=== PATIENT | female | born 1965 | race Caucasian/White ===

== ENCOUNTER → 2016-05-21 | Outpatient (CLI) | payer OTHER ==
[~2016-05-21] MED LIST: ALBUAER19 INH; AMOX500C3 PO; CHOL2000 PO; CLC/300 PO; CYCL5TAB PO; EPP3 IM; FENT25DI2 TD; FURO40TA3 PO; INSDGIPEN SC; INSUINJ34 SQ; LIRA18IN SUBCON; LPT/40 PO; MCRK20 PO; METO-551 PO; OMEP20TA PO; OXYC-106 PO; OXYC-59 PO; POLY335040 PO; QUET1TAB37 PO; ROPI1TAB PO; RQP2 PO
[2016-05-21 18:54] LABS: PREALBUMIN 14.8 mg/dl (20-40)
[2016-05-22 06:23] LABS: ESTIMATED AVERAGE GLUCOSE 243 mg/dl; HA1C FLAG Normal (Normal)
--- NOTE | 2016-05-24 06:57 | CODING QUERY NO DIAGNOSIS ---
Valid Physician Order Needed A valid physician order must be submitted in order to properly bill for the service(s) provided, including date of service(s), valid diagnosis, and physician signature. If these tests are done on a recurring basis the original physican order must be submitted in order to code and bill for the service(s) provided. Please fax us the original, signed physician order so that we may expedite billing to [phone] DOS 05/21/16 * ALBUMIN, PREALBUMIN, HEMOGLOBIN A1C ORDERED BY DR. SARMIENTO Thank you Rocio [facility]
--- NOTE | 2016-06-22 08:45 | CODING QUERY NO DIAGNOSIS ---
TREATMENT RENDERED WITHOUT A DIAGNOSIS To promote full compliance with coding requirements relating to patient care, physician participation is requested in all cases of auditing coder uncertainty. Please assist us with providing a diagnosis/symptom for the test(s) below: A diagnosis/symptom was not documented on your Order. A valid diagnosis/symptom is required to bill all insurances. Please remember that we are unable to code a diagnosis of rule out, probable, possible, questionable, or suspected. Tests that require a diagnosis: DOS: 05/21/16 * ALBUMIN DIAGNOSIS: * PREALBUMIN DIAGNOSIS: * HEMOGLOBIN A1C DIAGNOSIS: Provider Signature: Date: Thank you Rocio Andres [facility] Information Management Once completed, please kindly fax back to [phone] For questions please call [phone]
== END | disposition home or self-care (01) ==
LOC: C.LABSPEC 12:47
PROVIDERS: ATTEND Emergency Medicine
DX: E11.622 Type 2 diabetes mellitus with other skin ulcer (principal)

== ENCOUNTER → 2016-06-29 | Outpatient (CLI) | payer OTHER ==
[~2016-06-29] MED LIST changes: -CLC/300 PO
[2016-06-29 17:55] LABS: ALT/SGPT 25 U/L (12-78); BLOOD UREA NITROGEN 9 mg/dl (7-18); BUN/CREATININE RATIO 9.2 (10-20); CALCIUM 8.9 mg/dl (8.5-10.1); CARBON DIOXIDE 34 mmol/L (21-32); CHLORIDE 98 mmol/L (98-107); CREATININE 0.98 mg/dl (0.60-1.20); GLUCOSE 207 mg/dl (70-99); POTASSIUM 3.9 mmol/L (3.5-5.1); SODIUM 138 mmol/L (136-145)
[2016-06-29 17:58] LABS: ALB/GLOB RATIO 0.7 (0.9-2); ALKALINE PHOSPHATASE 61 U/L (45-117); AST/SGOT 18 U/L (15-37); CHOLESTEROL 140 mg/dl (0-200); CHOLESTEROL/HDL RATIO 5.2; HDL CHOLESTEROL 27 mg/dl; LDL CHOLESTEROL CALCULATED 79 mg/dl; TRIGLYCERIDES 169 mg/dl (0-150); VERY LOW DENSITY LIPOPROT CALC 34 mg/dl
[2016-06-30 06:11] LABS: ESTIMATED AVERAGE GLUCOSE 223 mg/dl; HA1C FLAG Normal (Normal)
== END | disposition home or self-care (01) ==
LOC: C.LABPVFM 16:00
PROVIDERS: ATTEND Nurse Practitioner
DX: I10 Essential (primary) hypertension (principal); E78.5 Hyperlipidemia, unspecified; E11.9 Type 2 diabetes mellitus without complications; E55.9 Vitamin D deficiency, unspecified

== ENCOUNTER → 2017-04-12 | Outpatient (CLI) | payer OTHER ==
[2017-04-12 18:12] LABS: ALT/SGPT 12 U/L (12-78); AST/SGOT 8 U/L (15-37); BLOOD UREA NITROGEN 10 mg/dl (7-18); BUN/CREATININE RATIO 8.6 (10-20); CALCIUM 8.5 mg/dl (8.5-10.1); CARBON DIOXIDE 32 mmol/L (21-32); CHLORIDE 97 mmol/L (98-107); CREATININE 1.15 mg/dl (0.60-1.20); GLUCOSE 163 mg/dl (70-99); POTASSIUM 3.8 mmol/L (3.5-5.1); SODIUM 135 mmol/L (136-145)
[2017-04-12 18:13] LABS: ALB/GLOB RATIO 0.7 (0.9-2); ALKALINE PHOSPHATASE 64 U/L (45-117); CHOLESTEROL 98 mg/dl (0-200); CHOLESTEROL/HDL RATIO 4.9; HDL CHOLESTEROL 20 mg/dl; LDL CHOLESTEROL CALCULATED 55 mg/dl; TRIGLYCERIDES 116 mg/dl (0-150); VERY LOW DENSITY LIPOPROT CALC 23 mg/dl
[2017-04-13 06:34] LABS: ESTIMATED AVERAGE GLUCOSE 169 mg/dl; HA1C FLAG Normal (Normal)
== END | disposition home or self-care (01) ==
LOC: C.LABPVFM 11:56
PROVIDERS: ATTEND Nurse Practitioner
DX: E78.5 Hyperlipidemia, unspecified (principal); I10 Essential (primary) hypertension; E11.9 Type 2 diabetes mellitus without complications; E55.9 Vitamin D deficiency, unspecified

== ENCOUNTER 2017-08-26 13:44 | Emergency (ER) | payer OTHER ==
[~2017-08-26] VITALS: Ht 180.3 cm; Wt 181.3 kg
[~2017-08-26 13:44] MED LIST changes: -OXYC-106 PO; +OXYC10TA80 PO
[2017-08-26 14:01] VITALS: TEMP 37.3; Ht 180.3 cm; Wt 181.3 kg
[2017-08-26] MEDS ORDERED: ALBUT/IPRATROP 3MG/0.5MG NEB 3 ML VIAL INH STA (14:03)
[2017-08-26 14:23] VITALS: O2SAT 96
--- NOTE | 2017-08-26 14:28 | DIAGNOSTIC IMAGING REPORT ---
CHEST ONE VIEW PORTABLE CLINICAL HISTORY: 51 years-old Female presenting with sob. TECHNIQUE: Portable upright AP view of the chest was obtained. COMPARISON: 05/03/2014. FINDINGS: Atherosclerosis of aortic arch. Cardiac silhouette enlarged. Pulmonary vascular prominence. No focal opacity. No large effusion or pneumothorax. Osseous structures normal. IMPRESSION: 1. Cardiomegaly with pulmonary vascular prominence/congestive change. No fernie pulmonary edema. Electronically signed by: David Hsu M.D. 08/26/2017 2:27 PM Dictated Date/Time: 08/26/2017 2:26 PM
[2017-08-26 15:07] LABS: INR 1.1 (0.9-1.1); PTT PATIENT 27.2 SECONDS (21.0-31.0)
[2017-08-26 15:17] LABS: ALBUMIN 3.5 gm/dl (3.4-5.0); ALT/SGPT 14 U/L (12-78); AST/SGOT 11 U/L (15-37); BLOOD UREA NITROGEN 11 mg/dl (7-18); CALCIUM 8.9 mg/dl (8.5-10.1); CARBON DIOXIDE 36 mmol/L (21-32); CREATININE 0.92 mg/dl (0.60-1.20); GLUCOSE 196 mg/dl (70-99); POTASSIUM 3.8 mmol/L (3.5-5.1); SODIUM 134 mmol/L (136-145)
[2017-08-26 15:21] LABS: ALKALINE PHOSPHATASE 63 U/L (45-117); CKMB 0.7 ng/ml (0.5-3.6); TOTAL PROTEIN 8.6 gm/dl (6.4-8.2)
[2017-08-26] MEDS ORDERED: OXYCODONE/ACETAMINOPHEN 5-325 TAB PO STA (16:08)
[2017-08-26] MEDS ORDERED: OPTIRAY 320 IV PRN (16:15)
[2017-08-26 16:39] LABS: BASO % 0.5 %; BASO ABS # 0.03 K/uL (0-0.2); EOS % 1.4 %; EOS ABS # 0.08 K/uL (0-0.5); HEMATOCRIT 39.5 % (37-47); HEMOGLOBIN 11.5 g/dL (12.0-16.0); IG# 0.01 K/uL (0.00-0.02); LYMPH % 28.2 %; LYMPH ABS # 1.59 K/uL (1.2-3.4); MEAN CELL VOLUME 79.2 fL (80-100); MEAN CORPUSCULAR HGB CONC 29.1 g/dl (32-36); MEAN PLATELET VOLUME 8.8 fL (7.4-10.4); MONO ABS # 0.62 K/uL (0.11-0.59); NEUT % 58.7 %; PLATELET COUNT 203 K/uL (130-400); RED CELL DISTRIBUTION WIDTH CV 19.7 % (11.5-14.5); WHITE BLOOD COUNT 5.63 K/uL (4.8-10.8)
[2017-08-26] MEDS ORDERED: FRS/40 PO (17:43)
[2017-08-26] MEDS ORDERED: NRN400 PO (17:43)
[2017-08-26] MEDS ORDERED: INSU100I23 SQ (17:43)
[2017-08-26] MEDS ORDERED: DRGTP12 TD (17:43)
[2017-08-26] MEDS ORDERED: APDI SC (17:43)
[2017-08-26] MEDS ORDERED: QUET1TAB37 PO (17:43)
[2017-08-26] MEDS ORDERED: VNTHFA/IN INH (17:43)
[2017-08-26] MEDS ORDERED: GABA-1220 PO (17:43)
[2017-08-26] MEDS ORDERED: LIRA18IN SQ (17:43)
[2017-08-26] MEDS ORDERED: CYCL5TAB PO (17:43)
[2017-08-26] MEDS ORDERED: OXYC10TA80 PO (17:43)
[2017-08-26] MEDS ORDERED: OMEP-331 PO (17:43)
[2017-08-26] MEDS ORDERED: METO50TA16 PO (17:43)
[2017-08-26] MEDS ORDERED: CHOLCAP2 PO (17:43)
[2017-08-26] MEDS ORDERED: ROPI1TAB PO ×2 (17:43)
[2017-08-26] MEDS ORDERED: POTA-639 PO (17:43)
--- NOTE | 2017-08-26 20:14 | DIAGNOSTIC IMAGING REPORT ---
(CHEST FOR PE) ANGIO WITH CT DOSE: 823.24 mGy.cm HISTORY: Chest pain. Dyspnea. TECHNIQUE: Multiaxial CT images of the chest were performed following the intravenous administration of contrast to evaluate the pulmonary arteries. Maximal intensity projection images were also obtained. A dose lowering technique was utilized adhering to the principles of ALARA. COMPARISON STUDY: None. FINDINGS: Limited study technically due to patient body habitus as well as respiratory and somatic motion. Bulk of the arterial vasculature enhances appropriately. There are no major filling defect. There are several reactive mediastinal and/or hilar nodes measuring up to 1 cm. Lungs are considered clear. There are no focal infiltrative changes. Limited evaluation of the upper abdomen shows presence of moderate hepatomegaly as well as mild splenomegaly. IMPRESSION: 1. No evidence for pulmonary embolus. 2. Lungs are clear. 3. Mild hepatosplenomegaly. The above report was generated using voice recognition software. It may contain grammatical, syntax or spelling errors. Electronically signed by: Walker Magaña M.D. 08/26/2017 5:59 PM Dictated Date/Time: 08/26/2017 5:56 PM
--- NOTE | 2017-08-26 20:18 | EMERGENCY ROOM VISIT NOTE ---
History Report prepared by Bebeto: Kyler jose Under the Supervision of: Dr. Lincoln Emerson D.O. First contact with patient: 13:47 Stated Complaint: RESPIRATORY History of Present Illness The patient is a 51 year old female who presents to the Emergency Room via ALS with complaints of worsening shortness of breath that was first noticed this morning. The patient states that she has been experiencing a cough for the past couple of days. The cough is producing a "greyish" mucous. Her daughter at bedside notes that her O2 levels dropped down to 79% while the patient was at rest, and then to 65% while the patient was walking to the restroom. She does have O2 at home, but only uses it as needed. The patient has had the home O2 since being evaluated for sleep apnea. Source of History: patient Onset: This morning Position: chest Symptom Intensity: 69% O2 sat Quality: other (SOB) Timing: worsening Associated Symptoms: + cough Review of Systems See HPI for pertinent positives & negatives. A total of 10 systems reviewed and were otherwise negative. Past Medical & Surgical Medical Problems: (1) ANXIETY STATE NOS (2) BODY MASS INDEX 40 AND OVER, ADULT (3) CHRONIC KIDNEY DISEASE, UNSPECIFIED (4) DIAB GIOVANNI WO COMPL, TYPE II OR UNSPEC TYPE, UNCONTROLLED (5) ESOPHAGEAL REFLUX (6) FAM HX-DIABETES MELLITUS (7) FAMILY HX-MALIGNANCY NOS (8) HYPERLIPIDEMIA NEC/NOS (9) HYPERTENSION NOS (10) LUMBAGO (11) MORBID OBESITY (12) OPIOID DEPENDENCE-UNSPEC (13) OSTEOARTHROS NOS-L/LEG (14) TOBACCO USE DISORDER Social History Smoking Status: Current Every Day Smoker Alcohol Use: none Drug Use: none Marital Status: Housing Status: lives with family Occupation Status: disabled Current/Historical Medications Scheduled Cholecalciferol (D3-50), 50,000 CAP PO WK Cyclobenzaprine Hcl (Flexeril), 5 MG PO TID Fentanyl (Fentanyl), 12 MCG TD [id number] Furosemide (Lasix), 60 MG PO DAILY Gabapentin (Gabapentin), 400 MG PO BID Gabapentin (Neurontin), 800 MG PO HS Insulin Glargine (Basaglar Kwikpen), 50 UNITS SQ BID Insulin Glulisine (Apidra Solostar), 50 UNITS SC BID Liraglutide (Victoza), 1-2 UNITS SQ DAILY Metoprolol Tartrate (Lopressor) (Lopressor), 50 MG PO DAILY Omeprazole (Omeprazole Dr), 20 MG PO BID Potassium Ext Rel (Klor-Con), 20 MEQ PO DAILY Quetiapine Fumarate (Seroquel), 300 MG PO BID Ropinirole (Requip), 1 MG PO BID Ropinirole (Requip), 2 MG PO HS Scheduled PRN Albuterol Hfa (Ventolin Hfa), 2-4 PUFFS INH Q6H PRN for Shortness of Breath Oxycodone/Acetaminophen 10MG/325MG (Percocet 10MG/325MG), 1 TAB PO QID PRN for Pain Allergies Coded Allergies: BEE STING (Verified Allergy, Mild, 08/26/17) Hydrocodone (Verified Adverse Reaction, Intermediate, itching, 08/26/17) itching Physical Exam Vital Signs Date Time Temp Pulse Resp B/P (MAP) Pulse Ox O2 Delivery O2 Flow Rate FiO2 08/26/17 17:51 73 155/72 93 Nasal Cannula 2.0 Manual 08/26/17 15:52 70 22 137/65 92 Nasal Cannula 4.0 08/26/17 14:23 96 Nasal Cannula 5.0 08/26/17 14:23 93 Nasal Cannula 5.0 08/26/17 14:02 93 Nasal Cannula 5.0 08/26/17 14:01 37.3 74 24 149/64 82 Room Air 08/26/17 14:01 82 Room Air Physical Exam CONSTITUTIONAL/VITAL SIGNS: Reviewed / noted above. GENERAL: Non-toxic in appearance. INTEGUMENTARY: Warm, dry, and [place]. HEAD: Normocephalic. EYES: without scleral icterus or trauma. ENT/OROPHARYNX: clear and moist. LYMPHADENOPATHY/NECK: Is supple without lymphadenopathy or meningismus. RESPIRATORY: Diminished breath sounds bilaterally. CARDIOVASCULAR: Regular rate and rhythm. GI/ABDOMEN: Soft and nontender. No organomegaly or pulsatile mass. No rebound or guarding. Normal bowel sounds. EXTREMITIES: Warm and well perfused. Chronic bilateral lower extremity edema. BACK: No CVA tenderness. NEUROLOGICAL: Intact without focal deficits. PSYCHIATRIC: normal affect. MUSCULOSKELETAL: Normally developed with good muscle tone. Medical Decision & Procedures ER Provider Diagnostic Interpretation: Radiology results as stated below per my review and radiologist interpretation: CHEST ONE VIEW PORTABLE CLINICAL HISTORY: 51 years-old Female presenting with sob. TECHNIQUE: Portable upright AP view of the chest was obtained. COMPARISON: 05/03/2014. FINDINGS: Atherosclerosis of aortic arch. Cardiac silhouette enlarged. Pulmonary vascular prominence. No focal opacity. No large effusion or pneumothorax. Osseous structures normal. IMPRESSION: 1. Cardiomegaly with pulmonary vascular prominence/congestive change. No fernie pulmonary edema. Electronically signed by: David Hsu M.D. 08/26/2017 2:27 PM Dictated Date/Time: 08/26/2017 2:[address] scan of the chest for PE: Impression by radiologist: No evidence for pulmonary emboli. Lungs are clear. Mild hepatosplenomegaly. Laboratory Results 08/26/17 14:30 Red Blood Count 4.99, Mean Corpuscular Volume 79.2, Mean Corpuscular Hemoglobin 23.0, Mean Corpuscular Hemoglobin Concent 29.1, Mean Platelet Volume 8.8, Neutrophils (%) (Auto) 58.7, Lymphocytes (%) (Auto) 28.2, Monocytes (%) (Auto) 11.0, Eosinophils (%) (Auto) 1.4, Basophils (%) (Auto) 0.5, Neutrophils # (Auto ) 3.30, Lymphocytes # (Auto) 1.59, Monocytes # (Auto) 0.62, Eosinophils # (Auto ) 0.08, Basophils # (Auto) 0.03 08/26/17 14:30 Test 08/26/17 14:30 08/26/17 17:44 White Blood Count 5.63 K/uL (4.8-10.8) Red Blood Count 4.99 M/uL (4.2-5.4) Hemoglobin 11.5 g/dL (12.0-16.0) Hematocrit 39.5 % (37-47) Mean Corpuscular Volume 79.2 fL (80-100) Mean Corpuscular Hemoglobin 23.0 pg (25-34) Mean Corpuscular Hemoglobin Concent 29.1 g/dl (32-36) Platelet Count 203 K/uL (130-400) Mean Platelet Volume 8.8 fL (7.4-10.4) Neutrophils (%) (Auto) 58.7 % Lymphocytes (%) (Auto) 28.2 % Monocytes (%) (Auto) 11.0 % Eosinophils (%) (Auto) 1.4 % Basophils (%) (Auto) 0.5 % Neutrophils # (Auto) 3.30 K/uL (1.4-6.5) Lymphocytes # (Auto) 1.59 K/uL (1.2-3.4) Monocytes # (Auto) 0.62 K/uL (0.11-0.59) Eosinophils # (Auto) 0.08 K/uL (0-0.5) Basophils # (Auto) 0.03 K/uL (0-0.2) RDW Standard Deviation 57.0 fL (36.4-46.3) RDW Coefficient of Variation 19.7 % (11.5-14.5) Immature Granulocyte % (Auto) 0.2 % Immature Granulocyte # (Auto) 0.01 K/uL (0.00-0.02) Microcytosis PRESENT Prothrombin Time 11.4 SECONDS (9.0-12.0) Prothromb Time International Ratio 1.1 (0.9-1.1) Activated Partial Thromboplast Time 27.2 SECONDS (21.0-31.0) Partial Thromboplastin Ratio 1.0 Anion Gap 4.0 mmol/L (3-11) Est Creatinine Clear Calc Drug Dose 134.3 ml/min Estimated GFR () 84.7 Estimated GFR (Non- 73.1 BUN/Creatinine Ratio 12.3 (10-20) Calcium Level 8.9 mg/dl (8.5-10.1) Total Bilirubin 0.6 mg/dl (0.2-1) Aspartate Amino Transf (AST/SGOT) 11 U/L (15-37) Alanine Aminotransferase (ALT/SGPT) 14 U/L (12-78) Alkaline Phosphatase 63 U/L (45-117) Total Creatine Kinase 74 U/L (26-192) Creatine Kinase MB 0.7 ng/ml (0.5-3.6) Creatine Kinase MB Ratio 0.9 (0-3.0) Troponin I < 0.015 ng/ml (0-0.045) Total Protein 8.6 gm/dl (6.4-8.2) Albumin 3.5 gm/dl (3.4-5.0) Globulin 5.1 gm/dl (2.5-4.0) Albumin/Globulin Ratio 0.7 (0.9-2) Bedside Glucose 247 mg/dl (70-90) Laboratory results as stated above per my review. Medications Administered Medications (Trade) Dose Ordered Sig/Pierce Route Start Time Stop Time Status Last Admin Dose Admin Albuterol/ Ipratropium (Duoneb) 3 ml NOW STAT INH 08/26/17 14:03 08/26/17 14:05 DC 08/26/17 14:24 3 ML Oxycodone/ Acetaminophen (Percocet 5-325mg Tab) 1 tab NOW STAT PO 08/26/17 16:08 08/26/17 16:09 DC 08/26/17 16:25 1 TAB ECG Per My Interpretation Indication: weakness Rate (beats per minute): 70 Rhythm: normal sinus Findings: RBBB, other (No BENNETT, no PVCs) ED Course 1359: Previous medical records were reviewed. The patient was evaluated in room C2B. A complete history and physical examination was performed. 1403: Ordered DuoNeb 3 mL INH. 1608: Ordered Oxycodone 1 tablet PO. Medical Decision Differentials considered include acute myocardial infarction, acute coronary syndrome, myocarditis, pericarditis, pericardial effusions /tamponade, esophageal perforation, pulmonary embolism, pneumonia, pneumothorax, cardiomyopathy, congestive heart, anemia, and COPD/asthma exacerbation. This is a 51-year-old female who presents to the ED with a chief complaint of shortness of breath, cough and low pulse ox. The patient does not use home oxygen regularly. She does have it at home for use at night for sleep apnea. The patient reports that she has had increasing shortness of breath and cough over the past couple of days. The patient states that she had 79% saturations at home and 65% after exerting herself going to the bathroom and walking back to her room. She otherwise does not report any fevers, chest pains or other symptoms. The patient on exam is obese. She is noted to have oxygen saturation of 82% on room air here. She has chronic lower extremity edema. Diminished breath sounds bilaterally. Chest x-ray reveals some findings suggesting vascular prominence but otherwise no acute disease. Troponin was negative, complete metabolic panel is unremarkable, glucose was slightly elevated at 196 and an EKG shows a normal sinus rhythm with a right bundle branch block. A CT scan of the chest did not show any acute abnormality. After talking to the patient about her symptoms, she seems to be fine when using some supplemental oxygen of 2-3 L. Her oxygen saturations in the mid 90s on 2 L. The patient would like to go home. She was advised to use the oxygen as needed to maintain her oxygen saturations above 90%. She does have a pulse ox at home. She was also advised to use oxygen while exerting herself and to follow-up with her PCP for further evaluation. She does have inhalers at home. On her current exam, her lungs are clear. She is in no distress. I suspect that her symptoms are likely multifactorial including a large factor being her size and restrictive lung disease. Impression Primary Impression: Shortness of breath Additional Impression: Restrictive airway disease Scribe Attestation The scribe's documentation has been prepared under my direction and personally reviewed by me in its entirety. I confirm that the note above accurately reflects all work, treatment, procedures, and medical decision making performed by me. Departure Information Referrals Nuha Welch C.R.N.P (PCP) Additional Instructions Follow-up with your doctor for further care and evaluation in 1-4 days. Return to the emergency department for worsening or new symptoms or any concerns. You have been examined and treated today on an emergency basis only. This is not a substitute for, or an effort to provide, complete comprehensive medical care. It is impossible to recognize and treat all injuries or illnesses in a single emergency department visit. It is therefore important that you follow up closely with your doctor. Call as soon as possible for an appointment. Use oxygen as needed at home to maintain oxygen saturations above 90%. Problem Qualifiers
[2017-08-26 20:51] VITALS: BP 138/70; PULSE 70; O2SAT 93
== END 2017-08-26 20:52 | disposition home or self-care (01) ==
LOC: EDBD 13:44 → C.EDC 13:46
DX: J45.909 Unspecified asthma, uncomplicated (principal); F41.9 Anxiety disorder, unspecified; N18.9 Chronic kidney disease, unspecified; I12.9 Hypertensive chronic kidney disease with stage 1 through stage 4 chronic kidney disease, or unspecified chronic kidney disease; K21.9 Gastro-esophageal reflux disease without esophagitis; G47.30 Sleep apnea, unspecified; E78.5 Hyperlipidemia, unspecified; I45.10 Unspecified right bundle-branch block; E66.01 Morbid (severe) obesity due to excess calories; Z68.41 Body mass index [BMI] 40.0-44.9, adult; F17.210 Nicotine dependence, cigarettes, uncomplicated; Z83.3 Family history of diabetes mellitus; Z80.9 Family history of malignant neoplasm, unspecified; Z79.899 Other long term (current) drug therapy; Z79.84 Long term (current) use of oral hypoglycemic drugs; Z88.5 Allergy status to narcotic agent; Z91.030 Bee allergy status

== ENCOUNTER → 2017-11-22 | Outpatient (CLI) | payer OTHER ==
[~2017-11-22] MED LIST changes: -ALBUAER19 INH; -AMOX500C3 PO; +APDI SC; -CHOL2000 PO; +CHOLCAP2 PO; +DRGTP12 TD; -EPP3 IM; -FENT25DI2 TD; +FRS/40 PO; -FURO40TA3 PO; +GABA-1220 PO; -INSDGIPEN SC; +INSU100I23 SQ; -INSUINJ34 SQ; +LIRA18IN SQ; -LIRA18IN SUBCON; -LPT/40 PO; -MCRK20 PO; -METO-551 PO; +METO50TA16 PO; +NRN400 PO; +OMEP-331 PO; -OMEP20TA PO; -OXYC-59 PO; +OXYC-594 PO; -OXYC10TA80 PO; -POLY335040 PO; +POTA-639 PO; -RQP2 PO; +VNTHFA/IN INH
--- NOTE | 2017-11-26 15:06 | ECHOCARDIOGRAM REPORT ---
*NOTICE TO RECEIVING DEMOCRAT AGENCY This information is strictly Confidential and protected under [place] law. [place] law prohibits you from making any further disclosure of this information unless further disclosure is expressly permitted by the written consent of the person to whom it pertains or is authorized by law. A general authorization for the release of medical or other information is not sufficient for this purpose. Hospital accepts no responsibility if the information is made available to any other person, INCLUDING THE PATIENT. Interpretation Summary * Name: ZHAO GREGORY Study Date: 11/22/2017 12:47 PM * Patient Location: [facility], [place] HR: 77 * : 1965 (M/d/yyyy) Gender: Female Height: 71 in * Age: 51 yrs Ethnicity: [place] Weight: 350 lb * Ordering Physician: Serene Felipe * Referring Physician: Serene Felipe PA-C * Performed By: Zahra Mosher RDCS * * Reason For Study: DYSPNEA * BSA: 2.7 m2 * -- Conclusions -- * Technically limited study. * Left ventricular systolic function is normal. * No regional wall motion abnormalities noted. * Ejection Fraction = 55-60%. Procedure Details * The study was technically limited. * The study was technically difficult. * Limited views were obtained. * There were technical limitations due to patient'sbody habitus * A contrast injection of Definity was performed to improve assessment of LV function. * Contrast was injected into an intravenous site in the left arm. * One vial of Definity ultrasound contrast was diluted in normal saline to a total volume of 10 ml. A total of '3' ml of solution was administered during imaging. * Lot # [id number] of Definity utilized for procedure. * Expiration date 11/14. * The attending nurse who injected the contrast agent was TORIN CLARKE RN. Left Ventricle * The left ventricle is grossly normal size. * There is normal left ventricular wall thickness. * Ejection Fraction = 55-60%. * Left ventricular systolic function is normal. * No regional wall motion abnormalities noted. Right Ventricle * The right ventricle is not well visualized. Atria * The left atrium is mildly dilated. * Right atrium not well visualized. * The atrial septum is not well visualized. Mitral Valve * The mitral valve is grossly normal. * There is no mitral valve stenosis. * Significant mitral regurgitation is absent. Tricuspid Valve * The tricuspid valve is not well visualized. * Significant tricuspid regurgitation is absent. Aortic Valve * The aortic valve is not well visualized. * The aortic valve opens well. * No hemodynamically significant valvular aortic stenosis. * There is no significant aortic regurgitation. Pulmonic Valve * The pulmonary valve is not well seen, but the Doppler examination is normal without significant regurgitation or stenosis. Great Vessels * The aortic root is normal size. * The pulmonary is not well visualized. Pericardium/Pleural * There is no pericardial effusion. Great Vessels * The inferior vena cava is not well visualized. MMode 2D Measurements and Calculations IVSd 1.2 cm IVSs 1.4 cm LVIDd 4.2 cm LVIDs 3.0 cm LVPWd 1.6 cm LVPWs 2.8 cm IVS/LVPW 0.77 FS 30.0 % EDV(Teich) 79.4 ml ESV(Teich) 33.7 ml EF(Teich) 57.6 % EDV(cubed) 75.0 ml ESV(cubed) 25.8 ml EF(cubed) 65.7 % % IVS thick 18.2 % % LVPW thick 81.6 % LV mass(C)d 220.1 grams LV mass(C)dI 82.3 grams/m\S\2 LV mass(C)s 289.1 grams LV mass(C)sI 108.1 grams/m\S\2 SV(Teich) 45.7 ml SI(Teich) 17.1 ml/m\S\2 SV(cubed) 49.3 ml SI(cubed) 18.4 ml/m\S\2 asc Aorta Diam 2.5 cm LVAd ap4 28.6 cm\S\2 LVLd ap4 8.2 cm EDV(MOD-sp4) 83.2 ml EDV(sp4-el) 85.1 ml LVAs ap4 16.5 cm\S\2 LVLs ap4 6.2 cm ESV(MOD-sp4) 35.5 ml ESV(sp4-el) 36.9 ml EF(MOD-sp4) 57.3 % EF(sp4-el) 56.7 % LVAd ap2 28.8 cm\S\2 LVLd ap2 8.2 cm EDV(MOD-sp2) 81.6 ml EDV(sp2-el) 85.6 ml LVAs ap2 17.5 cm\S\2 LVLs ap2 7.2 cm ESV(MOD-sp2) 35.0 ml ESV(sp2-el) 36.0 ml EF(MOD-sp2) 57.1 % EF(sp2-el) 57.9 % LVLd %diff 0.35 % EDV(MOD-bp) 83.7 ml LVLs %diff 13.0 % ESV(MOD-bp) 36.6 ml EF(MOD-bp) 56.3 % SV(MOD-sp4) 47.7 ml SI(MOD-sp4) 17.8 ml/m\S\2 SV(MOD-sp2) 46.6 ml SI(MOD-sp2) 17.4 ml/m\S\2 SV(MOD-bp) 47.1 ml SI(MOD-bp) 17.6 ml/m\S\2 SV(sp4-el) 48.2 ml SI(sp4-el) 18.0 ml/m\S\2 SV(sp2-el) 49.6 ml SI(sp2-el) 18.5 ml/m\S\2 Doppler Measurements and Calculations MV E max allyssa 91.1 cm/sec MV A max allyssa 80.7 cm/sec MV E/A 1.1 MV dec time 0.29 sec Ao V2 max 136.3 cm/sec Ao max PG 7.4 mmHg Ao max PG (full) 2.8 mmHg LV V1 max PG 4.6 mmHg LV V1 max 107.4 cm/sec PA V2 max 70.9 cm/sec PA max PG 2.0 mmHg
== END | disposition home or self-care (01) ==
LOC: C.CPL 12:26
PROVIDERS: ATTEND Physician Assistant
DX: R06.00 Dyspnea, unspecified (principal)

== ENCOUNTER 2021-04-02 11:27 | Inpatient (IN) ==
[2021-04-02] MEDS ORDERED: ALBUT/IPRATROP 3MG/0.5MG NEB 3 ML VIAL NEB ONE (12:08)
[2021-04-02] MEDS ORDERED: SODIUM CHLORIDE 0.9% 1000ML 500 ML IV ONE (12:10)
[2021-04-02] MEDS ORDERED: dexAMETHasone**PF** 10 MG/ML VIAL IV ONE (12:10)
[2021-04-02] MEDS ORDERED: cefTRIAXone SODIUM 2,000 MG/70 ML BAG IV STA (12:10)
--- NOTE | 2021-04-02 12:16 | Emergency Department Note ---
Impression & Plan Respiratory distress, Anemia, SOB (shortness of breath), Pneumonia, COVID-19 ED Provider Note NAME: ZHAO GREGORY AGE: 55 SEX: F : 1965 ARRIVES VIA: Ambulance INFORMANT: [Patient] ED PROVIDER(S): [Silviano Dominguez MD] CHIEF COMPLAINT: Illness HISTORY OF PRESENT ILLNESS: The patient is a 55-year-old female who presents to the ER with about a week of symptoms. She has had increasing shortness of breath and a slight cough. She has had no issues with her taste or smell, no vomiting or diarrhea, no fever, no body aches, no chest pain. She does feel quite thirsty. The patient is chronically on oxygen at 5 to 6 L. She has COPD. She is quite overweight. The patient was exposed to a family member who tested positive for Covid. The patient is not vaccinated for COVID-19 or influenza. REVIEW OF SYSTEMS: See HPI for pertinent positives and negatives. A total of ten systems were reviewed and were otherwise negative. PMHx/PSHx: See Below SOCIAL HISTORY: See Below. PHYSICAL EXAM: GENERAL: Patient is in mild respiratory distress. HEENT: No acute trauma, normocephalic atraumatic, mucous membranes dry, no nasal congestion, no scleral icterus. NECK: No stridor, no adenopathy, no meningismus, trachea is midline. LUNGS: There are wheezes heard bilaterally when listening anteriorly. Breath sounds are somewhat diminished. There is increased respiratory rate. Mild respiratory distress noted. HEART: Without murmurs gallops or rubs, regular rate and rhythm. ABDOMEN: Soft, nontender, bowel sounds positive, no hernias, no peritonitis. EXTREMITIES: No cyanosis, significant bilateral pedal edema, full range of motion of all the joints without pain or difficulty, no signs for acute trauma. NEUROLOGIC: Oriented x 3, no acute motor or sensory deficits, no focal weakness. SKIN: No rash, no jaundice, no diaphoresis. DIFFERENTIAL DIAGNOSIS: Reactive airway disease, pneumonia, pneumothorax, COPD, COVID-19, influenza, CO2 retention, CHF, infection, cardiac ischemia, pulmonary embolism, bronchitis, musculoskeletal, gastrointestinal, as well as other pathologies. EMERGENCY DEPARTMENT COURSE/PROCEDURES: ECG: Indication was shortness of breath. The ECG shows a normal sinus rhythm with a rate of 80. There is a right bundle branch block. There is no ST elevation, no PVCs. QTC is 465. Compared to an ECG of 26 August 2017, there is no significant change. Continuous Cardiac Monitoring: An order was placed for continuous cardiac monitoring. The monitor shows a rate of 79 with normal sinus rhythm. Critical Care Note: I have personally spent 43 minutes of critical care time in the direct management of this patient. This includes bedside care, interpretation of diagnostic studies, and testing, discussion with consultants, patient, and family members, and other required patient management activities. This 43 minutes is in excess of all separately billable procedures. MEDICAL DECISION MAKING: There is no leukocytosis. The patient is anemic. She has a history of anemia but her value today is lower than her typical values. There is a normal platelet count. No worrisome coagulopathy. ABG shows a compensated respiratory acidosis. No significant electrolyte abnormality or kidney failure. Lactic acid level is not elevated making sepsis less likely. No worrisome liver enzyme elevation. ECG shows a sinus rhythm, no acute ischemia. Cardiac enzyme testing x1 is not not consistent with acute cardiac injury. BNP is not elevated making CHF less likely. Bio fire testing was positive for COVID-19. Chest film shows some congestion of the lower lungs thought possibly consistent with fluid overload versus infiltrate. No pneumothorax. On exam, the patient appeared to be short of breath. She was quite overweight. There was some mild respiratory distress. I heard some wheezing on her lung exam. She appeared dehydrated clinically. The patient was given IV Decadron, IV ceftriaxone, IV saline. 500 cc of saline was ordered. She was given a 1 hour DuoNeb and placed on BiPAP. I instructed the respiratory staff to keep her O2 saturation around 90%. The patient presents with shortness of breath. She was in some mild respiratory distress. She is overweight and has severe COPD. She is on chronic O2 therapy. She now has Covid pneumonia with a flare of her COPD and is in need of a hospital stay. I spoke with the patient, I talked to case management. The on-call hospitalist was consulted. The patient is aware of her findings. Past Med/Surg History Medical History Asthma-COPD overlap syndrome GERD (gastroesophageal reflux disease) Kidney calculi Morbid obesity Surgical History History of left knee surgery History of tubal ligation Family History Other Diabetes Dyslipidemia Denies family history of Coronary heart disease Cancer Stroke Social History Smoking Status: Current every day smoker Tobacco Type: Cigarettes Second Hand Exposure: Yes; Hx Alcohol Use: No Hx Substance Use: No Communication Ability: Effective Visual Impairment: Limited Beliefs That Will Affect Care: None marital status: Current Living Situation: Family current occupational status: disabled Feels Safe at Home: Yes caffeine: Yes Dental Care, Regularly: No Physical Activity Frequency: Daily Physical Activity Frequency Comment: streches Seatbelt Use: never Sunscreen Use: No Allergies Allergies Allergy/AdvReac Type Severity Reaction Status Date / Time bee venom protein (honey bee) Allergy Mild Verified 04/02/21 13:22 rosiglitazone [From Avandia] Allergy Verified 04/02/21 13:22 hydrocodone AdvReac Intermediate itching Verified 04/02/21 13:22 Home Meds Home Medications Medication Instructions Recorded Confirmed baclofen 20 mg tablet 20 mg PO TID 04/02/21 04/02/21 docusate sodium 100 mg capsule 100 mg PO TID PRN 04/02/21 04/02/21 insulin glargine 100 unit/mL (3 60 unit SQ DAILY 04/02/21 04/02/21 mL) subcutaneous pen (Lantus Solostar U-100 Insulin) liraglutide 0.6 mg/0.1 mL (18 mg/3 18 mg SUBCUT DAILY 04/02/21 04/02/21 mL) subcutaneous pen injector (Victoza 2-Venkatesh) metoprolol tartrate 50 mg tablet 50 mg PO BID 04/02/21 04/02/21 mometasone 0.1 % topical cream 1 applic TOPICAL UD 04/02/21 04/02/21 naloxone 4 mg/actuation nasal 1 spray INTRANASAL UD 04/02/21 04/02/21 spray (Narcan) oxycodone-acetaminophen 10 mg-325 1 tab PO QID PRN 04/02/21 04/02/21 mg tablet (Percocet) polyethylene glycol 3350 17 17 g PO DAILY PRN 04/02/21 04/02/21 gram/dose oral powder potassium chloride 20 mEq 20 meq PO DAILY 04/02/21 04/02/21 tablet,extended release(part/cryst) tiotropium bromide 2.5 2 puff INHALATION BID 04/02/21 04/02/21 mcg/actuation mist for inhalation (Spiriva Respimat) Previous Rx's Medication Instructions Recorded Oxygen Home #1 ea 09/07/19 albuterol sulfate 2.5 mg INH Q4H PRN #180 ml 09/08/19 Oxygen Home #1 ea 11/25/19 sit to stand lift #1 ea 11/25/19 blood-glucose meter (OneTouch #1 ea 11/26/19 Ultra2 Meter) lancets 30 gauge (OneTouch Delica #100 ea 12/01/19 Plus Lancet) omeprazole 20 mg capsule,delayed 20 mg PO BID #60 cap 03/11/20 release furosemide 40 mg tablet (Lasix) 60 mg PO DAILY #135 tab 04/14/20 ropinirole 1 mg tablet See Rx Instructions .ROUTE 04/14/20 .COMPLEX #120 tab sennosides 8.6 mg-docusate sodium 1 tab-cap PO TID #90 tab 05/24/20 50 mg tablet (Senna Plus) atorvastatin 10 mg tablet 10 mg PO DAILY #30 tab 07/26/20 quetiapine 300 mg tablet 300 mg PO BID #60 tab 08/08/20 amitriptyline 25 mg tablet 25 mg PO DAILY #30 tab 08/29/20 epinephrine 0.3 mg/0.3 mL See Rx Instructions .ROUTE 09/13/20 injection, auto-injector .COMPLEX #2 unspecified oxygen #1 ea 12/27/20 tolterodine 2 mg capsule,extended 2 mg PO DAILY #30 cap 12/27/20 release 24 hr (Detrol LA) blood sugar diagnostic #100 ea 01/06/21 gabapentin 400 mg capsule See Rx Instructions .ROUTE 01/06/21 .COMPLEX #120 capsule cholecalciferol (vitamin D3) 125 125 mcg PO DAILY #30 cap 01/23/21 mcg (5,000 unit) capsule insulin glulisine U-100 100 See Rx Instructions .ROUTE 02/17/21 unit/mL subcutaneous pen (Apidra .COMPLEX #15 milliliter SoloStar U-100 Insulin) CPAP Supplies #1 ea 11/04/21 pen needle, diabetic 31 gauge x #100 ea 03/10/2109/11" (BD Ultra-Fine Short Pen Needle) Results & Data (ED) Vital Signs Vital Signs - 24 hr 04/02/21 11:38 04/02/21 11:40 04/02/21 11:45 Temperature 37.2 C Temperature Source Oral Pulse Rate 79 79 81 Pulse Rate [Right Finger] Pulse Rate from SpO2 Sensor 79 79 Pulse Rhythm Regular Pulse Strength Normal Respiratory Rate 19 15 24 Respiratory Effort / Characteristics Labored Respiratory Depth Shallow Respiratory Pattern Blood Pressure 137/57 L Blood Pressure Mean 83 Pulse Oximetry 98 92 88 L Oxygen Delivery Method Nasal Cannula Oxygen Flow Rate 6 Fraction of Inspired Oxygen Sepsis Recent Fever Within 48 Hours Yes Sepsis New/Unexplained Change in Mental Status N/A Sepsis Action Taken by Nursing No Action Required End-Tidal CO2 70 04/02/21 11:50 04/02/21 12:00 04/02/21 12:10 Temperature Temperature Source Pulse Rate 80 80 108 H Pulse Rate [Right Finger] Pulse Rate from SpO2 Sensor 80 79 82 Pulse Rhythm Regular Pulse Strength Respiratory Rate 19 23 24 Respiratory Effort / Characteristics Respiratory Depth Respiratory Pattern Blood Pressure Blood Pressure Mean Pulse Oximetry 91 87 L 86 L Oxygen Delivery Method Nasal Cannula Oxygen Flow Rate 6 Fraction of Inspired Oxygen Sepsis Recent Fever Within 48 Hours Sepsis New/Unexplained Change in Mental Status Sepsis Action Taken by Nursing End-Tidal CO2 04/02/21 12:20 04/02/21 12:23 04/02/21 12:25 Temperature Temperature Source Pulse Rate 78 Pulse Rate [Right Finger] 79 Pulse Rate from SpO2 Sensor 79 Pulse Rhythm Pulse Strength Respiratory Rate 29 H 29 H Respiratory Effort / Characteristics Spontaneous Short of Breath SOB on Exertion Spontaneous Short of Breath SOB on Exertion Respiratory Depth Deep Respiratory Pattern Tachypnea Blood Pressure Blood Pressure Mean Pulse Oximetry 90 92 91 Oxygen Delivery Method BiPAP Oxygen Flow Rate Fraction of Inspired Oxygen 35 35 Sepsis Recent Fever Within 48 Hours Sepsis New/Unexplained Change in Mental Status Sepsis Action Taken by Nursing End-Tidal CO2 04/02/21 12:30 04/02/21 12:40 04/02/21 12:50 Temperature Temperature Source Pulse Rate 78 81 79 Pulse Rate [Right Finger] Pulse Rate from SpO2 Sensor 82 78 Pulse Rhythm Pulse Strength Respiratory Rate 25 H 21 23 Respiratory Effort / Characteristics Respiratory Depth Respiratory Pattern Blood Pressure Blood Pressure Mean Pulse Oximetry 92 92 Oxygen Delivery Method Oxygen Flow Rate Fraction of Inspired Oxygen Sepsis Recent Fever Within 48 Hours Sepsis New/Unexplained Change in Mental Status Sepsis Action Taken by Nursing End-Tidal CO2 04/02/21 13:00 04/02/21 13:10 04/02/21 13:20 Temperature Temperature Source Pulse Rate 80 80 83 Pulse Rate [Right Finger] Pulse Rate from SpO2 Sensor 80 80 83 Pulse Rhythm Pulse Strength Respiratory Rate 21 23 20 Respiratory Effort / Characteristics Respiratory Depth Respiratory Pattern Blood Pressure Blood Pressure Mean Pulse Oximetry 92 93 96 Oxygen Delivery Method Oxygen Flow Rate Fraction of Inspired Oxygen Sepsis Recent Fever Within 48 Hours Sepsis New/Unexplained Change in Mental Status Sepsis Action Taken by Nursing End-Tidal CO2 04/02/21 13:30 04/02/21 13:40 Temperature Temperature Source Pulse Rate 81 79 Pulse Rate [Right Finger] Pulse Rate from SpO2 Sensor 81 79 Pulse Rhythm Pulse Strength Respiratory Rate 22 21 Respiratory Effort / Characteristics Respiratory Depth Respiratory Pattern Blood Pressure Blood Pressure Mean Pulse Oximetry 95 91 Oxygen Delivery Method Oxygen Flow Rate Fraction of Inspired Oxygen Sepsis Recent Fever Within 48 Hours Sepsis New/Unexplained Change in Mental Status Sepsis Action Taken by Nursing End-Tidal CO2 Home Medications Current Medication List: was personally reviewed by me Laboratory Data Attestation: I reviewed the patient's lab results. Result diagrams: 04/02/21 11:40 04/02/21 11:40 Lab Results 04/02/21 04/02/21 04/02/21 Range/Units 11:40 11:40 11:40 WBC 5.08 (4.8-10.8) K/uL RBC 4.07 L (4.2-5.4) M/uL Hgb 9.1 L (12.0-16.0) g/dL Hct 32.7 L (37-47) % MCV 80.3 (80-100) fL MCH 22.4 L (25-34) pg MCHC 27.8 L (32-36) g/dL RDW Std Deviation 53.2 H (36.4-46.3) fL RDW Coeff of Curt 18.1 H (11.5-14.5) % Plt Count 176 (130-400) K/uL MPV 9.3 (7.4-10.4) fL Immature Gran % (Auto) 0.6 % Neut % (Auto) 72.8 % Lymph % (Auto) 15.4 % [place] % (Auto) 10.0 % Eos % (Auto) 1.0 % Baso % (Auto) 0.2 % Neut # (Auto) 3.70 (1.4-6.5) K/uL Lymph # (Auto) 0.78 L (1.2-3.4) K/uL [place] # (Auto) 0.51 (0.11-0.59) K/uL Eos # (Auto) 0.05 (0-0.5) K/uL Baso # (Auto) 0.01 (0-0.2) K/uL Immature Gran # (Auto) 0.03 H (0.00-0.02) K/uL PT 11.7 (9.0-12.0) Seconds INR 1.2 H (0.9-1.1) APTT 29.1 (21.0-31.0) Seconds PTT Ratio 1.1 ABG pH (7.35-7.45) ABG pCO2 (35-46) mmHg ABG pO2 (80-95) mmHg ABG HCO3 (19-24) mmol/L ABG O2 Saturation (90-95) % ABG Base Excess (-9-1.8) mEq/L Shon Test (Pos) Barometric Pressure mm/Hg Oxygen Given Sodium 135 L (136-145) mmol/L Potassium 4.2 (3.5-5.1) mmol/L Chloride 94 L (98-107) mmol/L Carbon Dioxide 36 H (21-32) mmol/L Anion Gap 5.0 (3-11) BUN 18 (7-18) mg/dl Creatinine 0.94 (0.6-1.2) mg/dl Est Cr Clr Drug Dosing Not Reportable Est GFR ( Amer) 80.3 ml/min Est GFR (Non-Af Amer) 69.3 ml/min BUN/Creatinine Ratio 19.0 (10-20) Glucose 127 H (70-99) mg/dl Lactate (0.4-2.0) mmol/L Calcium 8.2 L (8.5-10.1) mg/dl Magnesium 2.0 (1.8-2.4) mg/dl Total Bilirubin 0.6 (0.2-1) mg/dl AST 14 L (15-37) U/L ALT 15 (12-78) Alkaline Phosphatase 64 (45-117) U/L Troponin I < 0.015 (0-0.045) ng/ml NT-Pro-B Natriuret Pep 770 (0-900) pg/ml Total Protein 7.5 (6.4-8.2) gm/dl Albumin 2.7 L (3.4-5.0) gm/dl Globulin 4.8 H (2.5-4.0) gm/dl Albumin/Globulin Ratio 0.6 L (0.9-2) Adenovirus (PCR) (NotDetected) B. pertussis DNA (PCR) (NotDetected) B.parapertussis DNA PCR (NotDetected) C. pneumoniae DNA (PCR) (NotDetected) Coronavirus OC43 (PCR) (NotDetected) Coronavirus HKU1 (PCR) (NotDetected) Coronavirus 229E (PCR) (NotDetected) SARS-CoV-2 (PCR) (NotDetected) Coronavirus NL63 (PCR) (NotDetected) Human Metapneumovir PCR (NotDetected) Influenza Type A (PCR) (NotDetected) Influenza Type B (PCR) (NotDetected) M. pneumoniae (PCR) (NotDetected) Parainfluenza 1 (PCR) (NotDetected) Parainfluenza 2 (PCR) (NotDetected) Parainfluenza 3 (PCR) (NotDetected) Parainfluenza 4 (PCR) (NotDetected) RSV (PCR) (NotDetected) Entero/Rhino (PCR) (NotDetected) 04/02/21 04/02/21 04/02/21 Range/Units 11:40 12:09 12:40 WBC (4.8-10.8) K/uL RBC (4.2-5.4) M/uL Hgb (12.0-16.0) g/dL Hct (37-47) % MCV (80-100) fL MCH (25-34) pg MCHC (32-36) g/dL RDW Std Deviation (36.4-46.3) fL RDW Coeff of Curt (11.5-14.5) % Plt Count (130-400) K/uL MPV (7.4-10.4) fL Immature Gran % (Auto) % Neut % (Auto) % Lymph % (Auto) % [place] % (Auto) % Eos % (Auto) % Baso % (Auto) % Neut # (Auto) (1.4-6.5) K/uL Lymph # (Auto) (1.2-3.4) K/uL [place] # (Auto) (0.11-0.59) K/uL Eos # (Auto) (0-0.5) K/uL Baso # (Auto) (0-0.2) K/uL Immature Gran # (Auto) (0.00-0.02) K/uL PT (9.0-12.0) Seconds INR (0.9-1.1) APTT (21.0-31.0) Seconds PTT Ratio ABG pH 7.38 (7.35-7.45) ABG pCO2 65 H (35-46) mmHg ABG pO2 61 L (80-95) mmHg ABG HCO3 38 H (19-24) mmol/L ABG O2 Saturation 89.0 L (90-95) % ABG Base Excess 10.8 H (-9-1.8) mEq/L Shon Test Pos (Pos) Barometric Pressure 735.5 mm/Hg Oxygen Given 6 Sodium (136-145) mmol/L Potassium (3.5-5.1) mmol/L Chloride (98-107) mmol/L Carbon Dioxide (21-32) mmol/L Anion Gap (3-11) BUN (7-18) mg/dl Creatinine (0.6-1.2) mg/dl Est Cr Clr Drug Dosing Est GFR ( Amer) ml/min Est GFR (Non-Af Amer) ml/min BUN/Creatinine Ratio (10-20) Glucose (70-99) mg/dl Lactate 1.1 (0.4-2.0) mmol/L Calcium (8.5-10.1) mg/dl Magnesium (1.8-2.4) mg/dl Total Bilirubin (0.2-1) mg/dl AST (15-37) U/L ALT (12-78) Alkaline Phosphatase (45-117) U/L Troponin I (0-0.045) ng/ml NT-Pro-B Natriuret Pep (0-900) pg/ml Total Protein (6.4-8.2) gm/dl Albumin (3.4-5.0) gm/dl Globulin (2.5-4.0) gm/dl Albumin/Globulin Ratio (0.9-2) Adenovirus (PCR) Not Detected (NotDetected) B. pertussis DNA (PCR) Not Detected (NotDetected) B.parapertussis DNA PCR Not Detected (NotDetected) C. pneumoniae DNA (PCR) Not Detected (NotDetected) Coronavirus OC43 (PCR) Not Detected (NotDetected) Coronavirus HKU1 (PCR) Not Detected (NotDetected) Coronavirus 229E (PCR) Not Detected (NotDetected) SARS-CoV-2 (PCR) DETECTED A* (NotDetected) Coronavirus NL63 (PCR) Not Detected (NotDetected) Human Metapneumovir PCR Not Detected (NotDetected) Influenza Type A (PCR) Not Detected (NotDetected) Influenza Type B (PCR) Not Detected (NotDetected) M. pneumoniae (PCR) Not Detected (NotDetected) Parainfluenza 1 (PCR) Not Detected (NotDetected) Parainfluenza 2 (PCR) Not Detected (NotDetected) Parainfluenza 3 (PCR) Not Detected (NotDetected) Parainfluenza 4 (PCR) Not Detected (NotDetected) RSV (PCR) Not Detected (NotDetected) Entero/Rhino (PCR) Not Detected (NotDetected) Administered Medications Discontinued Medications Albuterol (Albut/Ipratrop 3mg/0.5mg Neb 3 Ml Vial) 12 ml NEB ONE ONE Stop: 04/02/21 12:09 Last Admin: 04/02/21 12:27 Dose: 12 ml Documented by: [id number] Dexamethasone Sodium Phosphate (DexamethasonePf 10 Mg/Ml Vial) 10 mg IV NOW ONE Stop: 04/02/21 12:11 Last Admin: 04/02/21 12:37 Dose: 10 mg Documented by: [id number] Ceftriaxone Sodium (Rocephin) 2,000 mg in 70 mls @ 140 mls/hr IV NOW STA Stop: 04/02/21 12:39 Last Infusion: 04/02/21 13:59 Dose: 0 mls/hr Documented by: [id number] Admin: 04/02/21 12:37 Dose: 140 mls/hr Documented by: [id number] Sodium Chloride (Nss 1000ml) 500 mls @ 999 mls/hr IV .Q31M ONE Stop: 04/02/21 12:40 Last Infusion: 04/02/21 13:59 Dose: 0 mls/hr Documented by: [id number] Admin: 04/02/21 12:37 Dose: 999 mls/hr Documented by: [id number] Imaging Data Radiologist's Impression: Chest X-Ray 04/02/21 12:10 XR chest 1V portable HISTORY: Shortness of breath. COMPARISON: Chest 08/26/2017. FINDINGS: No pneumothorax. Trace bilateral pleural effusions. The heart is mildly enlarged. There is mild interstitial/vascular thickening which has slightly progressed. This consistent with mild pulmonary edema. Left basilar hazy airspace opacity likely represents layering pleural fluid. A developing pneumonia could also have a similar appearance. IMPRESSION: 1. Cardiomegaly with trace bilateral pleural effusions and mild interstitial pul monary edema. This has progressed in the interval. 2. Hazy appearance to the left lung base favors layering pleural fluid. A developing pneumonia could also have a similar appearance. ACT 112: Negative or not required by law. Electronically signed by: Toño Antoine M.D. 04/02/2021 12:45 PM Discharge Plan Visit Data Chief Complaint: Illness ED Provider: Silviano Dominguez Discharge Problem: Respiratory distress, Anemia, SOB (shortness of breath), Pneumonia, COVID-19 Patient Disposition: Admitted As Inpatient Condition: Serious Forms Stand Alone Forms: My [facility] Droplet Prescriptions Prescriptions: No Action (DME) Oxygen Home Liters Per Minute See Dose Instructions .ROUTE .MEDSUPPLY Qty: 1 RF: 0 albuterol sulfate 2.5 mg /3 mL (0.083 %) solution for nebulization 2.5 mg INH Q4H PRN (Reason: shortness of breath or wheezing) Qty: 180 RF: 5 (DME) blood-glucose meter [imagineTouch Ultra2 Meter] Kit See Rx Instructions .ROUTE .MEDSUPPLY Qty: 1 RF: 0 (DME) lancets [OneTouch Delica Plus Lancet] 30 gauge misc See Rx Instructions .ROUTE .MEDSUPPLY Qty: 100 RF: 5 omeprazole 20 mg capsule,delayed release(DR/EC) 20 mg PO BID Qty: 60 RF: 11 furosemide [Lasix] 40 mg tablet 60 mg PO DAILY Qty: 135 RF: 3 ropinirole 1 mg tablet See Rx Instructions .ROUTE .COMPLEX Qty: 120 RF: 11 sennosides-docusate sodium [Senna Plus] 8.6-50 mg tablet 1 tab-cap PO TID Qty: 90 RF: 5 atorvastatin 10 mg tablet 10 mg PO DAILY Qty: 30 RF: 11 quetiapine 300 mg tablet 300 mg PO BID Qty: 60 RF: 11 amitriptyline 25 mg tablet 25 mg PO DAILY Qty: 30 RF: 11 epinephrine 0.3 mg/0.3 mL auto-injector See Rx Instructions .ROUTE .COMPLEX Qty: 2 RF: 1 (DME) OneTouch Ultra Blue Test Strip Strip See Rx Instructions .ROUTE .MEDSUPPLY Qty: 100 RF: 5 gabapentin 400 mg capsule See Rx Instructions .ROUTE .COMPLEX Qty: 120 RF: 5 cholecalciferol (vitamin D3) 125 mcg (5,000 unit) capsule 125 mcg PO DAILY Qty: 30 RF: 11 Apidra SoloStar U-100 Insulin 100 unit/mL insulin pen See Rx Instructions .ROUTE .COMPLEX Qty: 15 RF: 11 (DME) CPAP Supplies [facility] See Rx Instructions .Route Qty: 1 RF: 0 (DME) pen needle, diabetic [BD Ultra-Fine Short Pen Needle] 31 gauge x 5/16" needle See Rx Instructions .Route Qty: 100 RF: 11 (DME) sit to stand lift Qty: 1 RF: 0 (DME) Oxygen Home Liters Per Minute See Rx Instructions .ROUTE .MEDSUPPLY Qty: 1 RF: 0 tolterodine [Detrol LA] 2 mg capsule,extended release 24hr 2 mg PO DAILY Qty: 30 RF: 6 (DME) oxygen See Rx Instructions .Route .MEDSUPPLY Qty: 1 RF: 0 docusate sodium 100 mg Capsule 100 mg PO TID PRN (Reason: Constipation) RF: 0 Narcan 4 mg/actuation spray,non-aerosol 1 spray INTRANASAL UD RF: 0 baclofen 20 mg tablet 20 mg PO TID RF: 0 potassium chloride 20 mEq tablet,ER particles/crystals 20 meq PO DAILY RF: 0 oxycodone-acetaminophen [Percocet] 10-325 mg tablet 1 tab PO QID PRN (Reason: pain) RF: 0 metoprolol tartrate 50 mg tablet 50 mg PO BID RF: 0 polyethylene glycol 3350 17 gram/dose powder 17 g PO DAILY PRN (Reason: Constipation) RF: 0 mometasone 0.1 % cream 1 applic topical UD RF: 0 Lantus Solostar U-100 Insulin 100 unit/mL (3 mL) insulin pen 60 unit SQ DAILY RF: 0 Victoza 2-Venkatesh 0.6 mg/0.1 mL (18 mg/3 mL) pen injector 18 mg subcut DAILY RF: 0 Spiriva Respimat 2.5 mcg/actuation mist 2 puff inhalation BID RF: 0 Referrals Referrals: Nuha Welch CRNP [Primary Care Provider] -
[2021-04-02 12:30] LABS: Basophils # (auto) 0.01 K/uL (0-0.2); Basophils % (auto) 0.2 %; Eosinophils # (auto) 0.05 K/uL (0-0.5); Hematocrit (blood only) 32.7 % (37-47); Hemoglobin 9.1 g/dL (12.0-16.0); Immature Granulocytes # (auto) 0.03 K/uL (0.00-0.02); Immature Granulocytes % (auto) 0.6 %; Lymphocytes # (auto) 0.78 K/uL (1.2-3.4); Lymphocytes % (auto) 15.4 %; Mean Corpuscular Hemoglobin 22.4 pg (25-34); Mean Corpuscular Hgb Conc 27.8 g/dL (32-36); Mean Corpuscular Volume 80.3 fL (80-100); Mean Platelet Volume 9.3 fL (7.4-10.4); Monocytes # (auto) 0.51 K/uL (0.11-0.59); Neutrophils % (auto) 72.8 %; Platelet Count 176 K/uL (130-400); RDW Coefficient of Variation 18.1 % (11.5-14.5); RDW Standard Deviation 53.2 fL (36.4-46.3); Red Blood Count 4.07 M/uL (4.2-5.4); White Blood Count 5.08 K/uL (4.8-10.8)
[2021-04-02 12:39] LABS: INR 1.2 (0.9-1.1); Partial Thromboplastin Ratio 1.1; Partial Thromboplastin Time 29.1 Seconds (21.0-31.0); Prothrombin Time 11.7 Seconds (9.0-12.0)
[2021-04-02 12:46] LABS: Alanine Aminotransferase 15 (12-78); Albumin Level 2.7 gm/dl (3.4-5.0); Aspartate Aminotransferase 14 U/L (15-37); Blood Urea Nitrogen 18 mg/dl (7-18); Calcium 8.2 mg/dl (8.5-10.1); Carbon Dioxide 36 mmol/L (21-32); Chloride 94 mmol/L (98-107); Est GFR (African American) 80.3 ml/min; Est GFR (Non-African American) 69.3 ml/min; Glucose 127 mg/dl (70-99); Potassium 4.2 mmol/L (3.5-5.1); Sodium 135 mmol/L (136-145)
--- NOTE | 2021-04-02 12:46 | XRay Report ---
XR chest 1V portable HISTORY: Shortness of breath. COMPARISON: Chest 08/26/2017. FINDINGS: No pneumothorax. Trace bilateral pleural effusions. The heart is mildly enlarged. There is mild interstitial/vascular thickening which has slightly progressed. This consistent with mild pulmon laura edema. Left basilar hazy airspace opacity likely represents layering pleural fluid. A developing pneumonia could also have a similar appearance. IMPRESSION: 1. Cardiomegaly with trace bilateral pleural effusions and mild interstitial pulmonary edema. This rucker s progressed in the interval. 2. Hazy appearance to the left lung base favors layering pleural fluid. A developing pneumonia could also have a similar appearance. ACT 112: Negative or not required by law. Electronically signed by: Toño Antoine M.D. 04/02/2021 12:45 PM
[2021-04-02 12:51] LABS: Albumin Globulin Ratio 0.6 (0.9-2); Alkaline Phosphatase 64 U/L (45-117); Bilirubin,Total 0.6 mg/dl (0.2-1); Globulin 4.8 gm/dl (2.5-4.0); NT Pro B Type Natriuretic Pept 770 pg/ml (0-900); Total Protein 7.5 gm/dl (6.4-8.2); Troponin I < 0.015 ng/ml (0-0.045)
[2021-04-02 13:00] LABS: Base Excess ABG 10.8 mEq/L (-9-1.8); HCO3 ABG 38 mmol/L (19-24); PCO2 ABG 65 mmHg (35-46); PO2 ABG 61 mmHg (80-95); pH ABG 7.38 (7.35-7.45)
[2021-04-02 13:01] LABS: Allen Test Pos (Pos)
--- NOTE | 2021-04-02 13:12 | Electrocardiogram Report ---
Test Reason : Blood Pressure : / mmHG Vent. Rate : 080 BPM Atrial Rate : 080 BPM P-R Int : 138 ms QRS Dur : 146 ms QT Int : 404 ms P-R-T Axes : 032 119 023 degrees QTc Int : 465 ms Poor data quality, interpretation may be adversely affected Normal sinus rhythm Right bundle branch block Lateral infarct (cited on or before 03-MAY-2014) Abnormal ECG When compared with ECG of 26-AUG-2017 14:20, No significant change was found Confirmed by Samuel Mosher ([id number]) on 04/02/2021 1:12:08 PM Referred By: REFERRED SELF Confirmed By:Samuel Mosher
[2021-04-02 13:16] LABS: Adenovirus PCR Not Detected (NotDetected); Bordetella parapertussis PCR Not Detected (NotDetected); Bordetella pertussis PCR Not Detected (NotDetected); Chlamydia pneumoniae PCR Not Detected (NotDetected); Coronavirus 229E PCR Not Detected (NotDetected); Coronavirus HKU1 PCR Not Detected (NotDetected); Coronavirus NL63 PCR Not Detected (NotDetected); Coronavirus OC43PCR Not Detected (NotDetected); Human Metapneumovirus PCR Not Detected (NotDetected); Influenza A PCR Not Detected (NotDetected); Influenza B PCR Not Detected (NotDetected); Mycoplasma pneumoniae PCR Not Detected (NotDetected); Parainfluenza Virus 1 PCR Not Detected (NotDetected); Parainfluenza Virus 2 PCR Not Detected (NotDetected); Parainfluenza Virus 3 PCR Not Detected (NotDetected); Parainfluenza Virus 4 PCR Not Detected (NotDetected); Respiratory Syncytial VirusPCR Not Detected (NotDetected); Rhinovirus/Enterovirus PCR Not Detected (NotDetected)
[2021-04-02 13:17] LABS: Coronavirus CoV-2 (COVID19)PCR DETECTED (NotDetected)
--- NOTE | 2021-04-02 13:36 | History & Physical Report ---
Date of Service April 02, 2021 Assessment & Plan (1) COVID-19: Plan: Unvaccinated Dexamethasone 6mg IV daily Start Remdesivir On BiPAP due to CO2 retention rather than hypoxia therefore does not qualify for baricitinib on admission. She is actually reasonably close to her home O2 requirement. Peacock catheter placed in ER to monitor UO and given patient poor mobility and shortness of breath Continue furosemide to maintain negative balance (2) Acute on chronic respiratory failure with hypoxia and hypercapnia: Plan: Chronic 5-6 LPM O2 use due to COPD. Currently on BiPAP 16/8 FiO2 40% 6LPM O2, can have breaks off this. CO2 retention appears to be chronic from ABG and well compensated. Aim O2 sats 88-92% BiPAP as needed for napping and sleeping. (3) Anemia: Plan: Low normal MCV. No melena or bright red blood in stool. Suspect anemia of chronic disease pending workup below. Transferrin sats, ferritin (although likely to be high due to COVID), B12, folate, retic count. Repeat CBC in AM. (4) Asthma-COPD overlap syndrome: Plan: No acute exacerbation suspected given lack of wheezing on exam and lack of improvement with nebiluzer in the ER Continue her routine maintenance inhalers Chronically on 5LPM O2 (5) Tinea cruris: Plan: Nystatin to left groin BID (6) Hyperlipidemia: Plan: Continue atorvastatin 10mg PO daily (7) Hypertension: Plan: Continue metoprolol tartrate 50mg PO BID, furosemide 60mg PO daily. (8) Lymphedema: Plan: At baseline. Very dry on admission. Routine emollient skin care. No SCDs to avoid skin breakdown. (9) Restless legs syndrome with familial myoclonus: Plan: Continue ropinirole home dosing. (10) Peripheral neuropathy: Plan: Continue gabapentin and amitriptyline home meds (11) Opioid dependence with unspecified opioid-induced disorder: Plan: Continue her usual Percocet QID PRN (although per PDMP she picks this up regularly therefore suspect she uses it regularly at home) (12) Type 2 diabetes mellitus: Plan: HbA1C 9.6 in December. Repeat with AM labs. T2DM diet Hold Victoza and usual insulin requirement. Consult pharmacy for glycemic control in setting of dexamethasone use. (13) GERD (gastroesophageal reflux disease): Plan: Switch omeprazole to pantoprazole per hospital formulary (14) Wheelchair dependent: Plan: Noted baseline mobility (15) Morbid obesity: Plan: Bariatric bed requested (16) Major depression, recurrent: Plan: Continue quetiapine 300mg PO BID Plan: VTE Prophylaxis - Lovenox 40mg SQ BID Diet - T2DM, Low Na, heart healthy Disposition - admit to PCU, COVID isolation precautions Admission and Anticipated Discharge Date Admission Date: April 02, 2021 History of Present Illness Chief Complaint: Shortness of breath Primary Care Provider: DANIELLE Hauser Natalie Hong is a 55 year old female with morbid obesity, asthma,/COPD overlap, current smoker who presents to the ER with lethargy, cough and fever. She is unvaccinated for COVID-19. She reports symptoms for the last 7 days. Main symptoms of fatigue and weakness. Associated non-productive cough, shortness of breath, no appetite. She denies any loss of taste or smell. She reports sores on her back for the last 4 days. She is chronically short of breath due to COPD on 5LPM O2 at baseline. In the ER; SARS-COV-2 PCR positive. CRP 10.6. ABG was concerning for chronic CO2 retention with metabolic compensation. CXR concerning for COVID-19 pneumonia vs. pulmonary edema. She was started on BiPAP due to her CO2 retention. She was referred to medicine for admission and ongoing management of COVID-19 pneumonia. Allergies Allergy/AdvReac Type Severity Reaction Status Date / Time bee venom protein (honey bee) Allergy Mild Verified 04/02/21 13:22 rosiglitazone [From Avandia] Allergy Verified 04/02/21 13:22 hydrocodone AdvReac Intermediate itching Verified 04/02/21 13:22 Home Medications Medication Instructions Recorded Confirmed Type Oxygen Home #1 ea 09/07/19 03/27/21 Rx albuterol sulfate 2.5 mg INH Q4H PRN #180 ml 09/08/19 04/02/21 Rx Oxygen Home #1 ea 11/25/19 03/27/21 Rx sit to stand lift #1 ea 11/25/19 03/27/21 Rx blood-glucose meter (Artilleryuch #1 ea 11/26/19 03/27/21 Rx Ultra2 Meter) lancets 30 gauge (OneTouch Delica #100 ea 12/01/19 03/27/21 Rx Plus Lancet) omeprazole 20 mg capsule,delayed 20 mg PO BID #60 cap 03/11/20 04/02/21 Rx release furosemide 40 mg tablet (Lasix) 60 mg PO DAILY #135 tab 04/14/20 04/02/21 Rx ropinirole 1 mg tablet See Rx Instructions .ROUTE 04/14/20 04/02/21 Rx .COMPLEX #120 tab sennosides 8.6 mg-docusate sodium 1 tab-cap PO TID #90 tab 05/24/20 04/02/21 Rx 50 mg tablet (Senna Plus) atorvastatin 10 mg tablet 10 mg PO DAILY #30 tab 07/26/20 04/02/21 Rx quetiapine 300 mg tablet 300 mg PO BID #60 tab 08/08/20 04/02/21 Rx amitriptyline 25 mg tablet 25 mg PO DAILY #30 tab 08/29/20 04/02/21 Rx epinephrine 0.3 mg/0.3 mL See Rx Instructions .ROUTE 09/13/20 04/02/21 Rx injection, auto-injector .COMPLEX #2 unspecified oxygen #1 ea 12/27/20 03/27/21 Rx tolterodine 2 mg capsule,extended 2 mg PO DAILY #30 cap 12/27/20 04/02/21 Rx release 24 hr (Detrol LA) blood sugar diagnostic #100 ea 01/06/21 03/27/21 Rx gabapentin 400 mg capsule See Rx Instructions .ROUTE 01/06/21 04/02/21 Rx .COMPLEX #120 capsule cholecalciferol (vitamin D3) 125 125 mcg PO DAILY #30 cap 01/23/21 04/02/21 Rx mcg (5,000 unit) capsule insulin glulisine U-100 100 See Rx Instructions .ROUTE 02/17/21 04/02/21 Rx unit/mL subcutaneous pen (Apidra .COMPLEX #15 milliliter SoloStar U-100 Insulin) CPAP Supplies #1 ea 03/02/21 03/27/21 Rx pen needle, diabetic 31 gauge x #100 ea 03/10/21 03/27/21 Rx 5/16" (BD Ultra-Fine Short Pen Needle) baclofen 20 mg tablet 20 mg PO TID 04/02/21 04/02/21 History docusate sodium 100 mg capsule 100 mg PO TID PRN 04/02/21 04/02/21 History insulin glargine 100 unit/mL (3 60 unit SQ DAILY 04/02/21 04/02/21 History mL) subcutaneous pen (Lantus Solostar U-100 Insulin) liraglutide 0.6 mg/0.1 mL (18 mg/3 18 mg SUBCUT DAILY 04/02/21 04/02/21 History mL) subcutaneous pen injector (Victoza 2-Venkatesh) metoprolol tartrate 50 mg tablet 50 mg PO BID 04/02/21 04/02/21 History mometasone 0.1 % topical cream 1 applic TOPICAL UD 04/02/21 04/02/21 History naloxone 4 mg/actuation nasal 1 spray INTRANASAL UD 04/02/21 04/02/21 History spray (Narcan) oxycodone-acetaminophen 10 mg-325 1 tab PO QID PRN 04/02/21 04/02/21 History mg tablet (Percocet) polyethylene glycol 3350 17 17 g PO DAILY PRN 04/02/21 04/02/21 History gram/dose oral powder potassium chloride 20 mEq 20 meq PO DAILY 04/02/21 04/02/21 History tablet,extended release(part/cryst) tiotropium bromide 2.5 2 puff INHALATION BID 04/02/21 04/02/21 History mcg/actuation mist for inhalation (Spiriva Respimat) Past Med/Surg History Medical History Asthma-COPD overlap syndrome GERD (gastroesophageal reflux disease) Kidney calculi Morbid obesity Surgical History History of left knee surgery History of tubal ligation Family History Other Diabetes Dyslipidemia Denies family history of Coronary heart disease Cancer Stroke Social History Smoking Status: Current every day smoker Tobacco Type: Cigarettes Second Hand Exposure: Yes; Hx Alcohol Use: No Hx Substance Use: No Preferred Language: Guyanese Communication Ability: Effective Visual Impairment: Limited Field Aide Required: No Beliefs That Will Affect Care: None marital status: Current Living Situation: Family current occupational status: disabled Feels Safe at Home: Yes Safety Concerns: Feels Safe At This Time caffeine: Yes Dental Care, Regularly: No Physical Activity Frequency: Daily Physical Activity Frequency Comment: streches Seatbelt Use: never Sunscreen Use: No Assistive Devices: Denture - Upper, Denture - Lower and Glasses Physical Exam Constitutional: well developed, + acute distress (respiratory) and + morbidly obese Eyes: + anicteric sclerae; normal pupil size ENMT: Mouth: + dry oral mucous membranes Neck: + short neck, + thick neck and + facial hair Respiratory: + respiratory distress, + labored breathing, + retractions and + uses accessory muscles; + not able to speak in complete sentence, expiratory phase not prolonged and no audible wheezes Auscultation: + diminished lung sounds (bibasal); no crackles, no rales, no rhonchi and no wheezes Cardiovascular: Rate/Rhythm: regular rate and regular rhythm Heart Sounds: no murmur Extremities: normal capillary refill and + pedal edema (pitting 1+ to knees equal b/l); no calf tenderness Gastrointestinal (Abdomen): normal bowel sounds, soft, nontender, no hepatosplenomegaly Musculoskeletal: no cyanosis or clubbing, extremities motor strength 5/5 Skin: + erythema (left groin wet and erythematous) Unable to turn patient to inspect back Neurologic: moves all extremities and awake; no focal motor deficits (no lateralizing deficit) and not confused Psychiatric: A+Ox3, euthymic affect Genitourinary: no CVA tenderness Results & Data Results & Data ([facility]) Vital Signs (Past 12 Hours) Vital Signs Temp Pulse Pulse Resp BP Pulse Ox 04/02/21 12:25 79 29 H 91 04/02/21 12:23 78 29 H 92 04/02/21 12:10 108 H 24 88 L 04/02/21 11:45 37.2 C 81 24 137/57 L 88 L Laboratory Results Abnormal lab results 04/02/21 04/02/21 04/02/21 Range/Units 11:40 11:40 11:40 RBC 4.07 L (4.2-5.4) M/uL Hgb 9.1 L (12.0-16.0) g/dL Hct 32.7 L (37-47) % MCH 22.4 L (25-34) pg MCHC 27.8 L (32-36) g/dL RDW Std Deviation 53.2 H (36.4-46.3) fL RDW Coeff of Curt 18.1 H (11.5-14.5) % Lymph # (Auto) 0.78 L (1.2-3.4) K/uL Immature Gran # (Auto) 0.03 H (0.00-0.02) K/uL INR 1.2 H (0.9-1.1) ABG pCO2 (35-46) mmHg ABG pO2 (80-95) mmHg ABG HCO3 (19-24) mmol/L ABG O2 Saturation (90-95) % ABG Base Excess (-9-1.8) mEq/L Sodium 135 L (136-145) mmol/L Chloride 94 L (98-107) mmol/L Carbon Dioxide 36 H (21-32) mmol/L Glucose 127 H (70-99) mg/dl Calcium 8.2 L (8.5-10.1) mg/dl AST 14 L (15-37) U/L Albumin 2.7 L (3.4-5.0) gm/dl Globulin 4.8 H (2.5-4.0) gm/dl Albumin/Globulin Ratio 0.6 L (0.9-2) SARS-CoV-2 (PCR) (NotDetected) 04/02/21 04/02/21 Range/Units 12:09 12:40 RBC (4.2-5.4) M/uL Hgb (12.0-16.0) g/dL Hct (37-47) % MCH (25-34) pg MCHC (32-36) g/dL RDW Std Deviation (36.4-46.3) fL RDW Coeff of Curt (11.5-14.5) % Lymph # (Auto) (1.2-3.4) K/uL Immature Gran # (Auto) (0.00-0.02) K/uL INR (0.9-1.1) ABG pCO2 65 H (35-46) mmHg ABG pO2 61 L (80-95) mmHg ABG HCO3 38 H (19-24) mmol/L ABG O2 Saturation 89.0 L (90-95) % ABG Base Excess 10.8 H (-9-1.8) mEq/L Sodium (136-145) mmol/L Chloride (98-107) mmol/L Carbon Dioxide (21-32) mmol/L Glucose (70-99) mg/dl Calcium (8.5-10.1) mg/dl AST (15-37) U/L Albumin (3.4-5.0) gm/dl Globulin (2.5-4.0) gm/dl Albumin/Globulin Ratio (0.9-2) SARS-CoV-2 (PCR) DETECTED A* (NotDetected) Diagnostic Findings XR chest 1V portable HISTORY: Shortness of breath. COMPARISON: Chest 08/26/2017. FINDINGS: No pneumothorax. Trace bilateral pleural effusions. The heart is mildly enlarged. There is mild interstitial/vascular thickening which has slightly progressed. This consistent with mild pulmonary edema. Left basilar hazy airspace opacity likely represents layering pleural fluid. A developing pneumonia could also have a similar appearance. IMPRESSION: 1. Cardiomegaly with trace bilateral pleural effusions and mild interstitial pulmonary edema. This has progressed in the interval. 2. Hazy appearance to the left lung base favors layering pleural fluid. A developing pneumonia could also have a similar appearance. Medications Administered ER medications Given: Duoneb 12ml NEB Ceftriaxone 2000mg IV Dexamethasone 10mg IV NSS 500ml bolus ECG Indication: SOB/dyspnea Rate (beats per minute): 80 Rhythm: normal sinus Findings: + RBBB Comparison ECG Date: from (August 26, 2017) Change: no significant change Code Status & VTE Plan Code Status Full VTE Prophylaxis Plan VTE Prophylaxis will be ordered: Yes PG Care Time/CCT Total # of Minutes Spent Total Time Spent with Patient: Total time spent is greater than 50% in coordination of care (as documented) at patient's floor/unit and/or counseling patient: Coding Level of Care Code 58151 Initial Inpt Care Lvl 3 Diagnoses Acute on chronic respiratory failure with hypoxia and hypercapnia J96.21; J96.22 Anemia D64.9 Anemia type: unspecified type COVID-19 U07.1 Asthma-COPD overlap syndrome J44.9 Tinea cruris B35.6 Hyperlipidemia E78.5 Hypertension I10 Lymphedema I89.0 Restless legs syndrome with familial myoclonus G25.81; G25.3 Peripheral neuropathy G62.9 Opioid dependence with unspecified opioid-induced disorder F11.29 Type 2 diabetes mellitus E11.9 GERD (gastroesophageal reflux disease) K21.9 Wheelchair dependent Z99.3 Morbid obesity E66.01 Major depression, recurrent F33.9 (1) Anemia Anemia type: unspecified type Qualified Code(s): D64.9 - Anemia, unspecified
[2021-04-02] MEDS ORDERED: REMDESIVIR 200 MG in SODIUM CHLORIDE 0.9% 210 ML IV STA (14:24)
[2021-04-02 14:27] LABS: C Reactive Protein 10.6 mg/dl (0-0.29); Ferritin 42.6 ng/ml (8-388)
[2021-04-02] MEDS ORDERED: SODIUM CHLORIDE 0.9% 10ML FLUSH IV SCH ×2 (14:30→18:03)
[2021-04-02 14:32] LABS: Reticulocyte % 0.8 % (0.5-2.0); Reticulocytes # 0.03 10^6/uL (0.02-0.10)
[2021-04-02 15:44] LABS: Folate (Folic Acid) 12.3 ng/ml (>5.38)
[2021-04-02] MEDS ORDERED: PHARMACY GLYCEMIC MGMT CONSULT PRN (18:03)
[2021-04-02] MEDS ORDERED: ONDANSETRON INJ 2 MG/ML 2 ML VIAL IV PRN (18:03)
[2021-04-02] MEDS ORDERED: ALBUT/IPRATROP 3MG/0.5MG NEB 3 ML VIAL NEB PRN (18:03)
[2021-04-02] MEDS ORDERED: ACETAMINOPHEN 325 MG TAB PO PRN (18:03)
[2021-04-02] MEDS ORDERED: POLYETHYLENE (MIRALAX) 17 GM PACK PO PRN (18:03)
[2021-04-02] MEDS ORDERED: GLUCAGON FOR INJ 1 MG VIAL IM PRN (19:15)
[2021-04-02] MEDS ORDERED: CARBOHYDRATES FOR HYPOGLYCEMIA PO PRN (19:15)
[2021-04-02] MEDS ORDERED: GLUCOSE 40% GEL 15 GM TUBE PO PRN (19:15)
[2021-04-02] MEDS ORDERED: GLUCOSE 10 TABS/TUBE PO PRN (19:15)
[2021-04-02] MEDS ORDERED: DEXTROSE 50% 50 ML SYRINGE IV PRN (19:15)
[2021-04-02] MEDS ORDERED: INSULIN GLARGINE SOLOSTAR 100 UNITS/ML 3 ML PEN SC ONE (19:15)
--- NOTE | 2021-04-02 19:29 | Pharmacy Report ---
Pharmacy Glycemic Short Note 2 - Date of Service April 02, 2021 - Glycemic Short BSG Results (Last 24 hours): 04/02/21 11:40 Glucose 127 H OUTPATIENT ANTIDIABETIC REGIMEN: * Lantus 60 units SQ daily * Apidra 50 units SQ ACHS * Victoza 1.8mg SQ daily * A1c = 9.6% 12/2020 ASSESSMENT: * 55yo T2DM female with poor outpatient control per recent A1c. Pt is maintained on high dose SQ basal bolus insulin plus GLP1 * Pt admitted with COVID-19; received IV dexamethasone in ED and will be continued on 6mg IV daily x 10 days * Stress, illness, steroids, and baseline poor control will all compound hyperglycemia. * Confirmed with patient - she did NOT take any of her insulin today. * Will start with Lantus 60 units SQ NOW- add more at bedtime if needed. Start NPH tomorrow with dexamethasone as it is best to time these medications together. Will use NPH 0.4 units/kg (adjusted body weight d/t BMI >35) to cover for steroid induced hyperglycemia. Novolog per scale as CHO intake inhouse will likely be drastically different than outpatient. PLAN FOR INPATIENT GLYCEMIC CONTROL: * Hold outpatient GLP1 * Basal insulin * Lantus 60 units SQ x 1 dose now * NPH 0.4 units/kg adjusted body weight starting tomorrow with dexamethasone. * Bolus insulin * NovoLog per scale ACHS or Q6hrs while NPO * Goal Range: Low 110 mg/dL - High 140 mg/dL * Correction Factor: 10 mg/dL/unit * Nutritional / Prandial insulin per carb ratio of 1 unit per 3 grams CHO consumed PLAN FOR DISCHARGE: * TBD
[2021-04-02] MEDS: ENOXAPARIN INJ 40 MG/0.4 ML SYR SQ SCH (21:16)
[2021-04-02] MEDS: INSULIN ASPART 100 UNITS/ML VIAL SC SCH (21:17)
[2021-04-02] MEDS: AMITRIPTYLINE HCL 25 MG TAB PO SCH (21:22)
[2021-04-02] MEDS: BACLOFEN 20 MG TAB PO SCH (21:23)
[2021-04-02] MEDS: rOPINIRole HCL 1 MG TABLET PO SCH (21:24)
[2021-04-02] MEDS: DOCUSATE SODIUM/SENNA 50/8.6MG TAB PO SCH (21:24)
[2021-04-02] MEDS: GABAPENTIN 400 MG CAP PO SCH (21:24)
[2021-04-02] MEDS: QUEtiapine FUMARATE 300 MG TABLET PO SCH (21:24)
[2021-04-02] MEDS: PANTOprazole 40 MG TAB PO SCH (21:24)
[2021-04-02] MEDS: METOPROLOL TARTRATE 50 MG TAB PO SCH (21:24)
[2021-04-02] MEDS: NYSTATIN POWDER 15GM BTL EXT SCH (21:26)
[2021-04-03] MEDS: INSULIN ASPART 100 UNITS/ML VIAL SC SCH ×6 (00:28→21:45)
[2021-04-03 06:25] LABS: Basophils # (auto) 0.01 K/uL (0-0.2); Basophils % (auto) 0.3 %; Hematocrit (blood only) 31.9 % (37-47); Immature Granulocytes # (auto) 0.02 K/uL (0.00-0.02); Immature Granulocytes % (auto) 0.6 %; Lymphocytes # (auto) 0.67 K/uL (1.2-3.4); Lymphocytes % (auto) 21.1 %; Mean Corpuscular Hemoglobin 22.6 pg (25-34); Mean Corpuscular Hgb Conc 28.2 g/dL (32-36); Mean Corpuscular Volume 79.9 fL (80-100); Mean Platelet Volume 9.4 fL (7.4-10.4); Monocytes # (auto) 0.26 K/uL (0.11-0.59); Monocytes % (auto) 8.2 %; Neutrophils # (auto) 2.21 K/uL (1.4-6.5); Neutrophils % (auto) 69.8 %; Platelet Count 148 K/uL (130-400); RDW Coefficient of Variation 18.1 % (11.5-14.5); RDW Standard Deviation 52.5 fL (36.4-46.3); Red Blood Count 3.99 M/uL (4.2-5.4); White Blood Count 3.17 K/uL (4.8-10.8)
[2021-04-03 06:51] LABS: Albumin Level 2.6 gm/dl (3.4-5.0); BUN Creatinine Ratio 21.8 (10-20); Calcium 8.7 mg/dl (8.5-10.1); Creatinine Clr Calc Pharmacy 144.9 ml/min; Est GFR (Non-African American) 79.3 ml/min; Potassium 4.1 mmol/L (3.5-5.1)
[2021-04-03 06:54] LABS: Albumin Globulin Ratio 0.6 (0.9-2); Bilirubin,Total 0.5 mg/dl (0.2-1); Globulin 4.5 gm/dl (2.5-4.0); Total Protein 7.1 gm/dl (6.4-8.2)
[2021-04-03] MEDS ORDERED: INSULIN GLARGINE SOLOSTAR 100 UNITS/ML 3 ML PEN SC ONE (08:00)
[2021-04-03] MEDS: METOPROLOL TARTRATE 50 MG TAB PO SCH ×2 (08:56→21:56)
[2021-04-03] MEDS: rOPINIRole HCL 1 MG TABLET PO SCH ×3 (08:56→21:56)
[2021-04-03] MEDS: DOCUSATE SODIUM/SENNA 50/8.6MG TAB PO SCH ×3 (08:56→21:57)
[2021-04-03] MEDS: PANTOprazole 40 MG TAB PO SCH ×2 (08:58→21:56)
[2021-04-03] MEDS: GABAPENTIN 400 MG CAP PO SCH ×3 (08:58→21:56)
[2021-04-03] MEDS: CHOLECALCIFEROL 1,000 UNITS 25 MCG TAB PO SCH (08:58)
[2021-04-03] MEDS: TOLTERODINE TARTRATE LA 2 MG CAPCR PO SCH (09:00)
[2021-04-03] MEDS: BACLOFEN 20 MG TAB PO SCH ×3 (09:00→21:56)
[2021-04-03] MEDS: QUEtiapine FUMARATE 300 MG TABLET PO SCH ×2 (09:00→21:56)
[2021-04-03] MEDS: INSULIN HUMAN NPH SC SCH (09:00)
[2021-04-03] MEDS: NYSTATIN POWDER 15GM BTL EXT SCH ×2 (09:00→23:42)
[2021-04-03] MEDS: ATORVASTATIN 10 MG TAB PO SCH (09:00)
[2021-04-03] MEDS: dexAMETHasone 6 MG in SYRINGE 0 ML IV SCH (09:00)
[2021-04-03] MEDS: FUROSEMIDE 20 MG TAB PO SCH (09:00)
[2021-04-03] MEDS: POTASSIUM CHLORIDE CRTAB 20 MEQ TABCR PO SCH (09:01)
[2021-04-03] MEDS: UMECLIDINIUM BROMIDE 62.5MCG/BLISTER 7 PUFFS/INHALER INH SCH (09:01)
[2021-04-03] MEDS: ENOXAPARIN INJ 40 MG/0.4 ML SYR SQ SCH ×2 (09:02→21:56)
--- NOTE | 2021-04-03 12:17 | Pharmacy Report ---
Pharmacy Glycemic Short Note 2 - Date of Service April 03, 2021 - Glycemic Short BSG Results (Last 24 hours): 04/02/21 04/02/21 04/03/21 11:40 21:01 00:15 Glucose 127 H POC Glucose 235 H 240 H 04/03/21 04/03/21 04/03/21 03:39 05:56 07:46 Glucose 162 H POC Glucose 192 H 141 H 04/03/21 11:25 Glucose POC Glucose 181 H OUTPATIENT ANTIDIABETIC REGIMEN: * Lantus 60 units SQ daily * Apidra 50 units SQ ACHS * Victoza 1.8mg SQ daily * A1c = 9.6% 12/2020 ASSESSMENT: 04/03/21 * Patient's BSGs last night were 235 mg/dL and overnight 240 mg/dL and 192 mg/dL. Fasting today is 141 mg/dL. * Patient received 80 units of insulin yesterday (60 units of basal and 20 units of bolus). * Okay with plan for NPH plus Novolog. * Give Lantus 40 units (66% of home dose) as clearly some basal was covering steroid hyperglycemia. Background * 55yo T2DM female with poor outpatient control per recent A1c. Pt is maintained on high dose SQ basal bolus insulin plus GLP1 * Pt admitted with COVID-19; received IV dexamethasone in ED and will be continued on 6mg IV daily x 10 days * Stress, illness, steroids, and baseline poor control will all compound hyperglycemia. * Confirmed with patient - she did NOT take any of her insulin today. * Will start with Lantus 60 units SQ NOW- add more at bedtime if needed. Start NPH tomorrow with dexamethasone as it is best to time these medications together. Will use NPH 0.4 units/kg (adjusted body weight d/t BMI >35) to cover for steroid induced hyperglycemia. Novolog per scale as CHO intake inhouse will likely be drastically different than outpatient. PLAN FOR INPATIENT GLYCEMIC CONTROL: * Hold outpatient GLP1 * Basal insulin * Lantus 10 units SQ x 1 dose now * NPH 45 units SQ with dexamethasone. * Bolus insulin * NovoLog per scale ACHS or Q6hrs while NPO * Goal Range: Low 110 mg/dL - High 140 mg/dL * Correction Factor: 10 mg/dL/unit * Nutritional / Prandial insulin per carb ratio of 1 unit per 3 grams CHO consumed PLAN FOR DISCHARGE: * TBD
[2021-04-03] MEDS: REMDESIVIR 100 MG in SODIUM CHLORIDE 0.9% 230 ML IV SCH (12:20)
[2021-04-03] MEDS: SODIUM CHLORIDE 0.9% 10ML FLUSH IV SCH (14:18)
--- NOTE | 2021-04-03 18:41 | Hospitalist Progress Note ---
Date of Service April 03, 2021 Assessment & Plan (1) Acute on chronic respiratory failure with hypoxia and hypercapnia: Plan: Natalie is a 55-year-old female with past medical history of obesity, hypertension with CKD, hyperlipidemia, sleep apnea, tobacco use, diabetes, and GERD who presents with acute on chronic respiratory failure and Covid pneumonia. Acute on chronic hypoxic respiratory failure with hypoxia and hypercapnia Chronic respiratory failure with COPD on 5-6 L of baseline oxygen at admission on BiPAP 16/8, FiO2 40%, 6 L O2 with some CO2 retention but chronic and well compensated on ABG 12/6 on visit good O2 sat on 6 L nasal cannula, appears a near baseline requirement - BiPAP as needed for napping and sleeping. (2) COVID-19: Plan: -Unvaccinated -Dexamethasone 6mg IV daily -Continue remdesivir, LFT checks daily -CRP 10 -On BiPAP due to CO2 retention rather than hypoxia therefore does not qualify for baricitinib on admission. Continues to be near home O2 requirement -Peacock catheter placed in ER to monitor UO and given patient poor mobility and shortness of breath -Continue furosemide (3) Anemia: Plan: Low normal MCV. No melena or bright red blood in stool. Suspect anemia of chronic disease Vitamin B12 normal, folate normal CBC daily (4) Asthma-COPD overlap syndrome: Plan: Do not suspect exacerbation, no wheezing on exam Umeclidinium daily Albuterol every 4 hours respiratory as needed Oxygen as above (5) Tinea cruris: Plan: Nystatin to left groin BID (6) Hyperlipidemia: Plan: Continue atorvastatin 10mg PO daily (7) Hypertension: Plan: Continue metoprolol tartrate 50mg PO BID, furosemide 60mg PO daily. (8) Lymphedema: Plan: At baseline Emollient skin care Defer SCDs (9) Restless legs syndrome with familial myoclonus: Plan: Continue ropinirole home dosing. (10) Peripheral neuropathy: Plan: Continue home gabapentin Continue home amitriptyline (11) Opioid dependence with unspecified opioid-induced disorder: Plan: Continue Percocet 4 times daily home dosing Home dosing listed as as needed, although as regular fills and usage reflects consistent rather than as needed use. Checked in PDMP on admission (12) Type 2 diabetes mellitus: Plan: HbA1C 9.6 in December. A1c pending T2DM diet Hold Victoza and usual insulin requirement. Pharmacy consulted for glycemic control in the setting of steroid use (13) GERD (gastroesophageal reflux disease): Plan: Pantoprazole (14) Wheelchair dependent: Plan: Noted baseline mobility (15) Morbid obesity: Plan: Bariatric bed requested (16) Major depression, recurrent: Plan: Continue quetiapine 300mg PO BID Plan: VTE Prophylaxis - Lovenox 40mg SQ BID Diet - T2DM, Low Na, heart healthy Disposition - admit to PCU, COVID isolation precautions Admission and Anticipated Discharge Date Admission Date: April 02, 2021 Lakisha Loco is seen at the bedside. She reports that she has a little bit of shortness of breath, but no wheezing. She is breathing comfortably on nasal cannula. She is frustrated that she has not been able to get up to a chair, discussed that she is currently an inpatient bed hold but should be able to get up to a recliner as soon as a bed is available. She denies fever, chills, sweats, abdominal pain, nausea, vomiting, diarrhea at time of visit. Review of Systems Review of Systems: All systems reviewed & are unremarkable except as noted in Subjective Physical Exam Physical Exam: General: A&Ox3. NAD. Cooperative. Breathing comfortably on nasal cannula. Obese. HEENT: Atraumatic, normocephalic. Visual acuity grossly intact. Hearing grossly intact. Pulm: Diminished, difficult to appreciate due to body habitus. Moderate air movement, breathing unlabored and without use of accessory muscles improved from prior. No crackles/rales Cardiac: RRR, -mrg. Radial pulses intact and symmetrical. Abdominal: Nontender, nondistended, soft. BS present. Results & Data Results & Data ([facility]) Vital Signs (Past 12 Hours) Vital Signs Pulse Pulse Resp BP Pulse Ox 04/03/21 12:00 65 21 125/43 L 93 04/03/21 08:00 65 19 138/75 93 04/03/21 07:33 61 20 93 PG Care Time/CCT Total # of Minutes Spent Total Time Spent with Patient: Total time spent is greater than 50% in coordination of care (as documented) at patient's floor/unit and/or counseling patient: Coding Level of Care Code 42021 Subseq Hosp Care Lvl 3 Diagnoses COVID-19 U07.1 Acute on chronic respiratory failure with hypoxia and hypercapnia J96.21; J96.22 Anemia D64.9 Anemia type: unspecified type Asthma-COPD overlap syndrome J44.9 Tinea cruris B35.6 Hyperlipidemia E78.5 Hypertension I10 Lymphedema I89.0 Restless legs syndrome with familial myoclonus G25.81; G25.3 Peripheral neuropathy G62.9 Opioid dependence with unspecified opioid-induced disorder F11.29 Type 2 diabetes mellitus E11.9 GERD (gastroesophageal reflux disease) K21.9 Wheelchair dependent Z99.3 Morbid obesity E66.01 Major depression, recurrent F33.9 (1) Anemia Anemia type: unspecified type Qualified Code(s): D64.9 - Anemia, unspecified
[2021-04-03] MEDS: AMITRIPTYLINE HCL 25 MG TAB PO SCH (21:57)
[2021-04-03] MEDS: oxyCODONE/ACETAMINOPHEN 10-325 TAB PO PRN (22:56)
[2021-04-04] MEDS: DOCUSATE SODIUM/SENNA 50/8.6MG TAB PO SCH ×3 (08:48→21:57)
[2021-04-04] MEDS: NYSTATIN POWDER 15GM BTL EXT SCH ×2 (08:49→20:07)
[2021-04-04] MEDS: dexAMETHasone 6 MG in SYRINGE 0 ML IV SCH (08:49)
[2021-04-04] MEDS: UMECLIDINIUM BROMIDE 62.5MCG/BLISTER 7 PUFFS/INHALER INH SCH (08:49)
[2021-04-04] MEDS: METOPROLOL TARTRATE 50 MG TAB PO SCH ×2 (08:50→20:04)
[2021-04-04] MEDS: ENOXAPARIN INJ 40 MG/0.4 ML SYR SQ SCH ×2 (08:50→20:06)
[2021-04-04] MEDS: ATORVASTATIN 10 MG TAB PO SCH (08:51)
[2021-04-04] MEDS: INSULIN HUMAN NPH SC SCH (08:51)
[2021-04-04] MEDS: CHOLECALCIFEROL 1,000 UNITS 25 MCG TAB PO SCH (08:51)
[2021-04-04] MEDS: INSULIN ASPART 100 UNITS/ML VIAL SC SCH ×4 (08:51→21:57)
[2021-04-04] MEDS: BACLOFEN 20 MG TAB PO SCH ×3 (08:51→20:05)
[2021-04-04] MEDS: QUEtiapine FUMARATE 300 MG TABLET PO SCH ×2 (08:52→20:06)
[2021-04-04] MEDS: rOPINIRole HCL 1 MG TABLET PO SCH ×3 (08:52→20:05)
[2021-04-04] MEDS: FUROSEMIDE 20 MG TAB PO SCH (08:52)
[2021-04-04] MEDS: POTASSIUM CHLORIDE CRTAB 20 MEQ TABCR PO SCH (08:52)
[2021-04-04] MEDS: TOLTERODINE TARTRATE LA 2 MG CAPCR PO SCH (08:52)
[2021-04-04] MEDS: PANTOprazole 40 MG TAB PO SCH ×2 (08:53→20:05)
[2021-04-04] MEDS: GABAPENTIN 400 MG CAP PO SCH ×3 (08:53→20:06)
[2021-04-04 09:21] LABS: Albumin Level 2.7 gm/dl (3.4-5.0); BUN Creatinine Ratio 17.1 (10-20); Calcium 8.3 mg/dl (8.5-10.1); Creatinine Clr Calc Pharmacy 128.1 ml/min; Est GFR (African American) 79.3 ml/min; Est GFR (Non-African American) 68.4 ml/min; Potassium 3.9 mmol/L (3.5-5.1)
[2021-04-04 09:24] LABS: Albumin Globulin Ratio 0.6 (0.9-2); Bilirubin,Total 0.5 mg/dl (0.2-1); Globulin 4.8 gm/dl (2.5-4.0); Total Protein 7.5 gm/dl (6.4-8.2)
[2021-04-04] MEDS ORDERED: INSULIN GLARGINE SOLOSTAR 100 UNITS/ML 3 ML PEN SC STA (10:19)
[2021-04-04] MEDS: oxyCODONE/ACETAMINOPHEN 10-325 TAB PO PRN (10:29)
[2021-04-04] MEDS: SODIUM CHLORIDE 0.9% 10ML FLUSH IV SCH (12:53)
[2021-04-04] MEDS: REMDESIVIR 100 MG in SODIUM CHLORIDE 0.9% 230 ML IV SCH (12:53)
--- NOTE | 2021-04-04 19:29 | Hospitalist Progress Note ---
Date of Service April 04, 2021 Assessment & Plan (1) Acute on chronic respiratory failure with hypoxia and hypercapnia: Plan: Natalie is a 55-year-old female with past medical history of obesity, hypertension with CKD, hyperlipidemia, sleep apnea, tobacco use, diabetes, and GERD who presents with acute on chronic respiratory failure and Covid pneumonia. Acute on chronic hypoxic respiratory failure with hypoxia and hypercapnia Chronic respiratory failure with COPD on 5-6 L of baseline oxygen at admission on BiPAP 16/8, FiO2 40%, 6 L O2 with some CO2 retention but chronic and well compensated on ABG - BiPAP as needed for napping and sleeping. 2/2 Covid pneumonia as below (2) COVID-19: Plan: -Unvaccinated -Dexamethasone 6mg IV daily -Continue remdesivir, LFT checks daily -CRP 10, trended -On BiPAP due to CO2 retention rather than hypoxia therefore does not qualify for baricitinib on admission. Continues to be near home O2 requirement -Peacock catheter placed in ER to monitor UO and given patient poor mobility and shortness of breath -Continue furosemide Given high CRP, comorbidity, and underlying respiratory disease with home oxygen requirement/BiPAP will trend CRP and treat conservatively (3) Anemia: Plan: Low normal MCV. No melena or bright red blood in stool. Suspect anemia of chronic disease Vitamin B12 normal, folate normal CBC daily (4) Asthma-COPD overlap syndrome: Plan: Do not suspect exacerbation, no wheezing on exam Umeclidinium daily Albuterol every 4 hours respiratory as needed Oxygen as above (5) Tinea cruris: Plan: Nystatin to left groin BID (6) Hyperlipidemia: Plan: Continue atorvastatin 10mg PO daily (7) Hypertension: Plan: Continue metoprolol tartrate 50mg PO BID, furosemide 60mg PO daily. (8) Lymphedema: Plan: At baseline Emollient skin care Defer SCDs (9) Restless legs syndrome with familial myoclonus: Plan: Continue ropinirole home dosing. (10) Peripheral neuropathy: Plan: Continue home gabapentin Continue home amitriptyline (11) Opioid dependence with unspecified opioid-induced disorder: Plan: Continue Percocet 4 times daily home dosing Home dosing listed as as needed, although as regular fills and usage reflects consistent rather than as needed use. Checked in PDMP on admission (12) Type 2 diabetes mellitus: Plan: HbA1C 9.6 in December. A1c pending T2DM diet Hold Victoza and usual insulin requirement. Pharmacy consulted for glycemic control in the setting of steroid use (13) GERD (gastroesophageal reflux disease): Plan: Pantoprazole (14) Wheelchair dependent: Plan: Noted baseline mobility (15) Morbid obesity: Plan: Bariatric bed requested (16) Major depression, recurrent: Plan: Continue quetiapine 300mg PO BID Plan: VTE Prophylaxis - Lovenox 40mg SQ BID Diet - T2DM, Low Na, heart healthy Disposition - admit to PCU, COVID isolation precautions Admission and Anticipated Discharge Date Admission Date: April 02, 2021 Subjective Seen at bedside. Patient sleeping comfortably. Awakens briefly for exam, reports tired, goes back to sleep. Denies worsening shortness of breath, fever, chills. Endorses fatigue. Review of Systems Review of Systems: Review of systems negative except as otherwise noted in subjective Physical Exam Physical Exam: General: Somnolent, awakens easily and oriented to name and place. On nasal cannula, O2 sat 93%. Obese. HEENT: Atraumatic, normocephalic. Vision/hearing grossly intact Pulm: Diminished, grossly without wheezes/crackles/rales. Symmetrical chest rise. No increase work of breathing. No respiratory distress. Cardiac: RRR, -mrg. Radial pulses intact and symmetrical. Abdominal: Nontender, nondistended, soft. BS present. Results & Data Results & Data ([facility]) Vital Signs (Past 12 Hours) Vital Signs Temp Pulse Pulse Resp BP Pulse Ox Pulse Ox 04/04/21 19:00 36.9 C 59 L 16 114/66 93 04/04/21 14:32 36.7 C 56 L 20 94/53 L 92 04/04/21 11:04 37.6 C H 67 20 111/61 92 04/04/21 09:57 59 L 04/04/21 09:00 94 PG Care Time/CCT Total # of Minutes Spent Total Time Spent with Patient: Total time spent is greater than 50% in coordination of care (as documented) at patient's floor/unit and/or counseling patient: Coding Level of Care Code 57772 Subseq Hosp Care Lvl 2 Diagnoses Acute on chronic respiratory failure with hypoxia and hypercapnia J96.21; J96.22 COVID-19 U07.1 Anemia D64.9 Anemia type: unspecified type Asthma-COPD overlap syndrome J44.9 Tinea cruris B35.6 Hyperlipidemia E78.5 Hypertension I10 Lymphedema I89.0 Restless legs syndrome with familial myoclonus G25.81; G25.3 Peripheral neuropathy G62.9 Opioid dependence with unspecified opioid-induced disorder F11.29 Type 2 diabetes mellitus E11.9 GERD (gastroesophageal reflux disease) K21.9 Wheelchair dependent Z99.3 Morbid obesity E66.01 Major depression, recurrent F33.9 (1) Anemia Anemia type: unspecified type Qualified Code(s): D64.9 - Anemia, unspecified
[2021-04-04] MEDS: AMITRIPTYLINE HCL 25 MG TAB PO SCH (20:07)
[2021-04-05] MEDS ORDERED: INSULIN ASPART 100 UNITS/ML VIAL SC ONE (02:30)
[2021-04-05 07:25] LABS: Eosinophils # (auto) 0.01 K/uL (0-0.5); Eosinophils % (auto) 0.2 %; Hematocrit (blood only) 31.3 % (37-47); Hemoglobin 8.6 g/dL (12.0-16.0); Immature Granulocytes # (auto) 0.01 K/uL (0.00-0.02); Immature Granulocytes % (auto) 0.2 %; Lymphocytes # (auto) 1.11 K/uL (1.2-3.4); Lymphocytes % (auto) 26.2 %; Mean Corpuscular Hemoglobin 22.3 pg (25-34); Mean Corpuscular Hgb Conc 27.5 g/dL (32-36); Mean Corpuscular Volume 81.3 fL (80-100); Mean Platelet Volume 9.6 fL (7.4-10.4); Monocytes # (auto) 0.22 K/uL (0.11-0.59); Monocytes % (auto) 5.2 %; Neutrophils # (auto) 2.89 K/uL (1.4-6.5); Neutrophils % (auto) 68.2 %; Platelet Count 143 K/uL (130-400); RDW Coefficient of Variation 18.6 % (11.5-14.5); RDW Standard Deviation 55.9 fL (36.4-46.3); Red Blood Count 3.85 M/uL (4.2-5.4); White Blood Count 4.24 K/uL (4.8-10.8)
[2021-04-05 07:59] LABS: Albumin Level 2.4 gm/dl (3.4-5.0); BUN Creatinine Ratio 19.9 (10-20); C Reactive Protein 5.82 mg/dl (0-0.29); Creatinine Clr Calc Pharmacy 134.1 ml/min; Est GFR (African American) 85.8 ml/min
[2021-04-05 08:01] LABS: Albumin Globulin Ratio 0.5 (0.9-2); Bilirubin,Total 0.4 mg/dl (0.2-1); Globulin 4.6 gm/dl (2.5-4.0)
[2021-04-05] MEDS ORDERED: INSULIN HUMAN NPH SC SCH (09:00)
[2021-04-05] MEDS ORDERED: INSULIN GLARGINE SOLOSTAR 100 UNITS/ML 3 ML PEN SC SCH (09:00)
[2021-04-05] MEDS: ATORVASTATIN 10 MG TAB PO SCH (09:15)
[2021-04-05] MEDS: TOLTERODINE TARTRATE LA 2 MG CAPCR PO SCH (09:15)
[2021-04-05] MEDS: CHOLECALCIFEROL 1,000 UNITS 25 MCG TAB PO SCH (09:16)
[2021-04-05] MEDS: GABAPENTIN 400 MG CAP PO SCH ×2 (09:16→13:45)
[2021-04-05] MEDS: QUEtiapine FUMARATE 300 MG TABLET PO SCH (09:17)
[2021-04-05] MEDS: PANTOprazole 40 MG TAB PO SCH (09:17)
[2021-04-05] MEDS: rOPINIRole HCL 1 MG TABLET PO SCH ×2 (09:17→13:46)
[2021-04-05] MEDS: FUROSEMIDE 20 MG TAB PO SCH (09:18)
[2021-04-05] MEDS: BACLOFEN 20 MG TAB PO SCH ×2 (09:18→13:46)
[2021-04-05] MEDS: METOPROLOL TARTRATE 50 MG TAB PO SCH (09:18)
[2021-04-05] MEDS: ENOXAPARIN INJ 40 MG/0.4 ML SYR SQ SCH (09:19)
[2021-04-05] MEDS: DOCUSATE SODIUM/SENNA 50/8.6MG TAB PO SCH ×2 (09:19→13:45)
[2021-04-05] MEDS: dexAMETHasone 6 MG in SYRINGE 0 ML IV SCH (09:21)
[2021-04-05] MEDS: UMECLIDINIUM BROMIDE 62.5MCG/BLISTER 7 PUFFS/INHALER INH SCH (09:28)
[2021-04-05] MEDS: INSULIN ASPART 100 UNITS/ML VIAL SC SCH ×4 (09:32→20:46)
[2021-04-05] MEDS: NYSTATIN POWDER 15GM BTL EXT SCH (09:35)
[2021-04-05] MEDS: POTASSIUM CHLORIDE CRTAB 20 MEQ TABCR PO SCH (09:48)
--- NOTE | 2021-04-05 10:02 | Pharmacy Report ---
Pharmacy Glycemic Short Note 2 - Date of Service April 05, 2021 - Glycemic Short BSG Results (Last 24 hours): 04/04/21 04/04/21 04/04/21 11:35 16:33 20:08 Glucose POC Glucose 153 H 161 H 156 H 04/05/21 04/05/21 04/05/21 02:09 07:01 07:56 Glucose 117 H POC Glucose 125 H 116 H OUTPATIENT ANTIDIABETIC REGIMEN: * Lantus 35 units SC BID * Apidra 50 units SC ACHS * Victoza 1.8mg SC daily * HbA1c = 9.6% (12/2020) ASSESSMENT: 04/05: * Natalie received a total of 107 units of insulin yesterday (35 units Lantus + 45 units NPH + 27 units Novolog) * BSGs were acceptable: [id number] mg/dL * Fasting BSG was 116 mg/dL this AM - at goal * Patient continues on 6 mg IV dexamethasone and Remdesivir for COVID-19 * Will slightly reduce Lantus this AM given fasting at lower end of goal range * Will slightly increase NPH this AM given postprandial hyperglycemia throughout the day likely due to steroids 12: * Patient's BSGs last night were 235 mg/dL and overnight 240 mg/dL and 192 mg/dL. Fasting today is 141 mg/dL. * Patient received 80 units of insulin yesterday (60 units of basal and 20 units of bolus). * Okay with plan for NPH plus Novolog. * Give Lantus 40 units (66% of home dose) as clearly some basal was covering steroid hyperglycemia. PLAN FOR INPATIENT GLYCEMIC CONTROL: * Hold outpatient GLP1 * Basal insulin - increased NPH, decreased Lantus * Lantus 30 unit SC AM * NPH 50 units (0.3 units/kg) SC AM w/ dexamethasone * Bolus insulin * NovoLog per scale ACHS or Q6hrs while NPO * Goal Range: Low 110 mg/dL - High 140 mg/dL * Correction Factor: 10 mg/dL/unit * Nutritional / Prandial insulin per carb ratio of 1 unit per 3 grams CHO consumed PLAN FOR DISCHARGE: * HbA1c from December 2020 was 9.6% which is above the goal of less than 7% for this patient. Previous HbA1c was 8.7% in 2019. PCP changed patient from Lantus 60 units SC daily to 35 units SC BID in December. Plan to order another HbA1c with AM labs tomorrow to see if HbA1c has improved since change in Lantus dosing.
[2021-04-05] MEDS: REMDESIVIR 100 MG in SODIUM CHLORIDE 0.9% 230 ML IV SCH (11:58)
--- NOTE | 2021-04-05 12:53 | Discharge Summary ---
Date of Service April 05, 2021 Admission HPI Per Admitting Provider Natalie Hong is a 55 year old female with morbid obesity, asthma,/COPD overlap, current smoker who presents to the ER with lethargy, cough and fever. She is unvaccinated for COVID-19. She reports symptoms for the last 7 days. Main symptoms of fatigue and weakness. Associated non-productive cough, shortness of breath, no appetite. She denies any loss of taste or smell. She reports sores on her back for the last 4 days. She is chronically short of breath due to COPD on 5LPM O2 at baseline. In the ER; SARS-COV-2 PCR positive. CRP 10.6. ABG was concerning for chronic CO2 retention with metabolic compensation. CXR concerning for COVID-19 pneumonia vs. pulmonary edema. She was started on BiPAP due to her CO2 retention. She was referred to medicine for admission and ongoing management of COVID-19 pneumonia. Admission Exam Per Admitting Provider Constitutional: well developed, + acute distress (respiratory) and + morbidly obese Eyes: + anicteric sclerae; normal pupil size ENMT: Mouth: + dry oral mucous membranes Neck: + short neck, + thick neck and + facial hair Respiratory: + respiratory distress, + labored breath ing, + retractions and + uses accessory muscles; + not able to speak in complete sentence, expiratory phase not prolonged and no audible wheezes Auscultation: + diminished lung sounds (bibasal); no crackles, no rales, no rhonchi and no wheezes Cardiovascular: Rate/Rhythm: regular rate and regular rhythm Heart Sounds: no murmur Extremities: normal capillary refill and + pedal edema (pitting 1+ to knees equal b/l); no calf tenderness Gastrointestinal (Abdomen): normal bowel sounds, soft, nontender, no hepatosplenomegaly Musculoskeletal: no cyanosis or clubbing, extremities motor strength 5/5 Skin: + erythema (left groin wet and erythemat ous) Unable to turn patient to inspect back Neurologic: moves all extremities and awake; no focal motor deficits (no lateralizing deficit) and not confused Psychiatric: A+Ox3, euthymic affect Genitourinary: no CVA tenderness Principal Diagnosis COVID-19 pneumonia Discharge Exam General: A&Ox3. NAD. Cooperative. HEENT: Atraumatic, normocephalic. Visual acuity and hearing grossly intact. Pulm: Slightly difficult to appreciate due to body habitus, but with moderate air movement and without overt wheezes/crackles/rales. Symmetrical chest rise. No increase work of breathing. No respiratory distress. On nasal cannula. Cardiac: RRR, -mrg. Radial pulses intact and symmetrical. Abdominal: Nontender, nondistended, soft. BS present. Discharge Data Allergies Allergy/AdvReac Type Severity Reaction Status Date / Time bee venom protein (honey bee) Allergy Mild Verified 04/02/21 13:22 rosiglitazone [From Avandia] Allergy Verified 04/02/21 13:22 hydrocodone AdvReac Intermediate itching Verified 04/02/21 13:22 Consultations 04/02/21 13:24 ED Decision to Admit Stat Hospital Course (1) Acute on chronic respiratory failure with hypoxia and hypercapnia: Natalie is a 55-year-old female with past medical history of obesity, hypertension with CKD, hyperlipidemia, sleep apnea, tobacco use, diabetes, and GERD who presented with acute on chronic respiratory failure and Covid pneumonia. She remained near her home oxygen requirements, and tolerated BiPAP in the hospital well. She felt greatly clinically improved after 2 days of treatment, and the risks and benefits of continued observation versus discharge home were discussed. Patient felt she was at her normal baseline, and greatly prefer discharge home to where she has a 24-hour paid caregiver. She was discharged on dexamethasone with strict return precautions for any worsening sy mptoms. To do as outpatient: 1. Complete 10-day course of dexamethasone 2. Routine follow-up with PCP 3. Setting adjustment by [facility] to BiPAP, arranged for day of discharge Acute on chronic hypoxic respiratory failure with hypoxia and hypercapnia Chronic respiratory failure with COPD on 5-6 L of baseline oxygen at admission on BiPAP 16/8, FiO2 40%, 6 L O2 with some CO2 retention but chr onic and well compensated on ABG - BiPAP as needed for napping and sleeping. Patient tolerated hospital BiPAP well, reportedly does not tolerate her home BiPAP because the settings are too strong. Updated prescription sent to adjust settings/mask fit to match which she received here. 2/2 Covid pneumonia as below (2) COVID-19: -Unvaccinated -Clinically improved discussed risk/benefits of observation versus return home given that she had returned to her home oxygen requirements, was also high risk and Covid can progress around 8-12. Patient reports she felt well, and was breathing at her normal baseline and reported that she had 24-hour care with her daughter at home as a paid caregiver. She is discharged home to complete a 10- day course of dexamethasone with return precautions Patient received remdesivir during admission, LFT stable -CRP 10, down trended during admission -On BiPAP due to CO2 retention rather than hypoxia therefore did not qualify for baricitinib on admission. Patient felt greatly improved after 2 days of treatment -Peacock catheter placed in ER to monitor UO and given patient poor mobility and shortness of breath, discontinued prior to discharge -Continue furosemide (3) Anemia: Low normal MCV. No melena or bright red blood in stool. Suspect anemia of chronic disease Vitamin B12 normal, folate normal CBC daily (4) Asthma-COPD overlap syndrome: Do not suspect exacerbation, no wheezing on exam Umeclidinium daily Albuterol every 4 hours respiratory as needed Oxygen as above (5) Tinea cruris: Nystatin to left groin BID (6) Hyperlipidemia: Continue atorvastatin 10mg PO daily (7) Hypertension: Continue metoprolol tartrate 50mg PO BID, furosemide 60mg PO daily. (8) Lymphedema: At baseline Emollient skin care Defer SCDs (9) Restless legs syndrome with familial myoclonus: Continue ropinirole home dosing. (10) Peripheral neuropathy: Continue home gabapentin Continue home amitriptyline (11) Opioid dependence with unspecified opioid-induced disorder: Continue Percocet 4 times daily home dosing Home dosing listed as as needed, although as regular fills and usage reflects consistent rather than as needed use. Checked in PDMP on admission (12) Type 2 diabetes mellitus: HbA1C 9.6 in December. A1c pending T2DM diet Held Victoza and usual insulin requirement. Pharmacy consulted for glycemic control in the setting of steroid use (13) GERD (gastroesophageal reflux disease): Pantoprazole (14) Wheelchair dependent: Noted baseline mobility (15) Morbid obesity: Bariatric bed requested (16) Major depression, recurrent: Continue quetiapine 300mg PO BID VTE Prophylaxis - Lovenox 40mg SQ BID. No signs of DVT during admission Diet - T2DM, Low Na, heart healthy Total Time Total Time Spent Total Time Spent (In Minutes): 35 minutes including direct patient care, documentation, and review of labs and images. Discharge Plan Discharge Items Patient Disposition: Home - Self-Care Reason For Visit: COVID-19 PNEUMONIA, AUTE ON CHRONIC RESP FAILURE Discharge Diagnosis: COVID-19 pneumonia Activity: Per Instructions section Non-emergency contact: Primary Care Provider Call non-emergency contact if: you have any medication questions, your symptoms worsen, your pain is not controlled, your pain is worsening and you have a fever Follow-up/Referrals: Nuha Welch CRNP [Primary Care Provider] - Diet: Carb Consistent or DM2 Addtl Attending Provider Instructions: You were seen in the hospital for Covid pneumonia. You clinically improved, and felt well on day of discharge. You had returned to your baseline oxygen requirements a 5 to 6 L of nasal cannula oxygen at discharge. Your markers of inflammation were elevated on admission, these down trended during admission. Your home BiPAP had been tolerable to you, but you were able to tolerate the hospital CPAP/BiPAP well. Your medical equipment company was contacted and a prescription was provided to adjust the settings on your home BiPAP and ensure they corrected with the mask. Please continue to use your BiPAP at night and when napping. Please take dexamethasone 6 mg by mouth daily for 7 more days to complete a total 10-day course of treatment. A followup appointment is being scheduled for you with Nuha Welch. You should be seen seen within 1 week. You should receive a call to confirm this appointment. If you do not receive a call within 48 hours to confirm this appointment, or need to change this appointment, please call the provider's office. If you develop any new or worsening symptoms including fever, chills, sweats, chest pain, chest pressure, difficulty breathing, uncontrolled nausea/vomiting, rash, wheezing, passing out or nearly passing out, bleeding, black/bloody bowel movements, or other new or concerning symptoms please call your primary care physician, or call 911 for re-evaluation in the emergency department if you are very concerned. Pending Studies at Discharge: No Stand-Alone Forms: [employer] [place], Smoking Cessation Medications and DC Order Prescriptions: New dexamethasone 6 mg tablet 6 mg PO DAILY Qty: 7 RF: 0 Continued (DME) Oxygen Home Liters Per Minute See Dose Instructions .ROUTE .MEDSUPPLY Qty: 1 RF: 0 albuterol sulfate 2.5 mg /3 mL (0.083 %) solution for nebulization 2.5 mg INH Q4H PRN (Reason: shortness of breath or wheezing) Qty: 180 RF: 5 (DME) blood-glucose meter [[employer] MedicineTouch Ultra2 Meter] Kit See Rx Instructions .ROUTE .MEDSUPPLY Qty: 1 RF: 0 (DME) lancets [OneTouch Delica Plus Lancet] 30 gauge misc See Rx Instructions .ROUTE .MEDSUPPLY Qty: 100 RF: 5 omeprazole 20 mg capsule,delayed release(DR/EC) 20 mg PO BID Qty: 60 RF: 11 furosemide [Lasix] 40 mg tablet 60 mg PO DAILY Qty: 135 RF: 3 ropinirole 1 mg tablet See Rx Instructions .ROUTE .COMPLEX Qty: 120 RF: 11 sennosides-docusate sodium [Senna Plus] 8.6-50 mg tablet 1 tab-cap PO TID Qty: 90 RF: 5 atorvastatin 10 mg tablet 10 mg PO DAILY Qty: 30 RF: 11 quetiapine 300 mg tablet 300 mg PO BID Qty: 60 RF: 11 amitriptyline 25 mg tablet 25 mg PO DAILY Qty: 30 RF: 11 epinephrine 0.3 mg/0.3 mL auto-injector See Rx Instructions .ROUTE .COMPLEX Qty: 2 RF: 1 (DME) OneTouch Ultra Blue Test Strip Strip See Rx Instructions .ROUTE .MEDSUPPLY Qty: 100 RF: 5 gabapentin 400 mg capsule See Rx Instructions .ROUTE .COMPLEX Qty: 120 RF: 5 cholecalciferol (vitamin D3) 125 mcg (5,000 unit) capsule 125 mcg PO DAILY Qty: 30 RF: 11 Apidra SoloStar U-100 Insulin 100 unit/mL insulin pen See Rx Instructions .ROUTE .COMPLEX Qty: 15 RF: 11 (DME) CPAP Supplies Misc See Rx Instructions .Route Qty: 1 RF: 0 (DME) pen needle, diabetic [BD Ultra-Fine Short Pen Needle] 31 gauge x 5/16" needle See Rx Instructions .Route Qty: 100 RF: 11 (DME) sit to stand lift Qty: 1 RF: 0 (DME) Oxygen Home Liters Per Minute See Rx Instructions .ROUTE .MEDSUPPLY Qty: 1 RF: 0 tolterodine [Detrol LA] 2 mg capsule,extended release 24hr 2 mg PO DAILY Qty: 30 RF: 6 (DME) oxygen See Rx Instructions .Route .MEDSUPPLY Qty: 1 RF: 0 docusate sodium 100 mg Capsule 100 mg PO TID PRN (Reason: Constipation) RF: 0 Narcan 4 mg/actuation spray,non-aerosol 1 spray INTRANASAL UD RF: 0 baclofen 20 mg tablet 20 mg PO TID RF: 0 potassium chloride 20 mEq tablet,ER particles/crystals 20 meq PO DAILY RF: 0 oxycodone-acetaminophen [Percocet] 10-325 mg tablet 1 tab PO QID PRN (Reason: pain) RF: 0 metoprolol tartrate 50 mg tablet 50 mg PO BID RF: 0 polyethylene glycol 3350 17 gram/dose powder 17 g PO DAILY PRN (Reason: Constipation) RF: 0 mometasone 0.1 % cream 1 applic topical UD RF: 0 Lantus Solostar U-100 Insulin 100 unit/mL (3 mL) insulin pen 60 unit SQ DAILY RF: 0 Victoza 2-Venkatesh 0.6 mg/0.1 mL (18 mg/3 mL) pen injector 18 mg subcut DAILY RF: 0 Spiriva Respimat 2.5 mcg/actuation mist 2 puff inhalation BID RF: 0 Discharge Orders: Discharge Order (Routine); Ordered 04/05/21 Ordered By: David Soto Admission Data Admit Date/Time: 04/02/21 14:25 Attending Provider: David Soto Admit Provider: William Padron Primary Care Provider: Nuha Welch Other Providers: William Padron Coding Level of Care Code D/C DAY MANAGEMENT >30 MINS Diagnoses Acute on chronic respiratory failure with hypoxia and hypercapnia J96.21; J96.22 COVID-19 U07.1 Anemia D64.9 Anemia type: unspecified type Asthma-COPD overlap syndrome J44.9 Tinea cruris B35.6 Hyperlipidemia E78.5 Hypertension I10 Lymphedema I89.0 Restless legs syndrome with familial myoclonus G25.81; G25.3 Peripheral neuropathy G62.9 Opioid dependence with unspecified opioid-induced disorder F11.29 Type 2 diabetes mellitus E11.9 GERD (gastroesophageal reflux disease) K21.9 Wheelchair dependent Z99.3 Morbid obesity E66.01 Major depression, recurrent F33.9
[2021-04-05] MEDS: SODIUM CHLORIDE 0.9% 10ML FLUSH IV SCH (13:00)
== END 2021-04-05 22:20 | disposition home or self-care (01) | DRG 177 ==
LOC: ED 11:27 → SUATTDRO 14:25 → EDINP 14:25 → 2S 04-03 21:51

== ENCOUNTER 2021-05-03 22:19 | Inpatient (IN) ==
--- NOTE | 2021-05-03 22:59 | Emergency Department Note ---
Impression & Plan Dyspnea, Morbidly obese, Anemia, Ambulatory dysfunction ADMIT ED Provider Note HPI: The patient is a 55-year-old female with history of morbid obesity, history of respiratory failure with hypoxia and hypercarbia, COPD, on 6 L nasal cannula oxygen at baseline, presents the emergency department with shortness of breath over the past 2 days since she was discharged from [facility] after stay for shortness of breath and empyema, also noted to be COVID-19 positive. Patient states that she had this drained while she was at [facility], patient states she was just discharged on 05/02 from [facility] after a stay for about 2 weeks, she tells me that she has not been doing well since she got home, states she cannot ambulate throughout her home, states she does not have services at home that make her comfortable being at home by herself. She states that she was offered placement at [facility] prior to discharge from [facility] and she declined, states that she was surprised at how much difficulty she was having at home and does not feel comfortable being discharged back home at this time. States that she believes she needs placed, also states that her BiPAP is not working at home and she has been unable to use it the past 2 nights. She normally wears this at night when she sleeps. Arrival here to the ED the patient is hemodynamically stable, she is afebrile, she is otherwise in no acute distress. ROS: -Pulmonary: Shortness of breath -General: Generalized weakness, difficulty with ADLs, morbid obesity *10 point review systems was conducted and is otherwise negative unless stated above *Outpatient medications and allergy history reviewed PE: General: Alert, NAD, morbidly obese HEENT: Normocephalic, atraumatic, trachea midline Eyes: Extraocular eye movement is intact, no scleral erythema Pulmonary: Diminished bilaterally without wheezing or notable crackles Cardio: Regular rate and rhythm GI: Abdomen is soft, nontender : No suprapubic tenderness MSK: No evidence of trauma or malformation of the extremities, no edema Skin: No evidence of rash, site of previous pulmonary drain without surrounding erythema or drainage to the left lateral chest wall Neuro: Alert, no focal deficits Psychiatric: Cooperative classroom monitor: - An order was placed for continuous cardiac monitoring - Patient was noted to be in sinus rhythm with rate of 85 EKG: Rate: 82 Rhythm: Normal sinus rhythm Intervals: Within normal limits ST changes: No ST elevation Time: 2233 CTA CHEST: Comparison 04/21/2021 No pulmonary embolism. Consolidation in the left lower lobe. Dependent pleural-based opacities bi laterally. Findings may represent atelectasis or infection. Decreased size of the cavitating focus in the left upper lobe now measuring 1 cm. Trace left empyema. Mediastinal adenopathy. Multinodular thyroid gland. Radiologist: Shakir Garcia MD Medical Decision Making: Patient presented with generalized weakness from home, also states that she has been very short of breath over the past 2 days since she was discharged from [facility]. She states she cannot walk in her house, states she no longer feels comfortable being at home and attempting to take care of herself. Patient does express some regret that she did not go to a inpatient rehabilitation facility upon her discharge from [facility]. Interventions included IV was established, nasal cannula oxygen continued per baseline. Labwork shows no leukocytosis, no left shift, there is anemia to 7.6, this is slightly reduced from the patient's baseline, although upon review of the patient's discharge summary from [facility], hemoglobin was also 7.6 two days ago when she was discharged, patient denies any recent blood per rectum or hematemesis. Imaging was obtained including CT angiography of the chest that does not show any evidence of pulmonary embolism, does show consolidation in the left lower lobe possibly infectious versus atelectasis. Decreased size of the cavitating focus in the left upper lobe which was drained during her stay at [facility] a ccording to the patient. Venous blood gas shows a normal pH, PCO2 is 74, serum bicarbonate level is 44, patient appears compensated at this time and I suspect this is near baseline. Given that the patient does not have a leukocytosis or left shift, favoring atelectasis versus potential pneumonia in regards to the CT scan finding in the left lower lobe. On re-evaluation patient is stable on her 6 L nasal cannula oxygen. She is requesting admission for placement, states that she does not feel comfortable going home in addition her BiPAP machine is not working at home. Hospitalist service will be consulted for admission. Diagnosis: 1. Morbid obesity 2. Shortness of breath 3. History of hypercarbic respiratory failure, on 6 L nasal cannula oxygen at baseline 4. Ambulatory dysfunction, difficulty with ADLs, encounter for placement at rehabilitation facility 5. Anemia Disposition: Admission Walker Lovell DO Emergency Medicine Past Med/Surg History Medical History Asthma-COPD overlap syndrome GERD (gastroesophageal reflux disease) Kidney calculi Morbid obesity Surgical History History of left knee surgery History of tubal ligation Family History Other Diabetes Dyslipidemia Denies family history of Coronary heart disease Cancer Stroke Social History Smoking Status: Current every day smoker Tobacco Type: Cigarettes Second Hand Exposure: Yes; Hx Alcohol Use: No Hx Substance Use: No Preferred Language: Greenlandic Communication Ability: Effective Visual Impairment: Limited Mailing Machine Assistant Required: No Beliefs That Will Affect Care: None marital status: Current Living Situation: Family current occupational status: disabled Feels Safe at Home: Yes caffeine: Yes Dental Care, Regularly: No Physical Activity Frequency: Daily Physical Activity Frequency Comment: streches Seatbelt Use: never Sunscreen Use: No Assistive Devices: Denture - Upper, Denture - Lower and Oxygen - Continuous Allergies Allergies Allergy/AdvReac Type Severity Reaction Status Date / Time bee venom protein (honey bee) Allergy Mild Unknown Verified 05/03/21 22:58 rosiglitazone [From [facility]andia] Allergy Unknown Unknown Verified 05/03/21 22:58 hydrocodone AdvReac Intermediate itching Verified 05/03/21 22:58 Home Meds Home Medications Medication Instructions Recorded Confirmed baclofen 20 mg tablet 20 mg PO TID 04/02/21 05/03/21 docusate sodium 100 mg capsule 100 mg PO TID PRN 04/02/21 05/03/21 insulin glargine 100 unit/mL (3 60 unit SQ DAILY 04/02/21 05/03/21 mL) subcutaneous pen (Lantus Solostar U-100 Insulin) liraglutide 0.6 mg/0.1 mL (18 mg/3 18 mg SUBCUT DAILY 04/02/21 05/03/21 mL) subcutaneous pen injector ([employer] 2-Venkatesh) mometasone 0.1 % topical cream 1 applic TOPICAL UD 04/02/21 05/03/21 naloxone 4 mg/actuation nasal 1 spray INTRANASAL UD 04/02/21 05/03/21 spray (Narcan) polyethylene glycol 3350 17 17 g PO DAILY PRN 04/02/21 05/03/21 gram/dose oral powder potassium chloride 20 mEq 20 meq PO DAILY 04/02/21 05/03/21 tablet,extended release(part/cryst) tiotropium bromide 2.5 2 puff INHALATION BID 04/02/21 05/03/21 mcg/actuation mist for inhalation (Spiriva Respimat) Previous Rx's Medication Instructions Recorded Oxygen Home #1 ea 09/07/19 albuterol sulfate 2.5 mg INH Q4H PRN #180 ml 09/08/19 Oxygen Home #1 ea 11/25/19 sit to stand lift #1 ea 11/25/19 blood-glucose meter (OneTouch #1 ea 11/26/19 Ultra2 Meter) lancets 30 gauge (OneTouch Delica #100 ea 12/01/19 Plus Lancet) ropinirole 1 mg tablet See Rx Instructions .ROUTE 04/14/20 .COMPLEX #120 tab sennosides 8.6 mg-docusate sodium 1 tab-cap PO TID #90 tab 05/24/20 50 mg tablet (Senna Plus) atorvastatin 10 mg tablet 10 mg PO DAILY #30 tab 07/26/20 quetiapine 300 mg tablet 300 mg PO BID #60 tab 08/08/20 amitriptyline 25 mg tablet 25 mg PO DAILY #30 tab 08/29/20 epinephrine 0.3 mg/0.3 mL See Rx Instructions .ROUTE 09/13/20 injection, auto-injector .COMPLEX #2 unspecified oxygen #1 ea 12/27/20 tolterodine 2 mg capsule,extended 2 mg PO DAILY #30 cap 12/27/20 release 24 hr (Detrol LA) blood sugar diagnostic #100 ea 01/06/21 gabapentin 400 mg capsule See Rx Instructions .ROUTE 01/06/21 .COMPLEX #120 capsule cholecalciferol (vitamin D3) 125 125 mcg PO DAILY #30 cap 01/23/21 mcg (5,000 unit) capsule insulin glulisine U-100 100 See Rx Instructions .ROUTE 02/17/21 unit/mL subcutaneous pen (Apidra .COMPLEX #15 milliliter SoloStar U-100 Insulin) CPAP Supplies #1 ea 03/02/21 pen needle, diabetic 31 gauge x #100 ea 03/10/2109/11" (BD Ultra-Fine Short Pen Needle) omeprazole 20 mg capsule,delayed 20 mg PO BID #60 cap 04/11/21 release oxycodone-acetaminophen 10 mg-325 1 tab PO QID PRN 30 Days #120 tab 04/11/21 mg tablet (Percocet) furosemide 40 mg tablet (Lasix) 60 mg PO DAILY #135 tab 04/13/21 metoprolol tartrate 50 mg tablet 50 mg PO BID #180 tab 04/13/21 nystatin 100,000 unit/gram topical 1 applic TOPICAL BID PRN #30 g 04/13/21 cream Results & Data (ED) Vital Signs Vital Signs - 24 hr 05/03/21 22:41 05/03/21 22:55 05/03/21 23:00 Temperature 36.5 C Temperature Source Oral Pulse Rate 79 85 76 Pulse Rate [Apical] Pulse Rate from SpO2 Sensor 79 76 Respiratory Rate 15 15 Respiratory Effort / Characteristics Respiratory Depth Respiratory Pattern Blood Pressure 129/63 Blood Pressure [Left Arm] Blood Pressure Mean 85 Blood Pressure Mean [Left Arm] Pulse Oximetry 92 92 91 Oxygen Delivery Method Nasal Cannula Oxygen Flow Rate 6 6 6 Sepsis Recent Fever Within 48 Hours No Sepsis New/Unexplained Change in Mental Status No Sepsis Action Taken by Nursing No Action Required 05/03/21 23:30 05/03/21 23:49 05/04/21 00:17 Temperature Temperature Source Pulse Rate 79 80 Pulse Rate [Apical] Pulse Rate from SpO2 Sensor 79 Respiratory Rate 14 21 Respiratory Effort / Characteristics Non-Labored Respiratory Depth Normal Respiratory Pattern Regular Blood Pressure Blood Pressure [Left Arm] Blood Pressure Mean Blood Pressure Mean [Left Arm] Pulse Oximetry 92 Oxygen Delivery Method Nasal Cannula Oxygen Flow Rate 6 Sepsis Recent Fever Within 48 Hours Sepsis New/Unexplained Change in Mental Status Sepsis Action Taken by Nursing 05/04/21 00:19 05/04/21 01:18 Temperature Temperature Source Pulse Rate 77 79 Pulse Rate [Apical] 79 Pulse Rate from SpO2 Sensor 77 Respiratory Rate 24 13 Respiratory Effort / Characteristics Respiratory Depth Respiratory Pattern Blood Pressure 137/53 L Blood Pressure [Left Arm] 101/40 L Blood Pressure Mean 81 Blood Pressure Mean [Left Arm] 60 Pulse Oximetry 98 93 Oxygen Delivery Method Nasal Cannula Oxygen Flow Rate 6 5 Sepsis Recent Fever Within 48 Hours Sepsis New/Unexplained Change in Mental Status Sepsis Action Taken by Nursing Laboratory Data Result diagrams: 05/03/21 23:05 05/03/21 22:36 Lab Results 05/03/21 05/03/21 05/03/21 Range/Units 22:36 23:05 23:05 WBC 5.48 (4.8-10.8) K/uL RBC 3.36 L (4.2-5.4) M/uL Hgb 7.6 L (12.0-16.0) g/dL Hct 28.1 L (37-47) % MCV 83.6 (80-100) fL MCH 22.6 L (25-34) pg MCHC 27.0 L (32-36) g/dL RDW Std Deviation 69.0 H (36.4-46.3) fL RDW Coeff of Curt 23.6 H (11.5-14.5) % Plt Count 272 (130-400) K/uL MPV 8.6 (7.4-10.4) fL Immature Gran % (Auto) 0.4 % Neut % (Auto) 62.9 % Lymph % (Auto) 29.4 % [place] % (Auto) 5.1 % Eos % (Auto) 2.0 % Baso % (Auto) 0.2 % Neut # (Auto) 3.45 (1.4-6.5) K/uL Lymph # (Auto) 1.61 (1.2-3.4) K/uL [place] # (Auto) 0.28 (0.11-0.59) K/uL Eos # (Auto) 0.11 (0-0.5) K/uL Baso # (Auto) 0.01 (0-0.2) K/uL Immature Gran # (Auto) 0.02 (0.00-0.02) K/uL Polychromasia 1+ Hypochromasia Present Anisocytosis Present PT 11.4 (9.0-12.0) Seconds INR 1.1 (0.9-1.1) APTT 29.0 (21.0-31.0) Seconds PTT Ratio 1.1 VBG pH (7.36-7.41) VBG pCO2 (38-50) mmHg VBG pO2 mmHg VBG HCO3 mmol/L VBG O2 Saturation % VBG Base Excess mEq/L Sodium 138 (136-145) mmol/L Potassium 3.3 L (3.5-5.1) mmol/L Chloride 90 L (98-107) mmol/L Carbon Dioxide 44 H* (21-32) mmol/L Anion Gap 4.0 (3-11) BUN 10 (7-18) mg/dl Creatinine 0.65 (0.6-1.2) mg/dl Est Cr Clr Drug Dosing 178.2 ml/min Est GFR ( Amer) 117.5 ml/min Est GFR (Non-Af Amer) 101.4 ml/min BUN/Creatinine Ratio 15.2 (10-20) Glucose 100 H (70-99) mg/dl Calcium 9.3 (8.5-10.1) mg/dl Total Bilirubin 0.3 (0.2-1) mg/dl AST 15 (15-37) U/L ALT 16 (12-78) Alkaline Phosphatase 73 (45-117) U/L Troponin I < 0.015 (0-0.045) ng/ml NT-Pro-B Natriuret Pep 616 (0-900) pg/ml Total Protein 7.2 (6.4-8.2) gm/dl Albumin 1.8 L (3.4-5.0) gm/dl Globulin 5.4 H (2.5-4.0) gm/dl Albumin/Globulin Ratio 0.3 L (0.9-2) Lipase 155 (73-393) U/L SARS-CoV-2 (PCR) (Negative) Influenza Type A (PCR) (Neg) Influenza Type B (PCR) (Neg) RSV (RT-PCR) (Neg) 05/03/21 05/04/21 Range/Units 23:05 Unknown WBC (4.8-10.8) K/uL RBC (4.2-5.4) M/uL Hgb (12.0-16.0) g/dL Hct (37-47) % MCV (80-100) fL MCH (25-34) pg MCHC (32-36) g/dL RDW Std Deviation (36.4-46.3) fL RDW Coeff of Curt (11.5-14.5) % Plt Count (130-400) K/uL MPV (7.4-10.4) fL Immature Gran % (Auto) % Neut % (Auto) % Lymph % (Auto) % [place] % (Auto) % Eos % (Auto) % Baso % (Auto) % Neut # (Auto) (1.4-6.5) K/uL Lymph # (Auto) (1.2-3.4) K/uL [place] # (Auto) (0.11-0.59) K/uL Eos # (Auto) (0-0.5) K/uL Baso # (Auto) (0-0.2) K/uL Immature Gran # (Auto) (0.00-0.02) K/uL Polychromasia Hypochromasia Anisocytosis PT (9.0-12.0) Seconds INR (0.9-1.1) APTT (21.0-31.0) Seconds PTT Ratio VBG pH 7.40 (7.36-7.41) VBG pCO2 74 H (38-50) mmHg VBG pO2 36 mmHg VBG HCO3 45 mmol/L VBG O2 Saturation 65.6 % VBG Base Excess 17.7 mEq/L Sodium (136-145) mmol/L Potassium (3.5-5.1) mmol/L Chloride (98-107) mmol/L Carbon Dioxide (21-32) mmol/L Anion Gap (3-11) BUN (7-18) mg/dl Creatinine (0.6-1.2) mg/dl Est Cr Clr Drug Dosing ml/min Est GFR ( Amer) ml/min Est GFR (Non-Af Amer) ml/min BUN/Creatinine Ratio (10-20) Glucose (70-99) mg/dl Calcium (8.5-10.1) mg/dl Total Bilirubin (0.2-1) mg/dl AST (15-37) U/L ALT (12-78) Alkaline Phosphatase (45-117) U/L Troponin I (0-0.045) ng/ml NT-Pro-B Natriuret Pep (0-900) pg/ml Total Protein (6.4-8.2) gm/dl Albumin (3.4-5.0) gm/dl Globulin (2.5-4.0) gm/dl Albumin/Globulin Ratio (0.9-2) Lipase (73-393) U/L SARS-CoV-2 (PCR) NEGATIVE (Negative) Influenza Type A (PCR) Negative (Neg) Influenza Type B (PCR) Negative (Neg) RSV (RT-PCR) Negative (Neg) Administered Medications Discontinued Medications Ioversol (Optiray 320 125ml) 120 ml IV ONCE ONE Stop: 05/04/21 00:21 Last Admin: 05/04/21 00:20 Dose: 120 ml Documented by: [id number] Discharge Plan Visit Data Chief Complaint: Shortness of Breath/Dyspnea Stated Complaint: SOB COVID + ED Provider: Walker Lovell Discharge Problem: Dyspnea, Morbidly obese, Anemia, Ambulatory dysfunction Forms Stand Alone Forms: [employer] [facility] Prescriptions Prescriptions: No Action (DME) Oxygen Home Liters Per Minute See Dose Instructions .ROUTE .MEDSUPPLY Qty: 1 RF: 0 albuterol sulfate 2.5 mg /3 mL (0.083 %) solution for nebulization 2.5 mg INH Q4H PRN (Reason: shortness of breath or wheezing) Qty: 180 RF: 5 (DME) blood-glucose meter [[employer] Ultra2 Meter] Kit See Rx Instructions .ROUTE .MEDSUPPLY Qty: 1 RF: 0 (DME) lancets [OneTouch Delica Plus Lancet] 30 gauge misc See Rx Instructions .ROUTE .MEDSUPPLY Qty: 100 RF: 5 ropinirole 1 mg tablet See Rx Instructions .ROUTE .COMPLEX Qty: 120 RF: 11 sennosides-docusate sodium [Senna Plus] 8.6-50 mg tablet 1 tab-cap PO TID Qty: 90 RF: 5 atorvastatin 10 mg tablet 10 mg PO DAILY Qty: 30 RF: 11 quetiapine 300 mg tablet 300 mg PO BID Qty: 60 RF: 11 amitriptyline 25 mg tablet 25 mg PO DAILY Qty: 30 RF: 11 epinephrine 0.3 mg/0.3 mL auto-injector See Rx Instructions .ROUTE .COMPLEX Qty: 2 RF: 1 (DME) blood sugar diagnostic Strip See Rx Instructions .ROUTE .MEDSUPPLY Qty: 100 RF: 5 gabapentin 400 mg capsule See Rx Instructions .ROUTE .COMPLEX Qty: 120 RF: 5 cholecalciferol (vitamin D3) 125 mcg (5,000 unit) capsule 125 mcg PO DAILY Qty: 30 RF: 11 Apidra SoloStar U-100 Insulin 100 unit/mL insulin pen See Rx Instructions .ROUTE .COMPLEX Qty: 15 RF: 11 (DME) CPAP Supplies Misc See Rx Instructions .Route Qty: 1 RF: 0 (DME) pen needle, diabetic [BD Ultra-Fine Short Pen Needle] 31 gauge x 5/16" needle See Rx Instructions .Route Qty: 100 RF: 11 furosemide [Lasix] 40 mg tablet 60 mg PO DAILY Qty: 135 RF: 3 metoprolol tartrate 50 mg tablet 50 mg PO BID Qty: 180 RF: 3 nystatin 100,000 unit/gram cream 1 applic topical BID PRN (Reason: rash) Qty: 30 RF: 2 (DME) sit to stand lift Qty: 1 RF: 0 (DME) Oxygen Home Liters Per Minute See Rx Instructions .ROUTE .MEDSUPPLY Qty: 1 RF: 0 tolterodine [Detrol LA] 2 mg capsule,extended release 24hr 2 mg PO DAILY Qty: 30 RF: 6 (DME) oxygen See Rx Instructions .Route .MEDSUPPLY Qty: 1 RF: 0 oxycodone-acetaminophen [Percocet] 10-325 mg tablet 1 tab PO QID PRN (Reason: pain) 30 Days Qty: 120 RF: 0 omeprazole 20 mg capsule,delayed release(DR/EC) 20 mg PO BID Qty: 60 RF: 11 docusate sodium 100 mg Capsule 100 mg PO TID PRN (Reason: Constipation) RF: 0 Narcan 4 mg/actuation spray,non-aerosol 1 spray INTRANASAL UD RF: 0 baclofen 20 mg tablet 20 mg PO TID RF: 0 potassium chloride 20 mEq tablet,ER particles/crystals 20 meq PO DAILY RF: 0 polyethylene glycol 3350 17 gram/dose powder 17 g PO DAILY PRN (Reason: Constipation) RF: 0 mometasone 0.1 % cream 1 applic topical UD RF: 0 Lantus Solostar U-100 Insulin 100 unit/mL (3 mL) insulin pen 60 unit SQ DAILY RF: 0 [employer] 2-Venkatesh 0.6 mg/0.1 mL (18 mg/3 mL) pen injector 18 mg subcut DAILY RF: 0 Spiriva Respimat 2.5 mcg/actuation mist 2 puff inhalation BID RF: 0 Referrals Referrals: Nuha Welch CRNP [Primary Care Provider] - Discharge Problem: Dyspnea Qualifiers: Dyspnea type: unspecified Qualified Code(s): R06.00 - Dyspnea, unspecified Anemia Qualifiers: Anemia type: unspecified type Qualified Code(s): D64.9 - Anemia, unspecified
[2021-05-03 23:21] LABS: Base Excess VBG 17.7 mEq/L; HCO3 VBG 45 mmol/L; Oxygen Saturation VBG 65.6 %; PCO2 VBG 74 mmHg (38-50); PO2 VBG 36 mmHg
[2021-05-03 23:28] LABS: Hematocrit (blood only) 28.1 % (37-47); Hemoglobin 7.6 g/dL (12.0-16.0); Mean Corpuscular Hemoglobin 22.6 pg (25-34); Mean Corpuscular Volume 83.6 fL (80-100); Mean Platelet Volume 8.6 fL (7.4-10.4); Platelet Count 272 K/uL (130-400); RDW Coefficient of Variation 23.6 % (11.5-14.5); Red Blood Count 3.36 M/uL (4.2-5.4); White Blood Count 5.48 K/uL (4.8-10.8)
[2021-05-03 23:31] LABS: INR 1.1 (0.9-1.1); Partial Thromboplastin Ratio 1.1; Prothrombin Time 11.4 Seconds (9.0-12.0)
[2021-05-03 23:34] LABS: Alanine Aminotransferase 16 (12-78); Albumin Globulin Ratio 0.3 (0.9-2); Albumin Level 1.8 gm/dl (3.4-5.0); Alkaline Phosphatase 73 U/L (45-117); Aspartate Aminotransferase 15 U/L (15-37); BUN Creatinine Ratio 15.2 (10-20); Bilirubin,Total 0.3 mg/dl (0.2-1); Blood Urea Nitrogen 10 mg/dl (7-18); Calcium 9.3 mg/dl (8.5-10.1); Carbon Dioxide 44 mmol/L (21-32); Chloride 90 mmol/L (98-107); Creatinine Clr Calc Pharmacy 178.2 ml/min; Est GFR (African American) 117.5 ml/min; Est GFR (Non-African American) 101.4 ml/min; Globulin 5.4 gm/dl (2.5-4.0); Glucose 100 mg/dl (70-99); Lipase 155 U/L (73-393); NT Pro B Type Natriuretic Pept 616 pg/ml (0-900); Potassium 3.3 mmol/L (3.5-5.1); Sodium 138 mmol/L (136-145); Total Protein 7.2 gm/dl (6.4-8.2); Troponin I < 0.015 ng/ml (0-0.045)
[2021-05-03 23:56] LABS: Anisocytosis Present; Basophils # (auto) 0.01 K/uL (0-0.2); Basophils % (auto) 0.2 %; Eosinophils # (auto) 0.11 K/uL (0-0.5); Hypochromasia Present; Immature Granulocytes # (auto) 0.02 K/uL (0.00-0.02); Immature Granulocytes % (auto) 0.4 %; Lymphocytes # (auto) 1.61 K/uL (1.2-3.4); Lymphocytes % (auto) 29.4 %; Monocytes # (auto) 0.28 K/uL (0.11-0.59); Monocytes % (auto) 5.1 %; Neutrophils # (auto) 3.45 K/uL (1.4-6.5); Neutrophils % (auto) 62.9 %; Polychromasia 1+
[2021-05-04] MEDS ORDERED: OPTIRAY 320 125ml IV ONE (00:20)
[2021-05-04 01:13] LABS: Influenza A virus by PCR Negative (Neg); Influenza B virus by PCR Negative (Neg); RSV by PCR Negative (Neg); SARS CoV2 RNA(COVID-19) InHosp NEGATIVE (Negative)
--- NOTE | 2021-05-04 02:01 | History & Physical Report ---
Date of Service May 04, 2021 Assessment & Plan (1) Respiratory failure with hypoxia: Plan: Chronically ill 55 yo F with HTN, HLD, DM2, Afib, AMANDA, chronic back pain and tobaco use, who was recently discharged home after management of LLL empyema overlying COVID19 infection. LLL Empyema with Acute on Chronic Hypoxia with hypercarbia - CTA Chest today showing bibasilar opacities atelectasis vs. infection. Decrease in KEVIN cavitation. - no mention of Tb testing in [facility] [place] - quantiferon gold ordered. - CXR significantly worse than 04/21 comparison, now showing seemingly worse LLL opacity and pulmonary edema throughout - VBG 7.4/74/36/45 - discharged from [facility] on unasyn after IR drainage of empyema - concern for parapneumonic effusion vs. recollection of fluid in interim vs. worsening infection - broadened unasyn to zosyn given length of healthcare exposure, symptoms not improving. MRSA nares negative. - CRP 4.15, procal negative - blood cultures pending - titrate O2 to sat >90. bipap QHS - pulm consult - prn duonebs for SOB Anemia - hg 7.6, previously 8-9. reportedly 7-8 at [facility] - given worsening SOB sx, type and screen, 1u pRBC ordered for transfusion - blood consent signed & in paper chart - no signs of acute blood loss - will maintain eliqius for now, Fluid Overload + Pulm HTN - concern for pulmonary edema on CXR, profound peripheral edema on exam - pulm htn likely 2/2 obesity - TTE for evaluation of EF & valvular function given murmur on exam - lasix 40 mg iv x1 in ER. discharged from [facility] with 40 mg PO daily - weight on 04/21 was 179.3 kg,175.7 kg today. weight from [facility] summary: 182kg on 04/25 COVID19 Infection - unvaccinated - s/p treatment with 10 days of dexamethasone and remdesivir - last positive test on 04/21/21, negative on 05/04/21 - still having respiratory symptoms, defer to infection control on placement of isolation precautions Hypokalemia - 3.3 on admission, repleted with 40 mg K PO in ER - on 20 mg PO K daily - may need to uptitrate K dosing with lasix DM2 - home regimen: 60u lantus daily + insulin glulisine w/ meals, + 1.8 mg Victoza daily - SSI to replace glulisine, else continued Chronic pain - - holding percocet, cont gabapentin, baclofen - previously seen by pain management, last note scanned from 02/21/21, seen by Shari Ramirez LONGWALL 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 - PDMP reviewed, monthly scripts for percocet , mostly 120 tabs for 30 days at a time, filled on time by multiple providers. - consider pain management consult if having significant pain Morbid Obesity - wound care, pressure ulcer and heel precautions given increased risk for ulcer formation - bariatric bed Chronic Conditions Restless legs - cont ropinirole Constipation - cont docusate prn, senna TID, prn miralax Urinary retention - continue tolterodine, june management Fungal Skin infections - continue topical nystatin powder, mometasone cream PRN Anxiety - cont amitriptyline, quetiapine COPD - cont spiriva BID HLD - cont atorvastatin DVT ppx: on eliquis FEN/GI: heart healthy, DM2 diet Bowel regimen: as above for constipation Code Status: DNR/DNI. Reviewed and confirmed with patient at bedside. Dispo: PCU (2) Morbid obesity with BMI of 50.0-59.9, adult: (3) Abscess of lower lobe of left lung with pneumonia: (4) Anemia: (5) Hyperlipidemia: (6) Hypertension: (7) Restless legs syndrome with familial myoclonus: (8) Tobacco use disorder: (9) Type 2 diabetes mellitus: (10) Venous stasis: (11) Afib: (12) Sleep apnea: History of Present Illness Primary Care Provider: DANIELLE Hauser Patient is a 55-year-old female with past medical history of type 2 diabetes, hypertension, dyslipidemia, tobacco use disorder, morbid obesity who has had numerous recent hospital visits. Initially evaluated and admitted to [facility] on April 02, 2021 for management of COVID-19 with acute on chronic respiratory failure with hypoxia and hypercapnia. Patient is not vaccinated for COVID-19. Was started on remdesivir and dexamethasone and discharged home 3 days later with outpatient continuation of medications. She was seen by her outpatient PCP on April 10 and then represented to the emergency department on April 21 for significant respiratory distress. CT angiogram of the chest at that time found a pulmonary abscess. Case was discussed with on-call farm loan representative who recommended patient be transferred for evaluation by cardiothoracic surgery and patient was transferred to [facility]. Discharge summary from [facility] shows hospitalization significant for placement of left-sided chest tube via IR on 04/24/2021 with follow-up from thoracic surgery team. Body fluid cultures resulted as polymicrobial including Bacteroides and actinomyces. Chest tube removed on April 28. Patient was switched from vancomycin and Zosyn to Unasyn and recommended to complete 4 weeks of IV Unasyn 3 g every 6 hours per their ID team. Patient was found to have new A. fib with RVR during his hospitalization was started on Eliquis for anticoagulation. Recommendation at the end of hosp italization was for patient to go to a intermediate facility and rehab however she refused requested to go home instead so home health care was arranged for the IV antibiotics and wound care. She was discharged from [facility] on May 02, 2021. Discharge summary notes that she was sent home on 5 L nasal cannula as well as with a urinary catheter and PICC line. She presents to [facility] ER on 05/04/2021 for complaints of worsening shortness of breath. She states that she tried to use her CPAP at home and was not having any improvement in breathing. She states that she is continuing to have shortness of breath at rest that is worse with movement and ambulation. She denies any chest pain or chest tightness associated with this. She denies any bodily pain, nausea, vomiting, diarrhea. She does states that she has some irritation on her leg near where her urinary catheter exits. She denies any fevers or chills at home. She continues to have a nonproductive cough. Allergies Allergy/AdvReac Type Severity Reaction Status Date / Time bee venom protein (honey bee) Allergy Mild Unknown Verified 05/03/21 22:58 rosiglitazone [From Avandia] Allergy Unknown Unknown Verified 05/03/21 22:58 hydrocodone AdvReac Intermediate itching Verified 05/03/21 22:58 Home Medications Medication Instructions Recorded Confirmed Type Oxygen Home #1 ea 09/07/19 03/27/21 Rx albuterol sulfate 2.5 mg INH Q4H PRN #180 ml 09/08/19 05/03/21 Rx Oxygen Home #1 ea 11/25/19 03/27/21 Rx sit to stand lift #1 ea 11/25/19 03/27/21 Rx blood-glucose meter (OneTouch #1 ea 11/26/19 03/27/21 Rx Ultra2 Meter) lancets 30 gauge (OneTouch Delica #100 ea 12/01/19 03/27/21 Rx Plus Lancet) ropinirole 1 mg tablet See Rx Instructions .ROUTE 04/14/20 05/03/21 Rx .COMPLEX #120 tab sennosides 8.6 mg-docusate sodium 1 tab-cap PO TID #90 tab 05/24/20 05/03/21 Rx 50 mg tablet (Senna Plus) atorvastatin 10 mg tablet 10 mg PO DAILY #30 tab 07/26/20 05/03/21 Rx quetiapine 300 mg tablet 300 mg PO BID #60 tab 08/08/20 05/03/21 Rx amitriptyline 25 mg tablet 25 mg PO DAILY #30 tab 08/29/20 05/03/21 Rx epinephrine 0.3 mg/0.3 mL See Rx Instructions .ROUTE 09/13/20 05/03/21 Rx injection, auto-injector .COMPLEX #2 unspecified oxygen #1 ea 12/27/20 03/27/21 Rx tolterodine 2 mg capsule,extended 2 mg PO DAILY #30 cap 12/27/20 05/03/21 Rx release 24 hr (Detrol LA) blood sugar diagnostic #100 ea 01/06/21 03/27/21 Rx gabapentin 400 mg capsule See Rx Instructions .ROUTE 01/06/21 05/03/21 Rx .COMPLEX #120 capsule cholecalciferol (vitamin D3) 125 125 mcg PO DAILY #30 cap 01/23/21 05/03/21 Rx mcg (5,000 unit) capsule insulin glulisine U-100 100 See Rx Instructions .ROUTE 02/17/21 05/03/21 Rx unit/mL subcutaneous pen (Apidra .COMPLEX #15 milliliter SoloStar U-100 Insulin) CPAP Supplies #1 ea 03/02/21 03/27/21 Rx pen needle, diabetic 31 gauge x #100 ea 03/10/21 03/27/21 Rx 5/16" (BD Ultra-Fine Short Pen Needle) baclofen 20 mg tablet 20 mg PO TID 04/02/21 05/03/21 History docusate sodium 100 mg capsule 100 mg PO TID PRN 04/02/21 05/03/21 History insulin glargine 100 unit/mL (3 60 unit SQ DAILY 04/02/21 05/03/21 History mL) subcutaneous pen (Lantus Solostar U-100 Insulin) liraglutide 0.6 mg/0.1 mL (18 mg/3 18 mg SUBCUT DAILY 04/02/21 05/03/21 History mL) subcutaneous pen injector (Meebler 2-Venkatesh) mometasone 0.1 % topical cream 1 applic TOPICAL UD 04/02/21 05/03/21 History naloxone 4 mg/actuation nasal 1 spray INTRANASAL UD 04/02/21 05/03/21 History spray (Narcan) polyethylene glycol 3350 17 17 g PO DAILY PRN 04/02/21 05/03/21 History gram/dose oral powder potassium chloride 20 mEq 20 meq PO DAILY 04/02/21 05/03/21 History tablet,extended release(part/cryst) tiotropium bromide 2.5 2 puff INHALATION BID 04/02/21 05/03/21 History mcg/actuation mist for inhalation (Spiriva Respimat) omeprazole 20 mg capsule,delayed 20 mg PO BID #60 cap 04/11/21 05/03/21 Rx release oxycodone-acetaminophen 10 mg-325 1 tab PO QID PRN 30 Days #120 tab 04/11/21 05/03/21 Rx mg tablet (Percocet) furosemide 40 mg tablet (Lasix) 60 mg PO DAILY #135 tab 04/13/21 05/03/21 Rx metoprolol tartrate 50 mg tablet 50 mg PO BID #180 tab 04/13/21 05/03/21 Rx nystatin 100,000 unit/gram topical 1 applic TOPICAL BID PRN #30 g 04/13/21 05/03/21 Rx cream Past Med/Surg History Medical History (Updated 05/04/21 @ 16:44 by Sissy Lockhart PA-C) Afib Anemia Asthma-COPD overlap syndrome GERD (gastroesophageal reflux disease) Kidney calculi Respiratory distress Sleep apnea SOB (shortness of breath) Type 2 diabetes mellitus Venous stasis Surgical History History of left knee surgery History of tubal ligation Family History Other Diabetes Dyslipidemia Denies family history of Coronary heart disease Cancer Stroke Social History Smoking Status: Current every day smoker Tobacco Type: Cigarettes Cigarettes Per Day: 1 pack daily; Second Hand Exposure: No; Do You Dip or Chew Tobacco: No; Tobacco Cessation Education Requested by Patient: No Hx Alcohol Use: No Hx Substance Use: No Preferred Language: Nepalese Communication Ability: Effective Visual Impairment: Limited Biomedical Analytical Scientist Required: No Beliefs That Will Affect Care: None marital status: Current Living Situation: Family current occupational status: disabled Other Information That Helps Us Care for You: No Feels Safe at Home: Yes Safety Concerns: Feels Safe At This Time caffeine: Yes Dental Care, Regularly: No Physical Activity Frequency: Daily Physical Activity Frequency Comment: streches Seatbelt Use: never Sunscreen Use: No Assistive Devices: CPAP, Denture - Upper, Denture - Lower, Glasses and Oxygen - Continuous Review of Systems Constitutional: no fever, no chills, no body aches and no fatigue Respiratory: + cough, + dyspnea, + pain on inspiration and + wheezing; no change in sputum Cardiovascular: + dyspnea at rest and + calf pain; no chest pain, no dyspnea a nd no edema Gastrointestinal: no abdominal pain, no nausea, no vomiting, no constipation and no diarrhea/loose stools Genitourinary: no dysuria Integumentary: + new lesions (irritation on thighs near june) Neurologic: no tingling, no numbness, no dizziness and no confusion Physical Exam Physical Exam: Constitutional: morbidly obese, chronically ill appearing, uncomfortable appearing Eyes: EOMI, pupils equal and reactive bilaterally, no scleral icterus Cardiac: RRR, systolic murmur at LLSB, no gallops or rubs. Normal S1, S2 Pulm: difficult exam due to body habitus. Expiratory wheezes present throughout anterior chest exam. Increased work of breathing laying supine on 5L NC. Abd: soft, nontender, distended, normal bowel sounds, no rebound or guarding Extremities: unable to palpate pedal pulses due to peripheral edema. venous stasis changes, 4+ nonpitting edema Neuro: no focal deficits, moving all 4 limbs, A&Ox3 Results & Data Results & Data ([facility]) Vital Signs (Past 12 Hours) Vital Signs Temp Pulse Pulse Resp BP BP Pulse Ox 05/04/21 01:18 79 79 13 101/40 L 93 05/04/21 00:19 77 24 137/53 L 98 05/04/21 00:17 80 21 05/03/21 23:30 79 14 92 05/03/21 23:00 76 15 91 05/03/21 22:55 36.5 C 85 129/63 92 05/03/21 22:41 79 15 92 Laboratory Results Laboratory Results WBC 5.48 K/uL (4.8-10.8) 05/03/21 23:05 RBC 3.36 M/uL (4.2-5.4) L 05/03/21 23:05 Hgb 7.6 g/dL (12.0-16.0) L 05/03/21 23:05 Hct 28.1 % (37-47) L 05/03/21 23:05 MCV 83.6 fL (80-100) 05/03/21 23:05 MCH 22.6 pg (25-34) L 05/03/21 23:05 MCHC 27.0 g/dL (32-36) L 05/03/21 23:05 RDW Std Deviation 69.0 fL (36.4-46.3) H 05/03/21 23:05 RDW Coeff of Curt 23.6 % (11.5-14.5) H 05/03/21 23:05 Plt Count 272 K/uL (130-400) 05/03/21 23:05 MPV 8.6 fL (7.4-10.4) 05/03/21 23:05 Immature Gran % (Auto) 0.4 % 05/03/21 23:05 Neut % (Auto) 62.9 % 05/03/21 23:05 Lymph % (Auto) 29.4 % 05/03/21 23:05 [place] % (Auto) 5.1 % 05/03/21 23:05 Eos % (Auto) 2.0 % 05/03/21 23:05 Baso % (Auto) 0.2 % 05/03/21 23:05 Neut # (Auto) 3.45 K/uL (1.4-6.5) 05/03/21 23:05 Lymph # (Auto) 1.61 K/uL (1.2-3.4) 05/03/21 23:05 [place] # (Auto) 0.28 K/uL (0.11-0.59) 05/03/21 23:05 Eos # (Auto) 0.11 K/uL (0-0.5) 05/03/21 23:05 Baso # (Auto) 0.01 K/uL (0-0.2) 05/03/21 23:05 Immature Gran # (Auto) 0.02 K/uL (0.00-0.02) 05/03/21 23:05 Polychromasia 1+ 05/03/21 23:05 Hypochromasia Present 05/03/21 23:05 Anisocytosis Present 05/03/21 23:05 PT 11.4 Seconds (9.0-12.0) 05/03/21 23:05 INR 1.1 (0.9-1.1) 05/03/21 23:05 APTT 29.0 Seconds (21.0-31.0) 05/03/21 23:05 PTT Ratio 1.1 05/03/21 23:05 VBG pH 7.40 (7.36-7.41) 05/03/21 23:05 VBG pCO2 74 mmHg (38-50) H 05/03/21 23:05 VBG pO2 36 mmHg 05/03/21 23:05 VBG HCO3 45 mmol/L 05/03/21 23:05 VBG O2 Saturation 65.6 % 05/03/21 23:05 VBG Base Excess 17.7 mEq/L 05/03/21 23:05 Sodium 138 mmol/L (136-145) 05/03/21 22:36 Potassium 3.3 mmol/L (3.5-5.1) L 05/03/21 22:36 Chloride 90 mmol/L (98-107) L 05/03/21 22:36 Carbon Dioxide 44 mmol/L (21-32) H* 05/03/21 22:36 Anion Gap 4.0 (3-11) 05/03/21 22:36 BUN 10 mg/dl (7-18) 05/03/21 22:36 Creatinine 0.65 mg/dl (0.6-1.2) 05/03/21 22:36 Est Cr Clr Drug Dosing 178.2 ml/min 05/03/21 22:36 Est GFR ( Amer) 117.5 ml/min 05/03/21 22:36 Est GFR (Non-Af Amer) 101.4 ml/min 05/03/21 22:36 BUN/Creatinine Ratio 15.2 (10-20) 05/03/21 22:36 Glucose 100 mg/dl (70-99) H 05/03/21 22:36 Calcium 9.3 mg/dl (8.5-10.1) 05/03/21 22:36 Total Bilirubin 0.3 mg/dl (0.2-1) 05/03/21 22:36 AST 15 U/L (15-37) 05/03/21 22:36 ALT 16 (12-78) 05/03/21 22:36 Alkaline Phosphatase 73 U/L (45-117) 05/03/21 22:36 Troponin I < 0.015 ng/ml (0-0.045) 05/03/21 22:36 C-Reactive Protein 4.15 mg/dl (0-0.29) H 05/03/21 22:36 NT-Pro-B Natriuret Pep 616 pg/ml (0-900) 05/03/21 22:36 Total Protein 7.2 gm/dl (6.4-8.2) 05/03/21 22:36 Albumin 1.8 gm/dl (3.4-5.0) L 05/03/21 22:36 Globulin 5.4 gm/dl (2.5-4.0) H 05/03/21 22:36 Albumin/Globulin Ratio 0.3 (0.9-2) L 05/03/21 22:36 Lipase 155 U/L (73-393) 05/03/21 22:36 Procalcitonin < 0.05 ng/ml (0-0.5) 05/03/21 22:36 SARS-CoV-2 (PCR) NEGATIVE (Negative) 05/04/21 Unknown Influenza Type A (PCR) Negative (Neg) 05/04/21 Unknown Influenza Type B (PCR) Negative (Neg) 05/04/21 Unknown RSV (RT-PCR) Negative (Neg) 05/04/21 Unknown CTA chest: (Stat rad read) comparison 04/21/2021. No pulmonary embolism. Consolidation left lower lobe. Dependent pleural-based opacities bilaterally. Findings may represent atelectasis or infection. Decreased size of the cavitating focus in the left upper lobe now measuring 1 cm. Trace left empyema. Mediastinal adenopathy. Multinodular thyroid gland. Supervising Physician Co-Signing Physician Notes Attending addendum: I have physically seen this patient, have supervised the medical residents activities, and agree with the H&P unless as otherwise noted. Assessment and Plan: Acute on chronic respiratory failure with hypoxia/left lower lobe empyema with recent drainage- Decreasing size left upper lobe cavitary lesion Bilateral basal infiltrates Left lower lobe infiltrate and effusion Recently discharged from [facility] [place] IV Unasyn after IR drainage of empyema Vancomycin IV per pharmacokinetic monitoring Zosyn 4.5 g IV every 8 hours Duonebs every 4 hours while awake and every 2 hours when necessary. Consult pulmonology Anemia- 7.6 upon admission, with most recent at [facility] 9.4 Likely contributing to decreased ability to recover from previous infection Transfusing 1 unit PRBCs this evening H&H to be followed serially For now continue Eliquis CHF/fluid overload- May be element of high-output failure Given Lasix 40 mg IV in ED Determine if additional Lasix needs to be given after transfusion Remaining orders and notations as noted Resident Activity Tracking Resident Involvement: Resident Care Provided Care Provided: Adult Hospital Medicine (1) Respiratory failure with hypoxia Chronicity: acute Qualified Code(s): J96.01 - Acute respiratory failure with hypoxia (2) Type 2 diabetes mellitus Diabetes mellitus complication detail: with other circulatory complications Diabetes mellitus complication status: with circulatory complication 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
[2021-05-04] MEDS ORDERED: FUROSEMIDE 40 MG/4 ML VIAL IV ONE (02:14)
[2021-05-04] MEDS ORDERED: AMPICILLIN/SULBACTAM SOD 3,000 MG in 0.9 % SODIUM CHLORIDE 100 ML IV SCH (02:15)
[2021-05-04] MEDS ORDERED: POTASSIUM CHLORIDE CRTAB 20 MEQ TABCR PO STA ×2 (02:15→13:26)
[2021-05-04] MEDS ORDERED: PIPERACILL/TAZOBAC CONSULT ACTIVE PRN (02:25)
[2021-05-04 02:32] LABS: C Reactive Protein 4.15 mg/dl (0-0.29)
[2021-05-04] MEDS ORDERED: PIPERACILLIN/TAZOBACTAM 4.5 GM/120 ML BAG IV ONE (02:45)
[2021-05-04] MEDS ORDERED: GLUCOSE 40% GEL 15 GM TUBE PO PRN (03:43)
[2021-05-04] MEDS ORDERED: DEXTROSE 50% 50 ML SYRINGE IV PRN (03:43)
[2021-05-04] MEDS ORDERED: ALBUT/IPRATROP 3MG/0.5MG NEB 3 ML VIAL NEB PRN (03:43)
[2021-05-04] MEDS ORDERED: NYSTATIN CR 15 GM TUBE EXT PRN (03:43)
[2021-05-04] MEDS ORDERED: SODIUM CHLORIDE 0.9% 250 ML IV PRN (03:43)
[2021-05-04] MEDS ORDERED: GLUCOSE 10 TABS/TUBE PO PRN (03:43)
[2021-05-04] MEDS ORDERED: GLUCAGON FOR INJ 1 MG VIAL SQ PRN (03:43)
[2021-05-04] MEDS ORDERED: CARBOHYDRATES FOR HYPOGLYCEMIA PO PRN (03:43)
--- NOTE | 2021-05-04 06:44 | CT Scan Report ---
CT angio chest PE protocol CT DOSE: 1271.70 mGy.cm HISTORY: 55 years-old Female with PE, recent pulm abscess s/p surgical drainage. Acute chest pain w ith shortness of breath. COVID Positive. TECHNIQUE: Multiple CTA images of the chest were obtained after the intravenous administration of 120 ml Optiray. Coronal and sagittal MIPS were obtained from the axial data set and were submitted for review. All measurements were obtained according to NASCET criteria. A dose lowering technique was u tilized adhering to the principles of ALARA. COMPARISON: CTA chest 04/21/2021 FINDINGS: CTA: The heart is mildly enlarged. There is no pericardial effusion. No thoracic aortic aneurysm or dissec tion. Unremarkable pulmonary artery without pulmonary embolus. The segmental and subsegmental pulmona ry arterial branches are suboptimally visualized secondary to contrast bolus timing and respiratory m otion. CT CHEST: Multinodular thyroid goiter. Mediastinal and hilar adenopathy is redemonstrated which has mildly prog ressed. Trace right pleural effusion. Small left pleural effusion with left-sided pleural thickening has improved from prior. Small residual focus of air within the left pleural space on image 83 series 4 has also improved from prior. Reticular interstitial opacities with left lung base predominant con solidation. Bronchial wall thickening with tracheobronchial secretions and bibasilar mucous plugging. No acute process of the imaged upper abdomen. Hepatosplenomegaly. Unremarkable soft tissues. No acute fracture. Degenerative changes of the shoulders and spine. IMPRESSION: 1. Cardiomegaly without pulmonary emboli. 2. Small left-sided empyema demonstrates moderate improvement compared to the 04/21/2021 study. 3. Left basilar predominant consolidation is redemonstrated suspicious for pneumonia. 4. Mediastinal and hilar adenopathy is likely reactive. 5. Tracheobronchial secretions with bibasilar mucous plugging. ACT 112: Negative or not required by law. The above report was generated using voice recognition software. It may contain grammatical, syntax o r spelling errors. Electronically signed by: Donato Almonte M.D. 05/04/2021 6:42 AM
[2021-05-04 07:16] LABS: Estimated Average Glucose 177 mg/dl; Hemoglobin A1C 7.8 % (4.5-5.6)
--- NOTE | 2021-05-04 07:29 | XRay Report ---
XR chest 1V portable HISTORY: 55 years-old Female Chest Pain . Acute atypical chest pain COMPARISON: CTA chest 05/04/2021, chest radiograph 04/21/2021 TECHNIQUE: Portable AP view of the chest FINDINGS: Cardiac silhouette is enlarged. Trace right and small left pleural effusions. No pneumothorax. Inters titial coarsening with left basilar predominant airspace opacities. Bilateral hilar prominence. Bones appear grossly intact. IMPRESSION: 1. Small left pleural effusion with left basilar consolidation has improved from the 04/21/2021 studi es. 2. Cardiomegaly with pulmonary vascular congestion. ACT 112: Negative or not required by law. The above report was generated using voice recognition software. It may contain grammatical, syntax o r spelling errors. Electronically signed by: Donato Almonte M.D. 05/04/2021 7:27 AM
[2021-05-04] MEDS: GABAPENTIN 400 MG CAP PO SCH ×2 (09:00→14:27)
[2021-05-04] MEDS: APIXABAN 5 MG TABLET PO SCH ×2 (09:00→19:48)
[2021-05-04] MEDS ORDERED: POTASSIUM CHLORIDE CRTAB 20 MEQ TABCR PO SCH (09:00)
[2021-05-04] MEDS ORDERED: INSULIN GLARGINE SOLOSTAR 100 UNITS/ML 3 ML PEN SQ SCH (09:00)
[2021-05-04] MEDS: AMITRIPTYLINE HCL 25 MG TAB PO SCH (09:00)
[2021-05-04] MEDS: DOCUSATE SODIUM/SENNA 50/8.6MG TAB PO SCH ×3 (09:00→19:48)
[2021-05-04] MEDS: PANTOprazole 40 MG TAB PO SCH ×2 (09:01→19:51)
[2021-05-04] MEDS: BACLOFEN 20 MG TAB PO SCH ×3 (09:01→19:48)
[2021-05-04] MEDS: TOLTERODINE TARTRATE LA 2 MG CAPCR PO SCH (09:01)
[2021-05-04] MEDS: rOPINIRole HCL 1 MG TABLET PO SCH ×3 (09:01→19:52)
[2021-05-04] MEDS: CHOLECALCIFEROL 5,000 UNITS 125 MCG TAB PO SCH (09:01)
[2021-05-04] MEDS: METOPROLOL TARTRATE 50 MG TAB PO SCH ×2 (09:01→19:50)
[2021-05-04] MEDS: ATORVASTATIN 10 MG TAB PO SCH (09:01)
[2021-05-04] MEDS: UMECLIDINIUM BROMIDE 62.5MCG/BLISTER 7 PUFFS/INHALER INH SCH (09:02)
[2021-05-04] MEDS: INSULIN ASPART PER UNIT SC SCH ×4 (09:05→19:50)
[2021-05-04] MEDS: PIPERACILLIN/TAZOBACTAM 4.5 GM in DEXTROSE 5% 100 ML IV SCH ×2 (09:07→16:18)
[2021-05-04 09:34] LABS: Hemoglobin 7.4 g/dL (12.0-16.0); Mean Corpuscular Hemoglobin 22.9 pg (25-34); Mean Corpuscular Hgb Conc 27.4 g/dL (32-36); Mean Corpuscular Volume 83.6 fL (80-100); Mean Platelet Volume 8.7 fL (7.4-10.4); Platelet Count 277 K/uL (130-400); RDW Coefficient of Variation 23.7 % (11.5-14.5); RDW Standard Deviation 70.6 fL (36.4-46.3); Red Blood Count 3.23 M/uL (4.2-5.4)
[2021-05-04 09:38] LABS: Albumin Globulin Ratio 0.3 (0.9-2); Albumin Level 1.7 gm/dl (3.4-5.0); BUN Creatinine Ratio 16.5 (10-20); Bilirubin,Total 0.4 mg/dl (0.2-1); Calcium 8.7 mg/dl (8.5-10.1); Creatinine Clr Calc Pharmacy 203.4 ml/min; Est GFR (Non-African American) 105.2 ml/min; Potassium 3.4 mmol/L (3.5-5.1); Total Protein 6.7 gm/dl (6.4-8.2)
[2021-05-04 09:39] LABS: Anisocytosis Present; Basophils # (auto) 0.01 K/uL (0-0.2); Basophils % (auto) 0.2 %; Hypochromasia Present; Immature Granulocytes # (auto) 0.02 K/uL (0.00-0.02); Immature Granulocytes % (auto) 0.4 %; Lymphocytes # (auto) 1.53 K/uL (1.2-3.4); Lymphocytes % (auto) 30.6 %; Monocytes # (auto) 0.32 K/uL (0.11-0.59); Monocytes % (auto) 6.4 %; Neutrophils # (auto) 3.02 K/uL (1.4-6.5); Neutrophils % (auto) 60.4 %; Polychromasia 1+
--- NOTE | 2021-05-04 09:48 | XCELERA ---
[id number]
[2021-05-04] MEDS: QUEtiapine FUMARATE 300 MG TABLET PO SCH ×2 (09:57→19:51)
[2021-05-04 11:26] LABS: Base Excess VBG 18.4 mEq/L; pH VBG 7.41 (7.36-7.41)
[2021-05-04] MEDS: IRON SUCROSE 300 MG in SODIUM CHLORIDE 0.9% 250 ML IV SCH (14:07)
[2021-05-04] MEDS: FUROSEMIDE 40 MG/4 ML VIAL IV SCH (14:27)
[2021-05-04] MEDS ORDERED: ACETYLCYSTEINE 10% INHAL SOLN 4 ML **DISPENSED BY RESP. INH SCH (15:00)
[2021-05-04 16:11] LABS: Hematocrit (blood only) 29.3 % (37-47); Hemoglobin 8.2 g/dL (12.0-16.0)
--- NOTE | 2021-05-04 16:32 | Hospitalist Progress Note ---
Date of Service May 04, 2021 Assessment & Plan (1) Debility: Plan: Mrs. Hong is a 55-year-old white female who is morbidly obese. Has chronic respiratory failure with likely obesity hypoventilation syndrome, COPDon chronic 6 L of oxygen, and sleep apnea requiring CPAP. She was hospitalized here 04/02 through 04/05 with Covid. Received doses of remdesivir and IV Decadron. Was not requiring any additional oxygen and subsequently sent home with continued p.o. Decadron. Presented back to the ED on 04/21 with increasing shortness of breath and hypoxemia of 83%. Chest x-ray showed concern for pulmonary abscess. CT showed no evidence of abscess but septic emboli in the left upper lobe, pneumonia and associated empyema. Was transferred to [place] where she had IR drainage on 04/24. Chest tube removed 04/28. Empirically placed on Vanco/Zosyn but converted to Unasyn as recommended by ID. Plan was for IV antibiotics X 4 weeks. During that hospital stay, also developed new onset A. fib RVR. Started on anticoagulation therapy and subsequently disc harged on Eliquis. It was recommended that she go to skilled facility for rehab but she refused. Discharged home on 04/30. A hospital bed was arranged but has not yet been delivered (until today while she has been in the hospital) and she reports not having any of her CPAP supplies. Case management has investigated this further patient has not been using her CPAP since 2014 so does not have any supplies to be used at home. Before she developed increasing shortness of breath which prompted her return to the ED. * Overall debility is likely from above as outlined * Consult PT/OT * Lengthy discussion with patient regarding possible need for placement. Still adamant that she is going home but will consider recommendations per therapy * Lives with her daughter (2) Anemia: Plan: * This could have been contributing to some shortness of breath although patient reports was not significantly short of breath. Primarily came to the ED due to weakness and inability to get around at home. * At any rate, presenting hemoglobin was 7.6 * During her most recent hospital stay, hemoglobin was between 8-9 * Denies melena/hematochezia * Denies ever having an upper or lower endoscopy * Patient has already received 1 unit packed RBCs thus unable to accurately obtain iron studies/anemia work-up * In review of her labs during her most recent hospitalization, her iron level was low at 19 and her ferritin was low level normal 42.6 * Patient no longer gets her menstrual cycle * Will provide IV Venofer with plan to convert to oral supplementation * Obtain fecal occult blood X3. (Unable to get hemoccult at this time given habitus/patient's inability to get to side and limited staff at this time) * Continue Eliquis for now in addition to patient's PPI (which has been converted to Protonix) * Empirically add Pepcid/Carafate as patient not ideal candidate for conscious sedation for EGD/colonoscopy at this time. If H/H drops or patient becomes hemodynamically unstable will consult GI for more emergent endoscopy (3) Hypokalemia: Plan: * 3.3 upon arrival * replaced/resolved (4) Volume overload: Plan: * Patient clinically appears to be slightly volume overloaded which could also be contributing to her presenting shortness of breath * Did receive 1 unit packed cells. Will provide 1 dose of IV Lasix and follow clinically * Echo showing preserved EF of 60-65% with mild pulmonary hypertension (which is likely related to her obesity hypoventilation syndrome) (5) Empyema: Plan: * Empyema related to recent pneumonia noted on imaging 04/21 when presented to our emergency room * Transferred to [facility] * Status post IR drainage on 04/24. Chest tube removed 04/28 * Seen by infectious disease and Tatum/Trevor converted to Unasyn with recommendations for 4 weeks and follow-up imaging at that time * Overall, patient seems to be doing well * She is at her baseline in regards to oxygen requirements * Afebrile and hemodynamically stable * Denies shortness of breath * CTA done with this hospitalist stay shows moderate improvement in the left- sided empyema with consistent left basilar consolidation (which ultimately will take weeks to resolve) * Work-up for TB was completed by admitting provider * Pulmonology consulted but do not feel it is necessary at this time. I have reached out to Dr. Riggins to discuss this case and likely cancel consult * Admitted with Zosyn for broaden coverage but transition back to Unasyn as recommended by infectious disease given clinical improvement noted (6) Pneumonia: Plan: * See above (7) COVID-19: Plan: * Diagnosed 04/02 * Unvaccinated * Received 3 doses of remdesivir * Received 10 doses Decadron (8) Chronic respiratory failure: Plan: * Patient on 6 L supplemental oxygen at baseline along with CPAP * Case management has called patient's medical supplier and she has not had appropriate supplies or her CPAP since 2014. Case management working on this. Ultimately, this was likely contributing to her shortness of breath while at home (9) Afib: Plan: * Diagnosed while at [facility]. Likely related to catecholamine release from recent Covid and infectious pneumonia with empyema * At any rate, she is in a normal sinus rhythm with controlled rate on metoprolol * [id number] 2 score = 2 * On Eliquis. Inclined to continue this for now despite mildly low hemoglobin (which for the most part has been stable). * Patient now on GI protection including PPI/H2 kori/Carafate * If H&H drops, will stop anticoagulation therapy as outlined above Plan: At this time, no significant acute problems at hand other than debility and lack of supplies at home. Patient now has her hospital bed. Case management working on CPAP. Patient likely will need rehab but refusing. Will consult PT/OT to get the recommendations. Plan of care will be discussed with Dr. Koroma. Further orders as warranted Admission and Anticipated Discharge Date Admission Date: May 04, 2021 Supervising Physician Co-Signing Physician Notes LAURE Supervision Note: I did not personally see or examine the patient today, but I verified all genao points of LAURE Lockhart's assessment and plan with the following exceptions/additions: None Subjective Patient seen on daily rounds today. Vocalizes no significant complaints or concerns. Initially presented to the ED because her "CPAP was not working" and she was having difficulty getting in and out of her bed. She was recently discharged from [place]. snf facility/rehab was recommended but patient refused. She reports that she would like to go home and a hospital bed was just delivered there today. Her hemoglobin was noted to be 7.6 upon presentation. It is reported that it was between 8 and 9 with her recent hospitalization in [place]. Was 8.6 - 9.0 the beginning of March when admitted. Denies Melena or hematochezia. No dyspepsia or epigastric discomfort. Again, denies SOB in addition to dizziness/lightheadedness, CP, palpitations, syncope/near syncope, excessive fatigue. Denies every having a colo/endoscopy. Recently started on ACT for new onset A.Fib. Now on Eliquis. Is taking omeprazole BID. Review of Systems Review of Systems: All systems reviewed and are unremarkable except as noted in HPI and below Denies fevers, chills, headache, nasal congestion, sore throat, cough, chest pain, shortness of breath, palpitations, orthopnea, PND, abdominal pain, nausea, vomiting, diarrhea, constipation, dysuria, hematuria, frequency, back pain, joint pain or swelling, easy bruising or bleeding, skin lesions or rashes. Physical Exam Physical Exam: General: Morbidly obese white female resting comfortably in her hospital bed. Does not appear to be in any acute distress HEENT: Atraumatic, normocephalic. Neck: Difficult to assess due to habitus Cardiac: Very distant heart sounds- appears regular. Tele monitor showing sinus Lungs: Diminished breath sounds throughout. Rhonchi noted at the left base that mobilizes with coughing. Faint bibasilar crackles Abdomen: Difficult to examine due to habitus but normal active explore Extremities: Significant adiposity with trace pitting edema Neuro: A&O X4 cranial nerves II through XII are grossly intact no focal neuro deficits Skin: No obvious skin lesions or rashes Psych: Appropriate affect pleasant and cooperative Results & Data Results & Data ([facility]) Vital Signs (Past 12 Hours) Vital Signs Temp Pulse Pulse Resp BP BP Pulse Ox 05/04/21 16:10 68 05/04/21 14:50 36.4 C L 66 18 124/73 95 05/04/21 11:37 36.4 C L 66 19 100/66 97 05/04/21 10:56 83 05/04/21 07:57 78 16 119/70 05/04/21 07:53 79 14 114/75 05/04/21 06:59 36.8 C 72 18 122/72 95 05/04/21 06:57 36.7 C 79 18 121/71 95 05/04/21 06:27 36.7 C 82 18 128/62 92 05/04/21 06:17 83 05/04/21 06:12 36.5 C 84 18 126/63 91 05/04/21 05:55 36.6 C 82 18 130/62 92 05/04/21 04:37 36.6 C 81 22 112/62 88 L PG Care Time/CCT Total # of Minutes Spent Total Time Spent with Patient: Total time spent is greater than 50% in coordination of care (as documented) at patient's floor/unit and/or counseling patient: Coding Level of Care Code None Diagnoses Debility R53.81 Anemia D64.9 Anemia type: unspecified type Hypokalemia E87.6 Volume overload E87.70 Empyema J86.9 Pneumonia J18.9 Laterality: bilateral Lung location: unspecified part of lung Pneumonia type: due to unspecified organism COVID-19 U07.1 Chronic respiratory failure J96.10 Afib I48.91 (1) Anemia Anemia type: unspecified type Qualified Code(s): D64.9 - Anemia, unspecified (2) Pneumonia Laterality: bilateral Lung location: unspecified part of lung Pneumonia type: due to unspecified organism Qualified Code(s): J18.9 - Pneumonia, unspecified organism
[2021-05-04] MEDS: SUCRALFATE 1 GM/10 ML UDC PO SCH ×2 (17:16→19:52)
--- NOTE | 2021-05-04 19:16 | Pulmonary Consultation ---
Date of Consultation May 04, 2021 Assessment & Plan (1) Chronic respiratory failure: (2) Respiratory failure with hypoxia: Chronicity: acute Qualified Code(s): J96.01 - Acute respiratory failure with hypoxia (3) Morbid obesity with BMI of 50.0-59.9, adult: (4) Empyema: (5) AMANDA (obstructive sleep apnea): --Chronic hypercapnic hypoxic respiratory failure This is likely from patient's underlying AMANDA/OHS Continue with BiPAP nightly and as needed shortness of breath Would only give oxygen to keep O2 saturation between 88-92% Over oxygenating the patient will make her apneic. --Recent history of left-sided empyema S/p chest tube placement at [place] On antibiotics --COPD Active smoker Advised the patient to quit smoking Would recommend Anoro Plan: Patient has remnant changes from the chest tube and empyema drain which was done not too long ago I would recommend to continue with antibiotics which the patient was prescribed for at least 6 weeks. Patient does not need any intervention right now. For AMANDA/OHS would recommend BiPAP 12/6 40% nightly and as needed shortness of breath No further recommendation from pulmonary perspective. Case was discussed with Sissy Lockhart We will sign off. Please call directly with any questions Please note the above document was generated using voice recognition software. It may contain grammatical, syntax or spelling errors.Any formal questions or concerns about the content, text or information contained within the body of this dictation should be directly addressed to the provider for clarification. History of Present Illness Attending Physician: Kena Koroma MD History of Present Illness 55-year-old female present to the hospital for shortness of breath Past medical history: Diabetes type 2, AMANDA/OHS, morbid obesity, dyslipidemia, active smoker Patient was recently in the hospital at [place] for left-sided empyema which grew Bacteroides as well as actinomyces. Patient had chest tube placement she was discharged on antibiotics to be taken for 4 weeks At the time of examination patient was drowsy. On waking up she denied any chest pain, no shortness of breath. Patient stated that at home she does have a machine but the pressure is not optimal and she is not able to breathe when she puts it on which made her more short of breath and leading her to come to the hospital She denied any cough. Denies any hemoptysis No headache, no dysuria, no diarrhea. No fever or chills at home. Social history: Greater than 40-tiro-ktpv smoking history, active smoker Allergies Allergy/AdvReac Type Severity Reaction Status Date / Time bee venom protein (honey bee) Allergy Mild Unknown Verified 05/03/21 22:58 rosiglitazone [From Avandia] Allergy Unknown Unknown Verified 05/03/21 22:58 hydrocodone AdvReac Intermediate itching Verified 05/03/21 22:58 Home Medications Medication Instructions Recorded Confirmed Type Oxygen Home #1 ea 09/07/19 03/27/21 Rx albuterol sulfate 2.5 mg INH Q4H PRN #180 ml 09/08/19 05/03/21 Rx Oxygen Home #1 ea 11/25/19 03/27/21 Rx sit to stand lift #1 ea 11/25/19 03/27/21 Rx blood-glucose meter (OneTouch #1 ea 11/26/19 03/27/21 Rx Ultra2 Meter) lancets 30 gauge (OneTouch Delica #100 ea 12/01/19 03/27/21 Rx Plus Lancet) ropinirole 1 mg tablet See Rx Instructions .ROUTE 04/14/20 05/03/21 Rx .COMPLEX #120 tab sennosides 8.6 mg-docusate sodium 1 tab-cap PO TID #90 tab 05/24/20 05/03/21 Rx 50 mg tablet (Senna Plus) atorvastatin 10 mg tablet 10 mg PO DAILY #30 tab 07/26/20 05/03/21 Rx quetiapine 300 mg tablet 300 mg PO BID #60 tab 08/08/20 05/03/21 Rx amitriptyline 25 mg tablet 25 mg PO DAILY #30 tab 08/29/20 05/03/21 Rx epinephrine 0.3 mg/0.3 mL See Rx Instructions .ROUTE 09/13/20 05/03/21 Rx injection, auto-injector .COMPLEX #2 unspecified oxygen #1 ea 12/27/20 03/27/21 Rx tolterodine 2 mg capsule,extended 2 mg PO DAILY #30 cap 12/27/20 05/03/21 Rx release 24 hr (Detrol LA) blood sugar diagnostic #100 ea 01/06/21 03/27/21 Rx gabapentin 400 mg capsule See Rx Instructions .ROUTE 01/06/21 05/03/21 Rx .COMPLEX #120 capsule cholecalciferol (vitamin D3) 125 125 mcg PO DAILY #30 cap 01/23/21 05/03/21 Rx mcg (5,000 unit) capsule insulin glulisine U-100 100 See Rx Instructions .ROUTE 02/17/21 05/03/21 Rx unit/mL subcutaneous pen (Apidra .COMPLEX #15 milliliter SoloStar U-100 Insulin) CPAP Supplies #1 ea 03/02/21 03/27/21 Rx pen needle, diabetic 31 gauge x #100 ea 03/10/21 03/27/21 Rx 5/16" (BD Ultra-Fine Short Pen Needle) baclofen 20 mg tablet 20 mg PO TID 04/02/21 05/03/21 History docusate sodium 100 mg capsule 100 mg PO TID PRN 04/02/21 05/03/21 History insulin glargine 100 unit/mL (3 60 unit SQ DAILY 04/02/21 05/03/21 History mL) subcutaneous pen (Lantus Solostar U-100 Insulin) liraglutide 0.6 mg/0.1 mL (18 mg/3 18 mg SUBCUT DAILY 04/02/21 05/03/21 History mL) subcutaneous pen injector (Harir 2-Venkatesh) mometasone 0.1 % topical cream 1 applic TOPICAL UD 04/02/21 05/03/21 History naloxone 4 mg/actuation nasal 1 spray INTRANASAL UD 04/02/21 05/03/21 History spray (Narcan) polyethylene glycol 3350 17 17 g PO DAILY PRN 04/02/21 05/03/21 History gram/dose oral powder potassium chloride 20 mEq 20 meq PO DAILY 04/02/21 05/03/21 History tablet,extended release(part/cryst) tiotropium bromide 2.5 2 puff INHALATION BID 04/02/21 05/03/21 History mcg/actuation mist for inhalation (Spiriva Respimat) omeprazole 20 mg capsule,delayed 20 mg PO BID #60 cap 04/11/21 05/03/21 Rx release oxycodone-acetaminophen 10 mg-325 1 tab PO QID PRN 30 Days #120 tab 04/11/21 05/03/21 Rx mg tablet (Percocet) furosemide 40 mg tablet (Lasix) 60 mg PO DAILY #135 tab 04/13/21 05/03/21 Rx metoprolol tartrate 50 mg tablet 50 mg PO BID #180 tab 04/13/21 05/03/21 Rx nystatin 100,000 unit/gram topical 1 applic TOPICAL BID PRN #30 g 04/13/21 05/03/21 Rx cream Patient History Medical History (Updated 05/05/21 @ 16:35 by Brittney Tavarez MD) Afib Anemia Asthma-COPD overlap syndrome GERD (gastroesophageal reflux disease) Kidney calculi Respiratory distress Sleep apnea SOB (shortness of breath) Type 2 diabetes mellitus Venous stasis Surgical History History of left knee surgery History of tubal ligation Family History Other Diabetes Dyslipidemia Denies family history of Coronary heart disease Cancer Stroke Social History Smoking Status: Current every day smoker Tobacco Type: Cigarettes Cigarettes Per Day: 1 pack daily; Second Hand Exposure: No; Do You Dip or Chew Tobacco: No; Tobacco Cessation Education Requested by Patient: No Hx Alcohol Use: No Hx Substance Use: No Preferred Language: Tongan Communication Ability: Effective Visual Impairment: Limited Orchid Transplanter Required: No Beliefs That Will Affect Care: None marital status: Single Current Living Situation: Family current occupational status: disabled Other Information That Helps Us Care for You: No Feels Safe at Home: Yes Safety Concerns: Feels Safe At This Time caffeine: Yes Dental Care, Regularly: No Physical Activity Frequency: Daily Physical Activity Frequency Comment: streches Seatbelt Use: never Sunscreen Use: No Assistive Devices: Wheelchair Review of Systems Review of Systems: All systems reviewed & are unremarkable except as noted in HPI & below Physical Exam Physical Exam: Constitutional: No acute distress HEENT: EOMI, PERRLA, hirsutism Respiratory system: Decreased air entry bilaterally, no wheeze, no rhonchi, mild crackles bilateral lower lobes CVS: S1-S2 positive, no murmurs or gallops Abdomen: Soft, nontender, nondistended, positive bowel sounds x4, obese Extremities: +2 pulses bilaterally radialis/ dorsalis pedis, no cyanosis, +2 pitting edema bilateral lower extremity Neuro: Awake alert oriented x3 Psych: Normal mood and affect G/U: Positive Peacock Skin: no rashes, warm and dry Lymphatic: no cervical or axillary lymphadenopathy Results & Data Results & Data ([facility]) Vital Signs (Past 12 Hours) Vital Signs Temp Pulse Pulse Resp BP BP Pulse Ox 05/04/21 18:59 36.9 C 67 19 124/66 97 05/04/21 16:10 68 05/04/21 14:50 36.4 C L 66 18 124/73 95 05/04/21 11:37 36.4 C L 66 19 100/66 97 05/04/21 10:56 83 05/04/21 07:57 78 16 119/70 05/04/21 07:53 79 14 114/75 Laboratory Results 05/04/21 15:38 05/04/21 07:13 PG Care Time/CCT Total # of Minutes Spent Total Time Spent with Patient: Total time spent is greater than 50% in coordination of care (as documented) at patient's floor/unit and/or counseling patient: Coding Level of Care Code 57520 Office/OBS Consult Lvl 5 Diagnoses Chronic respiratory failure J96.10 Respiratory failure with hypoxia J96.01 Chronicity: acute Morbid obesity with BMI of 50.0-59.9, adult E66.01; Z68.43 Empyema J86.9 AMANDA (obstructive sleep apnea) G47.33
[2021-05-04] MEDS: ALBUTEROL 0.083% NEBU SOLN 3 ML VIAL NEB SCH (19:38)
[2021-05-04] MEDS: ACETYLCYSTEINE 10% INHAL SOLN 4 ML **DISPENSED BY RESP. INH SCH (19:39)
[2021-05-04] MEDS: FAMOTIDINE 20 MG TAB PO SCH (19:49)
[2021-05-04] MEDS: GABAPENTIN 800 MG TAB PO SCH (19:49)
[2021-05-04] MEDS: AMPICILLIN/SULBACTAM SOD 3,000 MG in 0.9 % SODIUM CHLORIDE 100 ML IV SCH (21:54)
--- NOTE | 2021-05-04 22:04 | Electrocardiogram Report ---
Test Reason : Blood Pressure : / mmHG Vent. Rate : 081 BPM Atrial Rate : 081 BPM P-R Int : 178 ms QRS Dur : 148 ms QT Int : 412 ms P-R-T Axes : 055 078 003 degrees QTc Int : 478 ms Poor data quality, interpretation may be adversely affected Normal sinus rhythm Right bundle branch block Lateral infarct (cited on or before 03-MAY-2014) Abnormal ECG When compared with ECG of 21-APR-2021 15:35, Sinus rhythm has replaced Atrial fibrillation Vent. rate has decreased BY 82 BPM Questionable change in QRS axis T wave inversion now evident in Anterior leads Confirmed by Mason Martin ([id number]) on 05/04/2021 10:04:34 PM Referred By: REFERRED SELF Confirmed By:Mason Martin
--- NOTE | 2021-05-04 22:22 | Billing Data ---
Date of Service May 04, 2021 Coding Level of Care Code 94941 Initial Inpt Care Lvl 3
[2021-05-05] MEDS: ALBUTEROL 0.083% NEBU SOLN 3 ML VIAL NEB SCH ×4 (00:24→20:13)
[2021-05-05] MEDS: AMPICILLIN/SULBACTAM SOD 3,000 MG in 0.9 % SODIUM CHLORIDE 100 ML IV SCH ×4 (02:58→21:25)
[2021-05-05] MEDS: FUROSEMIDE 40 MG/4 ML VIAL IV SCH (02:59)
[2021-05-05 06:03] LABS: Hemoglobin 8.2 g/dL (12.0-16.0); Mean Corpuscular Hemoglobin 23.2 pg (25-34); Mean Corpuscular Hgb Conc 27.3 g/dL (32-36); Mean Corpuscular Volume 84.7 fL (80-100); Mean Platelet Volume 8.6 fL (7.4-10.4); Platelet Count 277 K/uL (130-400); RDW Coefficient of Variation 23.9 % (11.5-14.5); RDW Standard Deviation 71.6 fL (36.4-46.3); Red Blood Count 3.54 M/uL (4.2-5.4); White Blood Count 5.15 K/uL (4.8-10.8)
[2021-05-05 06:25] LABS: Anisocytosis Present; Basophils # (auto) 0.01 K/uL (0-0.2); Basophils % (auto) 0.2 %; Eosinophils # (auto) 0.14 K/uL (0-0.5); Eosinophils % (auto) 2.7 %; Immature Granulocytes # (auto) 0.02 K/uL (0.00-0.02); Immature Granulocytes % (auto) 0.4 %; Lymphocytes # (auto) 1.88 K/uL (1.2-3.4); Lymphocytes % (auto) 36.5 %; Monocytes # (auto) 0.36 K/uL (0.11-0.59); Neutrophils # (auto) 2.74 K/uL (1.4-6.5); Neutrophils % (auto) 53.2 %; Polychromasia 1+
[2021-05-05 06:54] LABS: BUN Creatinine Ratio 12.1 (10-20); Calcium 9.3 mg/dl (8.5-10.1); Creatinine Clr Calc Pharmacy 142.1 ml/min; Est GFR (African American) 93.3 ml/min; Est GFR (Non-African American) 80.5 ml/min; Potassium 3.8 mmol/L (3.5-5.1)
[2021-05-05] MEDS: ACETYLCYSTEINE 10% INHAL SOLN 4 ML **DISPENSED BY RESP. INH SCH ×3 (06:59→20:13)
[2021-05-05] MEDS: QUEtiapine FUMARATE 300 MG TABLET PO SCH (08:42)
[2021-05-05] MEDS: BACLOFEN 20 MG TAB PO SCH (08:42)
[2021-05-05] MEDS: rOPINIRole HCL 1 MG TABLET PO SCH ×3 (08:42→21:26)
[2021-05-05] MEDS: PANTOprazole 40 MG TAB PO SCH (08:42)
[2021-05-05] MEDS: DOCUSATE SODIUM/SENNA 50/8.6MG TAB PO SCH ×3 (08:42→21:26)
[2021-05-05] MEDS: METOPROLOL TARTRATE 50 MG TAB PO SCH ×2 (08:42→21:26)
[2021-05-05] MEDS: FAMOTIDINE 20 MG TAB PO SCH ×2 (08:42→21:28)
[2021-05-05] MEDS: GABAPENTIN 400 MG CAP PO SCH (08:43)
[2021-05-05] MEDS: APIXABAN 5 MG TABLET PO SCH (08:43)
[2021-05-05] MEDS: UMECLIDINIUM BROMIDE 62.5MCG/BLISTER 7 PUFFS/INHALER INH SCH (08:44)
[2021-05-05] MEDS: AMITRIPTYLINE HCL 25 MG TAB PO SCH (08:44)
[2021-05-05] MEDS: TOLTERODINE TARTRATE LA 2 MG CAPCR PO SCH (08:44)
[2021-05-05] MEDS: ATORVASTATIN 10 MG TAB PO SCH (08:44)
[2021-05-05] MEDS: SUCRALFATE 1 GM/10 ML UDC PO SCH ×4 (08:44→21:26)
[2021-05-05] MEDS: CHOLECALCIFEROL 5,000 UNITS 125 MCG TAB PO SCH (08:44)
[2021-05-05] MEDS: POTASSIUM CHLORIDE CRTAB 20 MEQ TABCR PO SCH (08:44)
[2021-05-05] MEDS: INSULIN GLARGINE SOLOSTAR 100 UNITS/ML 3 ML PEN SQ SCH (08:45)
[2021-05-05] MEDS: INSULIN ASPART PER UNIT SC SCH ×4 (08:49→21:27)
[2021-05-05] MEDS: IRON SUCROSE 300 MG in SODIUM CHLORIDE 0.9% 250 ML IV SCH (08:50)
[2021-05-05 12:01] LABS: Quantiferon Mitogen-NIL 1.64 IU/mL; Quantiferon NIL 0.05 IU/mL; Quantiferon TB Gold Plus NEGATIVE (NEGATIVE); Quantiferon TB2-NIL <0.00 IU/mL
[2021-05-05 12:43] LABS: Base Excess ABG 14.8 mEq/L (-9-1.8); HCO3 ABG 42 mmol/L (19-24); Oxygen Saturation ABG 90.7 % (90-95); PCO2 ABG 66 mmHg (35-46); PO2 ABG 69 mmHg (80-95); pH ABG 7.42 (7.35-7.45)
[2021-05-05 12:50] LABS: Allen Test Pos (Pos)
--- NOTE | 2021-05-05 13:03 | Hospitalist Progress Note ---
Date of Service May 05, 2021 Assessment & Plan (1) Hypersomnolence: Plan: * When seen on daily rounds 05/05, patient was awake and alert. Nurse noticed before lunch, she seemed hypersomnolent and was unable to be awakened for lunch * Blood gas drawn showing no evidence of hypercapnia * With reassessment, she does arouse to her name and when touching her arm but quickly falls back to sleep * Continue BiPAP while sleeping (as she typically uses when sleeping anyway) * Will obtain an ammonia level, urine drug screen, repeat CBC (to trend hgb) and a TSH along with CT of the head and repeat blood culture and procal (to r/o infectious cause) * I asked the nurse if she perhaps could have taken anything not prescribed. Nurse does not believe that she did. I do believe a big issue is polypharmacy as she is on multiple psych altering medications (baclofen, Seroquel, gabapentin, Requip, and amitriptyline). We will hold these medications for now and reassess patient (2) Debility: Plan: Mrs. Hong is a 55-year-old white female who is morbidly obese. Has chronic respiratory failure with likely obesity hypoventilation syndrome, COPDon chronic 6 L of oxygen, and sleep apnea requiring CPAP. She was hospitalized here 04/02 through 04/05 with Covid. Received doses of remdesivir and IV Decadron. Was not requiring any additional oxygen and subsequently sent home with continued p.o. Decadron. Presented back to the ED on 04/21 with increasing shortness of breath and hypoxemia of 83%. Chest x-ray showed concern for pulmonary abscess. CT showed no evidence of abscess but septic emboli in the left upper lobe, pneumonia and associated empyema. Was transferred to [place] where she had IR drainage on 04/24. Chest tube removed 04/28. Empirically placed on Vanco/Zosyn but converted to Unasyn as recommended by ID. Plan was for IV antibiotics X 4 weeks. During that hospital stay, also developed new onset A. fib RVR. Started on anticoagulation therapy and subsequently discharged on Eliquis. It was recommended that she go to skilled facility for rehab but she refused. Discharged home on 04/30. A hospital bed was arranged but has not yet been delivered (until today while she has been in the hospital) and she reports not having any of her CPAP supplies. Case management has investigated this further patient has not been using her CPAP since 2015 so does not have any supplies to be used at home. Before she developed increasing shortness of breath which prompted her return to the ED. * Overall debility is likely from above as outlined * awaiting PT/OT assesment * Lengthy discussion with patient regarding possible need for placement. Would prefer going home but is agreeable to placement * Lives with her daughter (3) Anemia: Plan: * presenting hemoglobin: 7.6 * During her most recent hospital stay (beginning of March), hemoglobin was between 8-9 * Denies melena/hematochezia, ever having an upper or lower endoscopy, DUB or menstrual bleeding * received 1 unit packed RBCs on admission--unable to accurately obtain iron studies/anemia work-up since already had blood * In review of her labs during her most recent hospitalization, her iron level was low at 19 and her ferritin was low level normal 42.6 * IV Venofer given 05/05- convert to oral supplementation * fecal occult blood X3 ordered- not yet obtained. (Unable to get Hemoccult at this time given habitus/patient's inability to get to side and limited staff at this time) * Continue Eliquis for now in addition to patient's PPI (which has been converted to Protonix) * Empirically added Pepcid/Carafate as patient not ideal candidate for conscious sedation for EGD/colonoscopy at this time. If H/H drops or patient becomes hemodynamically unstable will consult GI for more emergent endoscopy and stop Eliquis (4) Hypokalemia: Plan: * 3.3 upon arrival * replaced/resolved (5) Volume overload: Plan: * appears slightly vomune overloaded after receiving blood transfusion * IV lasix given * Echo showing preserved EF of 60-65% with mild pulmonary hypertension (which is likely related to her obesity hypoventilation syndrome) * appears euvolemic today * continue routine PO lasix as PHYSICIAN NON INVASIVE CARDIOLOGIST (6) Empyema: Plan: * Empyema related to recent pneumonia noted on imaging 04/21 when presented to our emergency room * Transferred to [facility] * Status post IR drainage on 04/24. Chest tube removed 04/28 * Seen by infectious disease and Tatum/Trevor converted to Unasyn with recommendations for 4 weeks and follow-up imaging at that time * Overall, patient seems to be doing well * She is at her baseline in regards to oxygen requirements * Afebrile and hemodynamically stable * Denies shortness of breath * CTA done with this hospitalist stay shows moderate improvement in the left- sided empyema with consistent left basilar consolidation (which ultimately will take weeks to resolve) * Work-up for TB was completed by admitting provider * Pulmonology consulted who agreed with continuing abx (Unasyn) x 6 weeks and FU imaging at that time--> appreciate recommendations (7) Pneumonia: Plan: * See above (8) COVID-19: Plan: * Diagnosed 04/02 * Unvaccinated * Received 3 doses of remdesivir * Received 10 doses Decadron (9) Chronic respiratory failure: Plan: * Patient on 6 L supplemental oxygen at baseline along with CPAP * Case management has called patient's medical supplier and she has not had appropriate supplies or her CPAP since 2014. Case management working on this. Ultimately, this was likely contributing to issues with her being at home (10) Afib: Plan: * Diagnosed while at [facility]. Likely related to catecholamine release from recent Covid and infectious pneumonia with empyema * At any rate, she is in a normal sinus rhythm with controlled rate on metoprolol * [id number] 2 score = 2 * On Eliquis. Inclined to continue this for now despite mildly low hemoglobin (which for the most part has been stable). * Patient now on GI protection including PPI/H2 kori/Carafate * If H&H drops, will stop anticoagulation therapy as outlined above Plan: Awaiting PT/OT assesment. Pt agreeable to placement Plan of care will be discussed with Dr. Jacobson. Further orders as warranted Admission and Anticipated Discharge Date Admission Date: May 04, 2021 Supervising Physician Co-Signing Physician Notes chart reviewed, case d/w Surekha Lockhart PAC. agree w above Subjective Patient seen on daily rounds today. When seen by myself, patient was awake and alert and vocalized no complaints or concerns. When nursing staff went in to bring her lunch, patient was excessively somnolent and unable to be aroused. A stat blood gas was drawn showing no evidence of acute hypercapnia. Patient was transitioned back to her BiPAP while awaiting results. I did reassess the patient and she is excessively somnolent. She arouses (opens her eyes) when yelling her name or touching her arm but quickly falls back to sleep. She is otherwise hemodynamically stable. She is on significant psych altering medications including gabapentin, amitriptyline, Requip, Seroquel, and baclofen. I questioned these yesterday in fear that she would become hypersomnolent but she reports that she takes these every day without any issues. Physical Exam Physical Exam: General: Morbidly obese white female resting comfortably in her hospital bed. Does not appear to be in any acute distress HEENT: Atraumatic, normocephalic. Neck: Difficult to assess due to habitus Cardiac: Very distant heart sounds- appears regular. Tele monitor showing sinus Lungs: Diminished breath sounds throughout. Rhonchi noted at the left base that mobilizes with coughing. Faint bibasilar crackles Abdomen: Difficult to examine due to habitus but normal active explore Extremities: Significant adiposity with trace pitting edema Neuro: A&O X4 cranial nerves II through XII are grossly intact no focal neuro deficits Skin: No obvious skin lesions or rashes Psych: Appropriate affect pleasant and cooperative Results & Data Results & Data ([facility]) Vital Signs (Past 12 Hours) Vital Signs Temp Pulse Pulse Resp BP Pulse Ox 05/05/21 11:51 36.5 C 69 18 115/62 96 05/05/21 07:45 67 05/05/21 07:30 36.6 C 97 H 18 114/57 L 95 05/05/21 06:59 68 18 95 05/05/21 03:05 36.7 C 77 18 142/62 H 93 Laboratory Results 05/05/21 05:27 05/05/21 05:27 05/03/21 05/04/21 05/05/21 23:05 11:10 12:23 ABG pH 7.42 ABG pCO2 66 H ABG pO2 69 L ABG HCO3 42 H ABG O2 Saturation 90.7 ABG Base Excess 14.8 H VBG pH 7.40 7.41 VBG pCO2 74 H 74 H VBG pO2 36 35 VBG HCO3 45 46 VBG O2 Saturation 65.6 62.0 VBG Base Excess 17.7 18.4 PG Care Time/CCT Total # of Minutes Spent Total Time Spent with Patient: Total time spent is greater than 50% in coordination of care (as documented) at patient's floor/unit and/or counseling patient: Coding Level of Care Code 78934 Subseq Hosp Care Lvl 3 Diagnoses Debility R53.81 Anemia D64.9 Anemia type: unspecified type Hypokalemia E87.6 Volume overload E87.70 Empyema J86.9 Pneumonia J18.9 Laterality: bilateral Lung location: unspecified part of lung Pneumonia type: due to unspecified organism COVID-19 U07.1 Chronic respiratory failure J96.10 Afib I48.91 Hypersomnolence G47.10 (1) Anemia Anemia type: unspecified type Qualified Code(s): D64.9 - Anemia, unspecified (2) Pneumonia Laterality: bilateral Lung location: unspecified part of lung Pneumonia type: due to unspecified organism Qualified Code(s): J18.9 - Pneumonia, unspecified organism
[2021-05-05 13:38] LABS: Hematocrit (blood only) 28.1 % (37-47); Hemoglobin 7.7 g/dL (12.0-16.0); Mean Corpuscular Hemoglobin 23.3 pg (25-34); Mean Corpuscular Hgb Conc 27.4 g/dL (32-36); Mean Corpuscular Volume 84.9 fL (80-100); Mean Platelet Volume 8.8 fL (7.4-10.4); Platelet Count 283 K/uL (130-400); RDW Coefficient of Variation 24.3 % (11.5-14.5); RDW Standard Deviation 72.8 fL (36.4-46.3); Red Blood Count 3.31 M/uL (4.2-5.4); White Blood Count 5.03 K/uL (4.8-10.8)
[2021-05-05 13:55] LABS: Anisocytosis Present; Basophils # (auto) 0.01 K/uL (0-0.2); Basophils % (auto) 0.2 %; Eosinophils # (auto) 0.12 K/uL (0-0.5); Eosinophils % (auto) 2.4 %; Immature Granulocytes # (auto) 0.01 K/uL (0.00-0.02); Immature Granulocytes % (auto) 0.2 %; Lymphocytes % (auto) 39.8 %; Monocytes # (auto) 0.36 K/uL (0.11-0.59); Monocytes % (auto) 7.2 %; Neutrophils # (auto) 2.53 K/uL (1.4-6.5); Neutrophils % (auto) 50.2 %; Polychromasia 1+
[2021-05-05 14:43] LABS: Appearance Urine Clear (Clear); Bacteria Urine Automated Negative (Negative); Blood Urine Negative (Negative); Color Urine Dark Yellow; Epithelial Cell Urine Auto >30 /lpf (0-5); Glucose Urine UA Negative (Negative); Ketones Urine Trace (Negative); Leukocyte Esterase Urine Trace (Negative); Nitrite Urine Negative (Negative); Protein Urine Trace (Negative); Urobilinogen Urine Negative (Negative); pH Urine 5.5 (4.5-7.5)
[2021-05-05 14:44] LABS: Bilirubin Urine 1+ (Negative)
[2021-05-05 15:07] LABS: Amphetamines+Metham, Urine Neg (Neg); Barbiturates, Urine Neg (Neg); Benzodiazepine, Urine Neg (Neg); Cocaine, Urine Neg (Neg); MDMA (Ecstacy), Urine Neg (Neg); Methadone, Urine Neg (Neg); Opiate, Urine Neg (Neg); Phencyclidine, Urine Neg (Neg)
[2021-05-05 15:12] LABS: RBC Urine Automated 0-4 /hpf (0-4)
--- NOTE | 2021-05-05 16:33 | CT Scan Report ---
HEAD CT NONCONTRAST CT DOSE: 1035.81 mGycm HISTORY: Altered mental status. TECHNIQUE: Multiaxial CT images of the head were performed without the use of intravenous contrast. A utomated exposure control was utilized for this study. A dose lowering technique was utilized adheri ng to the principles of ALARA. Comparison: Head CT 01/28/2013. Findings: There is a small retention cyst within the right maxillary sinus. The remaining paranasal s inuses and mastoid air cells are clear. The calvarium and skull base are intact. The ventricles and s ulci are within normal limits. There is no mass, hematoma, midline shift, or acute infarct. Impression: No acute intracranial abnormality. ACT 112: Negative or not required by law. Electronically signed by: Toño Antoine M.D. 05/05/2021 4:32 PM
[2021-05-05] MEDS: FERROUS SULFATE 325 MG TAB PO SCH (17:00)
[2021-05-05] MEDS ORDERED: SODIUM CHLORIDE 0.9% 250 ML IV PRN (18:09)
[2021-05-05] MEDS ORDERED: FUROSEMIDE 40 MG/4 ML VIAL IV ONE (18:09)
[2021-05-05] MEDS ORDERED: ACETAMINOPHEN 325 MG TAB PO ONE (18:09)
[2021-05-05] MEDS ORDERED: PANTOprazole 80 MG in DEXTROSE 5% 100 ML IV ONE (18:30)
[2021-05-05] MEDS: PANTOprazole 40 MG in DEXTROSE 5% 100 ML IV SCH (19:09)
[2021-05-05] MEDS ORDERED: PANTOprazole 80 MG in SYRINGE 0 ML IV SCH (21:00)
[2021-05-06] MEDS: PANTOprazole 40 MG in DEXTROSE 5% 100 ML IV SCH ×4 (00:20→16:13)
[2021-05-06] MEDS: ALBUTEROL 0.083% NEBU SOLN 3 ML VIAL NEB SCH ×4 (00:28→19:45)
[2021-05-06] MEDS: UNIT DOSE COMPOUND PR SCH ×4 (01:03→22:07)
[2021-05-06] MEDS: AMPICILLIN/SULBACTAM SOD 3,000 MG in 0.9 % SODIUM CHLORIDE 100 ML IV SCH ×4 (04:12→22:42)
[2021-05-06] MEDS: LACTULOSE 200 GM, WATER, STERILE IRRIG 700 ML, BARCODE IDENTIFIER 1 EA PR SCH ×3 (04:23→12:21)
[2021-05-06] MEDS ORDERED: ACETAMINOPHEN 1000 MG/100 ML IV IV ONE (06:00)
[2021-05-06] MEDS: ACETYLCYSTEINE 10% INHAL SOLN 4 ML **DISPENSED BY RESP. INH SCH ×3 (08:05→19:45)
[2021-05-06] MEDS: INSULIN ASPART PER UNIT SC SCH ×4 (08:25→21:20)
[2021-05-06] MEDS: FAMOTIDINE 20 MG TAB PO SCH ×2 (08:26→21:22)
[2021-05-06] MEDS: rOPINIRole HCL 1 MG TABLET PO SCH ×3 (08:26→21:21)
[2021-05-06] MEDS: METOPROLOL TARTRATE 50 MG TAB PO SCH ×2 (08:26→21:24)
[2021-05-06] MEDS: DOCUSATE SODIUM/SENNA 50/8.6MG TAB PO SCH ×3 (08:26→21:21)
[2021-05-06] MEDS: AMITRIPTYLINE HCL 25 MG TAB PO SCH (08:27)
[2021-05-06] MEDS: FUROSEMIDE 20 MG TAB PO SCH (08:27)
[2021-05-06] MEDS: SUCRALFATE 1 GM/10 ML UDC PO SCH ×4 (08:27→21:22)
[2021-05-06] MEDS: FERROUS SULFATE 325 MG TAB PO SCH ×2 (08:27→17:38)
[2021-05-06] MEDS: TOLTERODINE TARTRATE LA 2 MG CAPCR PO SCH (08:27)
[2021-05-06] MEDS: POTASSIUM CHLORIDE CRTAB 20 MEQ TABCR PO SCH (08:27)
[2021-05-06] MEDS: ATORVASTATIN 10 MG TAB PO SCH (08:27)
[2021-05-06] MEDS: CHOLECALCIFEROL 5,000 UNITS 125 MCG TAB PO SCH (08:27)
[2021-05-06] MEDS: INSULIN GLARGINE SOLOSTAR 100 UNITS/ML 3 ML PEN SQ SCH (08:28)
[2021-05-06] MEDS: UMECLIDINIUM BROMIDE 62.5MCG/BLISTER 7 PUFFS/INHALER INH SCH (08:28)
[2021-05-06] MEDS: IRON SUCROSE 300 MG in SODIUM CHLORIDE 0.9% 250 ML IV SCH (08:30)
[2021-05-06 08:47] LABS: Hematocrit (blood only) 35.2 % (37-47); Hemoglobin 9.9 g/dL (12.0-16.0); Mean Corpuscular Hemoglobin 24.1 pg (25-34); Mean Corpuscular Hgb Conc 28.1 g/dL (32-36); Mean Corpuscular Volume 85.6 fL (80-100); Mean Platelet Volume 8.7 fL (7.4-10.4); Platelet Count 283 K/uL (130-400); RDW Coefficient of Variation 23.7 % (11.5-14.5); Red Blood Count 4.11 M/uL (4.2-5.4); White Blood Count 5.18 K/uL (4.8-10.8)
--- NOTE | 2021-05-06 11:54 | XRay Report ---
XR chest 1V portable CLINICAL HISTORY: confirmation of PICC line placement - right arm TECHNIQUE: Single frontal radiograph of the chest was obtained. Comparison: Comparison is made to chest one view 05/03/2021 FINDINGS: No lines and tubes are seen. Cardiomegaly is noted. There is prominence and cephalization of the vasc ulature with Deandre B lines seen. Multifocal airspace opacities are seen. Stable left pleural effusio n. IMPRESSION: 1. Moderate pulmonary edema. This is similar in appearance to prior exam. 2. Small left pleural effusion, unchanged. 3. Multifocal airspace opacities, worsened from prior exam, may reflect aspiration, pneumonia, and/o r alveolar edema. ACT 112: Negative or not required by law. Electronically signed by: Christiano Wright M.D. 05/06/2021 11:53 AM
[2021-05-06 14:22] LABS: Hematocrit (blood only) 34.7 % (37-47); Hemoglobin 9.8 g/dL (12.0-16.0)
--- NOTE | 2021-05-06 15:44 | Consultation Report ---
GASTROENTEROLOGY CONSULTATION DATE OF CONSULTATION: 05/06/2021. AGE: 55. SEX: Female. RACE: . ATTENDING PHYSICIAN: El Jacobson DO. CONSULTING PHYSICIAN: Denys Interiano DO. REASON FOR CONSULTATION: Anemia. HISTORY OF PRESENT ILLNESS: The patient is a 55-year-old female with an extensive past medical history and a prolonged hospital course secondary to pneumonia with pulmonary abscess and septic emboli for which she was initially treated at [facility] on 04/21/2021, subsequently transferred for IR drainage on 04/24/2021 at [facility]. She did have a chest tube placed at that time and it was removed on 04/28/2021. Since that time, she has been on antibiotic coverage including vancomycin and Zosyn, but was seen by Infectious Disease and subsequently started on Unasyn therapy. She also developed atrial fibrillation with RVR and was placed on Eliquis therapy. She subsequently was discharged to home; however, returned to the hospital with acute shortness of breath. Upon arrival to the ER on 05/03/2021, she was noted to have a hemoglobin of 7.6 and a hematocrit of 28.1 with no overt GI bleeding. Her liver panel was normal throughout her hospitalization. We were asked to see the patient in consultation for her anemia. The patient did require 2 units of packed red blood cell transfusion and did have an appropriate response with a rise in her H and H to today's levels of 9.9 and 35.2. At the time, that I saw the patient, she was resting comfortably in bed. She denied any abdominal pain, fevers, chills, nausea, vomiting, hematemesis, melena or hematochezia. In fact, she states that she has not had a bowel movement in the past 2 days and the last bowel movement she had was documented as brown and formed on 05/06/2021 at 5:15 in the morning per nursing staff. The patient states that she has never undergone an upper endoscopy or colonoscopy in the past. Denies any heartburn or reflux symptoms. She denies any abdominal pain. She further states that she would like to leave the hospital and I discussed outpatient followup with her regarding her anemia, though I do not believe she is an appropriate candidate for an endoscopic workup at this time. The patient was in agreement. PAST MEDICAL HISTORY: Includes obstructive sleep apnea, chronic respiratory failure, COVID pneumonia with empyema and abscess formation, volume overload, hypokalemia, type 2 diabetes, chronic venous stasis, chronic anemia, atrial fibrillation, ambulatory dysfunction, tinea cruris, asthma, COPD overlap syndrome, cellulitis, vaginal yeast infection, urinary incontinence, generalized weakness, anxiety, hyperlipidemia, chronic kidney disease, chronic low back pain, lumbar radiculopathy, lumbar spondylosis, lymphedema, major depression, opioid dependence, peripheral neuropathy, restless leg syndrome, tobacco abuse, vitamin D deficiency, nephrolithiasis, GERD. PAST SURGICAL HISTORY: Includes a history of left knee surgery, tubal ligation. ALLERGIES: BEE VENOM, AVANDIA, HYDROCODONE. MEDICATIONS: At the present time include albuterol via nebulizer every 6 hours, amitriptyline 25 mg daily, Unasyn 3 grams IV q. 6 hours, Lipitor 10 mg daily, Senokot S one tablet p.o. t.i.d., Colace 100 mg p.o. t.i.d. p.r.n., Pepcid 20 mg p.o. b.i.d., ferrous sulfate 325 mg p.o. b.i.d., Lasix 60 mg p.o. q.a.m., glargine insulin 40 units subcutaneously daily, lactulose enema, metoprolol 50 mg p.o. b.i.d., nystatin 1 application externally twice daily as needed, MiraLax 17 g p.o. daily p.r.n., Protonix drip at 8 mg per hour, Requip 1 mg p.o. t.i.d., Carafate 1 gram p.o. q.i.d. a.c. and at bedtime. SOCIAL HISTORY: She lives with her daughter. Current every day smoker, 1 pack per day. She has a 79-ybdd-tsyo history of smoking. No history of alcohol or illicit drug use. She is currently on disability. FAMILY HISTORY: Negative for GI malignancy or inflammatory bowel disease. REVIEW OF SYSTEMS: As per the HPI. PHYSICAL EXAMINATION: VITAL SIGNS: Temperature 36.6, pulse 64, respirations 20, blood pressure 154/68, pulse ox 92% on 4 liters via nasal cannula. GENERAL: Morbidly obese, chronically ill-appearing, no acute distress. HEAD: Normocephalic, atraumatic. EYES: Pupils equally round. Extraocular muscles are intact. ENT: External evaluation of ears and nose are normal. NECK: Soft, supple. No JVD or lymphadenopathy. CHEST: Decreased breath sounds bilateral bases. CARDIOVASCULAR: Irregularly irregular rate. ABDOMEN: Soft, nontender, nondistended, positive bowel sounds. There is no appreciable hepatosplenomegaly. EXTREMITIES: Chronic venous stasis changes. No edema. PSYCHIATRIC: Pleasant, cooperative, oriented x3. IMPRESSION: A 55-year-old female with an extensive past medical history including a recent COVID pneumonia with empyema, chronic respiratory failure, atrial fibrillation with rapid ventricular response and anemia. PLAN: I would recommend that the patient complete therapy for her current acute medical conditions. Her H and H is stable and she is not having any overt signs of GI blood loss as she has never undergone an upper endoscopy or a colonoscopy in the past. I would recommend that she undergo this as an outpatient when her acute issues have resolved. I would also recommend that she be placed on Protonix IV 40 mg b.i.d., rather than a Protonix drip as she is not having any overt GI bleeding at present and therefore does not qualify for this level of therapy with PPI. I will follow her clinical course and make further recommendations. Once again, thank you for allowing me to participate in the care of this patient. If you have any further questions, please do not hesitate in contacting me. Job ID: [id number] [facility] HOSPITALMaykel
--- NOTE | 2021-05-06 17:41 | Hospitalist Progress Note ---
Date of Service May 06, 2021 Assessment & Plan (1) Hepatic encephalopathy: Plan: * Presented awake and alert. * Around lunch on 05/05, patient became hypersomnolent and difficult to arouse. Work-up consistent with acute hepatic encephalopathy (which is a new diagnosis for patient)--> ammonia 48.5 * Treated with lactulose enemas given obtunded state * Patient responded favorably. Follow-up ammonia this morning is 28.5 * No underlying liver disease per her knowledge. Will obtain an ultrasound to assess. Likely SCHULZ/fatty liver * Patient with chronic constipation. Would benefit from routine lactulose to not only help with her constipation but prevent further hyperammonemia (2) Hypersomnolence: Plan: * Developed hypersomnolence on 05/05 * Blood gas normal without evidence of acute hypercapnia * Initially thought to be polypharmacy (Seroquel, Neurontin, baclofen and Elavil on board) * W/U yielded elevated ammonia-- see above (3) Debility: Plan: Mrs. Hong is a 55-year-old white female who is morbidly obese. Has chronic respiratory failure with likely obesity hypoventilation syndrome, COPDon chronic 6 L of oxygen, and sleep apnea requiring CPAP. She was hospitalized here 04/02 through 04/05 with Covid. Received doses of remdesivir and IV Decadron. Was not requiring any additional oxygen and subsequently sent home with continued p.o. Decadron. Presented back to the ED on 04/21 with increasing shortness of breath and hypoxemia of 83%. Chest x-ray showed concern for pulmonary abscess. CT showed no evidence of abscess but septic emboli in the left upper lobe, pneumonia and associated empyema. Was transferred to [place] where she had IR drainage on 04/24. Chest tube removed 04/28. Empirically placed on Vanco/Zosyn but converted to Unasyn as recommended by ID. Plan was for IV antibiotics X 4 weeks. During that hospital stay, also developed new onset A. fib RVR. Started on anticoagulation therapy and subsequently discharged on Eliquis. It was recommended that she go to skilled facility for rehab but she refused. Discharged home on 04/30. A hospital bed was arranged but has not yet been delivered (until today while she has been in the hospital) and she reports not having any of her CPAP supplies. Case management has investigated this further patient has not been using her CPAP since 2014 so does not have any supplies to be used at home. Before she developed increasing shortness of breath which prompted her return to the ED. * Overall debility is likely from above as outlined * Has been seen by PT/OT who recommending rehab versus home with 24-hour care. We will reach out to daughter to help determine if added care can be provided at home * At any rate, patient will need to remain in house until Saturday as she requires CPAP chronically and there is an issues with supplies (CM working on this) (4) Anemia: Plan: * presenting hemoglobin: 7.6 * During her most recent hospital stay (beginning of March), hemoglobin was b etween 8-9 * Denies melena/hematochezia, ever having an upper or lower endoscopy, DUB or menstrual bleeding * Required a total of 3 units packed cells. Initially given 1 unit with improvement of hemoglobin but due to subsequent drop, 2 additional units provided * In review of her labs during her most recent hospitalization, her iron level was low at 19 and her ferritin was low level normal 42.6 * IV Venofer given 05/05- convert to oral supplementation * fecal occult blood X3 ordered- negative x1 * With subsequent drop in hemoglobin, Eliquis subsequently on hold. * Empirically added Pepcid/Carafate as patient not ideal candidate for conscious sedation for EGD/colonoscopy at this time. Consulted GI who agrees that can proceed with further work-up as an outpatient. Greatly appreciate recommendations (5) Hypokalemia: Plan: * 3.3 upon arrival * replaced/resolved (6) Volume overload: Plan: * Clinically appeared slightly volume overloaded after receiving blood guerra sfusion * IV lasix given * Echo showing preserved EF of 60-65% with mild pulmonary hypertension (which is likely related to her obesity hypoventilation syndrome) * appears euvolemic today * continue routine PO lasix as LOBSTERMAN (7) Empyema: Plan: * Empyema related to recent pneumonia noted on imaging 04/21 when presented to our emergency room * Transferred to [facility] * Status post IR drainage on 04/24. Chest tube removed 04/28 * Seen by infectious disease and Tatum/Trevor converted to Unasyn with recommendations for 4 weeks and follow-up imaging at that time * Overall, patient seems to be doing well * She is at her baseline in regards to oxygen requirements * Afebrile and hemodynamically stable * Denies shortness of breath * CTA done with this hospitalist stay shows moderate improvement in the left- sided empyema with consistent left basilar consolidation (which ultimately will take weeks to resolve) * Work-up for TB was completed by admitting provider * Pulmonology consulted who agreed with continuing abx (Unasyn) x 6 weeks and FU imaging at that time--> appreciate recommendations (8) Pneumonia: Plan: * See above (9) COVID-19: Plan: * Diagnosed 04/02 * Unvaccinated * Received 3 doses of remdesivir * Received 10 doses Decadron (10) Chronic respiratory failure: Plan: * Patient on 6 L supplemental oxygen at baseline along with CPAP * Patient admits that she has not been compliant with her CPAP at home. Has not utilized CPAP since 2014 thus does not have appropriate supplies at home * Case management working on this. Ultimately, this was likely contributing to issues with her being at home--> with review of records from [place], patient is to be on 12/12 (11) Afib: Plan: * Diagnosed while at [facility]. Likely related to catecholamine release from recent Covid and infectious pneumonia with empyema * At any rate, she is in a normal sinus rhythm with controlled rate on metoprolol * [id number] 2 score = 2 * Eliquis now on hold given subsequent drop in hemoglobin. * Patient now on GI protection including PPI/H2 kori/Carafate * May consider readdition of Eliquis but should have endoscopy which can be facilitated as an outpatient as not a great candidate for conscious sedation at this time Plan: ? Discharged home with additional support versus placement Need appropriate CPAP suppliesT&B not open over the weekend. Patient will need to remain in house to facilitate safe discharge to home with appropriate CPAP supplies Plan of care will be discussed with Dr. Jacobson. Further orders as warranted Admission and Anticipated Discharge Date Admission Date: May 04, 2021 Supervising Physician Co-Signing Physician Notes chart reviewed, case d/w Surekha Lockhart PAC. agree w above Subjective Patient seen on daily rounds today. Received lactulose enemas overnight and this morning she is awake and alert. Her ammonia level has normalized. In lengthy discussion with her, she has never had an elevated ammonia level in the past. No underlying liver disease. Does report chronic constipation (about 1 BM a day). Patient is s/p total of 3 units packed cells. Follow-up H&H stable. Betsey remains on hold. Seen by GI who agrees not ideal candidate for conscious sedation at this time. Pending H&H remained stable, can be worked up further as an outpatient. Otherwise, patient denies fevers, chills, chest pain, shortness of breath, abdom inal pain, nausea or vomiting. Nursing voices no complaints or concerns. Review of Systems Review of Systems: All systems reviewed and are unremarkable except as noted in HPI and below Denies fevers, chills, headache, nasal congestion, sore throat, cough, chest pain, shortness of breath, palpitations, orthopnea, PND, abdominal pain, nausea, vomiting, diarrhea, constipation, dysuria, hematuria, frequency, back pain, joint pain or swelling, easy bruising or bleeding, skin lesions or rashes. Physical Exam Physical Exam: General: Resting comfortably in her hospital bed. Does not appear ill or toxic. NAD. HEENT: Head is AT/NC buccal mucosa is moist and pink Neck: No JVD. Negative hepatojugular reflex Cardiac: Very distant heart sounds- Likely due to habitus. 1/6 ZAFAR noted Lungs: Normal respiratory effort. Distant breath sounds due to habitus. No wheezes, rales or rhonchi Abdomen: Normoactive X4. But difficult to examine given habitus Extremities: + Adiposity without true pitting edema Neuro: A&O X4. cranial nerves II through XII are grossly intact no focal neuro deficits Skin: No obvious skin lesions or rashes Psych: Appropriate affect pleasant and cooperative Results & Data Results & Data ([facility]) Vital Signs (Past 12 Hours) Vital Signs Temp Pulse Pulse Resp BP Pulse Ox 05/06/21 13:52 64 20 92 05/06/21 11:30 36.6 C 89 22 154/68 H 97 05/06/21 08:07 65 20 91 05/06/21 08:00 36.5 C 79 22 142/70 H 94 05/06/21 07:18 56 L Laboratory Results 05/06/21 14:00 05/05/21 05:27 Follow-up ammonia level: 28.5 PG Care Time/CCT Total # of Minutes Spent Total Time Spent with Patient: Total time spent is greater than 50% in coordination of care (as documented) at patient's floor/unit and/or counseling patient: Coding Level of Care Code 85545 Subseq Hosp Care Lvl 3 Diagnoses Hypersomnolence G47.10 Debility R53.81 Anemia D64.9 Anemia type: unspecified type Hypokalemia E87.6 Volume overload E87.70 Empyema J86.9 Pneumonia J18.9 Laterality: bilateral Lung location: unspecified part of lung Pneumonia type: due to unspecified organism COVID-19 U07.1 Chronic respiratory failure J96.10 Afib I48.91 Hepatic encephalopathy K72.90 (1) Anemia Anemia type: unspecified type Qualified Code(s): D64.9 - Anemia, unspecified (2) Pneumonia Laterality: bilateral Lung location: unspecified part of lung Pneumonia type: due to unspecified organism Qualified Code(s): J18.9 - Pneumonia, unspecified organism
[2021-05-06] MEDS ORDERED: ALBUT/IPRATROP 3MG/0.5MG NEB 3 ML VIAL NEB PRN (19:16)
[2021-05-06] MEDS: LACTULOSE SYRUP 20 GM/30 ML UDC PO SCH (21:23)
[2021-05-06] MEDS: PANTOprazole 40 MG TAB PO SCH (21:24)
[2021-05-06] MEDS: GABAPENTIN 800 MG TAB PO SCH (22:07)
[2021-05-06] MEDS: QUEtiapine FUMARATE 300 MG TABLET PO SCH (22:07)
--- NOTE | 2021-05-06 22:41 | Ultrasound Report ---
US liver LIMITED ABDOMEN CLINICAL HISTORY: elevated ammonia. COMPARISON: None. TECHNIQUE: Multiple grayscale and color images of the right upper quadrant of the abdomen. FINDINGS: The study is limited by overlying bowel gas and body habitus. Pancreas: The head and body of the pancreas is within normal limits with no focal mass or peripancrea tic fluid collection identified. The tail is obscured by overlying bowel gas. Liver: The liver is homogeneous in echogenicity There is no evidence for a focal mass. There is no in trahepatic biliary duct dilatation. There is hepatomegaly with the liver measuring 26 cm in the axill laura margin. Gallbladder: The gallbladder is well distended with no evidence of cholelithiasis, wall thickening o r pericholecystic edema. There was reportedly a negative sonographic Campo sign. Common Bile Duct: (CBD): It is normal in size measuring 6 mm. Inferior Vena Cava (IVC): The imaged IVC is patent. Right kidney: There is no evidence for hydronephrosis, calculus or gross renal mass. The kidney is n ormal in size. IMPRESSION: Limited examination with nonvisualization of the tail of the pancreas. Hepatomegaly. ACT 112: Negative or not required by law. Electronically signed by: Rasta Person M.D. 05/06/2021 10:40 PM
[2021-05-07] MEDS: AMPICILLIN/SULBACTAM SOD 3,000 MG in 0.9 % SODIUM CHLORIDE 100 ML IV SCH ×4 (04:40→21:47)
[2021-05-07] MEDS: UNIT DOSE COMPOUND PR SCH ×3 (04:57→18:36)
[2021-05-07 06:37] LABS: Hematocrit (blood only) 32.8 % (37-47); Hemoglobin 9.3 g/dL (12.0-16.0); Mean Corpuscular Hemoglobin 24.3 pg (25-34); Mean Corpuscular Hgb Conc 28.4 g/dL (32-36); Mean Corpuscular Volume 85.6 fL (80-100); Mean Platelet Volume 8.6 fL (7.4-10.4); Platelet Count 263 K/uL (130-400); RDW Coefficient of Variation 24.1 % (11.5-14.5); RDW Standard Deviation 73.8 fL (36.4-46.3); Red Blood Count 3.83 M/uL (4.2-5.4); White Blood Count 4.78 K/uL (4.8-10.8)
[2021-05-07 06:53] LABS: BUN Creatinine Ratio 13.6 (10-20); Calcium 8.8 mg/dl (8.5-10.1); Creatinine Clr Calc Pharmacy 141.7 ml/min; Est GFR (African American) 93.3 ml/min; Est GFR (Non-African American) 80.5 ml/min; Magnesium 2.1 mg/dl (1.8-2.4); Potassium 3.9 mmol/L (3.5-5.1)
[2021-05-07 06:55] LABS: Albumin Globulin Ratio 0.4 (0.9-2)
[2021-05-07 07:01] LABS: Bilirubin,Total 0.5 mg/dl (0.2-1)
[2021-05-07] MEDS: FAMOTIDINE 20 MG TAB PO SCH ×2 (09:19→21:50)
[2021-05-07] MEDS: FERROUS SULFATE 325 MG TAB PO SCH ×2 (09:20→16:10)
[2021-05-07] MEDS: FUROSEMIDE 20 MG TAB PO SCH (09:20)
[2021-05-07] MEDS: CHOLECALCIFEROL 5,000 UNITS 125 MCG TAB PO SCH (09:20)
[2021-05-07] MEDS: rOPINIRole HCL 1 MG TABLET PO SCH ×3 (09:20→21:52)
[2021-05-07] MEDS: DOCUSATE SODIUM/SENNA 50/8.6MG TAB PO SCH ×3 (09:20→21:59)
[2021-05-07] MEDS: ATORVASTATIN 10 MG TAB PO SCH (09:20)
[2021-05-07] MEDS: PANTOprazole 40 MG TAB PO SCH ×2 (09:21→21:52)
[2021-05-07] MEDS: SUCRALFATE 1 GM/10 ML UDC PO SCH ×4 (09:21→21:49)
[2021-05-07] MEDS: AMITRIPTYLINE HCL 25 MG TAB PO SCH (09:21)
[2021-05-07] MEDS: LACTULOSE SYRUP 20 GM/30 ML UDC PO SCH ×2 (09:21→21:49)
[2021-05-07] MEDS: POTASSIUM CHLORIDE CRTAB 20 MEQ TABCR PO SCH (09:21)
[2021-05-07] MEDS: TOLTERODINE TARTRATE LA 2 MG CAPCR PO SCH (09:21)
[2021-05-07] MEDS: METOPROLOL TARTRATE 50 MG TAB PO SCH ×2 (09:21→21:51)
[2021-05-07] MEDS: UMECLIDINIUM BROMIDE 62.5MCG/BLISTER 7 PUFFS/INHALER INH SCH (09:25)
[2021-05-07] MEDS: INSULIN GLARGINE SOLOSTAR 100 UNITS/ML 3 ML PEN SQ SCH (09:25)
[2021-05-07] MEDS: INSULIN ASPART PER UNIT SC SCH ×4 (09:26→21:48)
[2021-05-07] MEDS: QUEtiapine FUMARATE 300 MG TABLET PO SCH ×2 (09:44→21:53)
[2021-05-07] MEDS: GABAPENTIN 400 MG CAP PO SCH ×2 (09:44→13:01)
[2021-05-07] MEDS ORDERED: BACLOFEN 20 MG TAB PO PRN (10:44)
--- NOTE | 2021-05-07 11:52 | Hospitalist Progress Note ---
Date of Service May 07, 2021 Assessment & Plan (1) Debility: Plan: Mrs. Hong is a 55-year-old white female who is morbidly obese. Has chronic respiratory failure with likely obesity hypoventilation syndrome, COPDon chronic 6 L of oxygen, and sleep apnea requiring CPAP. She was hospitalized here 04/02 through 04/05 with Covid. Received doses of remdesivir and IV Decadron. Was not requiring any additional oxygen and subsequently sent home with continued p.o. Decadron. Presented back to the ED on 04/21 with increasing shortness of breath and hypoxemia of 83%. Chest x-ray showed concern for pulmonary abscess. CT showed no evidence of abscess but septic emboli in the left upper lobe, pneumonia and associated empyema. Was transferred to [place] where she had IR drainage on 04/24. Chest tube removed 04/28. Empirically placed on Vanco/Zosyn but converted to Unasyn as recommended by ID. Plan was for IV antibiotics X 4 weeks. During that hospital stay, also developed new onset A. fib RVR. Started on anticoagulation therapy and subsequently disc harged on Eliquis. It was recommended that she go to skilled facility for rehab but she refused. Discharged home on 04/30. A hospital bed was arranged but has not yet been delivered (until today while she has been in the hospital) and she reports not having any of her CPAP supplies. Case management has investigated this further patient has not been using her CPAP since 2014 so does not have any supplies to be used at home. Before she developed increasing shortness of breath which prompted her return to the ED. * Overall debility is likely from above as outlined * Has been seen by PT/OT who recommending rehab versus home with 24-hour care. lives with daughter who between her and patient's sister are able to provide the 24hr care. Would also like home services (CM to set up home PT/OT, vi siting nurses and HH aid) * At any rate, patient will need to remain in house until Saturday as she requires CPAP chronically and there is an issues with supplies (CM working on this). (2) Hepatic encephalopathy: Plan: * Presented awake and alert. * Around lunch on 05/05, patient became hypersomnolent and difficult to arouse. Work-up consistent with acute hepatic encephalopathy (which is a new diagnosis for patient)--> ammonia 48.5 * Treated with lactulose enemas given obtunded state * Patient responded favorably. Follow-up ammonia this morning is 28.5 * No underlying liver disease per her knowledge. * RUQ US done showing no signficant pathology but limited exam given habitus * Patient with chronic constipation anyway--. Would benefit from routine lactulose to not only help with her constipation but prevent further hyperamm onemia * needs to FU with GI as an OP anyway (3) Hypersomnolence: Plan: * Developed hypersomnolence on 05/05 * Blood gas normal without evidence of acute hypercapnia * Initially thought to be polypharmacy (Seroquel, Neurontin, baclofen and Elavil on board) * W/U yielded elevated ammonia-- see above (4) Anemia: Plan: * presenting hemoglobin: 7.6 * During her most recent hospital stay (beginning of March), hemoglobin was between 8-9 * Denies melena/hematochezia, ever having an upper or lower endoscopy, DUB or menstrual bleeding * Required a total of 3 units packed cells. Initially given 1 unit with improvement of hemoglobin but due to subsequent drop, 2 additional units provided * was unable to obtain iron studies as already had received blood transfusion * In review of her labs during her most recent hospitalization, her iron level was low at 19 and her ferritin was low level normal 42.6 * IV Venofer given 05/05 and 05/06- converted to oral supplementation * fecal occult blood X3 ordered- negative x1 * With subsequent drop in hemoglobin, Eliquis subsequently on hold-- would consider holding this for 2 weeks and if FU H/H remains stable, resume * Empirically added Pepcid/Carafate as patient not ideal candidate for conscious sedation for EGD/colonoscopy at this time. Consulted GI who agrees that can proceed with further work-up as an outpatient. 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 Chest tube removed 04/28 * Seen by infectious disease and Tatum/Trevor converted to Unasyn with recommendations for 4 weeks and follow-up imaging at that time * Overall, patient seems to be doing well * She is at her baseline in regards to oxygen requirements * Afebrile and hemodynamically stable * Denies shortness of breath * CTA done with this hospitalist stay shows moderate improvement in the left- sided empyema with consistent left basilar consolidation (which ultimately will take weeks to resolve) * Work-up for TB was completed by admitting provider * Pulmonology consulted who agreed with continuing abx (Unasyn) x 6 weeks and FU imaging at that time--> appreciate recommendations. Patient d/c'ed from [place] with home IV abx supplies and PICC (8) Pneumonia: Plan: * See above (9) COVID-19: Plan: * Diagnosed 04/02 * Unvaccinated * Received 3 doses of remdesivir * Received 10 doses Decadron (10) Chronic respiratory failure: Plan: * Patient on 6 L supplemental oxygen at baseline along with CPAP--> currently 90% on 4L (avoid pulse ox >92% given risk of hypercapnia) * Patient admits that she has not been compliant with her CPAP at home. Has not utilized CPAP since 2014 thus does not have appropriate supplies at home * Case management working on this. Ultimately, this was likely contributing to issues with her being at home--> with review of records from [place], patient is to be on 12/12 (11) Afib: Plan: * Diagnosed while at [facility]. Likely related to catecholamine release from recent Covid and infectious pneumonia with empyema * At any rate, she is in a normal sinus rhythm with controlled rate on m etoprolol * [id number] 2 score = 2 * Eliquis now on hold given subsequent drop in hemoglobin. * Patient now on GI protection including PPI/H2 kori/Carafate * May consider readdition of Eliquis but should have endoscopy which can be facilitated as an outpatient as not a great candidate for conscious sedation at this time * consider holding eliquis upon D/C with FU H/H and resumption pending stability and endoscopy Plan: D/C to home with 24 hr care (daughter and sister) in addition to home PT/OT/ VN and RETORT SETTER (CM consulted to help with this) Need appropriate CPAP suppliesT&B not open over the weekend. Patient will need to remain in house to facilitate safe discharge to home with appropriate CPAP supplies-- CM also working on this Plan of care will be discussed with Dr. Jacobson. Further orders as warranted Admission and Anticipated Discharge Date Admission Date: May 04, 2021 Supervising Physician Co-Signing Physician Notes chart reviewed, case d/w J Chantelle PAC. agree w above Subjective Patient seen on daily rounds today. Vocalizes no c/c. Nursing reports she is getting demanding-- demanding percocet and that her baclofen be resumed (was held along with her other centraling acting meds when she was obtunded several days ago). Her labs are stable. She feels at her baseline. Review of Systems Review of Systems: All systems reviewed and are unremarkable except as noted in HPI and below Denies fevers, chills, headache, nasal congestion, sore throat, cough, chest pain, shortness of breath, palpitations, orthopnea, PND, abdominal pain, nausea, vomiting, diarrhea, constipation, dysuria, hematuria, frequency, back pain, joint pain or swelling, easy bruising or bleeding, skin lesions or rashes. Physical Exam Physical Exam: General: Resting comfortably in her hospital bed. Does not appear ill or toxic. NAD. HEENT: Head is AT/NC buccal mucosa is moist and pink Neck: No JVD. Negative hepatojugular reflex Cardiac: Very distant heart sounds- Likely due to habitus. 1/6 ZAFAR noted Lungs: Normal respiratory effort. Distant breath sounds due to habitus. No wheezes, rales or rhonchi Abdomen: Normoactive X4. But difficult to examine given habitus Extremities: + Adiposity without true pitting edema Neuro: A&O X4. cranial nerves II through XII are grossly intact no focal neuro deficits Skin: No obvious skin lesions or rashes Psych: Appropriate affect pleasant and cooperative Results & Data Results & Data ([facility]) Vital Signs (Past 12 Hours) Vital Signs Temp Pulse Pulse Resp BP Pulse Ox 05/07/21 11:14 36.9 C 73 18 119/66 90 05/07/21 07:14 59 L 18 122/60 93 05/07/21 03:00 36.7 C 61 64 24 152/70 H 95 Laboratory Results 05/07/21 05:39 05/07/21 05:39 PG Care Time/CCT Total # of Minutes Spent Total Time Spent with Patient: Total time spent is greater than 50% in coordination of care (as documented) at patient's floor/unit and/or counseling patient: Coding Level of Care Code 83431 Subseq Hosp Care Lvl 1 Diagnoses Hepatic encephalopathy K72.90 Hypersomnolence G47.10 Debility R53.81 Anemia D64.9 Anemia type: unspecified type Hypokalemia E87.6 Volume overload E87.70 Empyema J86.9 Pneumonia J18.9 Laterality: bilateral Lung location: unspecified part of lung Pneumonia type: due to unspecified organism COVID-19 U07.1 Chronic respiratory failure J96.10 Afib I48.91 (1) Anemia Anemia type: unspecified type Qualified Code(s): D64.9 - Anemia, unspecified (2) Pneumonia Laterality: bilateral Lung location: unspecified part of lung Pneumonia type: due to unspecified organism Qualified Code(s): J18.9 - Pneumonia, unspecified organism
[2021-05-07] MEDS: MICONAZOLE NITRATE POWDER 43 GM EXT PRN (16:05)
[2021-05-07] MEDS: GABAPENTIN 800 MG TAB PO SCH (21:51)
[2021-05-08] MEDS: UNIT DOSE COMPOUND PR SCH ×3 (04:36→18:24)
[2021-05-08] MEDS: AMPICILLIN/SULBACTAM SOD 3,000 MG in 0.9 % SODIUM CHLORIDE 100 ML IV SCH ×4 (04:36→22:20)
[2021-05-08 09:04] LABS: Hematocrit (blood only) 36.7 % (37-47); Hemoglobin 10.2 g/dL (12.0-16.0)
[2021-05-08] MEDS: rOPINIRole HCL 1 MG TABLET PO SCH ×3 (09:31→22:04)
[2021-05-08] MEDS: FAMOTIDINE 20 MG TAB PO SCH ×2 (09:31→22:07)
[2021-05-08] MEDS: METOPROLOL TARTRATE 50 MG TAB PO SCH ×2 (09:31→22:05)
[2021-05-08] MEDS: AMITRIPTYLINE HCL 25 MG TAB PO SCH (09:32)
[2021-05-08] MEDS: QUEtiapine FUMARATE 300 MG TABLET PO SCH ×2 (09:32→22:03)
[2021-05-08] MEDS: TOLTERODINE TARTRATE LA 2 MG CAPCR PO SCH (09:32)
[2021-05-08] MEDS: GABAPENTIN 400 MG CAP PO SCH ×3 (09:32→22:05)
[2021-05-08] MEDS: FUROSEMIDE 20 MG TAB PO SCH (09:32)
[2021-05-08] MEDS: SUCRALFATE 1 GM/10 ML UDC PO SCH ×4 (09:33→22:08)
[2021-05-08] MEDS: ATORVASTATIN 10 MG TAB PO SCH (09:33)
[2021-05-08] MEDS: FERROUS SULFATE 325 MG TAB PO SCH ×2 (09:33→16:35)
[2021-05-08] MEDS: LACTULOSE SYRUP 20 GM/30 ML UDC PO SCH ×2 (09:33→22:08)
[2021-05-08] MEDS: CHOLECALCIFEROL 5,000 UNITS 125 MCG TAB PO SCH (09:33)
[2021-05-08] MEDS: PANTOprazole 40 MG TAB PO SCH ×2 (09:34→22:07)
[2021-05-08] MEDS: UMECLIDINIUM BROMIDE 62.5MCG/BLISTER 7 PUFFS/INHALER INH SCH (09:34)
[2021-05-08] MEDS: DOCUSATE SODIUM/SENNA 50/8.6MG TAB PO SCH ×3 (09:40→22:20)
[2021-05-08] MEDS: POTASSIUM CHLORIDE CRTAB 20 MEQ TABCR PO SCH (09:40)
[2021-05-08] MEDS: INSULIN ASPART PER UNIT SC SCH ×4 (09:40→20:11)
[2021-05-08] MEDS: INSULIN GLARGINE SOLOSTAR 100 UNITS/ML 3 ML PEN SQ SCH (09:41)
--- NOTE | 2021-05-08 15:03 | Hospitalist Progress Note ---
Date of Service May 08, 2021 Assessment & Plan (1) Debility: Plan: Mrs. Hong is a 55-year-old white female who is morbidly obese. Has chronic respiratory failure with likely obesity hypoventilation syndrome, COPDon chronic 6 L of oxygen, and sleep apnea requiring CPAP. She was hospitalized here 04/02 through 04/05 with Covid. Received doses of remdesivir and IV Decadron. Was not requiring any additional oxygen and subsequently sent home with continued p.o. Decadron. Presented back to the ED on 04/21 with increasing shortness of breath and hypoxemia of 83%. Chest x-ray showed concern for pulmonary abscess. CT showed no evidence of abscess but septic emboli in the left upper lobe, pneumonia and associated empyema. Was transferred to [place] where she had IR drainage on 04/24. Chest tube removed 04/28. Empirically placed on Vanco/Zosyn but converted to Unasyn as recommended by ID Bacteroides and actinomyces in the cultures. Plan was for IV antibiotics X at least in the setting of morbid obesity 4 weeks. During that hospital stay, also developed new onset A. fib RVR. Started on anticoagulation therapy and subsequently discharged on Eliquis. It was recommended that she go to skilled facility for rehab but she refused. Discharged home on 04/30. A hospital bed was arranged but has not yet been delivered (until today while she has been in the hospital) and she reports not having any of her CPAP supplies. Case management has investi gated this further patient has not been using her CPAP since 2015 so does not have any supplies to be used at home. Before she developed increasing shortness of breath which prompted her return to the ED. * Overall debility is likely from above as outlined, chronic pain, neuropathy, and deconditioning * Has been seen by PT/OT who recommending rehab versus home with 24-hour care. lives with daughter who between her and patient's sister are able to provide the 24hr care. Would also like home services (CM to set up home PT/OT, visiting nurses and HH aid) * Not able to discharge to home until gets BiPAP set up at home especially in the setting of having encephalopathy from obesity hypoventilation syndrome and CO2 retention (2) Hepatic encephalopathy: Plan: Presented awake and alert. Around lunch on 05/05, patient became hypersomnolent and difficult to arouse. Work-up consistent with acute hepatic encephalopathy (which is a new diagnosis for patient)--> ammonia 48.5 Treated with lactulose enemas given obtunded state Patient responded favorably. 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 Would benefit from routine lactulose to not only help with her constipation but prevent further hyperammonemia-continue lactulose 20 g p.o. twice daily needs to FU with GI as an OP anyway (3) Hypersomnolence: Plan: Developed hypersomnolence on 05/05 as above Blood gas normal without evidence of acute hypercapnia Likely secondary to polypharmacy (Seroquel, Neurontin, baclofen and Elavil on board) W/U yielded elevated ammonia-- see above Has now been restarted on all of her home medications-we will move Elavil to at bedtime dosing as she takes it at home Must be on BiPAP at nighttime and with any naps (4) Anemia: Plan: presenting hemoglobin: 7.6 During her most recent hospital stay (beginning of March), hemoglobin was between 8-9 Denies melena/hematochezia, ever having an upper or lower endoscopy, DUB or menstrual bleeding Required a total of 3 units packed cells. Initially given 1 unit with improvement of hemoglobin but due to subsequent drop, 2 additional units provided was unable to obtain iron studies as already had received blood transfusion In review of her labs during her most recent hospitalization, her iron level was low at 19 and her ferritin was low level normal 42.6 IV Venofer given 05/05 and 05/06- converted to oral supplementation fecal occult blood X3 ordered- negative x1 With subsequent drop in hemoglobin, Eliquis subsequently on hold-- would consider holding this for 2 weeks and if FU H/H remains stable, resume Empirically added Pepcid/Carafate as patient not ideal candidate for conscious sedation for EGD/colonoscopy at this time. Consulted GI who agrees that can proceed with further work-up as an outpatient. Greatly appreciate recommendations Hemoglobin stable at 9.3 on 05/07 (5) Hypokalemia: Plan: Replaced and resolved (6) Volume overload: Plan: Clinically appeared slightly volume overloaded after receiving blood transfusion IV lasix given Echo showing preserved EF of 60-65% with mild pulmonary hypertension (which is likely related to her obesity hypoventilation syndrome) appears euvolemic today although has chronic peripheral edema continue routine PO lasix as MUSIC INDU[employer] INTERN (7) Empyema: Plan: Empyema related to recent pneumonia noted on imaging 04/21 when presented to our emergency room Transferred to [facility] Status post IR drainage on 04/24. Chest tube removed 04/28 With Bacteroides and actinomyces growing on cultures, repeat CT chest here shows improvement since previous Seen by infectious disease and Vanco/Zosyn converted to Unasyn with recommendations for at least 4 weeks of IV antibiotics and follow-up imaging at that time Overall, patient seems to be doing well She is at her baseline in regards to oxygen requirements Afebrile and hemodynamically stable Denies shortness of breath CTA done with this hospitalist stay shows moderate improvement in the left-sided empyema with consistent left basilar consolidation (which ultimately will take weeks to resolve) Work-up for TB was completed by admitting provider-negative Pulmonology consulted who agreed with continuing abx (Unasyn) x 6 weeks and FU imaging at that time--> appreciate recommendations. Patient d/c'ed from [place] with home IV abx supplies and PICC (8) Pneumonia: Plan: See above (9) COVID-19: Plan: Diagnosed 04/02 Unvaccinated Received 3 doses of remdesivir Received 10 doses Decadron (10) Chronic respiratory failure: Plan: Patient on 6 L supplemental oxygen at baseline along with CPAP--> currently doing well on 2 L nasal cannula at rest(avoid pulse ox >92% given risk of hypercapnia) Patient admits that she has not been compliant with her CPAP at home. Has not utilized CPAP since 2014 thus does not have appropriate supplies at home Case management working on this. Actually needs BiPAP-with review of records from [place], patient is to be on BiPAP 12/12 Obtaining BiPAP or Trilogy for home use requires more in-depth testing-Case management to get back to me, but will order overnight pulse oximetry for tonight and an ABG in the morning (11) Afib: Plan: Diagnosed while at [facility]. Likely related to catecholamine release from recent Covid and infectious pneumonia with empyema At any rate, she is in a normal sinus rhythm with controlled rate on metoprolol [id number] 2 score = 2 Eliquis now on hold given subsequent drop in hemoglobin. Patient now on GI protection including PPI/H2 kori/Carafate May consider addition of Eliquis again but should have endoscopy which can be facilitated as an outpatient as not a great candidate for conscious sedation at this time consider holding eliquis upon D/C with FU H/H and resumption pending stability and endoscopy (12) Asthma-COPD overlap syndrome: (13) GERD (gastroesophageal reflux disease): Plan: Continue pantoprazole twice daily Continue Pepcid (14) Hypertension: Plan: Continue metoprolol Continue furosemide Blood pressures controlled (15) Major depression, recurrent: Plan: Stable Continue Seroquel (16) AMANDA (obstructive sleep apnea): Plan: getting BiPAP set up as above (17) Peripheral neuropathy: Plan: Continue gabapentin (18) Tobacco use disorder: Plan: Needs smoking cessation counseling (19) Type 2 diabetes mellitus: Plan: Hemoglobin A1c 7.8% here Continue Lantus and NovoLog Holding home Victoza (20) Obesity: Plan: BMI 55.3 Needs weight loss (21) Bacteremia: Plan: Thought to be contaminant Gram-positive cocci in clusters but staff aureus PCR testing is negative No fevers Plan: D/C to home with 24 hr care (daughter and sister) in addition to home PT/OT/ VN and CAKE [employer]KER (CM consulted to help with this) once BiPAP or trilogy is set up hopefully tomorrow Admission and Anticipated Discharge Date Admission Date: May 04, 2021 Subjective Patient has no complaints. She did not wear her BiPAP much last night, however did wear it for 7 hours yesterday in the afternoon into the early evening during a nap. She tells me that she typically takes her Elavil at night and I informed her that she has been getting it during the day here which may be making her more tired than usual during the day. She would like to go home with 24/7 care, but does not have a BiPAP at home. Telemetry with normal sinus rhythm, rates in the 60s. Review of Systems Review of Systems: All systems reviewed & are unremarkable except as noted in HPI & below Physical Exam Constitutional: WD/WN, vitals as above Eyes: + anicteric sclerae Neck: trachea midline, no thyromegaly Respiratory: normal respiratory effort, lungs clear to auscultation Cardiovascular: Rate/Rhythm: regular rate and regular rhythm Extremities: + edema (2+ woody edema bilat LEs with venous stasis erythema) Chest (Breasts): Chest: normal inspection of chest Gastrointestinal (Abdomen): normal bowel sounds, soft, nontender, no hepatosplenomegaly Musculoskeletal: Extremities: no cyanosis and no clubbing Skin: no rashes, warm and dry Neurologic: moves all extremities and awake; no focal motor deficits Psychiatric: A+Ox3, euthymic affect Genitourinary: Peacock catheter in place draining clear yellow urine Results & Data Results & Data ([facility]) Vital Signs (Past 12 Hours) Vital Signs Temp Pulse Resp BP Pulse Ox 05/08/21 14:43 36.6 C 60 20 128/63 96 05/08/21 11:21 36.6 C 64 20 129/70 92 05/08/21 07:09 36.6 C 63 20 149/82 H 92 05/08/21 03:30 36.6 C 63 20 126/75 92 Laboratory Results 05/08/21 05/08/21 05/08/21 Range/Units 16:38 11:51 08:32 Hgb (12.0-16.0) g/dL Hct (37-47) % POC Glucose 144 H 179 H (70-99) mg/dl Ammonia 46.9 H (11-32) umol/L 05/08/21 05/08/21 05/07/21 Range/Units 08:32 07:52 21:25 Hgb 10.2 L (12.0-16.0) g/dL Hct 36.7 L (37-47) % POC Glucose 114 H 125 H (70-99) mg/dl Ammonia (11-32) umol/L PG Care Time/CCT Total # of Minutes Spent Total Time Spent with Patient: Total time spent is greater than 50% in coordination of care (as documented) at patient's floor/unit and/or counseling patient: Coding Level of Care Code 37265 Subseq Hosp Care Lvl 2 Diagnoses Debility R53.81 Hepatic encephalopathy K72.90 Hypersomnolence G47.10 Anemia D64.9 Anemia type: unspecified type Hypokalemia E87.6 Volume overload E87.70 Empyema J86.9 Pneumonia J18.9 Laterality: bilateral Lung location: unspecified part of lung Pneumonia type: due to unspecified organism COVID-19 U07.1 Chronic respiratory failure J96.10 Afib I48.91 Asthma-COPD overlap syndrome J44.9 GERD (gastroesophageal reflux disease) K21.9 Hypertension I10 Major depression, recurrent F33.9 AMANDA (obstructive sleep apnea) G47.33 Peripheral neuropathy G62.9 Tobacco use disorder F17.200 Type 2 diabetes mellitus E11.59; Z79.4 Diabetes mellitus complication detail: with other circulatory complications Diabetes mellitus complication status: with circulatory complication Diabetes mellitus shelter insulin use: with shelter use Obesity E66.9 Bacteremia R78.81 (1) Anemia Anemia type: unspecified type Qualified Code(s): D64.9 - Anemia, unspecified (2) Pneumonia Laterality: bilateral Lung location: unspecified part of lung Pneumonia type: due to unspecified organism Qualified Code(s): J18.9 - Pneumonia, unspecified organism (3) Type 2 diabetes mellitus Diabetes mellitus complication detail: with other circulatory complications Diabetes mellitus complication status: with circulatory complication Diabetes mellitus shelter insulin use: with powder loader use Qualified Code(s): E11.59 - Type 2 diabetes mellitus with other circulatory complications; Z79.4 - 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
[2021-05-08] MEDS: GABAPENTIN 800 MG TAB PO SCH (22:06)
[2021-05-09] MEDS: UNIT DOSE COMPOUND PR SCH ×3 (02:44→18:37)
[2021-05-09] MEDS: AMPICILLIN/SULBACTAM SOD 3,000 MG in 0.9 % SODIUM CHLORIDE 100 ML IV SCH ×4 (04:42→21:02)
[2021-05-09 07:58] LABS: Hematocrit (blood only) 35.5 % (37-47); Hemoglobin 9.9 g/dL (12.0-16.0); Mean Corpuscular Hemoglobin 24.6 pg (25-34); Mean Corpuscular Hgb Conc 27.9 g/dL (32-36); Mean Corpuscular Volume 88.1 fL (80-100); Mean Platelet Volume 8.9 fL (7.4-10.4); Platelet Count 223 K/uL (130-400); RDW Coefficient of Variation 24.6 % (11.5-14.5); RDW Standard Deviation 78.1 fL (36.4-46.3); Red Blood Count 4.03 M/uL (4.2-5.4); White Blood Count 3.67 K/uL (4.8-10.8)
[2021-05-09] MEDS: PANTOprazole 40 MG TAB PO SCH ×2 (08:03→20:34)
[2021-05-09] MEDS: FAMOTIDINE 20 MG TAB PO SCH ×2 (08:03→20:34)
[2021-05-09] MEDS: FERROUS SULFATE 325 MG TAB PO SCH ×2 (08:03→17:18)
[2021-05-09] MEDS: GABAPENTIN 400 MG CAP PO SCH ×2 (08:03→13:55)
[2021-05-09] MEDS: CHOLECALCIFEROL 5,000 UNITS 125 MCG TAB PO SCH (08:04)
[2021-05-09] MEDS: TOLTERODINE TARTRATE LA 2 MG CAPCR PO SCH (08:04)
[2021-05-09] MEDS: rOPINIRole HCL 1 MG TABLET PO SCH ×3 (08:04→20:34)
[2021-05-09] MEDS: FUROSEMIDE 20 MG TAB PO SCH (08:04)
[2021-05-09] MEDS: ATORVASTATIN 10 MG TAB PO SCH (08:04)
[2021-05-09] MEDS: METOPROLOL TARTRATE 50 MG TAB PO SCH ×2 (08:04→20:34)
[2021-05-09] MEDS: QUEtiapine FUMARATE 300 MG TABLET PO SCH ×2 (08:04→20:34)
[2021-05-09] MEDS: UMECLIDINIUM BROMIDE 62.5MCG/BLISTER 7 PUFFS/INHALER INH SCH (08:05)
[2021-05-09] MEDS: LACTULOSE SYRUP 20 GM/30 ML UDC PO SCH ×2 (08:05→20:34)
[2021-05-09] MEDS: SUCRALFATE 1 GM/10 ML UDC PO SCH ×3 (08:05→17:18)
[2021-05-09] MEDS: INSULIN GLARGINE SOLOSTAR 100 UNITS/ML 3 ML PEN SQ SCH (08:06)
[2021-05-09] MEDS: INSULIN ASPART PER UNIT SC SCH ×4 (08:07→20:08)
[2021-05-09] MEDS: DOCUSATE SODIUM 100 MG CAP PO PRN (08:17)
[2021-05-09] MEDS: DOCUSATE SODIUM/SENNA 50/8.6MG TAB PO SCH ×3 (08:17→20:34)
[2021-05-09] MEDS: POTASSIUM CHLORIDE CRTAB 20 MEQ TABCR PO SCH (08:17)
[2021-05-09 08:18] LABS: Anisocytosis Present; Basophils # (auto) 0.02 K/uL (0-0.2); Basophils % (auto) 0.5 %; Eosinophils % (auto) 2.7 %; Lymphocytes # (auto) 1.39 K/uL (1.2-3.4); Lymphocytes % (auto) 37.9 %; Monocytes # (auto) 0.21 K/uL (0.11-0.59); Monocytes % (auto) 5.7 %; Neutrophils # (auto) 1.95 K/uL (1.4-6.5); Neutrophils % (auto) 53.2 %
[2021-05-09 08:33] LABS: BUN Creatinine Ratio 10.9 (10-20); Calcium 8.9 mg/dl (8.5-10.1); Creatinine Clr Calc Pharmacy 124.9 ml/min; Est GFR (African American) 81.3 ml/min; Est GFR (Non-African American) 70.2 ml/min; Potassium 3.9 mmol/L (3.5-5.1)
[2021-05-09 08:57] LABS: Base Excess ABG 10.2 mEq/L (-9-1.8); HCO3 ABG 38 mmol/L (19-24); Oxygen Saturation ABG 91.6 % (90-95); PCO2 ABG 70 mmHg (35-46); PO2 ABG 66 mmHg (80-95); pH ABG 7.36 (7.35-7.45)
[2021-05-09 08:58] LABS: Allen Test Pos (Pos)
--- NOTE | 2021-05-09 17:38 | Hospitalist Progress Note ---
Date of Service May 09, 2021 Assessment & Plan (1) Debility: Plan: Mrs. Hong is a 55-year-old white female who is morbidly obese. Has chronic respiratory failure with likely obesity hypoventilation syndrome, COPDon chronic 6 L of oxygen, and sleep apnea requiring CPAP. She was hospitalized here 04/02 through 04/05 with Covid. Received doses of remdesivir and IV Decadron. Was not requiring any additional oxygen and subsequently sent home with continued p.o. Decadron. Presented back to the ED on 04/21 with increasing shortness of breath and hypoxemia of 83%. Chest x-ray showed concern for pulmonary abscess. CT showed no evidence of abscess but septic emboli in the left upper lobe, pneumonia and associated empyema. Was transferred to [place] where she had IR drainage on 04/24. Chest tube removed 04/28. Empirically placed on Vanco/Zosyn but converted to Unasyn as recommended by ID Bacteroides and actinomyces in the cultures. Plan was for IV antibiotics X at least 6 weeks. During that hospital stay, also developed new onset A. fib RVR. Started on anticoagulation therapy and subsequently discharged on Eliquis. It was recommended that she go to skilled facility for rehab but she refused. Discharged home on 04/30. A hospital bed was arranged but has not yet been delivered (until today while she has been in the hospital) and she reports not having any of her CPAP supplies. Case management has investigated this further patient has not been using her CPAP since 2015 so does not have any supplies to be used at home. Before she developed increasing shortness of breath which prompted her return to the ED. * Overall debility is likely from above as outlined, chronic pain, neuropathy, and deconditioning * Has been seen by PT/OT who recommending rehab versus home with 24-hour care. * Patient's home health reports that the patient was having great difficulty at home and questions the safety of her returning home with home health-patient is now agreeable to rehab placement This patient is quite medically complex and requires long-term IV antibiotics and PICC line care, frequent turning and positioning due to morbid obesity and extreme deconditioning making it difficult for her to even move around in bed on her own. She is at high risk for skin breakdown and pressure sores. She also has obesity hypoventilation syndrome and needs BiPAP, aggressive PT and OT to get her to be able to stand and do transfers to her wheelchair again, monitoring for return of atrial fibrillation, and monitoring of her oxygenation status. (2) Hepatic encephalopathy: Plan: Presented awake and alert. Around lunch on 05/05, patient became hypersomnolent and difficult to arouse. Work-up consistent with acute hepatic encephalopathy (which is a new diagnosis for patient)--> ammonia 48.5 Treated with lactulose enemas given obtunded state Patient responded favorably. Follow-up ammonia the next morning is 28.5, however is back up to 46 the next day despite mentating clearly More than likely, was secondary to numerous [employer] depressing medications which have now since been restarted No underlying liver disease per her knowledge, but liver ultrasound shows fatty liver Patient with chronic constipation anyway--. Would benefit from routine lactulose to not only help with her constipation but prevent further hyperammonemia-continue lactulose 20 g p.o. and increase to 3 times daily needs to FU with GI as an OP anyway (3) Hypersomnolence: Plan: Developed hypersomnolence on 05/05 as above Blood gas without evidence of acute hypercapnia Likely secondary to polypharmacy (Seroquel, Neurontin, baclofen and Elavil on board) W/U yielded elevated ammonia-- see above Has now been restarted on all of her home medications-and transitioned Elavil to at bedtime dosing as she takes it at home (originally was receiving this in the mornings for the first several days of her hospitalization) Must be on BiPAP at nighttime and with any naps (4) Anemia: Plan: presenting hemoglobin: 7.6 During her most recent hospital stay (beginning of March), hemoglobin was between 8-9 Denies melena/hematochezia, ever having an upper or lower endoscopy, DUB or menstrual bleeding Required a total of 3 units packed cells. Initially given 1 unit with im provement of hemoglobin but due to subsequent drop, 2 additional units provided was unable to obtain iron studies as already had received blood transfusion In review of her labs during her most recent hospitalization, her iron level was low at 19 and her ferritin was low level normal 42.6 IV Venofer given 05/05 and 05/06- converted to oral supplementation fecal occult blood X3 ordered- negative x1 With subsequent drop in hemoglobin, Eliquis placed on hold-- would consider holding this for 2 weeks and if FU H/H remains stable, resume Empirically added Pepcid/Carafate as patient not ideal candidate for conscious sedation for EGD/colonoscopy at this time. Consulted GI who agrees that can proceed with further work-up as an outpatient. Greatly appreciate recommendations -Can now discontinue Carafate -Continue Pepcid, continue Protonix Hemoglobin improved to 9.9 -Follow CBC (5) Hypokalemia: Plan: Replaced and resolved Continue daily potassium chloride replacement (6) Volume overload: Plan: Clinically appeared slightly volume overloaded after receiving blood transfusion IV lasix given Echo showing preserved EF of 60-65% with mild pulmonary hypertension (which is likely related to her obesity hypoventilation syndrome) appears euvolemic today although has chronic peripheral edema continue daily PO lasix -We will give an extra dose of IV Lasix on evening of 05/09 to keep even to negative fluid balance (7) Empyema: Plan: Empyema related to recent pneumonia noted on imaging 04/21 when presented to our emergency room Transferred to [facility] Status post IR drainage on 04/24. Chest tube removed 04/28 With Bacteroides and actinomyces growing on cultures, repeat CT chest here shows improvement since previous Seen by infectious disease recommended treatment with Unasyn for at least 4 weeks and follow-up imaging at that time Overall, patient seems to be doing well She is at her baseline in regards to oxygen requirements Afebrile and hemodynamically stable Denies shortness of breath CTA done with this hospitalist stay shows moderate improvement in the left-sided empyema with consistent left basilar consolidation (which ultimately will take weeks to resolve) Work-up for TB was completed by admitting provider-negative Pulmonology consulted who agreed with continuing abx (Unasyn) x 6 weeks and FU imaging at that time--> appreciate recommendations. Patient d/c'ed from [place] with home IV abx supplies and PICC -Blood cultures with alpha Streptococcus as below (8) Pneumonia: Plan: See above (9) COVID-19: Plan: Diagnosed 04/02 Unvaccinated Received 3 doses of remdesivir Received 10 doses Decadron -She is agreeable and would like to get the [employer] COVID vaccination here in the hospital-ordered (10) Chronic respiratory failure: Plan: Patient on 6 L supplemental oxygen at baseline along with CPAP--> currently doing well on 4 L nasal cannula at rest(avoid pulse ox >92% given risk of hypercapnia) Patient admits that she has not been compliant with her CPAP at home. Has not utilized CPAP since 2014 thus does not have appropriate supplies at home Case management working on this. Actually needs BiPAP-with review of records from [place], patient is to be on BiPAP 12/12 Obtaining BiPAP or Trilogy for home use requires more in-depth testing-Case management looking into this ABG with PaCO2 of 70 Overnight pulse oximetry on 4 L is negative (11) Afib: Plan: Diagnosed while at [facility]. Likely related to catecholamine release from recent Covid and infectious pneumonia with empyema At any rate, she is in a normal sinus rhythm with controlled rate on metoprolol [id number] 2 score = 2 Eliquis now on hold given subsequent drop in hemoglobin. -Continue Protonix, Pepcid Can discontinue Carafate as may be contributing to constipation May consider addition of Eliquis again but should have endoscopy which can be facilitated as an outpatient as not a great candidate for conscious sedation at this time Continue holding eliquis upon D/C with FU H/H and resumption pending stability and endoscopy (12) Asthma-COPD overlap syndrome: Plan: No acute issues Continue chronic O2 Continue albuterol nebulizers as needed Continue umeclidinium inhaler daily (13) GERD (gastroesophageal reflux disease): Plan: Continue pantoprazole twice daily Continue Pepcid (14) Hypertension: Plan: Blood pressures are controlled Continue metoprolol Continue furosemide (15) Major depression, recurrent: Plan: Stable Continue Seroquel (16) AMANDA (obstructive sleep apnea): Plan: getting BiPAP set up as above (17) Peripheral neuropathy: Plan: Continue gabapentin (18) Tobacco use disorder: Plan: Needs smoking cessation counseling (19) Type 2 diabetes mellitus: Plan: Hemoglobin A1c 7.8% here Blood glucose well controlled here Continue Lantus and NovoLog Holding home Victoza (20) Obesity: Plan: BMI 55.3 Needs weight loss (21) Bacteremia: Plan: Growing alpha Streptococcus bacteria that is not Streptococcus pneumoniae or Enterococcus in 1/2 sets of blood cultures No fevers or leukocytosis Infectious disease consulted-appreciate recommendations -Continue Unasyn Echocardiogram on 05/04 without vegetation on the valves Repeat blood cultures 05/09 Plan: Disposition-patient is not safe for going home with home health as she is no longer able to do any of her transfers and home health company has concerns about ability to do home infusions with antibiotics Patient is now agreeable to rehab and would like a referral to [facility]- Case management consult placed Medically stable for discharge at this time She is also agreeable to COVID-19 vaccination-ordered and given on 05/09 Admission and Anticipated Discharge Date Admission Date: May 04, 2021 Subjective Patient has no complaints. Denies shortness of breath. She is agreeable to rehab. She is also agreeable to a COVID vaccination while in the hospital. Discussed her care with infectious disease as well as with case management Telemetry with normal sinus rhythm with rates in the 60s Review of Systems Review of Systems: All systems reviewed & are unremarkable except as noted in HPI & below No bowel movement Physical Exam Constitutional: WD/WN, vitals as above Eyes: + anicteric sclerae Neck: trachea midline, no thyromegaly Respiratory: normal respiratory effort, lungs clear to auscultation (Diminished at the bases bilaterally) Cardiovascular: Rate/Rhythm: regular rate and regular rhythm Extremities: + edema (2+ woody edema bilat LEs with venous stasis erythema) Chest (Breasts): Chest: normal inspection of chest Gastrointestinal (Abdomen): normal bowel sounds, soft, nontender, no hepatosplenomegaly Musculoskeletal: Extremities: no cyanosis and no clubbing Skin: + erythema (Chronic venous stasis changes with erythema of the legs bilaterally) Neurologic: moves all extremities and awake; no focal motor deficits Psychiatric: A+Ox3, euthymic affect Genitourinary: Peacock catheter in place draining clear yellow urine Results & Data Results & Data ([facility]) Vital Signs (Past 12 Hours) Vital Signs Temp Pulse Resp BP Pulse Ox 05/09/21 15:07 36.6 C 61 20 126/64 93 05/09/21 11:21 36.6 C 60 20 133/53 L 92 05/09/21 08:15 36.3 C L 59 L 20 133/60 93 Laboratory Results 05/09/21 05/09/21 05/09/21 Range/Units 16:38 11:13 08:31 WBC (4.8-10.8) K/uL RBC (4.2-5.4) M/uL Hgb (12.0-16.0) g/dL Hct (37-47) % MCV (80-100) fL MCH (25-34) pg MCHC (32-36) g/dL RDW Std Deviation (36.4-46.3) fL RDW Coeff of Curt (11.5-14.5) % Plt Count (130-400) K/uL MPV (7.4-10.4) fL Immature Gran % (Auto) % Neut % (Auto) % Lymph % (Auto) % [place] % (Auto) % Eos % (Auto) % Baso % (Auto) % Neut # (Auto) (1.4-6.5) K/uL Lymph # (Auto) (1.2-3.4) K/uL [place] # (Auto) (0.11-0.59) K/uL Eos # (Auto) (0-0.5) K/uL Baso # (Auto) (0-0.2) K/uL Immature Gran # (Auto) (0.00-0.02) K/uL Anisocytosis ABG pH 7.36 ABG pCO2 70 H ABG pO2 66 L ABG HCO3 38 H ABG O2 Saturation 91.6 ABG Base Excess 10.2 H Shon Test Pos Barometric Pressure 743.6 Oxygen Given 4L Sodium (136-145) mmol/L Potassium (3.5-5.1) mmol/L Chloride (98-107) mmol/L Carbon Dioxide (21-32) mmol/L Anion Gap (3-11) BUN (7-18) mg/dl Creatinine (0.6-1.2) mg/dl Est Cr Clr Drug Dosing ml/min Est GFR ( Amer) ml/min Est GFR (Non-Af Amer) ml/min BUN/Creatinine Ratio (10-20) Glucose (70-99) mg/dl POC Glucose 158 H 173 H (70-99) mg/dl Calcium (8.5-10.1) mg/dl 05/09/21 05/09/21 05/09/21 Range/Units 07:41 07:41 07:41 WBC 3.67 L (4.8-10.8) K/uL RBC 4.03 L (4.2-5.4) M/uL Hgb 9.9 L (12.0-16.0) g/dL Hct 35.5 L (37-47) % MCV 88.1 (80-100) fL MCH 24.6 L (25-34) pg MCHC 27.9 L (32-36) g/dL RDW Std Deviation 78.1 H (36.4-46.3) fL RDW Coeff of Curt 24.6 H (11.5-14.5) % Plt Count 223 (130-400) K/uL MPV 8.9 (7.4-10.4) fL Immature Gran % (Auto) 0.0 % Neut % (Auto) 53.2 % Lymph % (Auto) 37.9 % [place] % (Auto) 5.7 % Eos % (Auto) 2.7 % Baso % (Auto) 0.5 % Neut # (Auto) 1.95 (1.4-6.5) K/uL Lymph # (Auto) 1.39 (1.2-3.4) K/uL [place] # (Auto) 0.21 (0.11-0.59) K/uL Eos # (Auto) 0.10 (0-0.5) K/uL Baso # (Auto) 0.02 (0-0.2) K/uL Immature Gran # (Auto) 0.00 (0.00-0.02) K/uL Anisocytosis Present ABG pH Cancelled ABG pCO2 Cancelled ABG pO2 Cancelled ABG HCO3 Cancelled ABG O2 Saturation Cancelled ABG Base Excess Cancelled Shon Test Cancelled Barometric Pressure Cancelled Oxygen Given Cancelled Sodium 137 (136-145) mmol/L Potassium 3.9 (3.5-5.1) mmol/L Chloride 97 L (98-107) mmol/L Carbon Dioxide 38 H (21-32) mmol/L Anion Gap 2.0 L (3-11) BUN 10 (7-18) mg/dl Creatinine 0.93 (0.6-1.2) mg/dl Est Cr Clr Drug Dosing 124.9 ml/min Est GFR ( Amer) 81.3 ml/min Est GFR (Non-Af Amer) 70.2 ml/min BUN/Creatinine Ratio 10.9 (10-20) Glucose 169 H (70-99) mg/dl POC Glucose (70-99) mg/dl Calcium 8.9 (8.5-10.1) mg/dl 05/09/21 05/08/21 Range/Units 07:32 20:05 WBC (4.8-10.8) K/uL RBC (4.2-5.4) M/uL Hgb (12.0-16.0) g/dL Hct (37-47) % MCV (80-100) fL MCH (25-34) pg MCHC (32-36) g/dL RDW Std Deviation (36.4-46.3) fL RDW Coeff of Curt (11.5-14.5) % Plt Count (130-400) K/uL MPV (7.4-10.4) fL Immature Gran % (Auto) % Neut % (Auto) % Lymph % (Auto) % [place] % (Auto) % Eos % (Auto) % Baso % (Auto) % Neut # (Auto) (1.4-6.5) K/uL Lymph # (Auto) (1.2-3.4) K/uL [place] # (Auto) (0.11-0.59) K/uL Eos # (Auto) (0-0.5) K/uL Baso # (Auto) (0-0.2) K/uL Immature Gran # (Auto) (0.00-0.02) K/uL Anisocytosis ABG pH ABG pCO2 ABG pO2 ABG HCO3 ABG O2 Saturation ABG Base Excess Shon Test Barometric Pressure Oxygen Given Sodium (136-145) mmol/L Potassium (3.5-5.1) mmol/L Chloride (98-107) mmol/L Carbon Dioxide (21-32) mmol/L Anion Gap (3-11) BUN (7-18) mg/dl Creatinine (0.6-1.2) mg/dl Est Cr Clr Drug Dosing ml/min Est GFR ( Amer) ml/min Est GFR (Non-Af Amer) ml/min BUN/Creatinine Ratio (10-20) Glucose (70-99) mg/dl POC Glucose 176 H 158 H (70-99) mg/dl Calcium (8.5-10.1) mg/dl PG Care Time/CCT Total # of Minutes Spent Total Time Spent with Patient: Total time spent is greater than 50% in coordination of care (as documented) at patient's floor/unit and/or counseling patient: Coding Level of Care Code 10516 Subseq Hosp Care Lvl 3 Diagnoses Debility R53.81 Hepatic encephalopathy K72.90 Hypersomnolence G47.10 Anemia D64.9 Anemia type: unspecified type Hypokalemia E87.6 Volume overload E87.70 Empyema J86.9 Pneumonia J18.9 Laterality: bilateral Lung location: unspecified part of lung Pneumonia type: due to unspecified organism COVID-19 U07.1 Chronic respiratory failure J96.10 Afib I48.91 Asthma-COPD overlap syndrome J44.9 GERD (gastroesophageal reflux disease) K21.9 Hypertension I10 Major depression, recurrent F33.9 AMANDA (obstructive sleep apnea) G47.33 Peripheral neuropathy G62.9 Tobacco use disorder F17.200 Type 2 diabetes mellitus E11.59; Z79.4 Diabetes mellitus complication detail: with other circulatory complications Diabetes mellitus complication status: with circulatory complication Diabetes mellitus senior living insulin use: with watermaster use Obesity E66.9 Bacteremia R78.81 (1) Type 2 diabetes mellitus Diabetes mellitus complication detail: with other circulatory complications Diabetes mellitus complication status: with circulatory complication Diabetes mellitus senior living insulin use: with watermaster use Qualified Code(s): E11.59 - Type 2 diabetes mellitus with other circulatory complications; Z79.4 - [facility]FP (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 (3) Pneumonia Laterality: bilateral Lung location: unspecified part of lung Pneumonia type: due to unspecified organism Qualified Code(s): J18.9 - Pneumonia, unspecified organism
[2021-05-09] MEDS ORDERED: FUROSEMIDE 40 MG/4 ML VIAL IV ONE (19:48)
[2021-05-09] MEDS: GABAPENTIN 800 MG TAB PO SCH (20:34)
[2021-05-09] MEDS: AMITRIPTYLINE HCL 25 MG TAB PO SCH (20:34)
[2021-05-10] MEDS: UNIT DOSE COMPOUND PR SCH ×3 (00:23→16:27)
[2021-05-10] MEDS: AMPICILLIN/SULBACTAM SOD 3,000 MG in 0.9 % SODIUM CHLORIDE 100 ML IV SCH ×4 (04:53→21:43)
[2021-05-10 06:09] LABS: Hematocrit (blood only) 34.8 % (37-47); Hemoglobin 9.6 g/dL (12.0-16.0); Mean Corpuscular Hemoglobin 24.6 pg (25-34); Mean Corpuscular Hgb Conc 27.6 g/dL (32-36); Mean Corpuscular Volume 89.2 fL (80-100); Mean Platelet Volume 9.1 fL (7.4-10.4); Platelet Count 205 K/uL (130-400); RDW Coefficient of Variation 24.9 % (11.5-14.5); RDW Standard Deviation 80.2 fL (36.4-46.3); White Blood Count 4.14 K/uL (4.8-10.8)
[2021-05-10 06:35] LABS: Anisocytosis Present; Basophilic Stippling Occasional; Basophils # (auto) 0.01 K/uL (0-0.2); Basophils % (auto) 0.2 %; Eosinophils % (auto) 2.4 %; Hypochromasia Present; Immature Granulocytes # (auto) 0.02 K/uL (0.00-0.02); Immature Granulocytes % (auto) 0.5 %; Lymphocytes # (auto) 1.67 K/uL (1.2-3.4); Lymphocytes % (auto) 40.3 %; Monocytes # (auto) 0.27 K/uL (0.11-0.59); Monocytes % (auto) 6.5 %; Neutrophils # (auto) 2.07 K/uL (1.4-6.5); Neutrophils % (auto) 50.1 %; Polychromasia 1+; Stomatocytes 1+
[2021-05-10 06:41] LABS: BUN Creatinine Ratio 10.2 (10-20); Calcium 8.5 mg/dl (8.5-10.1); Creatinine Clr Calc Pharmacy 118.9 ml/min; Est GFR (African American) 76.3 ml/min; Est GFR (Non-African American) 65.9 ml/min; Magnesium 1.9 mg/dl (1.7-2.4); Potassium 3.9 mmol/L (3.5-5.1)
[2021-05-10] MEDS: DOCUSATE SODIUM 100 MG CAP PO PRN (08:19)
[2021-05-10] MEDS: FAMOTIDINE 20 MG TAB PO SCH ×2 (08:19→21:48)
[2021-05-10] MEDS: POTASSIUM CHLORIDE CRTAB 20 MEQ TABCR PO SCH (08:19)
[2021-05-10] MEDS: DOCUSATE SODIUM/SENNA 50/8.6MG TAB PO SCH ×3 (08:19→22:00)
[2021-05-10] MEDS: FUROSEMIDE 20 MG TAB PO SCH (08:20)
[2021-05-10] MEDS: CHOLECALCIFEROL 5,000 UNITS 125 MCG TAB PO SCH (08:20)
[2021-05-10] MEDS: FERROUS SULFATE 325 MG TAB PO SCH ×2 (08:20→16:28)
[2021-05-10] MEDS: ATORVASTATIN 10 MG TAB PO SCH (08:20)
[2021-05-10] MEDS: METOPROLOL TARTRATE 50 MG TAB PO SCH ×2 (08:20→21:48)
[2021-05-10] MEDS: TOLTERODINE TARTRATE LA 2 MG CAPCR PO SCH (08:21)
[2021-05-10] MEDS: GABAPENTIN 400 MG CAP PO SCH ×2 (08:21→14:25)
[2021-05-10] MEDS: PANTOprazole 40 MG TAB PO SCH ×2 (08:21→21:47)
[2021-05-10] MEDS: QUEtiapine FUMARATE 300 MG TABLET PO SCH ×2 (08:21→21:48)
[2021-05-10] MEDS: rOPINIRole HCL 1 MG TABLET PO SCH ×3 (08:21→21:47)
[2021-05-10] MEDS: LACTULOSE SYRUP 20 GM/30 ML UDC PO SCH ×3 (08:22→21:45)
[2021-05-10] MEDS: POLYETHYLENE (MIRALAX) 17 GM PACK PO PRN (08:26)
[2021-05-10] MEDS: INSULIN ASPART PER UNIT SC SCH ×4 (08:28→21:44)
[2021-05-10] MEDS: INSULIN GLARGINE SOLOSTAR 100 UNITS/ML 3 ML PEN SQ SCH (09:29)
[2021-05-10] MEDS: UMECLIDINIUM BROMIDE 62.5MCG/BLISTER 7 PUFFS/INHALER INH SCH (09:29)
[2021-05-10] MEDS ORDERED: COVID-19 VAC,AD26(JANSSEN)/PF 0.5 ML SYR IM ONE (12:00)
[2021-05-10] MEDS: ACETAMINOPHEN 325 MG TAB PO PRN (12:05)
--- NOTE | 2021-05-10 17:15 | Hospitalist Progress Note ---
Date of Service May 10, 2021 Assessment & Plan (1) Debility: Plan: Mrs. Hong is a 55-year-old white female who is morbidly obese. Has chronic respiratory failure with likely obesity hypoventilation syndrome, COPDon chronic 6 L of oxygen, and sleep apnea requiring CPAP. She was hospitalized here 04/02 through 04/05 with Covid. Received doses of remdesivir and IV Decadron. Was not requiring any additional oxygen and subsequently sent home with continued p.o. Decadron. Presented back to the ED on 04/21 with increasing shortness of breath and hypoxemia of 83%. Chest x-ray showed concern for pulmonary abscess. CT showed no evidence of abscess but septic emboli in the left upper lobe, pneumonia and associated empyema. Was transferred to [facility] where she had IR drainage on 04/24. Chest tube removed 04/28. Empirically placed on Vanco/Zosyn but converted to Unasyn as recommended by ID Bacteroides and actinomyces in the cultures. Plan was for IV antibiotics X at least 6 weeks. During that hospital stay, also developed new onset A. fib RVR. Started on anticoagulation therapy and subsequently discharged on Eliquis. It was recommended that she go to skilled facility for rehab but she refused. Discharged home on 04/30. A hospital bed was arranged but has not yet been delivered (until today while she has been in the hospital) and she reports not having any of her CPAP supplies. Case management has investigated this further patient has not been using her CPAP since 2015 so does not have any supplies to be used at home. Before she developed increasing shortness of breath which prompted her return to the ED. * Overall debility is likely from above as outlined, chronic pain, neuropathy, and deconditioning * Has been seen by PT/OT who recommending rehab versus home with 24-hour care. * Patient's home health reports that the patient was having great difficulty at home and questions the safety of her returning home with home health-patient is now agreeable to rehab placement This patient is quite medically complex and requires long-term IV antibiotics and PICC line care, frequent turning and positioning due to morbid obesity and extreme deconditioning making it difficult for her to even move around in bed on her own. She is at high risk for skin breakdown and pressure sores. She also has obesity hypoventilation syndrome and needs BiPAP, aggressive PT and OT to get her to be able to stand and do transfers to her wheelchair again, monitoring for return of atrial fibrillation, and monitoring of her oxygenation status. (2) Hepatic encephalopathy: Plan: Presented awake and alert. Around lunch on 05/05, patient became hypersomnolent and difficult to arouse. Work-up consistent with acute hepatic encephalopathy (which is a new diagnosis for patient)--> ammonia 48.5 Treated with lactulose enemas given obtunded state Patient responded favorably. Follow-up ammonia the next morning is 28.5, however is back up to 46 the next day despite mentating clearly More than likely, was secondary to numerous RN INTERNAL MEDICINE depressing medications which have now since been restarted No underlying liver disease per her knowledge, but liver ultrasound shows fatty liver Patient with chronic constipation anyway--. Would benefit from routine lactulose to not only help with her constipation but prevent further hyperammonemia-continue lactulose 20 g p.o.tid needs to FU with GI as an OP anyway (3) Hypersomnolence: Plan: Developed hypersomnolence on 05/05 as above Blood gas without evidence of acute hypercapnia Likely secondary to polypharmacy (Seroquel, Neurontin, baclofen and Elavil on board) W/U yielded elevated ammonia-- see above Has now been restarted on all of her home medications-and transitioned Elavil to at bedtime dosing as she takes it at home (originally was receiving this in the mornings for the first several days of her hospitalization) Must be on BiPAP at nighttime and with any naps (4) Anemia: Plan: presenting hemoglobin: 7.6 During her most recent hospital stay (beginning of March), hemoglobin was between 8-9 Denies melena/hematochezia, ever having an upper or lower endoscopy, DUB or menstrual bleeding Required a total of 3 units packed cells. Initially given 1 unit with improvement of hemoglobin but due to subsequent drop, 2 additional units provided was unable to obtain iron studies as already had received blood transfusion In review of her labs during her most recent hospitalization, her iron level was low at 19 and her ferritin was low level normal 42.6 IV Venofer given 05/05 and 05/06- converted to oral supplementation fecal occult blood X3 ordered- negative x1 With subsequent drop in hemoglobin, Eliquis placed on hold-- would consider holding this for 2 weeks and if FU H/H remains stable, resume Empirically added Pepcid/Carafate as patient not ideal candidate for conscious sedation for EGD/colonoscopy at this time. Consulted GI who agrees that can proceed with further work-up as an outpatient. Greatly appreciate recommendations -have since discontinued Carafate -Continue Pepcid, continue Protonix Hemoglobin improved to 9.6 -Follow CBC (5) Hypokalemia: Plan: Replaced and resolved, keep K+ > 4.0 Continue daily potassium chloride replacement (6) Volume overload: Plan: Clinically appeared slightly volume overloaded after receiving blood transfusion IV lasix given again on 05/09 Edema mildly improved Echo showing preserved EF of 60-65% with mild pulmonary hypertension (which is likely related to her obesity hypoventilation syndrome) appears euvolemic today although has chronic peripheral edema continue daily PO lasix (7) Empyema: Plan: Empyema related to recent pneumonia noted on imaging 04/21 when presented to our emergency room Transferred to [facility] Status post IR drainage on 04/24. Chest tube removed 04/28 With Bacteroides and actinomyces growing on cultures, repeat CT chest here shows improvement since previous Seen by infectious disease recommended treatment with Unasyn for at least 4 weeks and follow-up imaging at that time Overall, patient seems to be doing well She is at her baseline in regards to oxygen requirements Afebrile and hemodynamically stable Denies shortness of breath CTA done with this hospitalist stay shows moderate improvement in the left-sided empyema with consistent left basilar consolidation (which ultimately will take weeks to resolve) Work-up for TB was completed by admitting provider-negative Pulmonology consulted who agreed with continuing abx (Unasyn) x 6 weeks and FU imaging at that time--> appreciate recommendations. Patient d/c'ed from [facility] with home IV abx supplies and PICC -Blood cultures with alpha Streptococcus as below (8) Pneumonia: Plan: See above (9) COVID-19: Plan: Diagnosed 04/02 Unvaccinated Received 3 doses of remdesivir Received 10 doses Decadron -She is agreeable and would like to get the [employer] COVID vaccination here in the hospital-ordered and to be given 05/10 (10) Chronic respiratory failure: Plan: Patient on 6 L supplemental oxygen at baseline along with CPAP--> currently doing well on 4 L nasal cannula at rest(avoid pulse ox >92% given risk of hypercapnia) Patient admits that she has not been compliant with her CPAP at home. Has not utilized CPAP since 2014 thus does not have appropriate supplies at home Case management working on this. Actually needs BiPAP-with review of records from [facility], patient is to be on BiPAP 12/12 Obtaining BiPAP or Trilogy for home use requires more in-depth testing-Case management looking into this ABG with PaCO2 of 70 Overnight pulse oximetry on 4 L is negative for desat < 88% (11) Afib: Plan: Diagnosed while at [facility]. Likely related to catecholamine release from recent Covid and infectious pneumonia with empyema At any rate, she is in a normal sinus rhythm with controlled rate on metoprolol [id number] 2 score = 2 Eliquis now on hold given subsequent drop in hemoglobin. -Continue Protonix, Pepcid Have since discontinued Carafate as may be contributing to constipation May consider addition of Eliquis again but should have endoscopy which can be facilitated as an outpatient as not a great candidate for conscious sedation at this time Continue holding eliquis upon D/C with FU H/H and resumption pending stability and endoscopy (12) Asthma-COPD overlap syndrome: Plan: No acute issues Continue chronic O2 Continue albuterol nebulizers as needed Continue umeclidinium inhaler daily (13) GERD (gastroesophageal reflux disease): Plan: Continue pantoprazole twice daily Continue Pepcid (14) Hypertension: Plan: Blood pressures are controlled Continue metoprolol Continue furosemide (15) Major depression, recurrent: Plan: Stable Continue Seroquel (16) AMANDA (obstructive sleep apnea): Plan: getting BiPAP set up as above for at home use but will need at rehab (17) Peripheral neuropathy: Plan: Continue gabapentin (18) Tobacco use disorder: Plan: Needs smoking cessation counseling (19) Type 2 diabetes mellitus: Plan: Hemoglobin A1c 7.8% here Blood glucose well controlled here Continue Lantus and NovoLog Holding home Victoza (20) Obesity: Plan: BMI 55.3 Needs weight loss (21) Bacteremia: Plan: Growing alpha Streptococcus bacteria that is not Streptococcus pneumoniae or Enterococcus in 1/2 sets of blood cultures No fevers or leukocytosis Infectious disease consulted-appreciate recommendations to extend Unasyn therapy through 06/05/21 and if repeat BCxs positive, then remove PICC Echocardiogram on 05/04 without vegetation on the valves Repeat blood cultures 05/09-NGTD Plan: Disposition-patient is not safe for going home with home health as she is no longer able to do any of her transfers and home health company has concerns about ability to do home infusions with antibiotics Patient is now agreeable to rehab and would like a referral to [facility]- Case management consult placed Medically stable for discharge at this time, awaiting placement She is also agreeable to COVID-19 vaccination-ordered and given on 05/10 Admission and Anticipated Discharge Date Admission Date: May 04, 2021 Subjective Pt denies SOB, is coughing somewhat. No abd pain, no BM in a few days. Is eating and drinking. Feels achy all over after working with PT a bit Tele with NSR, IVCD, rates 60-70s Review of Systems Review of Systems: All systems reviewed & are unremarkable except as noted in HPI & below Physical Exam Constitutional: WD/WN, vitals as above + morbidly obese Eyes: + anicteric sclerae Neck: trachea midline, no thyromegaly Respiratory: normal respiratory effort, lungs clear to auscultation (Diminished at the bases bilaterally) Cardiovascular: Rate/Rhythm: regular rate and regular rhythm Extremities: + edema (2+ woody edema bilat LEs with venous stasis erythema) Chest (Breasts): Chest: normal inspection of chest Gastrointestinal (Abdomen): normal bowel sounds, soft, nontender, no hepatosplenomegaly Musculoskeletal: Extremities: no cyanosis and no clubbing Skin: + erythema (Chronic venous stasis changes with erythema of the legs bilaterally) Neurologic: moves all extremities and awake; no focal motor deficits Psychiatric: A+Ox3, euthymic affect Genitourinary: Peacock cath in place draining clear yellow urine Results & Data Results & Data ([facility]) Vital Signs (Past 12 Hours) Vital Signs Temp Pulse Pulse Resp BP Pulse Ox 05/10/21 14:47 36.5 C 61 18 128/62 92 05/10/21 11:05 36.5 C 63 15 115/70 96 05/10/21 07:45 36.4 C L 61 17 106/66 96 05/10/21 06:57 36.8 C 70 20 149/61 H 94 Laboratory Results 05/10/21 05/10/21 05/10/21 Range/Units 16:54 11:36 07:44 WBC (4.8-10.8) K/uL RBC (4.2-5.4) M/uL Hgb (12.0-16.0) g/dL Hct (37-47) % MCV (80-100) fL MCH (25-34) pg MCHC (32-36) g/dL RDW Std Deviation (36.4-46.3) fL RDW Coeff of Curt (11.5-14.5) % Plt Count (130-400) K/uL MPV (7.4-10.4) fL Immature Gran % (Auto) % Neut % (Auto) % Lymph % (Auto) % [place] % (Auto) % Eos % (Auto) % Baso % (Auto) % Neut # (Auto) (1.4-6.5) K/uL Lymph # (Auto) (1.2-3.4) K/uL [place] # (Auto) (0.11-0.59) K/uL Eos # (Auto) (0-0.5) K/uL Baso # (Auto) (0-0.2) K/uL Immature Gran # (Auto) (0.00-0.02) K/uL Polychromasia Hypochromasia Basophilic Stippling Anisocytosis Stomatocytes Sodium (136-145) mmol/L Potassium (3.5-5.1) mmol/L Chloride (98-107) mmol/L Carbon Dioxide (21-32) mmol/L Anion Gap (3-11) BUN (6-23) mg/dl Creatinine (0.6-1.2) mg/dl Est Cr Clr Drug Dosing ml/min Est GFR ( Amer) ml/min Est GFR (Non-Af Amer) ml/min BUN/Creatinine Ratio (10-20) Glucose (70-99) mg/dl POC Glucose 147 H 185 H 163 H (70-99) mg/dl Calcium (8.5-10.1) mg/dl Magnesium (1.7-2.4) mg/dl 05/10/21 05/10/21 05/09/21 Range/Units 05:24 05:24 20:01 WBC 4.14 L (4.8-10.8) K/uL RBC 3.90 L (4.2-5.4) M/uL Hgb 9.6 L (12.0-16.0) g/dL Hct 34.8 L (37-47) % MCV 89.2 (80-100) fL MCH 24.6 L (25-34) pg MCHC 27.6 L (32-36) g/dL RDW Std Deviation 80.2 H (36.4-46.3) fL RDW Coeff of Curt 24.9 H (11.5-14.5) % Plt Count 205 (130-400) K/uL MPV 9.1 (7.4-10.4) fL Immature Gran % (Auto) 0.5 % Neut % (Auto) 50.1 % Lymph % (Auto) 40.3 % [place] % (Auto) 6.5 % Eos % (Auto) 2.4 % Baso % (Auto) 0.2 % Neut # (Auto) 2.07 (1.4-6.5) K/uL Lymph # (Auto) 1.67 (1.2-3.4) K/uL [place] # (Auto) 0.27 (0.11-0.59) K/uL Eos # (Auto) 0.10 (0-0.5) K/uL Baso # (Auto) 0.01 (0-0.2) K/uL Immature Gran # (Auto) 0.02 (0.00-0.02) K/uL Polychromasia 1+ Hypochromasia Present Basophilic Stippling Occasional Anisocytosis Present Stomatocytes 1+ Sodium 138 (136-145) mmol/L Potassium 3.9 (3.5-5.1) mmol/L Chloride 95 L (98-107) mmol/L Carbon Dioxide 41 H* (21-32) mmol/L Anion Gap 2 L (3-11) BUN 10 (6-23) mg/dl Creatinine 0.98 (0.6-1.2) mg/dl Est Cr Clr Drug Dosing 118.9 ml/min Est GFR ( Amer) 76.3 ml/min Est GFR (Non-Af Amer) 65.9 ml/min BUN/Creatinine Ratio 10.2 (10-20) Glucose 147 H (70-99) mg/dl POC Glucose 137 H (70-99) mg/dl Calcium 8.5 (8.5-10.1) mg/dl Magnesium 1.9 (1.7-2.4) mg/dl PG Care Time/CCT Total # of Minutes Spent Total Time Spent with Patient: Total time spent is greater than 50% in coordination of care (as documented) at patient's floor/unit and/or counseling patient: Coding Level of Care Code 91076 Subseq Hosp Care Lvl 3 Diagnoses Debility R53.81 Hepatic encephalopathy K72.90 Hypersomnolence G47.10 Anemia D64.9 Anemia type: unspecified type Hypokalemia E87.6 Volume overload E87.70 Empyema J86.9 Pneumonia J18.9 Laterality: bilateral Lung location: unspecified part of lung Pneumonia type: due to unspecified organism COVID-19 U07.1 Chronic respiratory failure J96.10 Afib I48.91 Asthma-COPD overlap syndrome J44.9 GERD (gastroesophageal reflux disease) K21.9 Hypertension I10 Major depression, recurrent F33.9 AMANDA (obstructive sleep apnea) G47.33 Peripheral neuropathy G62.9 Tobacco use disorder F17.200 Type 2 diabetes mellitus E11.59; Z79.4 Diabetes mellitus complication detail: with other circulatory complications Diabetes mellitus complication status: with circulatory complication Diabetes mellitus long term care pharmacist insulin use: with long term care pharmacist use Obesity E66.9 Bacteremia R78.81 (1) Type 2 diabetes mellitus Diabetes mellitus complication detail: with other circulatory complications Diabetes mellitus complication status: with circulatory complication Diabetes mellitus long term care pharmacist insulin use: with penitentiary use Qualified Code(s): E11.59 - Type 2 diabetes mellitus with other circulatory complications; Z79.4 - longterm (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 (3) Pneumonia Laterality: bilateral Lung location: unspecified part of lung Pneumonia type: due to unspecified organism Qualified Code(s): J18.9 - Pneumonia, unspecified organism
[2021-05-10] MEDS: GABAPENTIN 800 MG TAB PO SCH (21:44)
[2021-05-10] MEDS: AMITRIPTYLINE HCL 25 MG TAB PO SCH (21:45)
[2021-05-11] MEDS: AMPICILLIN/SULBACTAM SOD 3,000 MG in 0.9 % SODIUM CHLORIDE 100 ML IV SCH ×4 (03:41→21:11)
[2021-05-11] MEDS: UNIT DOSE COMPOUND PR SCH ×2 (03:42→11:39)
[2021-05-11 06:48] LABS: Anisocytosis Present; Basophils # (auto) 0.02 K/uL (0-0.2); Basophils % (auto) 0.5 %; Eosinophils # (auto) 0.11 K/uL (0-0.5); Eosinophils % (auto) 2.8 %; Hematocrit (blood only) 34.6 % (37-47); Hemoglobin 9.5 g/dL (12.0-16.0); Hypochromasia Present; Immature Granulocytes # (auto) 0.01 K/uL (0.00-0.02); Immature Granulocytes % (auto) 0.3 %; Lymphocytes # (auto) 1.51 K/uL (1.2-3.4); Lymphocytes % (auto) 38.9 %; Mean Corpuscular Hemoglobin 24.7 pg (25-34); Mean Corpuscular Hgb Conc 27.5 g/dL (32-36); Mean Corpuscular Volume 90.1 fL (80-100); Mean Platelet Volume 8.7 fL (7.4-10.4); Monocytes # (auto) 0.29 K/uL (0.11-0.59); Monocytes % (auto) 7.5 %; Neutrophils # (auto) 1.94 K/uL (1.4-6.5); Platelet Count 202 K/uL (130-400); RDW Coefficient of Variation 25.1 % (11.5-14.5); RDW Standard Deviation 84.6 fL (36.4-46.3); Red Blood Count 3.84 M/uL (4.2-5.4); Toxic Granulation 1+; White Blood Count 3.88 K/uL (4.8-10.8)
[2021-05-11 06:59] LABS: Albumin Globulin Ratio 0.7 (0.9-2); Albumin Level 2.9 gm/dl (3.4-5.0); BUN Creatinine Ratio 12.9 (10-20); Bilirubin,Total 0.5 mg/dl (0.2-1.0); Creatinine Clr Calc Pharmacy 134.8 ml/min; Est GFR (African American) 90.7 ml/min; Est GFR (Non-African American) 78.2 ml/min; Globulin 4.1 gm/dl (2.5-4.0); Magnesium 1.9 mg/dl (1.7-2.4); Potassium 4.2 mmol/L (3.5-5.1)
[2021-05-11] MEDS: INSULIN ASPART PER UNIT SC SCH ×4 (08:52→21:12)
[2021-05-11] MEDS: INSULIN GLARGINE SOLOSTAR 100 UNITS/ML 3 ML PEN SQ SCH (09:01)
[2021-05-11] MEDS: QUEtiapine FUMARATE 300 MG TABLET PO SCH ×2 (09:04→21:18)
[2021-05-11] MEDS: FERROUS SULFATE 325 MG TAB PO SCH ×2 (09:04→17:07)
[2021-05-11] MEDS: TOLTERODINE TARTRATE LA 2 MG CAPCR PO SCH (09:04)
[2021-05-11] MEDS: METOPROLOL TARTRATE 50 MG TAB PO SCH ×2 (09:04→21:15)
[2021-05-11] MEDS: LACTULOSE SYRUP 20 GM/30 ML UDC PO SCH ×3 (09:04→21:13)
[2021-05-11] MEDS: FAMOTIDINE 20 MG TAB PO SCH ×2 (09:04→21:16)
[2021-05-11] MEDS: FUROSEMIDE 20 MG TAB PO SCH (09:05)
[2021-05-11] MEDS: CHOLECALCIFEROL 5,000 UNITS 125 MCG TAB PO SCH (09:05)
[2021-05-11] MEDS: rOPINIRole HCL 1 MG TABLET PO SCH ×3 (09:05→21:14)
[2021-05-11] MEDS: ATORVASTATIN 10 MG TAB PO SCH (09:05)
[2021-05-11] MEDS: GABAPENTIN 400 MG CAP PO SCH ×2 (09:05→13:15)
[2021-05-11] MEDS: UMECLIDINIUM BROMIDE 62.5MCG/BLISTER 7 PUFFS/INHALER INH SCH (09:06)
[2021-05-11] MEDS: DOCUSATE SODIUM/SENNA 50/8.6MG TAB PO SCH ×3 (09:08→21:22)
[2021-05-11] MEDS: POTASSIUM CHLORIDE CRTAB 20 MEQ TABCR PO SCH (09:08)
[2021-05-11] MEDS: PANTOprazole 40 MG TAB PO SCH ×2 (12:04→21:14)
[2021-05-11] MEDS: DOCUSATE SODIUM 100 MG CAP PO PRN (13:15)
--- NOTE | 2021-05-11 17:00 | Hospitalist Progress Note ---
Date of Service May 11, 2021 Assessment & Plan (1) Debility: Plan: Mrs. Hong is a 55-year-old white female who is morbidly obese. Has chronic respiratory failure with likely obesity hypoventilation syndrome, COPDon chronic 6 L of oxygen, and sleep apnea requiring CPAP. She was hospitalized here 04/02 through 04/05 with Covid. Received doses of remdesivir and IV Decadron. Was not requiring any additional oxygen and subsequently sent home with continued p.o. Decadron. Presented back to the ED on 04/21 with increasing shortness of breath and hypoxemia of 83%. Chest x-ray showed concern for pulmonary abscess. CT showed no evidence of abscess but septic emboli in the left upper lobe, pneumonia and associated empyema. Was transferred to [facility] where she had IR drainage on 04/24. Chest tube removed 04/28. Empirically placed on Vanco/Zosyn but converted to Unasyn as recommended by ID Bacteroides and actinomyces in the cultures. Plan was for IV antibiotics X at least 6 weeks. During that hospital stay, also developed new onset A. fib RVR. Started on anticoagulation therapy and subsequently discharged on Eliquis. It was recommended that she go to skilled facility for rehab but she refused. Discharged home on 04/30. A hospital bed was arranged but has not yet been delivered (until today while she has been in the hospital) and she reports not having any of her CPAP supplies. Case management has investigated this further patient has not been using her CPAP since 2015 so does not have any supplies to be used at home. Before she developed increasing shortness of breath which prompted her return to the ED. * Overall debility is likely from above as outlined, chronic pain, neuropathy, and deconditioning * Has been seen by PT/OT who recommending rehab versus * Patient's home health reports that the patient was having great difficulty at home and questions the safety of her returning home with home health-patient is now agreeable to rehab placement This patient is quite medically complex and requires long-term IV antibiotics and PICC line care, frequent turning and positioning due to morbid obesity and extreme deconditioning making it difficult for her to even move around in bed on her own. She is at high risk for skin breakdown and pressure sores. She also has obesity hypoventilation syndrome and needs BiPAP, aggressive PT and OT to get her to be able to stand and do transfers to her wheelchair again, monitoring for return of atrial fibrillation, and monitoring of her oxygenation status. (2) Hepatic encephalopathy: Plan: Presented awake and alert. Around lunch on 05/05, patient became hypersomnolent and difficult to arouse. Work-up consistent with acute hepatic encephalopathy (which is a new diagnosis for patient)--> ammonia 48.5 Treated with lactulose enemas given obtunded state Patient responded favorably. 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 Would benefit from routine lactulose to not only help with her constipation but prevent further hyperammonemia-continue lactulose 20 g p.o.tid needs to FU with GI as an OP anyway (3) Hypersomnolence: Plan: Developed hypersomnolence on 05/05 as above Blood gas without evidence of acute hypercapnia Likely secondary to polypharmacy (Seroquel, Neurontin, baclofen and Elavil on board) W/U yielded elevated ammonia-- see above Has now been restarted on all of her home medications-and transitioned Elavil to at bedtime dosing as she takes it at home (originally was receiving this in the mornings for the first several days of her hospitalization) Must be on BiPAP at nighttime and with any naps-she is tolerating this (4) Anemia: Plan: presenting hemoglobin: 7.6 During her most recent hospital stay (beginning of March), hemoglobin was between 8-9 Denies melena/hematochezia, ever having an upper or lower endoscopy, DUB or menstrual bleeding Required a total of 3 units packed cells. Initially given 1 unit with improvement of hemoglobin but due to subsequent drop, 2 additional units provided was unable to obtain iron studies as already had received blood transfusion In review of her labs during her most recent hospitalization, her iron level was low at 19 and her ferritin was low level normal 42.6 IV Venofer given 05/05 and 05/06- converted to oral supplementation fecal occult blood X3 ordered- negative x1 With subsequent drop in hemoglobin, Eliquis placed on hold-- would consider holding this for 2 weeks and if FU H/H remains stable, resume Empirically added Pepcid/Carafate as patient not ideal candidate for conscious sedation for EGD/colonoscopy at this time. Consulted GI who agrees that can proceed with further work-up as an outpatient. Greatly appreciate recommendations -have since discontinued Carafate -Continue Pepcid, continue Protonix Hemoglobin improved to 9.5 and stable for many days -Follow CBC periodically (5) Hypokalemia: Plan: Replaced and resolved, keep K+ > 4.0 Continue daily potassium chloride replacement (6) Volume overload: Plan: Clinically appeared slightly volume overloaded after receiving blood transfusion IV lasix given again on 05/09 Edema mildly improved Echo showing preserved EF of 60-65% with mild pulmonary hypertension (which is likely related to her obesity hypoventilation syndrome) appears euvolemic today although has chronic peripheral edema continue daily PO lasix (7) Empyema: Plan: Empyema related to recent pneumonia noted on imaging 04/21 when presented to our emergency room Transferred to [facility] Status post IR drainage on 04/24. Chest tube removed 04/28 With Bacteroides and actinomyces growing on cultures, repeat CT chest here shows improvement since previous Seen by infectious disease recommended treatment with Unasyn for at least 4 weeks and follow-up imaging at that time Overall, patient seems to be doing well She is at her baseline in regards to oxygen requirements Afebrile and hemodynamically stable Denies shortness of breath CTA done with this hospitalist stay shows moderate improvement in the left-sided empyema with consistent left basilar consolidation (which ultimately will take weeks to resolve) Work-up for TB was completed by admitting provider-negative Pulmonology consulted who agreed with continuing abx (Unasyn) x 6 weeks and FU imaging at that time--> appreciate recommendations. Patient d/c'ed from [facility] with home IV abx supplies and PICC -Blood cultures with alpha Streptococcus as below (8) Pneumonia: Plan: See above (9) COVID-19: Plan: Diagnosed 04/02 Unvaccinated Received 3 doses of remdesivir Received 10 doses Decadron -She is agreeable and would like to get the [employer] COVID vaccination here in the hospital-ordered and to be given 05/10 (10) Chronic respiratory failure: Plan: Patient on 6 L supplemental oxygen at baseline along with CPAP--> currently doing well on 4 L nasal cannula at rest(avoid pulse ox >92% given risk of hypercapnia) Patient admits that she has not been compliant with her CPAP at home. Has not utilized CPAP since 2014 thus does not have appropriate supplies at home Case management working on this. Actually needs BiPAP-with review of records from [place], patient is to be on BiPAP 12/12 Obtaining BiPAP or Trilogy for home use requires more in-depth testing-Case terry goldberg looking into this ABG with PaCO2 of 70 Overnight pulse oximetry on 4 L is negative for desat < 88% (11) Afib: Plan: Diagnosed while at [facility]. Likely related to catecholamine release from recent Covid and infectious pneumonia with empyema At any rate, she is in a normal sinus rhythm with controlled rate on metoprolol [id number] 2 score = 2 Eliquis on hold given subsequent drop in hemoglobin. -Continue Protonix, Pepcid Have since discontinued Carafate as may be contributing to constipation May consider addition of Eliquis again but should have endoscopy which can be facilitated as an outpatient as not a great candidate for conscious sedation at this time Continue holding eliquis upon D/C with FU H/H and resumption pending stability and endoscopy (12) Asthma-COPD overlap syndrome: Plan: No acute issues Continue chronic O2 Continue albuterol nebulizers as needed Continue umeclidinium inhaler daily (13) GERD (gastroesophageal reflux disease): Plan: Continue pantoprazole twice daily Continue Pepcid (14) Hypertension: Plan: Blood pressures are controlled Continue metoprolol Continue furosemide (15) Major depression, recurrent: Plan: Stable Continue Seroquel (16) AMANDA (obstructive sleep apnea): Plan: getting BiPAP set up as above for at home use but will need at rehab (17) Peripheral neuropathy: Plan: Continue gabapentin (18) Tobacco use disorder: Plan: Needs smoking cessation counseling (19) Type 2 diabetes mellitus: Plan: Hemoglobin A1c 7.8% here Blood glucose well controlled here Continue Lantus and NovoLog Holding home Victoza (20) Obesity: Plan: BMI 55.3 Needs weight loss (21) Bacteremia: Plan: Growing alpha Streptococcus bacteria that is not Streptococcus pneumoniae or Enterococcus in 1/2 sets of blood cultures No fevers or leukocytosis Infectious disease consulted-appreciate recommendations to extend Unasyn therapy through 06/05/21 and if repeat BCxs positive, then remove PICC Echocardiogram on 05/04 without vegetation on the valves Repeat blood cultures 05/09-NGTD Plan: Disposition-patient is not safe for going home with home health as she is no longer able to do any of her transfers and [employer] [facility] has concerns about ability to do home infusions with antibiotics Patient is now agreeable to rehab and would like a referral to [facility]- Case management consult placed Medically stable for discharge at this time, awaiting placement She is also agreeable to COVID-19 vaccination-ordered and given on 05/10 Admission and Anticipated Discharge Date Admission Date: May 04, 2021 Subjective Pt has no complaints. No pain, minimal cough. Is trying to have a BM when I saw her on the bed aguilar Tele with NSR, rates 60s Review of Systems Review of Systems: All systems reviewed & are unremarkable except as noted in HPI & below Physical Exam Constitutional: WD/WN, vitals as above + morbidly obese Eyes: + anicteric sclerae Neck: trachea midline, no thyromegaly Respiratory: normal respiratory effort, lungs clear to auscultation (Diminished at the bases bilaterally) Cardiovascular: Rate/Rhythm: regular rate and regular rhythm Extremities: + edema (2+ woody edema bilat LEs with venous stasis erythema) Chest (Breasts): Chest: normal inspection of chest Gastrointestinal (Abdomen): normal bowel sounds, soft, nontender, no hepatosplenomegaly Musculoskeletal: Extremities: no cyanosis and no clubbing Skin: no rashes, warm and dry + erythema (Chronic venous stasis changes with erythema of the legs bilaterally) Neurologic: moves all extremities and awake; no focal motor deficits Psychiatric: A+Ox3, euthymic affect Results & Data Results & Data ([facility]) Vital Signs (Past 12 Hours) Vital Signs Temp Pulse Pulse Resp BP Pulse Ox 05/11/21 15:32 36.7 C 75 16 140/70 93 05/11/21 15:00 64 05/11/21 08:00 61 05/11/21 07:54 36.6 C 63 16 140/65 95 Laboratory Results 05/11/21 05/11/21 05/11/21 Range/Units 16:27 11:38 07:25 WBC (4.8-10.8) K/uL RBC (4.2-5.4) M/uL Hgb (12.0-16.0) g/dL Hct (37-47) % MCV (80-100) fL MCH (25-34) pg MCHC (32-36) g/dL RDW Std Deviation (36.4-46.3) fL RDW Coeff of Curt (11.5-14.5) % Plt Count (130-400) K/uL MPV (7.4-10.4) fL Immature Gran % (Auto) % Neut % (Auto) % Lymph % (Auto) % [place] % (Auto) % Eos % (Auto) % Baso % (Auto) % Neut # (Auto) (1.4-6.5) K/uL Lymph # (Auto) (1.2-3.4) K/uL [place] # (Auto) (0.11-0.59) K/uL Eos # (Auto) (0-0.5) K/uL Baso # (Auto) (0-0.2) K/uL Immature Gran # (Auto) (0.00-0.02) K/uL Toxic Granulation Hypochromasia Anisocytosis Sodium (136-145) mmol/L Potassium (3.5-5.1) mmol/L Chloride (98-107) mmol/L Carbon Dioxide (21-32) mmol/L Anion Gap (3-11) BUN (6-23) mg/dl Creatinine (0.6-1.2) mg/dl Est Cr Clr Drug Dosing ml/min Est GFR ( Amer) ml/min Est GFR (Non-Af Amer) ml/min BUN/Creatinine Ratio (10-20) Glucose (70-99) mg/dl POC Glucose 177 H 190 H 179 H (70-99) mg/dl Calcium (8.5-10.1) mg/dl Magnesium (1.7-2.4) mg/dl Total Bilirubin (0.2-1.0) mg/dl AST (13-39) U/L ALT (7-52) U/L Alkaline Phosphatase (34-104) U/L Total Protein (6.0-8.3) gm/dl Albumin (3.4-5.0) gm/dl Globulin (2.5-4.0) gm/dl Albumin/Globulin Ratio (0.9-2) 05/11/21 05/11/21 05/10/21 Range/Units 05:41 05:41 20:11 WBC 3.88 L (4.8-10.8) K/uL RBC 3.84 L (4.2-5.4) M/uL Hgb 9.5 L (12.0-16.0) g/dL Hct 34.6 L (37-47) % MCV 90.1 (80-100) fL MCH 24.7 L (25-34) pg MCHC 27.5 L (32-36) g/dL RDW Std Deviation 84.6 H (36.4-46.3) fL RDW Coeff of Curt 25.1 H (11.5-14.5) % Plt Count 202 (130-400) K/uL MPV 8.7 (7.4-10.4) fL Immature Gran % (Auto) 0.3 % Neut % (Auto) 50.0 % Lymph % (Auto) 38.9 % [place] % (Auto) 7.5 % Eos % (Auto) 2.8 % Baso % (Auto) 0.5 % Neut # (Auto) 1.94 (1.4-6.5) K/uL Lymph # (Auto) 1.51 (1.2-3.4) K/uL [place] # (Auto) 0.29 (0.11-0.59) K/uL Eos # (Auto) 0.11 (0-0.5) K/uL Baso # (Auto) 0.02 (0-0.2) K/uL Immature Gran # (Auto) 0.01 (0.00-0.02) K/uL Toxic Granulation 1+ Hypochromasia Present Anisocytosis Present Sodium 140 (136-145) mmol/L Potassium 4.2 (3.5-5.1) mmol/L Chloride 95 L (98-107) mmol/L Carbon Dioxide 40 H (21-32) mmol/L Anion Gap 5 (3-11) BUN 11 (6-23) mg/dl Creatinine 0.85 (0.6-1.2) mg/dl Est Cr Clr Drug Dosing 134.8 ml/min Est GFR ( Amer) 90.7 ml/min Est GFR (Non-Af Amer) 78.2 ml/min BUN/Creatinine Ratio 12.9 (10-20) Glucose 155 H (70-99) mg/dl POC Glucose 141 H (70-99) mg/dl Calcium 9.0 (8.5-10.1) mg/dl Magnesium 1.9 (1.7-2.4) mg/dl Total Bilirubin 0.5 (0.2-1.0) mg/dl AST 10 L (13-39) U/L ALT 8 (7-52) U/L Alkaline Phosphatase 69 (34-104) U/L Total Protein 7.0 (6.0-8.3) gm/dl Albumin 2.9 L (3.4-5.0) gm/dl Globulin 4.1 H (2.5-4.0) gm/dl Albumin/Globulin Ratio 0.7 L (0.9-2) PG Care Time/CCT Total # of Minutes Spent Total Time Spent with Patient: Total time spent is greater than 50% in coordination of care (as documented) at patient's floor/unit and/or counseling patient: Coding Level of Care Code 62331 Subseq Hosp Care Lvl 2 Diagnoses Debility R53.81 Hepatic encephalopathy K72.90 Hypersomnolence G47.10 Anemia D64.9 Anemia type: unspecified type Hypokalemia E87.6 Volume overload E87.70 Empyema J86.9 Pneumonia J18.9 Laterality: bilateral Lung location: unspecified part of lung Pneumonia type: due to unspecified organism COVID-19 U07.1 Chronic respiratory failure J96.10 Afib I48.91 Asthma-COPD overlap syndrome J44.9 GERD (gastroesophageal reflux disease) K21.9 Hypertension I10 Major depression, recurrent F33.9 AMANDA (obstructive sleep apnea) G47.33 Peripheral neuropathy G62.9 Tobacco use disorder F17.200 Type 2 diabetes mellitus E11.59; Z79.4 Diabetes mellitus complication detail: with other circulatory complications Diabetes mellitus complication status: with circulatory complication Diabetes mellitus internal audit director insulin use: with internal audit director use Obesity E66.9 Bacteremia R78.81 (1) Anemia Anemia type: unspecified type Qualified Code(s): D64.9 - Anemia, unspecified (2) Pneumonia Laterality: bilateral Lung location: unspecified part of lung Pneumonia type: due to unspecified organism Qualified Code(s): J18.9 - Pneumonia, unspecified organism (3) Type 2 diabetes mellitus Diabetes mellitus complication detail: with other circulatory complications Diabetes mellitus complication status: with circulatory complication Diabetes mellitus internal audit director insulin use: with retirement use Qualified Code(s): E11.59 - Type 2 diabetes mellitus with other circulatory complications; Z79.4 - nursing home (current) use of insulin
[2021-05-11] MEDS: AMITRIPTYLINE HCL 25 MG TAB PO SCH (21:16)
[2021-05-11] MEDS: GABAPENTIN 800 MG TAB PO SCH (21:18)
[2021-05-11] MEDS: POLYETHYLENE (MIRALAX) 17 GM PACK PO PRN (21:22)
[2021-05-12] MEDS: AMPICILLIN/SULBACTAM SOD 3,000 MG in 0.9 % SODIUM CHLORIDE 100 ML IV SCH ×4 (04:20→22:57)
[2021-05-12] MEDS: INSULIN GLARGINE SOLOSTAR 100 UNITS/ML 3 ML PEN SQ SCH (09:26)
[2021-05-12] MEDS: INSULIN ASPART PER UNIT SC SCH ×4 (09:26→20:50)
[2021-05-12] MEDS: FERROUS SULFATE 325 MG TAB PO SCH ×2 (09:32→17:57)
[2021-05-12] MEDS: CHOLECALCIFEROL 5,000 UNITS 125 MCG TAB PO SCH (09:34)
[2021-05-12] MEDS: FUROSEMIDE 20 MG TAB PO SCH (09:35)
[2021-05-12] MEDS: FAMOTIDINE 20 MG TAB PO SCH ×2 (09:35→20:52)
[2021-05-12] MEDS: GABAPENTIN 400 MG CAP PO SCH ×2 (09:35→14:07)
[2021-05-12] MEDS: LACTULOSE SYRUP 20 GM/30 ML UDC PO SCH ×3 (09:36→20:51)
[2021-05-12] MEDS: PANTOprazole 40 MG TAB PO SCH ×2 (09:37→20:53)
[2021-05-12] MEDS: METOPROLOL TARTRATE 50 MG TAB PO SCH ×2 (09:37→20:53)
[2021-05-12] MEDS: TOLTERODINE TARTRATE LA 2 MG CAPCR PO SCH (09:38)
[2021-05-12] MEDS: rOPINIRole HCL 1 MG TABLET PO SCH ×3 (09:38→20:55)
[2021-05-12] MEDS: UMECLIDINIUM BROMIDE 62.5MCG/BLISTER 7 PUFFS/INHALER INH SCH (09:38)
[2021-05-12] MEDS: QUEtiapine FUMARATE 300 MG TABLET PO SCH ×2 (09:38→20:54)
[2021-05-12] MEDS: POTASSIUM CHLORIDE CRTAB 20 MEQ TABCR PO SCH (09:42)
[2021-05-12] MEDS: DOCUSATE SODIUM/SENNA 50/8.6MG TAB PO SCH ×3 (09:42→22:57)
[2021-05-12] MEDS: ATORVASTATIN 10 MG TAB PO SCH (11:31)
[2021-05-12] MEDS: MICONAZOLE NITRATE POWDER 43 GM EXT PRN (11:32)
[2021-05-12] MEDS: ACETAMINOPHEN 325 MG TAB PO PRN (14:06)
[2021-05-12] MEDS ORDERED: bisacodyL 10 MG SUPP PR STA (14:35)
--- NOTE | 2021-05-12 14:47 | Hospitalist Progress Note ---
Date of Service May 12, 2021 Assessment & Plan (1) Debility: Plan: Mrs. Hong is a 55-year-old white female who is morbidly obese. Has chronic respiratory failure with likely obesity hypoventilation syndrome, COPDon chronic 6 L of oxygen, and sleep apnea requiring CPAP. She was hospitalized here 04/02 through 04/05 with Covid. Received doses of remdesivir and IV Decadron. Was not requiring any additional oxygen and subsequently sent home with continued p.o. Decadron. Presented back to the ED on 04/21 with increasing shortness of breath and hypoxemia of 83%. Chest x-ray showed concern for pulmonary abscess. CT showed no evidence of abscess but septic emboli in the left upper lobe, pneumonia and associated empyema. Was transferred to [place] where she had IR drainage on 04/24. Chest tube removed 04/28. Empirically placed on Vanco/Zosyn but converted to Unasyn as recommended by ID Bacteroides and actinomyces in the cultures. Plan was for IV antibiotics X at least 6 weeks. During that hospital stay, also developed new onset A. fib RVR. Started on anticoagulation therapy and subsequently discharged on Eliquis. It was recommended that she go to skilled facility for rehab but she refused. Discharged home on 04/30. A hospital bed was arranged but has not yet been delivered (until today while she has been in the hospital) and she reports not having any of her CPAP supplies. Case management has investigated this further patient has not been using her CPAP since 2015 so does not have any supplies to be used at home. Before she developed increasing shortness of breath which prompted her return to the ED. * Overall debility is likely from above as outlined, chronic pain, neuropathy, and deconditioning * Has been seen by PT/OT who recommending rehab versus * Patient's home health reports that the patient was having great difficulty at home and questions the safety of her returning home with home health-patient is now agreeable to rehab placement This patient is quite medically complex and requires long-term IV antibiotics and PICC line care, frequent turning and positioning due to morbid obesity and extreme deconditioning making it difficult for her to even move around in bed on her own. She is at high risk for skin breakdown and pressure sores. She also has obesity hypoventilation syndrome and needs BiPAP, aggressive PT and OT to get her to be able to stand and do transfers to her wheelchair again, monitoring for return of atrial fibrillation, and monitoring of her oxygenation status. (2) Hepatic encephalopathy: Plan: Presented awake and alert. Around lunch on 05/05, patient became hypersomnolent and difficult to arouse. Work-up consistent with acute hepatic encephalopathy (which is a new diagnosis for patient)--> ammonia 48.5 Treated with lactulose enemas given obtunded state Patient responded favorably. Follow-up ammonia the next morning is 28.5, however is back up to 46 the next day despite mentating clearly More than likely, was secondary to numerous [employer] depressing medications which have now since been restarted No underlying liver disease per her knowledge, but liver ultrasound shows fatty liver Patient with chronic constipation anyway--. Would benefit from routine lactulose to not only help with her constipation but prevent further hyperammonemia-continue lactulose 20 g p.o.tid needs to FU with GI as an OP anyway (3) Hypersomnolence: Plan: Developed hypersomnolence on 05/05 as above Blood gas without evidence of acute hypercapnia Likely secondary to polypharmacy (Seroquel, Neurontin, baclofen and Elavil on board) W/U yielded elevated ammonia-- see above Has now been restarted on all of her home medications-and transitioned Elavil to at bedtime dosing as she takes it at home (originally was receiving this in the mornings for the first several days of her hospitalization) Must be on BiPAP at nighttime and with any naps-she is tolerating this -work on bowel regimen--> still no BM in 6 days--> add on bisacodyl CT now and continue lactulose tid (4) Anemia: Plan: presenting hemoglobin: 7.6 During her most recent hospital stay (beginning of March), hemoglobin was between 8-9 Denies melena/hematochezia, ever having an upper or lower endoscopy, DUB or menstrual bleeding Required a total of 3 units packed cells. Initially given 1 unit with improvement of hemoglobin but due to subsequent drop, 2 additional units provided was unable to obtain iron studies as already had received blood transfusion In review of her labs during her most recent hospitalization, her iron level was low at 19 and her ferritin was low level normal 42.6 IV Venofer given 05/05 and 05/06- converted to oral supplementation fecal occult blood X3 ordered- negative x1 With subsequent drop in hemoglobin, Eliquis placed on hold-- would consider holding this for 2 weeks and if FU H/H remains stable, resume Empirically added Pepcid/Carafate as patient not ideal candidate for conscious sedation for EGD/colonoscopy at this time. Consulted GI who agrees that can proceed with further work-up as an outpatient. Greatly appreciate recommendations -have since discontinued Carafate -Continue Pepcid, continue Protonix Hemoglobin improved to 9.5 and stable for many days -Follow CBC periodically (5) Hypokalemia: Plan: Replaced and resolved, keep K+ > 4.0 Continue daily potassium chloride replacement (6) Volume overload: Plan: Clinically appeared slightly volume overloaded after receiving blood transfusion IV lasix given again on 05/09 Edema mildly improved Echo showing preserved EF of 60-65% with mild pulmonary hypertension (which is likely related to her obesity hypoventilation syndrome) appears euvolemic today although has chronic peripheral edema continue daily PO lasix and give extra lasix if seems overloaded (7) Empyema: Plan: Empyema related to recent pneumonia noted on imaging 04/21 when presented to our emergency room Transferred to [facility] Status post IR drainage on 04/24. Chest tube removed 04/28 With Bacteroides and actinomyces growing on cultures, repeat CT chest here shows improvement since previous Seen by infectious disease recommended treatment with Unasyn for at least 4 weeks and follow-up imaging at that time Overall, patient seems to be doing well She is at her baseline in regards to oxygen requirements Afebrile and hemodynamically stable Denies shortness of breath CTA done with this hospital stay shows moderate improvement in the left-sided empyema with consistent left basilar consolidation (which ultimately will take weeks to resolve) Work-up for TB was completed by admitting provider-negative Pulmonology consulted who agreed with continuing abx (Unasyn) x 6 weeks and FU imaging at that time--> appreciate recommendations. Patient d/c'ed from [place] with home IV abx supplies and PICC However, ID now recommends extending course of abx through 06/05/21 due to positive blood cultures here -Blood cultures with alpha Streptococcus as below (8) Pneumonia: Plan: See above (9) COVID-19: Plan: Diagnosed 04/02 Unvaccinated Received 3 doses of remdesivir Received 10 doses Decadron -She received the [employer] COVID vaccination here in the hospital on 05/10 (10) Chronic respiratory failure: Plan: Patient on 6 L supplemental oxygen at baseline along with CPAP--> currently doing well on 4 L nasal cannula at rest(avoid pulse ox >92% given risk of h ypercapnia) Patient admits that she has not been compliant with her CPAP at home. Has not utilized CPAP since 2014 thus does not have appropriate supplies at home Case management working on this. Actually needs BiPAP-with review of records from [place], patient is to be on BiPAP 12/12 Obtaining BiPAP or Trilogy for home use requires more in-depth testing-Case management looking into this ABG with PaCO2 of 70 Overnight pulse oximetry on 4 L is negative for desat < 88% (11) Afib: Plan: Diagnosed while at [facility]. Likely related to catecholamine release from recent Covid and infectious pneumonia with empyema At any rate, she is in a normal sinus rhythm this entire stay x 8 days so far -continue metoprolol [id number] 2 score = 2 Eliquis on hold given subsequent drop in hemoglobin. May consider addition of Eliquis again but should have endoscopy which can be facilitated as an outpatient as not a great candidate for conscious sedation at this time (12) Asthma-COPD overlap syndrome: Plan: No acute issues Continue chronic O2 Continue albuterol nebulizers as needed Continue umeclidinium inhaler daily (13) GERD (gastroesophageal reflux disease): Plan: Continue pantoprazole twice daily Continue Pepcid (14) Hypertension: Plan: Blood pressures are controlled Continue metoprolol Continue furosemide (15) Major depression, recurrent: Plan: Stable Continue Seroquel, ELavil (16) AMANDA (obstructive sleep apnea): Plan: continue BiPAP for chronic hypercapnia and for AMANDA, likely OHS (17) Peripheral neuropathy: Plan: Continue gabapentin with chronic lower back pain also--added onher home percocet at her request but reduced dose to only 5mg q6 rather than 10mg to avoid oversedation (18) Tobacco use disorder: Plan: Needs smoking cessation counseling (19) Type 2 diabetes mellitus: Plan: Hemoglobin A1c 7.8% here Blood glucose well controlled here Continue Lantus and NovoLog Holding home Victoza (20) Obesity: Plan: BMI 55.3 Needs weight loss (21) Bacteremia: Plan: Growing alpha Streptococcus bacteria that is not Streptococcus pneumoniae or Enterococcus in 1/2 sets of blood cultures No fevers or leukocytosis Infectious disease consulted-appreciate recommendations to extend Unasyn therapy through 06/05/21 and if repeat BCxs positive, then remove PICC Echocardiogram on 05/04 without vegetation on the valves Repeat blood cultures 05/09-NGTD Plan: Disposition-patient is not safe for going home with home health as she is no longer able to do any of her transfers and [employer] [facility] [employer] has concerns about ability to do home infusions with antibiotics Patient is now agreeable to rehab -referral to [facility] and likely no bed available till Saturday as per CM Downgrade to med/surg Medically stable for discharge at this time, awaiting placement Admission and Anticipated Discharge Date Admission Date: May 04, 2021 Subjective No complaints except pain in lower back and right knee after being turned today. Also was happy she got up to the side of the bed with PT but did not try standin g.Is asking for her percocet from home Is tolerating biPAP Review of Systems Review of Systems: All systems reviewed & are unremarkable except as noted in HPI & below Physical Exam Constitutional: WD/WN, vitals as above + morbidly obese Eyes: + anicteric sclerae Neck: trachea midline, no thyromegaly Respiratory: normal respiratory effort, lungs clear to auscultation (Diminished at the bases bilaterally) Cardiovascular: Rate/Rhythm: regular rate and regular rhythm Extremities: + edema (2+ woody edema bilat LEs with venous stasis erythema) Chest (Breasts): Chest: normal inspection of chest Gastrointestinal (Abdomen): normal bowel sounds, soft, nontender, no hepatosplenomegaly Musculoskeletal: Extremities: no cyanosis and no clubbing Skin: no rashes, warm and dry + erythema (Chronic venous stasis changes with erythema of the legs bilaterally) Neurologic: moves all extremities and awake; no focal motor deficits Psychiatric: A+Ox3, euthymic affect Lymphatic: no lymphedema Results & Data Results & Data ([facility]) Vital Signs (Past 12 Hours) Vital Signs Temp Pulse Pulse Resp BP Pulse Ox 05/12/21 11:02 37.2 C 68 16 136/72 95 05/12/21 07:30 66 05/12/21 07:26 36.3 C L 68 16 121/48 L 90 05/12/21 03:35 88 22 96 05/12/21 03:00 37.1 C 68 20 148/71 H 92 Laboratory Results 05/12/21 05/12/21 05/11/21 Range/Units 11:15 07:41 20:15 POC Glucose 197 H 145 H 152 H (70-99) mg/dl 05/11/21 Range/Units 16:27 POC Glucose 177 H (70-99) mg/dl PG Care Time/CCT Total # of Minutes Spent Total Time Spent with Patient: Total time spent is greater than 50% in coordination of care (as documented) at patient's floor/unit and/or counseling patient: Coding Level of Care Code 07164 Subseq Hosp Care Lvl 2 Diagnoses Debility R53.81 Hepatic encephalopathy K72.90 Hypersomnolence G47.10 Anemia D64.9 Anemia type: unspecified type Hypokalemia E87.6 Volume overload E87.70 Empyema J86.9 Pneumonia J18.9 Laterality: bilateral Lung location: unspecified part of lung Pneumonia type: due to unspecified organism COVID-19 U07.1 Chronic respiratory failure J96.10 Afib I48.91 Asthma-COPD overlap syndrome J44.9 GERD (gastroesophageal reflux disease) K21.9 Hypertension I10 Major depression, recurrent F33.9 AMANDA (obstructive sleep apnea) G47.33 Peripheral neuropathy G62.9 Tobacco use disorder F17.200 Type 2 diabetes mellitus E11.59; Z79.4 Diabetes mellitus complication detail: with other circulatory complications Diabetes mellitus complication status: with circulatory complication Diabetes mellitus supervisor long goods insulin use: with supervisor long goods use Obesity E66.9 Bacteremia R78.81 (1) Anemia Anemia type: unspecified type Qualified Code(s): D64.9 - Anemia, unspecified (2) Pneumonia Laterality: bilateral Lung location: unspecified part of lung Pneumonia type: due to unspecified organism Qualified Code(s): J18.9 - Pneumonia, unspecified organism (3) Type 2 diabetes mellitus Diabetes mellitus complication detail: with other circulatory complications Diabetes mellitus complication status: with circulatory complication Diabetes mellitus supervisor long goods insulin use: with correction use Qualified Code(s): E11.59 - Type 2 diabetes mellitus with other circulatory complications; Z79.4 - retirement (current) use of insulin
[2021-05-12] MEDS: oxyCODONE/ACETAMINOPHEN 5mg/325mg TAB PO PRN (20:49)
[2021-05-12] MEDS: AMITRIPTYLINE HCL 25 MG TAB PO SCH (20:52)
[2021-05-12] MEDS: GABAPENTIN 800 MG TAB PO SCH (20:54)
[2021-05-13] MEDS: AMPICILLIN/SULBACTAM SOD 3,000 MG in 0.9 % SODIUM CHLORIDE 100 ML IV SCH ×4 (03:28→22:32)
[2021-05-13] MEDS: INSULIN ASPART PER UNIT SC SCH ×4 (09:19→20:33)
[2021-05-13] MEDS: ATORVASTATIN 10 MG TAB PO SCH (09:21)
[2021-05-13] MEDS: CHOLECALCIFEROL 5,000 UNITS 125 MCG TAB PO SCH (09:21)
[2021-05-13] MEDS: FERROUS SULFATE 325 MG TAB PO SCH ×2 (09:21→17:17)
[2021-05-13] MEDS: FAMOTIDINE 20 MG TAB PO SCH ×2 (09:22→20:35)
[2021-05-13] MEDS: GABAPENTIN 400 MG CAP PO SCH ×2 (09:22→14:52)
[2021-05-13] MEDS: FUROSEMIDE 20 MG TAB PO SCH (09:22)
[2021-05-13] MEDS: LACTULOSE SYRUP 20 GM/30 ML UDC PO SCH ×3 (09:23→20:23)
[2021-05-13] MEDS: INSULIN GLARGINE SOLOSTAR 100 UNITS/ML 3 ML PEN SQ SCH (09:23)
[2021-05-13] MEDS: METOPROLOL TARTRATE 50 MG TAB PO SCH ×2 (09:23→20:35)
[2021-05-13] MEDS: QUEtiapine FUMARATE 300 MG TABLET PO SCH ×2 (09:24→20:35)
[2021-05-13] MEDS: rOPINIRole HCL 1 MG TABLET PO SCH ×3 (09:24→20:35)
[2021-05-13] MEDS: PANTOprazole 40 MG TAB PO SCH ×2 (09:24→20:34)
[2021-05-13] MEDS: UMECLIDINIUM BROMIDE 62.5MCG/BLISTER 7 PUFFS/INHALER INH SCH (09:25)
[2021-05-13] MEDS: TOLTERODINE TARTRATE LA 2 MG CAPCR PO SCH (09:25)
[2021-05-13] MEDS: DOCUSATE SODIUM/SENNA 50/8.6MG TAB PO SCH ×3 (09:34→20:32)
[2021-05-13] MEDS: POTASSIUM CHLORIDE CRTAB 20 MEQ TABCR PO SCH (09:34)
--- NOTE | 2021-05-13 16:02 | Hospitalist Progress Note ---
Date of Service May 13, 2021 Assessment & Plan (1) Debility: Plan: Mrs. Hong is a 55-year-old white female who is morbidly obese. Has chronic respiratory failure with likely obesity hypoventilation syndrome, COPDon chronic 6 L of oxygen, and sleep apnea requiring CPAP. She was hospitalized here 04/02 through 04/05 with Covid. Received doses of remdesivir and IV Decadron. Was not requiring any additional oxygen and subsequently sent home with continued p.o. Decadron. Presented back to the ED on 04/21 with increasing shortness of breath and hypoxemia of 83%. Chest x-ray showed concern for pulmonary abscess. CT showed no evidence of abscess but septic emboli in the left upper lobe, pneumonia and associated empyema. Was transferred to [facility] where she had IR drainage on 04/24. Chest tube removed 04/28. Empirically placed on Vanco/Zosyn but converted to Unasyn as recommended by ID Bacteroides and actinomyces in the cultures. Plan was for IV antibiotics X at least 6 weeks. During that hospital stay, also developed new onset A. fib RVR. Started on anticoagulation therapy and subsequently discharged on Eliquis. It was recommended that she go to skilled facility for rehab but she refused. Discharged home on 04/30. A hospital bed was arranged but has not yet been delivered (until today while she has been in the hospital) and she reports not having any of her CPAP supplies. Case management has investigated this further patient has not been using her CPAP since 2015 so does not have any supplies to be used at home. Before she developed increasing shortness of breath which prompted her return to the ED. * Overall debility is likely from above as outlined, chronic pain, neuropathy, and deconditioning * Has been seen by PT/OT who recommending rehab versus * Patient's home health reports that the patient was having great difficulty at home and questions the safety of her returning home with home health-patient is now agreeable to rehab placement (2) Hepatic encephalopathy: Plan: Presented awake and alert. Around lunch on 05/05, patient became hypersomnolent and difficult to arouse. Work-up consistent with acute hepatic encephalopathy (which is a new diagnosis for patient)--> ammonia 48.5 - Treated with lactulose enemas given obtunded state - Patient responded favorably -> . Follow-up ammonia the next morning is 28.5, however is back up to 46 the next day despite mentating clearly More than likely, was secondary to numerous [employer] depressing medications which have now since been restarted No underlying liver disease per her knowledge, but liver ultrasound shows fatty liver Patient with chronic constipation anyway--. Would benefit from routine lactulose to not only help with her constipation but prevent further hyperammonemia-continue lactulose 20 g p.o.tid needs to FU with GI as an OP anyway (3) Hypersomnolence: Plan: Developed hypersomnolence on 05/05 as above. Blood gas without evidence of acute hypercapnia. Likely secondary to polypharmacy (Seroquel, Neurontin, baclofen and Elavil on board). - W/U yielded elevated ammonia-- see above Has now been restarted on all of her home medications-and transitioned Elavil to at bedtime dosing as she takes it at home (originally was receiving this in the mornings for the first several days of her hospitalization) Must be on BiPAP at nighttime and with any naps-she is tolerating this -work on bowel regimen--> still no BM in 6 days--> add on bisacodyl MD now and continue lactulose tid (4) Anemia: Plan: presenting hemoglobin: 7.6 During her most recent hospital stay (beginning of March), hemoglobin was between 8-9 Denies melena/hematochezia, ever having an upper or lower endoscopy, DUB or menstrual bleeding Required a total of 3 units packed cells. Initially given 1 unit with improvement of hemoglobin but due to subsequent drop, 2 additional units provided was unable to obtain iron studies as already had received blood transfusion In review of her labs during her most recent hospitalization, her iron level was low at 19 and her ferritin was low level normal 42.6 IV Venofer given 05/05 and 05/06- converted to oral supplementation fecal occult blood X3 ordered- negative x1 With subsequent drop in hemoglobin, Eliquis placed on hold-- would consider holding this for 2 weeks and if FU H/H remains stable, resume Empirically added Pepcid/Carafate as patient not ideal candidate for conscious sedation for EGD/colonoscopy at this time. Consulted GI who agrees that can proceed with further work-up as an outpatient. Greatly appreciate recommendations -have since discontinued Carafate -Continue Pepcid, continue Protonix Hemoglobin improved to 9.5 and stable for many days -Follow CBC periodically (5) Hypokalemia: Plan: Replaced and resolved, keep K+ > 4.0 - Continue daily potassium chloride replacement (6) Volume overload: Plan: Clinically appeared slightly volume overloaded after receiving blood transfusion IV lasix given again on 05/09 Edema mildly improved Echo showing preserved EF of 60-65% with mild pulmonary hypertension (which is likely related to her obesity hypoventilation syndrome) appears euvolemic today although has chronic peripheral edema - Continue Lasix 60 mg PO QAM and give extra lasix if seems overloaded (7) Empyema: Plan: Empyema related to recent pneumonia noted on imaging 04/21 when presented to our emergency room Transferred to [facility] Status post IR drainage on 04/24. Chest tube removed 04/28 With Bacteroides and actinomyces growing on cultures, repeat CT chest here shows improvement since previous Seen by infectious disease recommended treatment with Unasyn for at least 4 weeks and follow-up imaging at that time Overall, patient seems to be doing well She is at her baseline in regards to oxygen requirements Afebrile and hemodynamically stable Denies shortness of breath CTA done with this hospital stay shows moderate improvement in the left-sided empyema with consistent left basilar consolidation (which ultimately will take weeks to resolve) Work-up for TB was completed by admitting provider-negative Pulmonology consulted who agreed with continuing abx (Unasyn) x 6 weeks and FU imaging at that time--> appreciate recommendations. Patient d/c'ed from [facility] with home IV abx supplies and PICC However, ID now recommends extending course of abx through 06/05/21 due to positive blood cultures here -Blood cultures with alpha Streptococcus as below (8) Pneumonia: Plan: See above (9) COVID-19: Plan: Diagnosed 04/02 Unvaccinated Received 3 doses of remdesivir Received 10 doses Decadron -She received the [employer] COVID vaccination here in the hospital on 05/10 (10) Chronic respiratory failure: Plan: Patient on 6 L supplemental oxygen at baseline along with CPAP--> currently doing well on 4 L nasal cannula at rest(avoid pulse ox >92% given risk of hypercapnia) Patient admits that she has not been compliant with her CPAP at home. Has not utilized CPAP since 2014 thus does not have appropriate supplies at home Case management working on this. Actually needs BiPAP-with review of records from [facility], patient is to be on BiPAP 12/12 Obtaining BiPAP or Trilogy for home use requires more in-depth testing-Case management looking into this ABG with PaCO2 of 70 Overnight pulse oximetry on 4 L is negative for desat < 88% (11) Afib: Plan: Diagnosed while at [facility]. Likely related to catecholamine release from recent Covid and infectious pneumonia with empyema At any rate, she is in a normal sinus rhythm this entire stay x 8 days so far -continue metoprolol [id number] 2 score = 2 Eliquis on hold given subsequent drop in hemoglobin. May consider addition of Eliquis again but should have endoscopy which can be facilitated as an outpatient as not a great candidate for conscious sedation at this time. (12) Asthma-COPD overlap syndrome: Plan: No acute issues Continue chronic O2 Continue albuterol nebulizers as needed Continue umeclidinium inhaler daily (13) GERD (gastroesophageal reflux disease): Plan: Continue pantoprazole twice daily Continue Pepcid (14) Hypertension: Plan: Blood pressures are controlled Continue metoprolol Continue furosemide (15) Major depression, recurrent: Plan: Stable Continue Seroquel, ELavil (16) AMANDA (obstructive sleep apnea): Plan: continue BiPAP for chronic hypercapnia and for AMANDA, likely OHS (17) Peripheral neuropathy: Plan: Continue gabapentin with chronic lower back pain also--added on her home Percocet at her request but reduced dose to only 5mg Q6h rather than 10mg to avoid oversedation (18) Tobacco use disorder: Plan: Needs smoking cessation counseling (19) Type 2 diabetes mellitus: Plan: Hemoglobin A1c 7.8% here. - Holding home Victoza - Continue Lantus and NovoLog -> BSs have been 140 - 230 in last 24 hours. (20) Obesity: Plan: BMI 55.3 Needs weight loss (21) Bacteremia: Plan: Growing alpha Streptococcus bacteria that is not Streptococcus pneumoniae or Enterococcus in 1/2 sets of blood cultures No fevers or leukocytosis Infectious disease consulted-appreciate recommendations to extend Unasyn therapy through 06/05/21 and if repeat BCxs positive, then remove PICC Echocardiogram on 1/6 without vegetation on the valves Repeat blood cultures 05/09-NGTD Admission and Anticipated Discharge Date Admission Date: May 04, 2021 Subjective Does have some right knee pain. Reports no fevers/chills, chest pain, shortness of breath, abdominal pain, nausea, or vomiting. Physical Exam Constitutional: WD/WN, vitals as above Eyes: EOM intact bilaterally; no conjunctival abnormality ENMT: external ear and nose normal, oropharynx normal Neck: trachea midline, no thyromegaly normal visual inspection Respiratory: normal respiratory effort, lungs clear to auscultation no respiratory distress Cardiovascular: RRR, no murmur, no edema Gastrointestinal (Abdomen): Inspection/Auscultation: abdomen normal to inspection; abdomen not distended Musculoskeletal: no cyanosis or clubbing, extremities motor strength 5/5 Skin: no rashes, warm and dry Neurologic: moves all extremities and awake Psychiatric: Orientation: alert, oriented to person and cooperative Results & Data Results & Data ([facility]) Vital Signs (Past 12 Hours) Vital Signs Temp Pulse Resp BP Pulse Ox 05/13/21 14:53 37.0 C 63 22 118/53 L 93 05/13/21 07:54 37.2 C 69 20 125/69 92 PG Care Time/CCT Total # of Minutes Spent Total Time Spent with Patient: Total time spent is greater than 50% in coordination of care (as documented) at patient's floor/unit and/or counseling patient: Coding Level of Care Code 73352 Subseq Hosp Care Lvl 2 Diagnoses Debility R53.81 Hepatic encephalopathy K72.90 Hypersomnolence G47.10 Anemia D64.9 Anemia type: unspecified type Hypokalemia E87.6 Volume overload E87.70 Empyema J86.9 Pneumonia J18.9 Laterality: bilateral Lung location: unspecified part of lung Pneumonia type: due to unspecified organism COVID-19 U07.1 Chronic respiratory failure J96.10 Afib I48.91 Asthma-COPD overlap syndrome J44.9 GERD (gastroesophageal reflux disease) K21.9 Hypertension I10 Major depression, recurrent F33.9 AMANDA (obstructive sleep apnea) G47.33 Peripheral neuropathy G62.9 Tobacco use disorder F17.200 Type 2 diabetes mellitus E11.59; Z79.4 Diabetes mellitus complication detail: with other circulatory complications Diabetes mellitus complication status: with circulatory complication Diabetes mellitus retirement insulin use: with oysterman use Obesity E66.9 Bacteremia R78.81 (1) Anemia Anemia type: unspecified type Qualified Code(s): D64.9 - Anemia, unspecified (2) Pneumonia Laterality: bilateral Lung location: unspecified part of lung Pneumonia type: due to unspecified organism Qualified Code(s): J18.9 - Pneumonia, unspecified organism (3) Type 2 diabetes mellitus Diabetes mellitus complication detail: with other circulatory complications Diabetes mellitus complication status: with circulatory complication Diabetes mellitus oysterman insulin use: with retirement use Qualified Code(s): E11.59 - Type 2 diabetes mellitus with other circulatory complications; Z79.4 - alf (current) use of insulin
[2021-05-13] MEDS: oxyCODONE/ACETAMINOPHEN 5mg/325mg TAB PO PRN (16:44)
[2021-05-13] MEDS: GABAPENTIN 800 MG TAB PO SCH (20:34)
[2021-05-13] MEDS: AMITRIPTYLINE HCL 25 MG TAB PO SCH (20:36)
[2021-05-14] MEDS: AMPICILLIN/SULBACTAM SOD 3,000 MG in 0.9 % SODIUM CHLORIDE 100 ML IV SCH ×4 (03:59→22:09)
[2021-05-14] MEDS: INSULIN ASPART PER UNIT SC SCH ×4 (10:32→21:12)
[2021-05-14] MEDS: INSULIN GLARGINE SOLOSTAR 100 UNITS/ML 3 ML PEN SQ SCH (10:33)
[2021-05-14] MEDS: FERROUS SULFATE 325 MG TAB PO SCH ×2 (10:34→17:14)
[2021-05-14] MEDS: CHOLECALCIFEROL 5,000 UNITS 125 MCG TAB PO SCH (10:35)
[2021-05-14] MEDS: FAMOTIDINE 20 MG TAB PO SCH ×2 (10:35→21:23)
[2021-05-14] MEDS: ATORVASTATIN 10 MG TAB PO SCH (10:35)
[2021-05-14] MEDS: DOCUSATE SODIUM/SENNA 50/8.6MG TAB PO SCH ×3 (10:35→21:24)
[2021-05-14] MEDS: FUROSEMIDE 20 MG TAB PO SCH (10:35)
[2021-05-14] MEDS: GABAPENTIN 400 MG CAP PO SCH ×2 (10:36→14:18)
[2021-05-14] MEDS: LACTULOSE SYRUP 20 GM/30 ML UDC PO SCH ×3 (10:37→21:23)
[2021-05-14] MEDS: METOPROLOL TARTRATE 50 MG TAB PO SCH ×2 (10:37→21:21)
[2021-05-14] MEDS: POTASSIUM CHLORIDE CRTAB 20 MEQ TABCR PO SCH (10:37)
[2021-05-14] MEDS: PANTOprazole 40 MG TAB PO SCH ×2 (10:37→21:21)
[2021-05-14] MEDS: TOLTERODINE TARTRATE LA 2 MG CAPCR PO SCH (10:38)
[2021-05-14] MEDS: rOPINIRole HCL 1 MG TABLET PO SCH ×3 (10:38→21:23)
[2021-05-14] MEDS: QUEtiapine FUMARATE 300 MG TABLET PO SCH ×2 (10:38→21:23)
[2021-05-14] MEDS: UMECLIDINIUM BROMIDE 62.5MCG/BLISTER 7 PUFFS/INHALER INH SCH (10:38)
--- NOTE | 2021-05-14 11:43 | Hospitalist Progress Note ---
Date of Service May 14, 2021 Assessment & Plan (1) Debility: Plan: Mrs. Hong is a 55-year-old white female who is morbidly obese. Has chronic respiratory failure with likely obesity hypoventilation syndrome, COPDon chronic 6 L of oxygen, and sleep apnea requiring CPAP. She was hospitalized here 04/02 through 04/05 with Covid. Received doses of remdesivir and IV Decadron. Was not requiring any additional oxygen and subsequently sent home with continued p.o. Decadron. Presented back to the ED on 04/21 with increasing shortness of breath and hypoxemia of 83%. Chest x-ray showed concern for pulmonary abscess. CT showed no evidence of abscess but septic emboli in the left upper lobe, pneumonia and associated empyema. Was transferred to [facility] where she had IR drainage on 04/24. Chest tube removed 04/28. Empirically placed on Vanco/Zosyn but converted to Unasyn as recommended by ID Bacteroides and actinomyces in the cultures. Plan was for IV antibiotics X at least 6 weeks. During that hospital stay, also developed new onset A. fib RVR. Started on anticoagulation therapy and subsequently discharged on Eliquis. It was recommended that she go to skilled facility for rehab but she refused. Discharged home on 04/30. A hospital bed was arranged but has not yet been delivered (until today while she has been in the hospital) and she reports not having any of her CPAP supplies. Case management has investigated this further patient has not been using her CPAP since 2015 so does not have any supplies to be used at home. Before she developed increasing shortness of breath which prompted her return to the ED. * Overall debility is likely from above as outlined, chronic pain, neuropathy, and deconditioning * Has been seen by PT/OT who recommending rehab versus * Patient's home health reports that the patient was having great difficulty at home and questions the safety of her returning home with home health-patient is now agreeable to rehab placement. -> Plan for [facility] tomorrow if able. (2) Hepatic encephalopathy: Plan: Presented awake and alert. Around lunch on 05/05, patient became hypersomnolent and difficult to arouse. Work-up consistent with acute hepatic encephalopathy (which is a new diagnosis for patient)--> ammonia 48.5 - Treated with lactulose enemas given obtunded state - Patient responded favorably -> . Follow-up ammonia the next morning is 28.5, however is back up to 46 the next day despite mentating clearly More than likely, was secondary to numerous [employer] depressing medications which have now since been restarted No underlying liver disease per her knowledge, but liver ultrasound shows fatty liver Patient with chronic constipation anyway--. Would benefit from routine lactulose to not only help with her constipation but prevent further hyperammonemia-continue lactulose 20 g p.o.tid needs to FU with GI as an OP anyway (3) Hypersomnolence: Plan: Developed hypersomnolence on 05/05 as above. Blood gas without evidence of acute hypercapnia. Likely secondary to polypharmacy (Seroquel, Neurontin, baclofen and Elavil on board). - W/U yielded elevated ammonia-- see above Has now been restarted on all of her home medications-and transitioned Elavil to at bedtime dosing as she takes it at home (originally was receiving this in the mornings for the first several days of her hospitalization) Must be on BiPAP at nighttime and with any naps-she is tolerating this - Continue lactulose tid (4) Anemia: Plan: presenting hemoglobin: 7.6 During her most recent hospital stay (beginning of March), hemoglobin was between 8-9 Denies melena/hematochezia, ever having an upper or lower endoscopy, DUB or menstrual bleeding Required a total of 3 units packed cells. Initially given 1 unit with improvement of hemoglobin but due to subsequent drop, 2 additional units provided was unable to obtain iron studies as already had received blood transfusion In review of her labs during her most recent hospitalization, her iron level was low at 19 and her ferritin was low level normal 42.6 IV Venofer given 05/05 and 05/06- converted to oral supplementation fecal occult blood X3 ordered- negative x1 With subsequent drop in hemoglobin, Eliquis placed on hold-- would consider holding this for 2 weeks and if FU H/H remains stable, resume Empirically added Pepcid/Carafate as patient not ideal candidate for conscious sedation for EGD/colonoscopy at this time. Consulted GI who agrees that can proceed with further work-up as an outpatient. Greatly appreciate recommendations -have since discontinued Carafate -Continue Pepcid, continue Protonix Hemoglobin improved to 9.5 and stable for many days -Follow CBC periodically (5) Hypokalemia: Plan: Replaced and resolved, keep K+ > 4.0 - Continue daily potassium chloride replacement (6) Volume overload: Plan: Clinically appeared slightly volume overloaded after receiving blood transfusion IV lasix given again on 05/09 Edema mildly improved Echo showing preserved EF of 60-65% with mild pulmonary hypertension (which is likely related to her obesity hypoventilation syndrome) appears euvolemic today although has chronic peripheral edema - Continue Lasix 60 mg PO QAM and give extra lasix if seems overloaded -> Presently appears euvolemic. (7) Empyema: Plan: Empyema related to recent pneumonia noted on imaging 04/21 when presented to our emergency room Transferred to [facility] Status post IR drainage on 04/24. Chest tube removed 04/28 With Bacteroides and actinomyces growing on cultures, repeat CT chest here shows improvement since previous Seen by infectious disease recommended treatment with Unasyn for at least 4 weeks and follow-up imaging at that time Overall, patient seems to be doing well She is at her baseline in regards to oxygen requirements Afebrile and hemodynamically stable Denies shortness of breath CTA done with this hospital stay shows moderate improvement in the left-sided empyema with consistent left basilar consolidation (which ultimately will take weeks to resolve) Work-up for TB was completed by admitting provider-negative Pulmonology consulted who agreed with continuing abx (Unasyn) x 6 weeks and FU imaging at that time--> appreciate recommendations. Patient d/c'ed from [facility] with home IV abx supplies and PICC However, ID now recommends extending course of abx through 06/05/21 due to positive blood cultures here -Blood cultures with alpha Streptococcus as below (8) Pneumonia: Plan: See above (9) COVID-19: Plan: Diagnosed 04/02 Unvaccinated Received 3 doses of remdesivir Received 10 doses Decadron -She received the [employer] COVID vaccination here in the hospital on (10) Chronic respiratory failure: Plan: Patient on 6 L supplemental oxygen at baseline along with CPAP--> currently doing well on 4 L nasal cannula at rest(avoid pulse ox >92% given risk of hypercapnia) Patient admits that she has not been compliant with her CPAP at home. Has not utilized CPAP since 2014 thus does not have appropriate supplies at home Case management working on this. Actually needs BiPAP-with review of records from [facility], patient is to be on BiPAP 12/12 Obtaining BiPAP or Trilogy for home use requires more in-depth testing-Case management looking into this ABG with PaCO2 of 70 Overnight pulse oximetry on 4 L is negative for desat < 88% (11) Afib: Plan: Diagnosed while at [facility]. Likely related to catecholamine release from recent Covid and infectious pneumonia with empyema At any rate, she is in a normal sinus rhythm this entire stay x 8 days so far -continue metoprolol [id number] 2 score = 2 Eliquis on hold given subsequent drop in hemoglobin. May consider addition of Eliquis again but should have endoscopy which can be facilitated as an outpatient as not a great candidate for conscious sedation at this time. (12) Asthma-COPD overlap syndrome: Plan: No acute issues Continue chronic O2 Continue albuterol nebulizers as needed Continue umeclidinium inhaler daily (13) GERD (gastroesophageal reflux disease): Plan: Continue pantoprazole twice daily Continue Pepcid (14) Hypertension: Plan: Blood pressures are controlled Continue metoprolol Continue furosemide (15) Major depression, recurrent: Plan: Stable Continue Seroquel, ELavil (16) AMANDA (obstructive sleep apnea): Plan: continue BiPAP for chronic hypercapnia and for AMANDA, likely OHS (17) Peripheral neuropathy: Plan: Continue gabapentin with chronic lower back pain also--added on her home Percocet at her request but reduced dose to only 5mg Q6h rather than 10mg to avoid oversedation (18) Tobacco use disorder: Plan: Needs smoking cessation counseling (19) Type 2 diabetes mellitus: Plan: Hemoglobin A1c 7.8% here. - Holding home Victoza - Continue Lantus and NovoLog -> BSs have been 140 - 230 in last 24 hours. (20) Obesity: Plan: BMI 55.3 Needs weight loss (21) Bacteremia: Plan: Growing alpha Streptococcus bacteria that is not Streptococcus pneumoniae or Enterococcus in 1/2 sets of blood cultures No fevers or leukocytosis Infectious disease consulted-appreciate recommendations to extend Unasyn therapy through 06/05/21 and if repeat BCxs positive, then remove PICC Echocardiogram on 05/04 without vegetation on the valves Repeat blood cultures 05/09-NGTD Admission and Anticipated Discharge Date Admission Date: May 04, 2021 Subjective No major issues this morning. Last night, had some anxiety that was resolved with an ice pack to the neck. Reports no fevers/chills, chest pain, shortness of breath, abdominal pain, nausea, or vomiting. Physical Exam Constitutional: WD/WN, vitals as above Eyes: EOM intact bilaterally; no conjunctival abnormality ENMT: external ear and nose normal, oropharynx normal Neck: trachea midline, no thyromegaly normal visual inspection Respiratory: normal respiratory effort, lungs clear to auscultation no respiratory distress Cardiovascular: RRR, no murmur, no edema Gastrointestinal (Abdomen): Inspection/Auscultation: abdomen normal to inspection; abdomen not distended Musculoskeletal: no cyanosis or clubbing, extremities motor strength 5/5 Skin: no rashes, warm and dry Neurologic: moves all extremities and awake Psychiatric: Orientation: alert, oriented to person and cooperative Results & Data Results & Data ([facility] [place]) Vital Signs (Past 12 Hours) Vital Signs Temp Pulse Pulse Resp BP Pulse Ox 05/14/21 10:00 36.9 C 67 20 144/68 H 91 05/14/21 07:30 37.2 C 64 22 129/63 91 05/14/21 03:33 70 16 94 05/14/21 02:52 36.5 C 70 18 145/65 H 98 PG Care Time/CCT Total # of Minutes Spent Total Time Spent with Patient: Total time spent is greater than 50% in coordination of care (as documented) at patient's floor/unit and/or counseling patient: Coding Level of Care Code 16192 Subseq Hosp Care Lvl 2 Diagnoses Debility R53.81 Hepatic encephalopathy K72.90 Hypersomnolence G47.10 Anemia D64.9 Anemia type: unspecified type Hypokalemia E87.6 Volume overload E87.70 Empyema J86.9 Pneumonia J18.9 Laterality: bilateral Lung location: unspecified part of lung Pneumonia type: due to unspecified organism COVID-19 U07.1 Chronic respiratory failure J96.10 Afib I48.91 Asthma-COPD overlap syndrome J44.9 GERD (gastroesophageal reflux disease) K21.9 Hypertension I10 Major depression, recurrent F33.9 AMANDA (obstructive sleep apnea) G47.33 Peripheral neuropathy G62.9 Tobacco use disorder F17.200 Type 2 diabetes mellitus E11.59; Z79.4 Diabetes mellitus complication detail: with other circulatory complications Diabetes mellitus complication status: with circulatory complication Diabetes mellitus buttermaker continuous churn insulin use: with buttermaker continuous churn use Obesity E66.9 Bacteremia R78.81 (1) Anemia Anemia type: unspecified type Qualified Code(s): D64.9 - Anemia, unspecified (2) Pneumonia Laterality: bilateral Lung location: unspecified part of lung Pneumonia type: due to unspecified organism Qualified Code(s): J18.9 - Pneumonia, unspecified organism (3) Type 2 diabetes mellitus Diabetes mellitus complication detail: with other circulatory complications Diabetes mellitus complication status: with circulatory complication Diabetes mellitus [facility] insulin use: with [facility] use Qualified Code(s): E11.59 - Type 2 diabetes mellitus with other circulatory complications; 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
[2021-05-14] MEDS: AMITRIPTYLINE HCL 25 MG TAB PO SCH (21:23)
[2021-05-14] MEDS: GABAPENTIN 800 MG TAB PO SCH (21:24)
[2021-05-15] MEDS: AMPICILLIN/SULBACTAM SOD 3,000 MG in 0.9 % SODIUM CHLORIDE 100 ML IV SCH ×4 (04:28→22:51)
[2021-05-15] MEDS: INSULIN ASPART PER UNIT SC SCH ×4 (07:51→20:28)
[2021-05-15] MEDS: INSULIN GLARGINE SOLOSTAR 100 UNITS/ML 3 ML PEN SQ SCH (07:52)
[2021-05-15] MEDS: FERROUS SULFATE 325 MG TAB PO SCH ×2 (07:54→17:32)
[2021-05-15] MEDS: ATORVASTATIN 10 MG TAB PO SCH (07:55)
[2021-05-15] MEDS: CHOLECALCIFEROL 5,000 UNITS 125 MCG TAB PO SCH (07:55)
[2021-05-15] MEDS: LACTULOSE SYRUP 20 GM/30 ML UDC PO SCH ×3 (07:56→20:29)
[2021-05-15] MEDS: GABAPENTIN 400 MG CAP PO SCH ×2 (07:56→13:32)
[2021-05-15] MEDS: METOPROLOL TARTRATE 50 MG TAB PO SCH ×2 (07:56→20:31)
[2021-05-15] MEDS: FUROSEMIDE 20 MG TAB PO SCH (07:56)
[2021-05-15] MEDS: FAMOTIDINE 20 MG TAB PO SCH ×2 (07:56→20:31)
[2021-05-15] MEDS: DOCUSATE SODIUM/SENNA 50/8.6MG TAB PO SCH ×3 (07:56→20:33)
[2021-05-15] MEDS: PANTOprazole 40 MG TAB PO SCH ×2 (07:57→20:31)
[2021-05-15] MEDS: POTASSIUM CHLORIDE CRTAB 20 MEQ TABCR PO SCH (07:57)
[2021-05-15] MEDS: TOLTERODINE TARTRATE LA 2 MG CAPCR PO SCH (07:58)
[2021-05-15] MEDS: rOPINIRole HCL 1 MG TABLET PO SCH ×3 (07:58→20:29)
[2021-05-15] MEDS: QUEtiapine FUMARATE 300 MG TABLET PO SCH ×2 (07:58→20:30)
[2021-05-15] MEDS: UMECLIDINIUM BROMIDE 62.5MCG/BLISTER 7 PUFFS/INHALER INH SCH (07:58)
[2021-05-15 08:13] LABS: Hematocrit (blood only) 36.4 % (37-47); Hemoglobin 10.1 g/dL (12.0-16.0); Mean Corpuscular Hemoglobin 25.1 pg (25-34); Mean Corpuscular Hgb Conc 27.7 g/dL (32-36); Mean Corpuscular Volume 90.3 fL (80-100); Mean Platelet Volume 9.3 fL (7.4-10.4); Platelet Count 185 K/uL (130-400); RDW Standard Deviation 84.5 fL (36.4-46.3); Red Blood Count 4.03 M/uL (4.2-5.4)
[2021-05-15 09:30] LABS: BUN Creatinine Ratio 12.5 (10-20); Calcium 8.8 mg/dl (8.5-10.1); Creatinine Clr Calc Pharmacy 144.9 ml/min; Est GFR (African American) 97.6 ml/min; Est GFR (Non-African American) 84.2 ml/min; Magnesium 1.9 mg/dl (1.7-2.4); Potassium 3.9 mmol/L (3.5-5.1)
--- NOTE | 2021-05-15 12:04 | Hospitalist Progress Note ---
Date of Service May 15, 2021 Assessment & Plan (1) Debility: Plan: Mrs. Hong is a 55-year-old white female who is morbidly obese. Has chronic respiratory failure with likely obesity hypoventilation syndrome, COPDon chronic 6 L of oxygen, and sleep apnea requiring CPAP. She was hospitalized here 04/02 through 04/05 with Covid. Received doses of remdesivir and IV Decadron. Was not requiring any additional oxygen and subsequently sent home with continued p.o. Decadron. Presented back to the ED on 04/21 with increasing shortness of breath and hypoxemia of 83%. Chest x-ray showed concern for pulmonary abscess. CT showed no evidence of abscess but septic emboli in the left upper lobe, pneumonia and associated empyema. Was transferred to [place] where she had IR drainage on 04/24. Chest tube removed 04/28. Empirically placed on Vanco/Zosyn but converted to Unasyn as recommended by ID Bacteroides and actinomyces in the cultures. Plan was for IV antibiotics X at least 6 weeks. During that hospital stay, also developed new onset A. fib RVR. Started on anticoagulation therapy and subsequently discharged on Eliquis. It was recommended that she go to skilled facility for rehab but she refused. Discharged home on 04/30. A hospital bed was arranged but has not yet been delivered (until today while she has been in the hospital) and she reports not having any of her CPAP supplies. Case management has investigated this further patient has not been using her CPAP since 2015 so does not have any supplies to be used at home. Before she developed increasing shortness of breath which prompted her return to the ED. * Overall debility is likely from above as outlined, chronic pain, neuropathy, and deconditioning * Has been seen by PT/OT who recommending rehab versus * Patient's home health reports that the patient was having great difficulty at home and questions the safety of her returning home with home health-patient is now agreeable to rehab placement. -> Plan for SNF when able. (2) Hepatic encephalopathy: Plan: Presented awake and alert. Around lunch on 05/05, patient became hypersomnolent and difficult to arouse. Work-up consistent with acute hepatic encephalopathy (which is a new diagnosis for patient)--> ammonia 48.5 - Treated with lactulose enemas given obtunded state - Patient responded favorably -> . Follow-up ammonia the next morning is 28.5, however is back up to 46 the next day despite mentating clearly More than likely, was secondary to numerous VOCAL PERFORMER depressing medications which have now since been restarted No underlying liver disease per her knowledge, but liver ultrasound shows fatty liver Patient with chronic constipation anyway--. Would benefit from routine lactulose to not only help with her constipation but prevent further hy perammonemia-continue lactulose 20 g p.o.tid needs to FU with GI as an OP anyway (3) Hypersomnolence: Plan: Developed hypersomnolence on 05/05 as above. Blood gas without evidence of acute hypercapnia. Likely secondary to polypharmacy (Seroquel, Neurontin, baclofen and Elavil on board). - W/U yielded elevated ammonia-- see above Has now been restarted on all of her home medications-and transitioned Elavil to at bedtime dosing as she takes it at home (originally was receiving this in the mornings for the first several days of her hospitalization) Must be on BiPAP at nighttime and with any naps-she is tolerating this - Continue lactulose tid (4) Anemia: Plan: presenting hemoglobin: 7.6 During her most recent hospital stay (beginning of March), hemoglobin was between 8-9 Denies melena/hematochezia, ever having an upper or lower endoscopy, DUB or menstrual bleeding Required a total of 3 units packed cells. Initially given 1 unit with improvement of hemoglobin but due to subsequent drop, 2 additional units provided was unable to obtain iron studies as already had received blood transfusion In review of her labs during her most recent hospitalization, her iron level was low at 19 and her ferritin was low level normal 42.6 IV Venofer given 05/05 and 05/06- converted to oral supplementation fecal occult blood X3 ordered- negative x1 With subsequent drop in hemoglobin, Eliquis placed on hold-- would consider holding this for 2 weeks and if FU H/H remains stable, resume Empirically added Pepcid/Carafate as patient not ideal candidate for conscious sedation for EGD/colonoscopy at this time. Consulted GI who agrees that can proceed with further work-up as an outpatient. Greatly appreciate recommendations -have since discontinued Carafate -Continue Pepcid, continue Protonix Hemoglobin improved to 10.1 and stable for many days. -Follow CBC periodically (5) Volume overload: Plan: Clinically appeared slightly volume overloaded after receiving blood transfusion IV lasix given again on 05/09 Edema mildly improved Echo showing preserved EF of 60-65% with mild pulmonary hypertension (which is likely related to her obesity hypoventilation syndrome) appears euvolemic today although has chronic peripheral edema - Continue Lasix 60 mg PO QAM and give extra lasix if seems overloaded -> Presently appears euvolemic. (6) Empyema: Plan: Empyema related to recent pneumonia noted on imaging 04/21 when presented to our emergency room Transferred to [facility] Status post IR drainage on 04/24. Chest tube removed 04/28 With Bacteroides and actinomyces growing on cultures, repeat CT chest here shows improvement since previous Seen by infectious disease recommended treatment with Unasyn for at least 4 weeks and follow-up imaging at that time Overall, patient seems to be doing well She is at her baseline in regards to oxygen requirements Afebrile and hemodynamically stable Denies shortness of breath CTA done with this hospital stay shows moderate improvement in the left-sided empyema with consistent left basilar consolidation (which ultimately will take weeks to resolve) Work-up for TB was completed by admitting provider-negative Pulmonology consulted who agreed with continuing abx (Unasyn) x 6 weeks and FU imaging at that time--> appreciate recommendations. Patient d/c'ed from [facility] with home IV abx supplies and PICC However, ID now recommends extending course of abx through 06/05/21 due to positive blood cultures here -Blood cultures with alpha Streptococcus as below (7) Pneumonia: Plan: See above (8) COVID-19: Plan: Diagnosed 04/02 Unvaccinated Received 3 doses of remdesivir Received 10 doses Decadron -She received the [employer] COVID vaccination here in the hospital on 05/10 (9) Chronic respiratory failure: Plan: Patient on 6 L supplemental oxygen at baseline along with CPAP--> currently doing well on 4 L nasal cannula at rest(avoid pulse ox >92% given risk of hypercapnia) Patient admits that she has not been compliant with her CPAP at home. Has not utilized CPAP since 2014 thus does not have appropriate supplies at home Case management working on this. Actually needs BiPAP-with review of records from [place], patient is to be on BiPAP 16/8 Obtaining BiPAP or Trilogy for home use requires more in-depth testing-Case management looking into this ABG with PaCO2 of 70 Overnight pulse oximetry on 4 L is negative for desat < 88% (10) Afib: Plan: Diagnosed while at [facility]. Likely related to catecholamine release from recent Covid and infectious pneumonia with empyema At any rate, she is in a normal sinus rhythm this entire stay x 8 days so far -continue metoprolol [id number] 2 score = 2 Eliquis on hold given subsequent drop in hemoglobin. May consider addition of Eliquis again but should have endoscopy which can be facilitated as an outpatient as not a great candidate for conscious sedation at this time. (11) Asthma-COPD overlap syndrome: Plan: No acute issues Continue chronic O2 Continue albuterol nebulizers as needed Continue umeclidinium inhaler daily (12) GERD (gastroesophageal reflux disease): Plan: Continue pantoprazole twice daily Continue Pepcid (13) Hypertension: Plan: Blood pressures are controlled - Presently 130/70. Continue metoprolol Continue furosemide (14) Major depression, recurrent: Plan: Stable Continue Seroquel, ELavil (15) AMANDA (obstructive sleep apnea): Plan: continue BiPAP for chronic hypercapnia and for AMANDA, likely OHS (16) Peripheral neuropathy: Plan: Continue gabapentin with chronic lower back pain also--added on her home Percocet at her request but reduced dose to only 5mg Q6h rather than 10mg to avoid oversedation (17) Tobacco use disorder: Plan: Needs smoking cessation counseling (18) Type 2 diabetes mellitus: Plan: Hemoglobin A1c 7.8% here. - Holding home Victoza - Continue Lantus and NovoLog -> BSs have been 140 - 230 in last 24 hours. (19) Obesity: Plan: BMI 55.3 Needs weight loss (20) Bacteremia: Plan: Growing alpha Streptococcus bacteria that is not Streptococcus pneumoniae or Enterococcus in 1/2 sets of blood cultures No fevers or leukocytosis Infectious disease consulted-appreciate recommendations to extend Unasyn therapy through 06/05/21 and if repeat BCxs positive, then remove PICC Echocardiogram on 05/04 without vegetation on the valves Repeat blood cultures 05/09-NGTD Admission and Anticipated Discharge Date Admission Date: May 04, 2021 Subjective No issues today. Awaiting placement. Reports no fevers/chills, chest pain, shortness of breath, abdominal pain, nausea, or vomiting. Physical Exam Constitutional: WD/WN, vitals as above Eyes: EOM intact bilaterally; no conjunctival abnormality ENMT: external ear and nose normal, oropharynx normal Neck: trachea midline, no thyromegaly normal visual inspection Respiratory: normal respiratory effort, lungs clear to auscultation no respiratory distress Cardiovascular: RRR, no murmur, no edema Gastrointestinal (Abdomen): Inspection/Auscultation: abdomen normal to inspection; abdomen not distended Musculoskeletal: no cyanosis or clubbing, extremities motor strength 5/5 Skin: no rashes, warm and dry Neurologic: moves all extremities and awake Psychiatric: Orientation: alert, oriented to person and cooperative Results & Data Results & Data ([facility]) Vital Signs (Past 12 Hours) Vital Signs Temp Pulse Resp BP Pulse Ox 05/15/21 07:00 37.0 C 59 L 20 131/73 92 PG Care Time/CCT Total # of Minutes Spent Total Time Spent with Patient: Total time spent is greater than 50% in coordination of care (as documented) at patient's floor/unit and/or counseling patient: Coding Level of Care Code 85177 Subseq Hosp Care Lvl 2 Diagnoses Debility R53.81 Hepatic encephalopathy K72.90 Hypersomnolence G47.10 Anemia D64.9 Anemia type: unspecified type Volume overload E87.70 Empyema J86.9 Pneumonia J18.9 Laterality: bilateral Lung location: unspecified part of lung Pneumonia type: due to unspecified organism COVID-19 U07.1 Chronic respiratory failure J96.10 Afib I48.91 Asthma-COPD overlap syndrome J44.9 GERD (gastroesophageal reflux disease) K21.9 Hypertension I10 Major depression, recurrent F33.9 AMANDA (obstructive sleep apnea) G47.33 Peripheral neuropathy G62.9 Tobacco use disorder F17.200 Type 2 diabetes mellitus E11.59; Z79.4 Diabetes mellitus complication detail: with other circulatory complications Diabetes mellitus complication status: with circulatory complication Diabetes mellitus reservoir caretaker insulin use: with reservoir caretaker use Obesity E66.9 Bacteremia R78.81 (1) Anemia Anemia type: unspecified type Qualified Code(s): D64.9 - Anemia, unspecified (2) Pneumonia Laterality: bilateral Lung location: unspecified part of lung Pneumonia type: due to unspecified organism Qualified Code(s): J18.9 - Pneumonia, unspecified organism (3) Type 2 diabetes mellitus Diabetes mellitus complication detail: with other circulatory complications Diabetes mellitus complication status: with circulatory complication Diabetes mellitus nursing home insulin use: with nursing home use Qualified Code(s): E11.59 - Type 2 diabetes mellitus with other circulatory complications; Z79.4 - skilled nursing (current) use of insulin
[2021-05-15] MEDS: GABAPENTIN 800 MG TAB PO SCH (20:30)
[2021-05-15] MEDS: AMITRIPTYLINE HCL 25 MG TAB PO SCH (20:31)
[2021-05-16] MEDS: AMPICILLIN/SULBACTAM SOD 3,000 MG in 0.9 % SODIUM CHLORIDE 100 ML IV SCH ×4 (04:53→21:45)
[2021-05-16] MEDS: CHOLECALCIFEROL 5,000 UNITS 125 MCG TAB PO SCH (07:56)
[2021-05-16] MEDS: ATORVASTATIN 10 MG TAB PO SCH (07:56)
[2021-05-16] MEDS: rOPINIRole HCL 1 MG TABLET PO SCH ×3 (07:57→21:33)
[2021-05-16] MEDS: QUEtiapine FUMARATE 300 MG TABLET PO SCH ×2 (07:57→21:33)
[2021-05-16] MEDS: FAMOTIDINE 20 MG TAB PO SCH ×2 (07:57→21:32)
[2021-05-16] MEDS: METOPROLOL TARTRATE 50 MG TAB PO SCH ×2 (07:57→21:31)
[2021-05-16] MEDS: FERROUS SULFATE 325 MG TAB PO SCH ×2 (07:57→16:05)
[2021-05-16] MEDS: PANTOprazole 40 MG TAB PO SCH ×2 (07:57→21:33)
[2021-05-16] MEDS: FUROSEMIDE 20 MG TAB PO SCH (07:58)
[2021-05-16] MEDS: GABAPENTIN 400 MG CAP PO SCH ×2 (07:58→13:05)
[2021-05-16] MEDS: LACTULOSE SYRUP 20 GM/30 ML UDC PO SCH ×3 (07:58→21:34)
[2021-05-16] MEDS: TOLTERODINE TARTRATE LA 2 MG CAPCR PO SCH (07:58)
[2021-05-16] MEDS: UMECLIDINIUM BROMIDE 62.5MCG/BLISTER 7 PUFFS/INHALER INH SCH (07:59)
[2021-05-16] MEDS: INSULIN ASPART PER UNIT SC SCH ×4 (08:06→21:34)
[2021-05-16] MEDS: POTASSIUM CHLORIDE CRTAB 20 MEQ TABCR PO SCH (08:07)
[2021-05-16] MEDS: INSULIN GLARGINE SOLOSTAR 100 UNITS/ML 3 ML PEN SQ SCH (08:07)
[2021-05-16] MEDS: DOCUSATE SODIUM/SENNA 50/8.6MG TAB PO SCH ×3 (08:07→22:05)
--- NOTE | 2021-05-16 13:35 | Hospitalist Progress Note ---
Date of Service May 16, 2021 Assessment & Plan (1) Debility: Plan: Mrs. Hong is a 55-year-old white female who is morbidly obese. Has chronic respiratory failure with likely obesity hypoventilation syndrome, COPDon chronic 6 L of oxygen, and sleep apnea requiring CPAP. She was hospitalized here 04/02 through 04/05 with Covid. Received doses of remdesivir and IV Decadron. Was not requiring any additional oxygen and subsequently sent home with continued p.o. Decadron. Presented back to the ED on 04/21 with increasing shortness of breath and hypoxemia of 83%. Chest x-ray showed concern for pulmonary abscess. CT showed no evidence of abscess but septic emboli in the left upper lobe, pneumonia and associated empyema. Was transferred to [place] where she had IR drainage on 04/24. Chest tube removed 04/28. Empirically placed on Vanco/Zosyn but converted to Unasyn as recommended by ID Bacteroides and actinomyces in the cultures. Plan was for IV antibiotics X at least 6 weeks. During that hospital stay, also developed new onset A. fib RVR. Started on anticoagulation therapy and subsequently discharged on Eliquis. It was recommended that she go to skilled facility for rehab but she refused. Discharged home on 04/30. A hospital bed was arranged but has not yet been delivered (until today while she has been in the hospital) and she reports not having any of her CPAP supplies. Case management has investigated this further patient has not been using her CPAP since 2015 so does not have any supplies to be used at home. Before she developed increasing shortness of breath which prompted her return to the ED. * Overall debility is likely from above as outlined, chronic pain, neuropathy, and deconditioning * Has been seen by PT/OT who recommending rehab versus * Patient's home health reports that the patient was having great difficulty at home and questions the safety of her returning home with home health-patient is now agreeable to rehab placement. -> Plan for home tomorrow. (2) Hepatic encephalopathy: Plan: Presented awake and alert. Around lunch on 05/05, patient became hypersomnolent and difficult to arouse. Work-up consistent with acute hepatic encephalopathy (which is a new diagnosis for patient)--> ammonia 48.5 - Treated with lactulose enemas given obtunded state - Patient responded favorably -> . Follow-up ammonia the next morning is 28.5, however is back up to 46 the next day despite mentating clearly More than likely, was secondary to numerous [employer] depressing medications which have now since been restarted No underlying liver disease per her knowledge, but liver ultrasound shows fatty liver Patient with chronic constipation anyway--. Would benefit from routine lactulose to not only help with her constipation but prevent further hy perammonemia-continue lactulose 20 g p.o.tid needs to FU with GI as an OP anyway (3) Hypersomnolence: Plan: Developed hypersomnolence on 05/05 as above. Blood gas without evidence of acute hypercapnia. Likely secondary to polypharmacy (Seroquel, Neurontin, baclofen and Elavil on board). - W/U yielded elevated ammonia-- see above Has now been restarted on all of her home medications-and transitioned Elavil to at bedtime dosing as she takes it at home (originally was receiving this in the mornings for the first several days of her hospitalization) Must be on BiPAP at nighttime and with any naps-she is tolerating this - Continue lactulose tid (4) Anemia: Plan: presenting hemoglobin: 7.6 During her most recent hospital stay (beginning of March), hemoglobin was between 8-9 Denies melena/hematochezia, ever having an upper or lower endoscopy, DUB or menstrual bleeding Required a total of 3 units packed cells. Initially given 1 unit with improvement of hemoglobin but due to subsequent drop, 2 additional units provided was unable to obtain iron studies as already had received blood transfusion In review of her labs during her most recent hospitalization, her iron level was low at 19 and her ferritin was low level normal 42.6 IV Venofer given 05/05 and 05/06- converted to oral supplementation fecal occult blood X3 ordered- negative x1 With subsequent drop in hemoglobin, Eliquis placed on hold-- would consider holding this for 2 weeks and if FU H/H remains stable, resume Empirically added Pepcid/Carafate as patient not ideal candidate for conscious sedation for EGD/colonoscopy at this time. Consulted GI who agrees that can proceed with further work-up as an outpatient. Greatly appreciate recommendations -have since discontinued Carafate -Continue Pepcid, continue Protonix Hemoglobin improved to 10.1 and stable for many days. -Follow CBC periodically (5) Volume overload: Plan: Clinically appeared slightly volume overloaded after receiving blood transfusion IV lasix given again on 05/09 Edema mildly improved Echo showing preserved EF of 60-65% with mild pulmonary hypertension (which is likely related to her obesity hypoventilation syndrome) appears euvolemic today although has chronic peripheral edema - Continue Lasix 60 mg PO QAM and give extra lasix if seems overloaded -> Presently appears euvolemic. (6) Empyema: Plan: Empyema related to recent pneumonia noted on imaging 04/21 when presented to our emergency room Transferred to [facility] Status post IR drainage on 04/24. Chest tube removed 04/28 With Bacteroides and actinomyces growing on cultures, repeat CT chest here shows improvement since previous Seen by infectious disease recommended treatment with Unasyn for at least 4 weeks and follow-up imaging at that time Overall, patient seems to be doing well She is at her baseline in regards to oxygen requirements Afebrile and hemodynamically stable Denies shortness of breath CTA done with this hospital stay shows moderate improvement in the left-sided empyema with consistent left basilar consolidation (which ultimately will take weeks to resolve) Work-up for TB was completed by admitting provider-negative Pulmonology consulted who agreed with continuing abx (Unasyn) x 6 weeks and FU imaging at that time--> appreciate recommendations. Patient d/c'ed from [place] with home IV abx supplies and PICC However, ID now recommends extending course of abx through 06/05/21 due to positive blood cultures here -Blood cultures with alpha Streptococcus as below (7) Pneumonia: Plan: See above (8) COVID-19: Plan: Diagnosed 04/02 Unvaccinated Received 3 doses of remdesivir Received 10 doses Decadron -She received the [employer] COVID vaccination here in the hospital on 05/10 (9) Chronic respiratory failure: Plan: Patient on 6 L supplemental oxygen at baseline along with CPAP--> currently doing well on 4 L nasal cannula at rest(avoid pulse ox >92% given risk of hypercapnia) Patient admits that she has not been compliant with her CPAP at home. Has not utilized CPAP since 2014 thus does not have appropriate supplies at home Case management working on this. Actually needs BiPAP-with review of records from [place], patient is to be on BiPAP 12/12 Obtaining BiPAP or Trilogy for home use requires more in-depth testing-Case management looking into this ABG with PaCO2 of 70 Overnight pulse oximetry on 4 L is negative for desat < 88% (10) Afib: Plan: Diagnosed while at [facility]. Likely related to catecholamine release from recent Covid and infectious pneumonia with empyema At any rate, she is in a normal sinus rhythm this entire stay x 8 days so far -continue metoprolol [id number] 2 score = 2 Eliquis on hold given subsequent drop in hemoglobin. May consider addition of Eliquis again but should have endoscopy which can be facilitated as an outpatient as not a great candidate for conscious sedation at this time. (11) Asthma-COPD overlap syndrome: Plan: No acute issues Continue chronic O2 Continue albuterol nebulizers as needed Continue umeclidinium inhaler daily (12) GERD (gastroesophageal reflux disease): Plan: Continue pantoprazole twice daily Continue Pepcid (13) Hypertension: Plan: Blood pressures are controlled - Presently 130/70. Continue metoprolol Continue furosemide (14) Major depression, recurrent: Plan: Stable Continue Seroquel, ELavil (15) AMANDA (obstructive sleep apnea): Plan: continue BiPAP for chronic hypercapnia and for AMANDA, likely OHS (16) Peripheral neuropathy: Plan: Continue gabapentin with chronic lower back pain also--added on her home Percocet at her request but reduced dose to only 5mg Q6h rather than 10mg to avoid oversedation (17) Tobacco use disorder: Plan: Needs smoking cessation counseling (18) Type 2 diabetes mellitus: Plan: Hemoglobin A1c 7.8% here. - Holding home Victoza - Continue Lantus and NovoLog -> BSs have been 140 - 230 in last 24 hours. (19) Obesity: Plan: BMI 55.3 Needs weight loss (20) Bacteremia: Plan: Growing alpha Streptococcus bacteria that is not Streptococcus pneumoniae or Enterococcus in 1/2 sets of blood cultures No fevers or leukocytosis Infectious disease consulted-appreciate recommendations to extend Unasyn therapy through 06/05/21 and if repeat BCxs positive, then remove PICC Echocardiogram on 05/04 without vegetation on the valves Repeat blood cultures 05/09-NGTD Admission and Anticipated Discharge Date Admission Date: May 04, 2021 Subjective No change today. No anxiety overnight. Reports no fevers/chills, chest pain, shortness of breath, abdominal pain, nausea, or vomiting. Physical Exam Constitutional: WD/WN, vitals as above Eyes: EOM intact bilaterally; no conjunctival abnormality ENMT: external ear and nose normal, oropharynx normal Neck: trachea midline, no thyromegaly normal visual inspection Respiratory: normal respiratory effort, lungs clear to auscultation no respiratory distress Cardiovascular: RRR, no murmur, no edema Gastrointestinal (Abdomen): Inspection/Auscultation: abdomen normal to inspection; abdomen not distended Musculoskeletal: no cyanosis or clubbing, extremities motor strength 5/5 Skin: no rashes, warm and dry Neurologic: moves all extremities and awake Psychiatric: Orientation: alert, oriented to person and cooperative Results & Data Results & Data ([facility]) Vital Signs (Past 12 Hours) Vital Signs Temp Pulse Resp BP Pulse Ox 05/16/21 07:07 36.6 C 57 L 18 122/71 92 05/16/21 03:00 36.8 C 60 20 137/73 92 PG Care Time/CCT Total # of Minutes Spent Total Time Spent with Patient: Total time spent is greater than 50% in coordination of care (as documented) at patient's floor/unit and/or counseling patient: Coding Level of Care Code 62460 Subseq Hosp Care Lvl 1 Diagnoses Debility R53.81 Hepatic encephalopathy K72.90 Hypersomnolence G47.10 Anemia D64.9 Anemia type: unspecified type Volume overload E87.70 Empyema J86.9 Pneumonia J18.9 Laterality: bilateral Lung location: unspecified part of lung Pneumonia type: due to unspecified organism COVID-19 U07.1 Chronic respiratory failure J96.10 Afib I48.91 Asthma-COPD overlap syndrome J44.9 GERD (gastroesophageal reflux disease) K21.9 Hypertension I10 Major depression, recurrent F33.9 AMANDA (obstructive sleep apnea) G47.33 Peripheral neuropathy G62.9 Tobacco use disorder F17.200 Type 2 diabetes mellitus E11.59; Z79.4 Diabetes mellitus complication detail: with other circulatory complications Diabetes mellitus complication status: with circulatory complication Diabetes mellitus correction insulin use: with correction use Obesity E66.9 Bacteremia R78.81 (1) Anemia Anemia type: unspecified type Qualified Code(s): D64.9 - Anemia, unspecified (2) Pneumonia Laterality: bilateral Lung location: unspecified part of lung Pneumonia type: due to unspecified organism Qualified Code(s): J18.9 - Pneumonia, unspecified organism (3) Type 2 diabetes mellitus Diabetes mellitus complication detail: with other circulatory complications Diabetes mellitus complication status: with circulatory complication Diabetes mellitus correction insulin use: with technician terminal and repeater use Qualified Code(s): E11.59 - Type 2 diabetes mellitus with other circulatory complications; Z79.4 - technician terminal and repeater (current) use of insulin
[2021-05-16] MEDS: oxyCODONE/ACETAMINOPHEN 5mg/325mg TAB PO PRN ×2 (15:00→22:05)
[2021-05-16] MEDS: GABAPENTIN 800 MG TAB PO SCH (21:32)
[2021-05-16] MEDS: AMITRIPTYLINE HCL 25 MG TAB PO SCH (21:32)
[2021-05-17] MEDS: AMPICILLIN/SULBACTAM SOD 3,000 MG in 0.9 % SODIUM CHLORIDE 100 ML IV SCH ×4 (03:32→22:11)
[2021-05-17 07:35] LABS: Hematocrit (blood only) 35.6 % (37-47); Hemoglobin 9.8 g/dL (12.0-16.0); Mean Corpuscular Hgb Conc 27.5 g/dL (32-36); Mean Corpuscular Volume 90.8 fL (80-100); Platelet Count 164 K/uL (130-400); RDW Coefficient of Variation 25.5 % (11.5-14.5); RDW Standard Deviation 85.4 fL (36.4-46.3); Red Blood Count 3.92 M/uL (4.2-5.4); White Blood Count 3.09 K/uL (4.8-10.8)
[2021-05-17 08:04] LABS: Albumin Globulin Ratio 0.9 (0.9-2); BUN Creatinine Ratio 12.8 (10-20); Bilirubin,Total 0.5 mg/dl (0.2-1.0); Calcium 8.8 mg/dl (8.5-10.1); Creatinine Clr Calc Pharmacy 134.8 ml/min; Est GFR (African American) 89.4 ml/min; Est GFR (Non-African American) 77.1 ml/min; Globulin 3.5 gm/dl (2.5-4.0); Magnesium 1.9 mg/dl (1.7-2.4); Potassium 3.6 mmol/L (3.5-5.1); Total Protein 6.5 gm/dl (6.0-8.3)
[2021-05-17] MEDS: TOLTERODINE TARTRATE LA 2 MG CAPCR PO SCH (08:49)
[2021-05-17] MEDS: GABAPENTIN 400 MG CAP PO SCH ×2 (08:50→13:21)
[2021-05-17] MEDS: QUEtiapine FUMARATE 300 MG TABLET PO SCH ×2 (08:50→20:15)
[2021-05-17] MEDS: CHOLECALCIFEROL 5,000 UNITS 125 MCG TAB PO SCH (08:51)
[2021-05-17] MEDS: rOPINIRole HCL 1 MG TABLET PO SCH ×3 (08:51→20:17)
[2021-05-17] MEDS: FAMOTIDINE 20 MG TAB PO SCH ×2 (08:51→20:16)
[2021-05-17] MEDS: LACTULOSE SYRUP 20 GM/30 ML UDC PO SCH ×3 (08:51→20:15)
[2021-05-17] MEDS: FERROUS SULFATE 325 MG TAB PO SCH ×2 (08:51→17:11)
[2021-05-17] MEDS: PANTOprazole 40 MG TAB PO SCH ×2 (08:52→20:15)
[2021-05-17] MEDS: METOPROLOL TARTRATE 50 MG TAB PO SCH ×2 (08:52→20:16)
[2021-05-17] MEDS: UMECLIDINIUM BROMIDE 62.5MCG/BLISTER 7 PUFFS/INHALER INH SCH (08:53)
[2021-05-17] MEDS: INSULIN GLARGINE SOLOSTAR 100 UNITS/ML 3 ML PEN SQ SCH (08:54)
[2021-05-17] MEDS: ATORVASTATIN 10 MG TAB PO SCH (08:55)
[2021-05-17] MEDS: FUROSEMIDE 20 MG TAB PO SCH (08:55)
[2021-05-17] MEDS: INSULIN ASPART PER UNIT SC SCH ×4 (09:04→20:24)
[2021-05-17] MEDS: POTASSIUM CHLORIDE CRTAB 20 MEQ TABCR PO SCH (09:05)
[2021-05-17] MEDS: DOCUSATE SODIUM/SENNA 50/8.6MG TAB PO SCH ×3 (09:07→20:24)
[2021-05-17] MEDS: oxyCODONE/ACETAMINOPHEN 5mg/325mg TAB PO PRN (10:44)
--- NOTE | 2021-05-17 14:57 | Discharge Summary ---
Date of Service May 17, 2021 Admission HPI Per Admitting Provider Patient is a 55-year-old female with past medical history of type 2 diabetes, hypertension, dyslipidemia, tobacco use disorder, morbid obesity who has had numerous recent hospital visits. Initially evaluated and admitted to [facility] on April 02, 2021 for management of COVID-19 with acute on chronic respiratory failure with hypoxia and hypercapnia. Patient is not vaccinated for COVID-19. Was started on remdesivir and dexamethasone and discharged home 3 days later with outpatient continuation of medications. She was seen by her outpatient PCP on April 10 and then represented to the emergency department on April 21 for significant respiratory distress. CT angiogram of the chest at that time found a pulmonary abscess. Case was discussed with on-call research environmental scientist who recommended patient be transferred for evaluation by cardiothoracic surgery and patient was transferred to [facility]. Discharge summary from [facility] shows hospitalization significant for placement of left-sided chest tube via IR on 04/24/2021 with follow-up from thoracic surgery team. Body fluid cultures resulted as polymicrobial including Bacteroides and actinomyces. Chest tube removed on April 28. Patient was switched from vancomycin and Zosyn to Unasyn and recommended to complete 4 weeks of IV Unasyn 3 g every 6 hours per their ID team. Patient was found to have new A. fib with RVR during his hospitalization was started on Eliquis for anticoagulation. Recommendation at the end of hospitalization was for patient to go to a half-way facility and rehab however she refused requested to go home instead so home health care was arranged for the IV antibiotics and wound care. She was discharged from [facility] on May 02, 2021. Discharge summary notes that she was sent home on 5 L nasal cannula as well as with a urinary catheter and PICC line. She presents to [facility] ER on 05/04/2021 for complaints of worsening shortness of breath. She states that she tried to use her CPAP at home and was not having any improvement in breathing. She states that she is continuing to have shortness of breath at rest that is worse with movement and ambulation. She denies any chest pain or chest tightness associated with this. She denies any bodily pain, nausea, vomiting, diarrhea. She does states that she has some irritation on her leg near where her urinary catheter exits. She denies any fevers or chills at home. She continues to have a nonproductive cough. Principal Diagnosis Empyema & bacteremia Discharge Exam Constitutional WD/WN, vitals as above Eyes EOM intact bilaterally; no conjunctival abnormality ENMT external ear and nose normal, oropharynx normal Neck trachea midline, no thyromegaly normal visual inspection Respiratory normal respiratory effort, lungs clear to auscultation no respiratory distress Cardiovascular RRR, no murmur, no edema Gastrointestinal (Abdomen) Inspection/Auscultation: abdomen normal to inspection; abdomen not distended Musculoskeletal no cyanosis or clubbing, extremities motor strength 5/5 Skin no rashes, warm and dry Neurologic moves all extremities and awake Psychiatric Orientation: alert, oriented to person and cooperative Discharge Data Allergies Allergy/AdvReac Type Severity Reaction Status Date / Time bee venom protein (honey bee) Allergy Mild Unknown Verified 05/03/21 22:58 rosiglitazone [From Avandia] Allergy Unknown Unknown Verified 05/03/21 22:58 hydrocodone AdvReac Intermediate itching Verified 05/03/21 22:58 Consultations 05/04/21 01:21 ED Decision to Admit Stat 05/04/21 02:09 Consult Pulmonology Routine 05/04/21 13:21 Consult Health Information Management Routine 05/05/21 18:11 Consult Gastroenterology Routine 05/09/21 08:28 Consult Infectious Diseases Routine Ordered Studies 05/03/21 23:23 CT angio chest PE protocol Urgent 05/05/21 13:12 CT head/brain wo con Stat 05/06/21 12:09 US liver Routine Hospital Course (1) Debility: Mrs. Hong is a 55-year-old white female who is morbidly obese. Has chronic respiratory failure with likely obesity hypoventilation syndrome, COPDon chronic 6 L of oxygen, and sleep apnea requiring CPAP. She was hospitalized here 04/02 through 04/05 with Covid. Received doses of remdesivir and IV Decadron. Was not requiring any additional oxygen and subsequently sent home with continued p.o. Decadron. Presented back to the ED on 04/21 with increasing shortness of breath and hypoxemia of 83%. Chest x-ray showed concern for pulmonary abscess. CT showed no evidence of abscess but septic emboli in the left upper lobe, pneumonia and associated empyema. Was transferred to [place] where she had IR drainage on 04/24. Chest tube removed 04/28. E mpirically placed on Vanco/Zosyn but converted to Unasyn as recommended by ID Bacteroides and actinomyces in the cultures. Plan was for IV antibiotics X at least 6 weeks. During that hospital stay, also developed new onset A. fib RVR. Started on anticoagulation therapy and subsequently discharged on Eliquis. It was recommended that she go to skilled facility for rehab but she refused. Discharged home on 04/30. A hospital bed was arranged but has not yet been delivered (until today while she has been in the hospital) and she reports not having any of her CPAP supplies. Case management has investigated this further patient has not been using her CPAP since 2014 so does not have any supplies to be used at home. Before she developed increasing shortness of breath which prompted her return to the ED. * Overall debility is likely from above as outlined, chronic pain, neuropathy, and deconditioning * Has been seen by PT/OT who recommending rehab versus * Patient's home health reports that the patient was having great difficulty at home and questions the safety of her returning home with home health; however, patient would like to go home due to slow time to placement. (2) Hepatic encephalopathy: Presented awake and alert. Around lunch on 05/05, patient became hypersomnolent and difficult to arouse. Work-up consistent with acute hepatic encephalopathy (which is a new diagnosis for patient)--> ammonia 48.5 - Treated with lactulose enemas given obtunded state - Patient responded favorably -> . Follow-up ammonia the next morning is 28.5, however is back up to 46 the next day despite mentating clearly More than likely, was secondary to numerous [employer]UM[employer] SERVICES PROFESSION[employer] depressing medications which have now since been restarted No underlying liver disease per her knowledge, but liver ultrasound shows fatty liver Patient with chronic constipation anyway--. Would benefit from routine lactulose to not only help with her constipation but prevent further hyperammonemia-continue lactulose 20 g p.o.tid needs to FU with GI as an OP anyway (3) Hypersomnolence: Developed hypersomnolence on 05/05 as above. Blood gas without evidence of acute hypercapnia. Likely secondary to polypharmacy (Seroquel, Neurontin, baclofen and Elavil on board). - W/U yielded elevated ammonia-- see above Has now been restarted on all of her home medications-and transitioned Elavil to at bedtime dosing as she takes it at home (originally was receiving this in the mornings for the first several days of her hospitalization) Must be on BiPAP at nighttime and with any naps-she is tolerating this - Continue lactulose tid (4) Anemia: presenting hemoglobin: 7.6 During her most recent hospital stay (beginning of March), hemoglobin was between 8-9 Denies melena/hematochezia, ever having an upper or lower endoscopy, DUB or menstrual bleeding Required a total of 3 units packed cells. Initially given 1 unit with improvement of hemoglobin but due to subsequent drop, 2 additional units provided was unable to obtain iron studies as already had received blood transfusion In review of her labs during her most recent hospitalization, her iron level was low at 19 and her ferritin was low level normal 42.6 IV Venofer given 05/05 and 05/06- converted to oral supplementation fecal occult blood X3 ordered- negative x1 With subsequent drop in hemoglobin, Eliquis placed on hold-- would consider holding this for 2 weeks and if FU H/H remains stable, resume Empirically added Pepcid/Carafate as patient not ideal candidate for conscious sedation for EGD/colonoscopy at this time. Consulted GI who agrees that can proceed with further work-up as an outpatient. Greatly appreciate recommendations -have since discontinued Carafate -Continue Pepcid, continue Protonix Hemoglobin improved to 10.1 and stable for many days. -Follow CBC periodically (5) Volume overload: Clinically appeared slightly volume overloaded after receiving blood transfusion IV lasix given again on 05/09 Edema mildly improved Echo showing preserved EF of 60-65% with mild pulmonary hypertension (which is likely related to her obesity hypoventilation syndrome) appears euvolemic today although has chronic peripheral edema - Continue Lasix 60 mg PO QAM and give extra lasix if seems overloaded -> Presently appears euvolemic. (6) Empyema: Empyema related to recent pneumonia noted on imaging 04/21 when presented to our emergency room Transferred to [facility] [address] Status post IR drainage on 04/24. Chest tube removed 04/28 With Bacteroides and actinomyces growing on cultures, repeat CT chest here shows improvement since previous Seen by infectious disease recommended treatment with Unasyn for at least 4 weeks and follow-up imaging at that time Overall, patient seems to be doing well She is at her baseline in regards to oxygen requirements Afebrile and hemodynamically stable Denies shortness of breath CTA done with this hospital stay shows moderate improvement in the left-sided empyema with consistent left basilar consolidation (which ultimately will take weeks to resolve) Work-up for TB was completed by admitting provider-negative Pulmonology consulted who agreed with continuing abx (Unasyn) x 6 weeks and FU imaging at that time--> appreciate recommendations. Patient d/c'ed from [place] with home IV abx supplies and PICC However, ID now recommends extending course of abx through 06/05/21 due to positive blood cultures here -Blood cultures with alpha Streptococcus as below (7) Pneumonia: See above (8) COVID-19: Diagnosed 04/02 Unvaccinated Received 3 doses of remdesivir Received 10 doses Decadron -She received the [employer] COVID vaccination here in the hospital on 05/10 (9) Chronic respiratory failure: Patient on 6 L supplemental oxygen at baseline along with CPAP--> currently doing well on 4 L nasal cannula at rest(avoid pulse ox >92% given risk of hypercapnia) Patient admits that she has not been compliant with her CPAP at home. Has not utilized CPAP since 2014 thus does not have appropriate supplies at home Case management working on this. Actually needs BiPAP-with review of records from [place], patient is to be on BiPAP 12/12 Obtaining BiPAP or Trilogy for home use requires more in-depth testing-Case management looking into this ABG with PaCO2 of 70 Overnight pulse oximetry on 4 L is negative for desat < 88% (10) Afib: Diagnosed while at [facility]. Likely related to catecholamine release from recent Covid and infectious pneumonia with empyema At any rate, she is in a normal sinus rhythm this entire stay x 8 days so far -continue metoprolol [id number] 2 score = 2 Eliquis on hold given subsequent drop in hemoglobin. May consider addition of Eliquis again but should have endoscopy which can be facilitated as an outpatient as not a great candidate for conscious sedation at this time. (11) Asthma-COPD overlap syndrome: No acute issues Continue chronic O2 Continue albuterol nebulizers as needed Continue umeclidinium inhaler daily (12) GERD (gastroesophageal reflux disease): Continue pantoprazole twice daily Continue Pepcid (13) Hypertension: Blood pressures are controlled - Presently 130/70. Continue metoprolol Continue furosemide (14) Major depression, recurrent: Stable Continue Seroquel, ELavil (15) AMANDA (obstructive sleep apnea): continue BiPAP for chronic hypercapnia and for AMANDA, likely OHS (16) Peripheral neuropathy: Continue gabapentin with chronic lower back pain also--added on her home Percocet at her request but reduced dose to only 5mg Q6h rather than 10mg to avoid oversedation (17) Tobacco use disorder: Needs smoking cessation counseling (18) Type 2 diabetes mellitus: Hemoglobin A1c 7.8% here. - Holding home Victoza - Continue Lantus and NovoLog -> BSs have been 140 - 230 in last 24 hours. (19) Obesity: BMI 55.3 Needs weight loss (20) Bacteremia: Growing alpha Streptococcus bacteria that is not Streptococcus pneumoniae or Enterococcus in 1/2 sets of blood cultures No fevers or leukocytosis Infectious disease consulted-appreciate recommendations to extend Unasyn therapy through 06/05/21 and if repeat BCxs positive, then remove PICC Echocardiogram on 05/04 without vegetation on the valves Repeat blood cultures 05/09-NGTD Total Time Total Time Spent Total Time Spent (In Minutes): 35 Discharge Plan Discharge Items Patient Disposition: Home - Home Health Services Reason For Visit: SOB, RESP FAILURE Discharge Diagnosis: Infection in the lung, need for IV antibiotics Activity: Resume your previous activity Non-emergency contact: Primary Care Provider Call non-emergency contact if: your symptoms worsen and your temperature is above 101 Follow-up/Referrals: Nuha Welch CRNP [Primary Care Provider] - Denys Interiano DO [Physician] - (Please see Dr. Interiano of GI in the next few weeks.) Diet: Heart Healthy Addtl Attending Provider Instructions: Ms. Hong, You were admitted to the hospital with an infection in the lung that also got into the bloodstream. You will need to be on IV antibiotics until June 05. We have arranged home support as best we can to help prevent any issues. You will need to follow up with GI because when you were on anticoagulation (blood thinner), your red blood cells (hemoglobin) dropped, so we are worried about bleeding. Pending Studies at Discharge: No Stand-Alone Forms: [facility], Smoking Cessation Medications and DC Order Prescriptions: New ferrous sulfate 325 mg (65 mg iron) Tablet,Delayed Release (Dr/Ec) 325 mg PO DAILY Qty: 0 RF: 0 lactulose 20 gram/30 mL Solution 20 g PO BID Qty: 2880 RF: 0 Continued (DME) Oxygen Home Liters Per Minute See Dose Instructions .ROUTE .MEDSUPPLY Qty: 1 RF: 0 albuterol sulfate 2.5 mg /3 mL (0.083 %) solution for nebulization 2.5 mg INH Q4H PRN (Reason: shortness of breath or wheezing) Qty: 180 RF: 5 (DME) blood-glucose meter [Blueboxuch Ultra2 Meter] Kit See Rx Instructions .ROUTE .MEDSUPPLY Qty: 1 RF: 0 (DME) lancets [OneTouch Delica Plus Lancet] 30 gauge misc See Rx Instructions .ROUTE .MEDSUPPLY Qty: 100 RF: 5 ropinirole 1 mg tablet See Rx Instructions .ROUTE .COMPLEX Qty: 120 RF: 11 sennosides-docusate sodium [Senna Plus] 8.6-50 mg tablet 1 tab-cap PO TID Qty: 90 RF: 5 atorvastatin 10 mg tablet 10 mg PO DAILY Qty: 30 RF: 11 quetiapine 300 mg tablet 300 mg PO BID Qty: 60 RF: 11 epinephrine 0.3 mg/0.3 mL auto-injector See Rx Instructions .ROUTE .COMPLEX Qty: 2 RF: 1 (DME) blood sugar diagnostic Strip See Rx Instructions .ROUTE .MEDSUPPLY Qty: 100 RF: 5 gabapentin 400 mg capsule See Rx Instructions .ROUTE .COMPLEX Qty: 120 RF: 5 cholecalciferol (vitamin D3) 125 mcg (5,000 unit) capsule 125 mcg PO DAILY Qty: 30 RF: 11 Apidra SoloStar U-100 Insulin 100 unit/mL insulin pen See Rx Instructions .ROUTE .COMPLEX Qty: 15 RF: 11 (DME) CPAP Supplies Misc See Rx Instructions .Route Qty: 1 RF: 0 (DME) pen needle, diabetic [BD Ultra-Fine Short Pen Needle] 31 gauge x 5/16" needle See Rx Instructions .Route Qty: 100 RF: 11 furosemide [Lasix] 40 mg tablet 60 mg PO DAILY Qty: 135 RF: 3 metoprolol tartrate 50 mg tablet 50 mg PO BID Qty: 180 RF: 3 nystatin 100,000 unit/gram cream 1 applic topical BID PRN (Reason: rash) Qty: 30 RF: 2 (DME) sit to stand lift Qty: 1 RF: 0 (DME) Oxygen Home Liters Per Minute See Rx Instructions .ROUTE .MEDSUPPLY Qty: 1 RF: 0 tolterodine [Detrol LA] 2 mg capsule,extended release 24hr 2 mg PO DAILY Qty: 30 RF: 6 (DME) oxygen See Rx Instructions .Route .MEDSUPPLY Qty: 1 RF: 0 omeprazole 20 mg capsule,delayed release(DR/EC) 20 mg PO BID Qty: 60 RF: 11 oxycodone-acetaminophen [Percocet] 10-325 mg tablet 1 tab PO QID PRN (Reason: pain) 30 Days Qty: 15 RF: 0 docusate sodium 100 mg Capsule 100 mg PO TID PRN (Reason: Constipation) RF: 0 Narcan 4 mg/actuation spray,non-aerosol 1 spray INTRANASAL UD RF: 0 potassium chloride 20 mEq tablet,ER particles/crystals 20 meq PO DAILY RF: 0 polyethylene glycol 3350 17 gram/dose powder 17 g PO DAILY PRN (Reason: Constipation) RF: 0 mometasone 0.1 % cream 1 applic topical UD RF: 0 Lantus Solostar U-100 Insulin 100 unit/mL (3 mL) insulin pen 60 unit SQ DAILY RF: 0 Victoza 2-Venkatesh 0.6 mg/0.1 mL (18 mg/3 mL) pen injector 18 mg subcut DAILY RF: 0 Spiriva Respimat 2.5 mcg/actuation mist 2 puff inhalation BID RF: 0 Changed amitriptyline 25 mg tablet 25 mg PO HS Qty: 30 RF: 11 Discontinued baclofen 20 mg tablet 20 mg PO TID RF: 0 Discharge Orders: Discharge Order (Routine); Ordered 05/17/21 Ordered By: Lawrence Andre/Other Patient Handouts: A1C, Managing Type 2 Diabetes, Special Foot Care for Diabetes Admission Data Admit Date/Time: 05/04/21 02:02 Attending Provider: Lawrence Marques Admit Provider: Paola Concepcion Primary Care Provider: Nuha Welch Other Providers: [facility],Home Healthcare ; [facility],Health ; [place] ; [facility] [place] ; Nolan Cox ; Brittney Tavarez ; Erich Moses ; Mitesh Macias ; Pasquale Eugene ; Enrrique Padilla I. ; Napoleon Sheehan II ; Hallie Healy ; Walker Keller ; Kush Pedroza Coding Level of Care Code D/C DAY MANAGEMENT >30 MINS Diagnoses Debility R53.81 Hepatic encephalopathy K72.90 Hypersomnolence G47.10 Anemia D64.9 Anemia type: unspecified type Volume overload E87.70 Empyema J86.9 Pneumonia J18.9 Laterality: bilateral Lung location: unspecified part of lung Pneumonia type: due to unspecified organism COVID-19 U07.1 Chronic respiratory failure J96.10 Afib I48.91 Asthma-COPD overlap syndrome J44.9 GERD (gastroesophageal reflux disease) K21.9 Hypertension I10 Major depression, recurrent F33.9 AMANDA (obstructive sleep apnea) G47.33 Peripheral neuropathy G62.9 Tobacco use disorder F17.200 Type 2 diabetes mellitus E11.59; Z79.4 Diabetes mellitus complication detail: with other circulatory complications Diabetes mellitus complication status: with circulatory complication Diabetes mellitus usp insulin use: with usp use Obesity E66.9 Bacteremia R78.81
--- NOTE | 2021-05-17 15:36 | Hospitalist Progress Note ---
Date of Service May 17, 2021 Assessment & Plan (1) Debility: Plan: Mrs. Hong is a 55-year-old white female who is morbidly obese. Has chronic respiratory failure with likely obesity hypoventilation syndrome, COPDon chronic 6 L of oxygen, and sleep apnea requiring CPAP. She was hospitalized here 04/02 through 04/05 with Covid. Received doses of remdesivir and IV Decadron. Was not requiring any additional oxygen and subsequently sent home with continued p.o. Decadron. Presented back to the ED on 04/21 with increasing shortness of breath and hypoxemia of 83%. Chest x-ray showed concern for pulmonary abscess. CT showed no evidence of abscess but septic emboli in the left upper lobe, pneumonia and associated empyema. Was transferred to [place] where she had IR drainage on 04/24. Chest tube removed 04/28. Empirically placed on Vanco/Zosyn but converted to Unasyn as recommended by ID Bacteroides and actinomyces in the cultures. Plan was for IV antibiotics X at least 6 weeks. During that hospital stay, also developed new onset A. fib RVR. Started on anticoagulation therapy and subsequently discharged on Eliquis. It was recommended that she go to skilled facility for rehab but she refused. Discharged home on 04/30. A hospital bed was arranged but has not yet been delivered (until today while she has been in the hospital) and she reports not having any of her CPAP supplies. Case management has investigated this further patient has not been using her CPAP since 2015 so does not have any supplies to be used at home. Before she developed increasing shortness of breath which prompted her return to the ED. * Overall debility is likely from above as outlined, chronic pain, neuropathy, and deconditioning * Has been seen by PT/OT who recommending rehab versus * Patient's home health reports that the patient was having great difficulty at home and questions the safety of her returning home with home health; however, patient would like to go home due to slow time to placement. (2) Hepatic encephalopathy: Plan: Presented awake and alert. Around lunch on 05/05, patient became hypersomnolent and difficult to arouse. Work-up consistent with acute hepatic encephalopathy (which is a new diagnosis for patient)--> ammonia 48.5 - Treated with lactulose enemas given obtunded state - Patient responded favorably -> . Follow-up ammonia the next morning is 28.5, however is back up to 46 the next day despite mentating clearly More than likely, was secondary to numerous [employer] depressing medications which have now since been restarted No underlying liver disease per her knowledge, but liver ultrasound shows fatty liver Patient with chronic constipation anyway--. Would benefit from routine lactulose to not only help with her constipation but prevent further hyper ammonemia-continue lactulose 20 g p.o.tid needs to FU with GI as an OP anyway (3) Hypersomnolence: Plan: Developed hypersomnolence on 05/05 as above. Blood gas without evidence of acute hypercapnia. Likely secondary to polypharmacy (Seroquel, Neurontin, baclofen and Elavil on board). - W/U yielded elevated ammonia-- see above Has now been restarted on all of her home medications-and transitioned Elavil to at bedtime dosing as she takes it at home (originally was receiving this in the mornings for the first several days of her hospitalization) Must be on BiPAP at nighttime and with any naps-she is tolerating this - Continue lactulose tid (4) Anemia: Plan: presenting hemoglobin: 7.6 During her most recent hospital stay (beginning of March), hemoglobin was between 8-9 Denies melena/hematochezia, ever having an upper or lower endoscopy, DUB or menstrual bleeding Required a total of 3 units packed cells. Initially given 1 unit with improvement of hemoglobin but due to subsequent drop, 2 additional units provided was unable to obtain iron studies as already had received blood transfusion In review of her labs during her most recent hospitalization, her iron level was low at 19 and her ferritin was low level normal 42.6 IV Venofer given 05/05 and 05/06- converted to oral supplementation fecal occult blood X3 ordered- negative x1 With subsequent drop in hemoglobin, Eliquis placed on hold-- would consider holding this for 2 weeks and if FU H/H remains stable, resume Empirically added Pepcid/Carafate as patient not ideal candidate for conscious sedation for EGD/colonoscopy at this time. Consulted GI who agrees that can proceed with further work-up as an outpatient. Greatly appreciate recommendations -have since discontinued Carafate -Continue Pepcid, continue Protonix Hemoglobin improved to 10.1 and stable for many days. -Follow CBC periodically (5) Volume overload: Plan: Clinically appeared slightly volume overloaded after receiving blood transfusion IV lasix given again on 05/09 Edema mildly improved Echo showing preserved EF of 60-65% with mild pulmonary hypertension (which is likely related to her obesity hypoventilation syndrome) appears euvolemic today although has chronic peripheral edema - Continue Lasix 60 mg PO QAM and give extra lasix if seems overloaded -> Presently appears euvolemic. (6) Empyema: Plan: Empyema related to recent pneumonia noted on imaging 04/21 when presented to our emergency room Transferred to [facility] Status post IR drainage on 04/24. Chest tube removed 04/28 With Bacteroides and actinomyces growing on cultures, repeat CT chest here shows improvement since previous Seen by infectious disease recommended treatment with Unasyn for at least 4 weeks and follow-up imaging at that time Overall, patient seems to be doing well She is at her baseline in regards to oxygen requirements Afebrile and hemodynamically stable Denies shortness of breath CTA done with this hospital stay shows moderate improvement in the left-sided empyema with consistent left basilar consolidation (which ultimately will take weeks to resolve) Work-up for TB was completed by admitting provider-negative Pulmonology consulted who agreed with continuing abx (Unasyn) x 6 weeks and FU imaging at that time--> appreciate recommendations. Patient d/c'ed from [place] with home IV abx supplies and PICC However, ID now recommends extending course of abx through 06/05/21 due to positive blood cultures here -Blood cultures with alpha Streptococcus as below (7) Pneumonia: Plan: See above (8) COVID-19: Plan: Diagnosed 04/02 Unvaccinated Received 3 doses of remdesivir Received 10 doses Decadron -She received the [employer] COVID vaccination here in the hospital on 05/10 (9) Chronic respiratory failure: Plan: Patient on 6 L supplemental oxygen at baseline along with CPAP--> currently do ing well on 4 L nasal cannula at rest(avoid pulse ox >92% given risk of hypercapnia) Patient admits that she has not been compliant with her CPAP at home. Has not utilized CPAP since 2014 thus does not have appropriate supplies at home Case management working on this. Actually needs BiPAP-with review of records from [place], patient is to be on BiPAP 12/12 Obtaining BiPAP or Trilogy for home use requires more in-depth testing-Case management looking into this ABG with PaCO2 of 70 Overnight pulse oximetry on 4 L is negative for desat < 88% (10) Afib: Plan: Diagnosed while at [facility]. Likely related to catecholamine release from recent Covid and infectious pneumonia with empyema At any rate, she is in a normal sinus rhythm this entire stay x 8 days so far -continue metoprolol [id number] 2 score = 2 Eliquis on hold given subsequent drop in hemoglobin. May consider addition of Eliquis again but should have endoscopy which can be facilitated as an outpatient as not a great candidate for conscious sedation at this time. (11) Asthma-COPD overlap syndrome: Plan: No acute issues Continue chronic O2 Continue albuterol nebulizers as needed Continue umeclidinium inhaler daily (12) GERD (gastroesophageal reflux disease): Plan: Continue pantoprazole twice daily Continue Pepcid (13) Hypertension: Plan: Blood pressures are controlled - Presently 130/70. Continue metoprolol Continue furosemide (14) Major depression, recurrent: Plan: Stable Continue Seroquel, ELavil (15) AMANDA (obstructive sleep apnea): Plan: continue BiPAP for chronic hypercapnia and for AMANDA, likely OHS (16) Peripheral neuropathy: Plan: Continue gabapentin with chronic lower back pain also--added on her home Percocet at her request but reduced dose to only 5mg Q6h rather than 10mg to avoid oversedation (17) Tobacco use disorder: Plan: Needs smoking cessation counseling (18) Type 2 diabetes mellitus: Plan: Hemoglobin A1c 7.8% here. - Holding home Victoza - Continue Lantus and NovoLog -> BSs have been 140 - 230 in last 24 hours. (19) Obesity: Plan: BMI 55.3 Needs weight loss (20) Bacteremia: Plan: Growing alpha Streptococcus bacteria that is not Streptococcus pneumoniae or Enterococcus in 1/2 sets of blood cultures No fevers or leukocytosis Infectious disease consulted-appreciate recommendations to extend Unasyn therapy through 06/05/21 and if repeat BCxs positive, then remove PICC Echocardiogram on 05/04 without vegetation on the valves Repeat blood cultures 05/09-NGTD Admission and Anticipated Discharge Date Admission Date: May 04, 2021 Subjective No change today. No anxiety overnight. Reports no fevers/chills, chest pain, shortness of breath, abdominal pain, nausea, or vomiting. Physical Exam Constitutional: WD/WN, vitals as above Eyes: EOM intact bilaterally; no conjunctival abnormality ENMT: external ear and nose normal, oropharynx normal Neck: trachea midline, no thyromegaly normal visual inspection Respiratory: normal respiratory effort, lungs clear to auscultation no respiratory distress Cardiovascular: RRR, no murmur, no edema Gastrointestinal (Abdomen): Inspection/Auscultation: abdomen normal to inspection; abdomen not distended Musculoskeletal: no cyanosis or clubbing, extremities motor strength 5/5 Skin: no rashes, warm and dry Neurologic: moves all extremities and awake Psychiatric: Orientation: alert, oriented to person and cooperative Results & Data Results & Data ([facility]) Vital Signs (Past 12 Hours) Vital Signs Temp Pulse Resp BP Pulse Ox 05/17/21 15:13 36.8 C 64 18 134/62 92 05/17/21 08:50 69 130/63 05/17/21 07:21 36.6 C 57 L 18 141/71 H 90 PG Care Time/CCT Total # of Minutes Spent Total Time Spent with Patient: Total time spent is greater than 50% in coordination of care (as documented) at patient's floor/unit and/or counseling patient: Coding Level of Care Code 95591 Subseq Hosp Care Lvl 1 Diagnoses Debility R53.81 Hepatic encephalopathy K72.90 Hypersomnolence G47.10 Anemia D64.9 Anemia type: unspecified type Volume overload E87.70 Empyema J86.9 Pneumonia J18.9 Laterality: bilateral Lung location: unspecified part of lung Pneumonia type: due to unspecified organism COVID-19 U07.1 Chronic respiratory failure J96.10 Afib I48.91 Asthma-COPD overlap syndrome J44.9 GERD (gastroesophageal reflux disease) K21.9 Hypertension I10 Major depression, recurrent F33.9 AMANDA (obstructive sleep apnea) G47.33 Peripheral neuropathy G62.9 Tobacco use disorder F17.200 Type 2 diabetes mellitus E11.59; Z79.4 Diabetes mellitus complication detail: with other circulatory complications Diabetes mellitus complication status: with circulatory complication Diabetes mellitus longitudinal float operator insulin use: with senior care use Obesity E66.9 Bacteremia R78.81 (1) Anemia Anemia type: unspecified type Qualified Code(s): D64.9 - Anemia, unspecified (2) Pneumonia Laterality: bilateral Lung location: unspecified part of lung Pneumonia type: due to unspecified organism Qualified Code(s): J18.9 - Pneumonia, unspecified organism (3) Type 2 diabetes mellitus Diabetes mellitus complication detail: with other circulatory complications Diabetes mellitus complication status: with circulatory complication Diabetes mellitus senior care insulin use: with senior care use Qualified Code(s): E11.59 - Type 2 diabetes mellitus with other circulatory complications; Z79.4 - [facility] (current) use of insulin
[2021-05-17] MEDS: GABAPENTIN 800 MG TAB PO SCH (20:15)
[2021-05-17] MEDS: AMITRIPTYLINE HCL 25 MG TAB PO SCH (20:15)
[2021-05-18] MEDS: AMPICILLIN/SULBACTAM SOD 3,000 MG in 0.9 % SODIUM CHLORIDE 100 ML IV SCH ×2 (04:50→09:50)
[2021-05-18] MEDS: FERROUS SULFATE 325 MG TAB PO SCH (09:37)
[2021-05-18] MEDS: DOCUSATE SODIUM/SENNA 50/8.6MG TAB PO SCH (09:44)
[2021-05-18] MEDS: oxyCODONE/ACETAMINOPHEN 5mg/325mg TAB PO PRN (09:44)
[2021-05-18] MEDS: POTASSIUM CHLORIDE CRTAB 20 MEQ TABCR PO SCH (09:44)
[2021-05-18] MEDS: ATORVASTATIN 10 MG TAB PO SCH (09:45)
[2021-05-18] MEDS: CHOLECALCIFEROL 5,000 UNITS 125 MCG TAB PO SCH (09:45)
[2021-05-18] MEDS: TOLTERODINE TARTRATE LA 2 MG CAPCR PO SCH (09:45)
[2021-05-18] MEDS: FAMOTIDINE 20 MG TAB PO SCH (09:45)
[2021-05-18] MEDS: rOPINIRole HCL 1 MG TABLET PO SCH (09:45)
[2021-05-18] MEDS: METOPROLOL TARTRATE 50 MG TAB PO SCH (09:46)
[2021-05-18] MEDS: INSULIN GLARGINE SOLOSTAR 100 UNITS/ML 3 ML PEN SQ SCH (09:46)
[2021-05-18] MEDS: LACTULOSE SYRUP 20 GM/30 ML UDC PO SCH (09:46)
[2021-05-18] MEDS: GABAPENTIN 400 MG CAP PO SCH (09:47)
[2021-05-18] MEDS: FUROSEMIDE 20 MG TAB PO SCH (09:48)
[2021-05-18] MEDS: UMECLIDINIUM BROMIDE 62.5MCG/BLISTER 7 PUFFS/INHALER INH SCH (09:49)
[2021-05-18] MEDS: PANTOprazole 40 MG TAB PO SCH (09:49)
[2021-05-18] MEDS: INSULIN ASPART PER UNIT SC SCH ×2 (09:50→12:44)
[2021-05-18] MEDS: QUEtiapine FUMARATE 300 MG TABLET PO SCH (09:50)
--- NOTE | 2021-05-18 11:24 | Discharge Summary ---
Date of Service May 18, 2021 Admission HPI Per Admitting Provider Patient is a 55-year-old female with past medical history of type 2 diabetes, hypertension, dyslipidemia, tobacco use disorder, morbid obesity who has had numerous recent hospital visits. Initially evaluated and admitted to [facility] on April 02, 2021 for management of COVID-19 with acute on chronic respiratory failure with hypoxia and hypercapnia. Patient is not vaccinated for COVID-19. Was started on remdesivir and dexamethasone and discharged home 3 days later with outpatient continuation of medications. She was seen by her outpatient PCP on April 10 and then represented to the emergency department on April 21 for significant respiratory distress. CT angiogram of the chest at that time found a pulmonary abscess. Case was discussed with on-call potter or ceramic artist who recommended patient be transferred for evaluation by cardiothoracic surgery and patient was transferred to [facility]. Discharge summary from [facility] shows hospitalization significant for placement of left-sided chest tube via IR on 04/24/2021 with follow-up from thoracic surgery team. Body fluid cultures resulted as polymicrobial including Bacteroides and actinomyces. Chest tube removed on April 28. Patient was switched from vancomycin and Zosyn to Unasyn and recommended to complete 4 weeks of IV Unasyn 3 g every 6 hours per their ID team. Patient was found to have new A. fib with RVR during his hospitalization was started on Eliquis for anticoagulation. Recommendation at the end of hospitalization was for patient to go to a fci facility and rehab however she refused requested to go home instead so home health care was arranged for the IV antibiotics and wound care. She was discharged from [facility] on May 02, 2021. Discharge summary notes that she was sent home on 5 L nasal cannula as well as with a urinary catheter and PICC line. She presents to [facility] ER on 05/04/2021 for complaints of worsening shortness of breath. She states that she tried to use her CPAP at home and was not having any improvement in breathing. She states that she is continuing to have shortness of breath at rest that is worse with movement and ambulation. She denies any chest pain or chest tightness associated with this. She denies any bodily pain, nausea, vomiting, diarrhea. She does states that she has some irritation on her leg near where her urinary catheter exits. She denies any fevers or chills at home. She continues to have a nonproductive cough. Principal Diagnosis Infection in the lung, need for IV antibiotics Discharge Exam Constitutional WD/WN, vitals as above Eyes EOM intact bilaterally; no conjunctival abnormality ENMT external ear and nose normal, oropharynx normal Neck trachea midline, no thyromegaly normal visual inspection Respiratory normal respiratory effort, lungs clear to auscultation no respiratory distress Cardiovascular RRR, no murmur, no edema Gastrointestinal (Abdomen) Inspection/Auscultation: abdomen normal to inspection; abdomen not distended Musculoskeletal no cyanosis or clubbing, extremities motor strength 5/5 Skin no rashes, warm and dry Neurologic moves all extremities and awake Psychiatric Orientation: alert, oriented to person and cooperative Discharge Data Allergies Allergy/AdvReac Type Severity Reaction Status Date / Time bee venom protein (honey bee) Allergy Mild Unknown Verified 05/03/21 22:58 rosiglitazone [From Avandia] Allergy Unknown Unknown Verified 05/03/21 22:58 hydrocodone AdvReac Intermediate itching Verified 05/03/21 22:58 Consultations 05/04/21 01:21 ED Decision to Admit Stat 05/04/21 02:09 Consult Pulmonology Routine 05/04/21 13:21 Consult Health Information Management Routine 05/05/21 18:11 Consult Gastroenterology Routine 05/09/21 08:28 Consult Infectious Diseases Routine Ordered Studies 05/03/21 23:23 CT angio chest PE protocol Urgent 05/05/21 13:12 CT head/brain wo con Stat 05/06/21 12:09 US liver Routine Hospital Course (1) Debility: Mrs. Hong is a 55-year-old white female who is morbidly obese. Has chronic respiratory failure with likely obesity hypoventilation syndrome, COPDon chronic 6 L of oxygen, and sleep apnea requiring CPAP. She was hospitalized here 04/02 through 04/05 with Covid. Received doses of remdesivir and IV Decadron. Was not requiring any additional oxygen and subsequently sent home with continued p.o. Decadron. Presented back to the ED on 04/21 with increasing shortness of breath and hypoxemia of 83%. Chest x-ray showed concern for pulmonary abscess. CT showed no evidence of abscess but septic emboli in the left upper lobe, pneumonia and associated empyema. Was transferred to [place] where she had IR drainage on 04/24. Chest tube removed 04/28. Empirically placed on Vanco/Zosyn but converted to Unasyn as recommended by ID Bacteroides and actinomyces in the cultures. Plan was for IV antibiotics X at least 6 weeks. During that hospital stay, also developed new onset A. fib RVR. Started on anticoagulation therapy and subsequently discharged on Eliquis. It was recommended that she go to skilled facility for rehab but she refused. Discharged home on 04/30. A hospital bed was arranged but has not yet been delivered (until today while she has been in the hospital) and she reports not having any of her CPAP supplies. Case management has investigated this further patient has not been using her CPAP since 2015 so does not have any supplies to be used at home. Before she developed increasing shortness of breath which prompted her return to the ED. * Overall debility is likely from above as outlined, chronic pain, neuropathy, and deconditioning * Has been seen by PT/OT who recommending rehab versus * Patient's home health reports that the patient was having great difficulty at home and questions the safety of her returning home with home health; however, patient would like to go home due to slow time to placement. (2) Hepatic encephalopathy: Presented awake and alert. Around lunch on 05/05, patient became hypersomnolent and difficult to arouse. Work-up consistent with acute hepatic encephalopathy (which is a new diagnosis for patient)--> ammonia 48.5 - Treated with lactulose enemas given obtunded state - Patient responded favorably -> . Follow-up ammonia the next morning is 28.5, however is back up to 46 the next day despite mentating clearly More than likely, was secondary to numerous [employer] TRA[employer]TAIN depressing medications which have now since been restarted No underlying liver disease per her knowledge, but liver ultrasound shows fatty liver Patient with chronic constipation anyway--. Would benefit from routine lactulose to not only help with her constipation but prevent further hyperammonemia-continue lactulose 20 g p.o.tid needs to FU with GI as an OP anyway (3) Hypersomnolence: Developed hypersomnolence on 05/05 as above. Blood gas without evidence of acute hypercapnia. Likely secondary to polypharmacy (Seroquel, Neurontin, baclofen and Elavil on board). - W/U yielded elevated ammonia-- see above Has now been restarted on all of her home medications-and transitioned Elavil to at bedtime dosing as she takes it at home (originally was receiving this in the mornings for the first several days of her hospitalization) Must be on BiPAP at nighttime and with any naps-she is tolerating this - Continue lactulose tid (4) Anemia: presenting hemoglobin: 7.6 During her most recent hospital stay (beginning of March), hemoglobin was between 8-9 Denies melena/hematochezia, ever having an upper or lower endoscopy, DUB or menstrual bleeding Required a total of 3 units packed cells. Initially given 1 unit with improvement of hemoglobin but due to subsequent drop, 2 additional units provided was unable to obtain iron studies as already had received blood transfusion In review of her labs during her most recent hospitalization, her iron level was low at 19 and her ferritin was low level normal 42.6 IV Venofer given 05/05 and 05/06- converted to oral supplementation fecal occult blood X3 ordered- negative x1 With subsequent drop in hemoglobin, Eliquis placed on hold-- would consider holding this for 2 weeks and if FU H/H remains stable, resume Empirically added Pepcid/Carafate as patient not ideal candidate for conscious sedation for EGD/colonoscopy at this time. Consulted GI who agrees that can proceed with further work-up as an outpatient. Greatly appreciate recommendations -have since discontinued Carafate -Continue Pepcid, continue Protonix Hemoglobin improved to 10.1 and stable for many days. -Follow CBC periodically (5) Volume overload: Clinically appeared slightly volume overloaded after receiving blood transfusion IV lasix given again on 05/09 Edema mildly improved Echo showing preserved EF of 60-65% with mild pulmonary hypertension (which is likely related to her obesity hypoventilation syndrome) appears euvolemic today although has chronic peripheral edema - Continue Lasix 60 mg PO QAM and give extra lasix if seems overloaded -> Presently appears euvolemic. (6) Empyema: Empyema related to recent pneumonia noted on imaging 04/21 when presented to our emergency room Transferred to [facility] Status post IR drainage on 04/24. Chest tube removed 04/28 With Bacteroides and actinomyces growing on cultures, repeat CT chest here shows improvement since previous Seen by infectious disease recommended treatment with Unasyn for at least 4 weeks and follow-up imaging at that time Overall, patient seems to be doing well She is at her baseline in regards to oxygen requirements Afebrile and hemodynamically stable Denies shortness of breath CTA done with this hospital stay shows moderate improvement in the left-sided empyema with consistent left basilar consolidation (which ultimately will take weeks to resolve) Work-up for TB was completed by admitting provider-negative Pulmonology consulted who agreed with continuing abx (Unasyn) x 6 weeks and FU imaging at that time--> appreciate recommendations. Patient d/c'ed from [place] with home IV abx supplies and PICC However, ID now recommends extending course of abx through 06/05/21 due to positive blood cultures here -Blood cultures with alpha Streptococcus as below (7) Pneumonia: See above (8) COVID-19: Diagnosed 04/02 Unvaccinated Received 3 doses of remdesivir Received 10 doses Decadron -She received the [employer] COVID vaccination here in the hospital on 05/10 (9) Chronic respiratory failure: Patient on 6 L supplemental oxygen at baseline along with CPAP--> currently doing well on 4 L nasal cannula at rest(avoid pulse ox >92% given risk of hypercapnia) Patient admits that she has not been compliant with her CPAP at home. Has not utilized CPAP since 2014 thus does not have appropriate supplies at home Case management working on this. Actually needs BiPAP-with review of records from [place], patient is to be on BiPAP 12/12 Obtaining BiPAP or Trilogy for home use requires more in-depth testing-Case management looking into this ABG with PaCO2 of 70 Overnight pulse oximetry on 4 L is negative for desat < 88% (10) Afib: Diagnosed while at [facility]. Likely related to catecholamine release from recent Covid and infectious pneumonia with empyema At any rate, she is in a normal sinus rhythm this entire stay x 8 days so far -continue metoprolol [id number] 2 score = 2 Eliquis on hold given subsequent drop in hemoglobin. May consider addition of Eliquis again but should have endoscopy which can be facilitated as an outpatient as not a great candidate for conscious sedation at this time. (11) Asthma-COPD overlap syndrome: No acute issues Continue chronic O2 Continue albuterol nebulizers as needed Continue umeclidinium inhaler daily (12) GERD (gastroesophageal reflux disease): Continue pantoprazole twice daily Continue Pepcid (13) Hypertension: Blood pressures are controlled - Presently 130/70. Continue metoprolol Continue furosemide (14) Major depression, recurrent: Stable Continue Seroquel, ELavil (15) AMANDA (obstructive sleep apnea): continue BiPAP for chronic hypercapnia and for AMANDA, likely OHS (16) Peripheral neuropathy: Continue gabapentin with chronic lower back pain also--added on her home Percocet at her request but reduced dose to only 5mg Q6h rather than 10mg to avoid oversedation (17) Tobacco use disorder: Needs smoking cessation counseling (18) Type 2 diabetes mellitus: Hemoglobin A1c 7.8% here. - Holding home Victoza - Continue Lantus and NovoLog -> BSs have been 140 - 230 in last 24 hours. (19) Obesity: BMI 55.3 Needs weight loss (20) Bacteremia: Growing alpha Streptococcus bacteria that is not Streptococcus pneumoniae or Enterococcus in 1/2 sets of blood cultures No fevers or leukocytosis Infectious disease consulted-appreciate recommendations to extend Unasyn therapy through 06/05/21 and if repeat BCxs positive, then remove PICC Echocardiogram on 05/04 without vegetation on the valves Repeat blood cultures 05/09-NGTD I certify that this patient is under my care and that I, or a physicians food service assistant working with me, had a face to-face encounter that meets the home health [id number] encounter requirements with this patient. The encounter with the patient was in whole, or in part, for the following medical condition, which is the primary reason for home health care (list medical condition): I certify that, based on my findings, the following services are medically necessary home health services: My clinical findings support the need for the above services because: Skilled Nsg Assessment Further, I certify that my clinical findings support that this patient is homebound (i.e. absences from home require considerable and taxing effort and are for medical reasons or religion services or infrequently or of short duration when for other reasons) because: Obesity, debility, frequent IV antibiotics Certification for Home Health Services: Based on the above findings, I certify that this patient is confined to the home and needs intermittent fci care, physical therapy and/or speech therapy or continues to need occupational therapy. The patient is under my care, and I have initiated the establishment of the plan of care. This patient will be followed by a physician who will periodically review the plan of care. Total Time Total Time Spent Total Time Spent (In Minutes): 35 Discharge Plan Discharge Items Patient Disposition: Home - Home Health Services Reason For Visit: SOB, RESP FAILURE Discharge Diagnosis: Infection in the lung, need for IV antibiotics Activity: Resume your previous activity Non-emergency contact: Primary Care Provider Call non-emergency contact if: your symptoms worsen and your temperature is above 101 Follow-up/Referrals: Nuha Welch CRNP [Primary Care Provider] - 05/22/21 10:30 am Denys Interiano DO [Physician] - (Please see Dr. Interiano of GI in the next few weeks.) Diet: Heart Healthy Addtl Attending Provider Instructions: Ms. Hong, You were admitted to the hospital with an infection in the lung that also got into the bloodstream. You will need to be on IV antibiotics until June 05. We have arranged home support as best we can to help prevent any issues. You will need to follow up with GI because when you were on anticoagulation (blood thinner), your red blood cells (hemoglobin) dropped, so we are worried about bleeding. Pending Studies at Discharge: No Stand-Alone Forms: My Postachio, Smoking Cessation Medications and DC Order Prescriptions: New ferrous sulfate 325 mg (65 mg iron) Tablet,Delayed Release (Dr/Ec) 325 mg PO DAILY Qty: 0 RF: 0 lactulose 20 gram/30 mL Solution 20 g PO BID Qty: 2880 RF: 0 Continued (DME) Oxygen Home Liters Per Minute See Dose Instructions .ROUTE .MEDSUPPLY Qty: 1 RF: 0 albuterol sulfate 2.5 mg /3 mL (0.083 %) solution for nebulization 2.5 mg INH Q4H PRN (Reason: shortness of breath or wheezing) Qty: 180 RF: 5 (DME) blood-glucose meter [[place] SoftwareTouch Ultra2 Meter] Kit See Rx Instructions .ROUTE .MEDSUPPLY Qty: 1 RF: 0 (DME) lancets [OneTouch Delica Plus Lancet] 30 gauge misc See Rx Instructions .ROUTE .MEDSUPPLY Qty: 100 RF: 5 ropinirole 1 mg tablet See Rx Instructions .ROUTE .COMPLEX Qty: 120 RF: 11 sennosides-docusate sodium [Senna Plus] 8.6-50 mg tablet 1 tab-cap PO TID Qty: 90 RF: 5 atorvastatin 10 mg tablet 10 mg PO DAILY Qty: 30 RF: 11 quetiapine 300 mg tablet 300 mg PO BID Qty: 60 RF: 11 epinephrine 0.3 mg/0.3 mL auto-injector See Rx Instructions .ROUTE .COMPLEX Qty: 2 RF: 1 (DME) blood sugar diagnostic Strip See Rx Instructions .ROUTE .MEDSUPPLY Qty: 100 RF: 5 gabapentin 400 mg capsule See Rx Instructions .ROUTE .COMPLEX Qty: 120 RF: 5 cholecalciferol (vitamin D3) 125 mcg (5,000 unit) capsule 125 mcg PO DAILY Qty: 30 RF: 11 Apidra SoloStar U-100 Insulin 100 unit/mL insulin pen See Rx Instructions .ROUTE .COMPLEX Qty: 15 RF: 11 (DME) CPAP Supplies Misc See Rx Instructions .Route Qty: 1 RF: 0 (DME) pen needle, diabetic [BD Ultra-Fine Short Pen Needle] 31 gauge x 5/16" needle See Rx Instructions .Route Qty: 100 RF: 11 furosemide [Lasix] 40 mg tablet 60 mg PO DAILY Qty: 135 RF: 3 metoprolol tartrate 50 mg tablet 50 mg PO BID Qty: 180 RF: 3 nystatin 100,000 unit/gram cream 1 applic topical BID PRN (Reason: rash) Qty: 30 RF: 2 (DME) sit to stand lift Qty: 1 RF: 0 (DME) Oxygen Home Liters Per Minute See Rx Instructions .ROUTE .MEDSUPPLY Qty: 1 RF: 0 tolterodine [Detrol LA] 2 mg capsule,extended release 24hr 2 mg PO DAILY Qty: 30 RF: 6 (DME) oxygen See Rx Instructions .Route .MEDSUPPLY Qty: 1 RF: 0 omeprazole 20 mg capsule,delayed release(DR/EC) 20 mg PO BID Qty: 60 RF: 11 oxycodone-acetaminophen [Percocet] 10-325 mg tablet 1 tab PO QID PRN (Reason: pain) 30 Days Qty: 15 RF: 0 docusate sodium 100 mg Capsule 100 mg PO TID PRN (Reason: Constipation) RF: 0 Narcan 4 mg/actuation spray,non-aerosol 1 spray INTRANASAL UD RF: 0 potassium chloride 20 mEq tablet,ER particles/crystals 20 meq PO DAILY RF: 0 polyethylene glycol 3350 17 gram/dose powder 17 g PO DAILY PRN (Reason: Constipation) RF: 0 mometasone 0.1 % cream 1 applic topical UD RF: 0 Lantus Solostar U-100 Insulin 100 unit/mL (3 mL) insulin pen 60 unit SQ DAILY RF: 0 Victoza 2-Venkatesh 0.6 mg/0.1 mL (18 mg/3 mL) pen injector 18 mg subcut DAILY RF: 0 Spiriva Respimat 2.5 mcg/actuation mist 2 puff inhalation BID RF: 0 Changed amitriptyline 25 mg tablet 25 mg PO HS Qty: 30 RF: 11 Discontinued baclofen 20 mg tablet 20 mg PO TID RF: 0 Discharge Orders: Discharge Order (Routine); Ordered 05/18/21 Ordered By: Lawrence Andre/Other Patient Handouts: A1C, Managing Type 2 Diabetes, Special Foot Care for Diabetes Admission Data Admit Date/Time: 05/04/21 02:02 Attending Provider: Lawrence Marques Admit Provider: Paola Concepcion Primary Care Provider: Nuha Welch Other Providers: [facility],Home [facility] ; [facility] ; [facility] ; Dalia Null [facility] [place] ; Nolan Cox ; Brittney Tavarez ; Erich Moses ; Mitesh Macias ; Pasquale Eugene ; Enrrique Padilla I. ; Napoleon Sheehan II ; Hallie Healy ; Walker Keller ; Kush Pedroza Coding Level of Care Code D/C DAY MANAGEMENT >30 MINS Diagnoses Debility R53.81 Hepatic encephalopathy K72.90 Hypersomnolence G47.10 Anemia D64.9 Anemia type: unspecified type Volume overload E87.70 Empyema J86.9 Pneumonia J18.9 Laterality: bilateral Lung location: unspecified part of lung Pneumonia type: due to unspecified organism COVID-19 U07.1 Chronic respiratory failure J96.10 Afib I48.91 Asthma-COPD overlap syndrome J44.9 GERD (gastroesophageal reflux disease) K21.9 Hypertension I10 Major depression, recurrent F33.9 AMANDA (obstructive sleep apnea) G47.33 Peripheral neuropathy G62.9 Tobacco use disorder F17.200 Type 2 diabetes mellitus E11.59; Z79.4 Diabetes mellitus complication detail: with other circulatory complications Diabetes mellitus complication status: with circulatory complication Diabetes mellitus customer support advisor insulin use: with customer support advisor use Obesity E66.9 Bacteremia R78.81
--- NOTE | 2021-06-05 11:39 | Coding Query ---
CODING QUERY To promote full compliance with coding requirements relating to patient care, provider participation is requested in all cases of parks and recreation worker uncertainty. Please assist us with the question(s) below: Coding Question(s): There is documentation on the Discharge Summary of , " Infection in the lung, need for IV antibiotics", and documentation of, " Empyema: Empyema related to recent pneumonia noted on imaging 04/21 when presented to our emergency room", and, "Pneumonia", and, "She was seen by her outpatient PCP on April 10 and then represented to the emergency department on April 21 for significant respiratory distress. CT angiogram of the chest at that time found a pulmonary abscess", and, " COVID-19: Diagnosed 04/02 Unvaccinated Received 3 doses of remdesivir Received 10 doses Decadron -She received the [employer] COVID vaccination here in the hospital on 05/10", with documentation on H&P of, "COVID19 Infection - unvaccinated - s/p treatment with 10 days of dexamethasone and remdesivir - last positive test on 04/21/21, negative on 05/04/21 - still having respiratory symptoms, defer to infection control on placement of isolation precautions". Please specify below, in your clinical opinion, regarding the infection in the lung, and Covid-19. ( x ) lung infection is likely Empyema, with Lung Abscess with Pneumonia. Please specify further below, regarding Covid-19: ( ) this is from continued/ongoing COVID-19 infection still unresolved ( x ) this is sequela of Covid-19 infection ( ) this is history only of Covid-19 infection ( ) lung infection is likely Lung Abscess with Pneumonia. Please specify further below, regarding Covid-19: ( ) this is from continued/ongoing COVID-19 infection still unresolved ( ) this is sequela of Covid-19 infection ( ) this is history only of Covid-19 infection ( ) lung infection is likely Other: Please Specify . Please specify further below, regarding Covid-19: ( ) this is from continued/ongoing COVID-19 infection still unresolved ( ) this is sequela of Covid-19 infection ( ) this is history only of Covid-19 infection Physician's Response(s): Thank you Trudi Joshi Principal Diagnosis: "that condition established after study, to be chiefly responsible for occasioning the admission of the patient to the hospital for care." Co-Existing Principal Diagnosis: "when two or more diagnoses equally meet the criteria for principal diagnosis as determined by the circumstances of admission, diagnostic work up, and/or therapy provided, and the Alphabetic Index, Tabular List, or another coding guideline does not provide sequencing direction, any one of the diagnoses may be sequenced first." "When the physician has documented what appears to be a current diagnosis in the body of the record, but has not included the diagnosis in the final diagnostic statement, the physician should be asked whether the diagnosis should be added." (Source Coding [facility] 2 QTR90. p3-4) LAUREN
== END 2021-05-18 13:48 | disposition home health service (06) | DRG 177 ==
LOC: ED 22:19 → SUATTDRO 05-04 02:02 → EDINP 05-04 02:02 → 2S 05-04 04:00 → 2N 05-06 17:22

== ENCOUNTER 2021-05-22 18:41 | Observation (INO) ==
[2021-05-22] MEDS ORDERED: D5W AND 1/2NSS 1,000 ML IV STA (19:46)
--- NOTE | 2021-05-22 19:56 | Emergency Department Note ---
Impression & Plan Hypoglycemia, Debilitated, Weakness, Lung infection ED Provider Note NAME: ZHAO GREGORY AGE: 55 SEX: F : 1965 ARRIVES VIA: Ambulance INFORMANT: [Patient][ems] ED PROVIDER(S): [Silviano Dominguez MD] CHIEF COMPLAINT: Hypoglycemia HISTORY OF PRESENT ILLNESS: The patient is a 55-year-old female who was discharged from this hospital 4 days ago. She is currently on IV antibiotics for a lung infection and bacteremia. She has her medications given via PICC line. The patient is quite overweight and because of some recent illnesses, has lost her ability to walk--she is debilitated. She has been in bed basically since hospital discharge. Apparently, at discharge, attempts were made to find her a place for rehab, however, no bed was available. Patient's family doctor's office today was quite concerned about the patient's inactivity and inability to walk. They do not feel she is safe at home. The patient states that today, her blood sugar has been dropping to the 40s. She has tried all kinds of sugar but she cannot seem to get her blood sugar stabilized. As per EMS, the sugar was increasing a bit after eating so they did not need to give any medication to boost her sugar. The patient arrived here and her sugar was in the 40s. She was given a sandwich prior to my arrival in the room. Sugar is now in the 70s. The patient denies fever, cough or congestion. No abdominal or chest pain. She is just diffusely weak to the point where she cannot stand or get out of bed on her own. She cannot walk. REVIEW OF SYSTEMS: See HPI for pertinent positives and negatives. A total of ten systems were reviewed and were otherwise negative. PMHx/PSHx: See Below SOCIAL HISTORY: See Below. PHYSICAL EXAM: GENERAL: Patient is in no acute distress. HEENT: No acute trauma, normocephalic atraumatic, mucous membranes moist, no nasal congestion, no scleral icterus. NECK: No stridor, no adenopathy, no meningismus, trachea is midline. LUNGS: Clear to auscultation bilaterally when listening anterior, no wheeze, no rhonchi, breath sounds equal. HEART: Without murmurs gallops or rubs, regular rate and rhythm. ABDOMEN: Soft, nontender, bowel sounds positive, no hernias, no peritonitis. Obese. Peacock catheter noted. EXTREMITIES: No cyanosis, moderate bilateral pedal edema, full range of motion of all the joints without pain or difficulty, no signs for acute trauma. PICC line in the right upper arm. NEUROLOGIC: Oriented x 3, no acute motor or sensory deficits, no focal weakness. SKIN: No rash, no jaundice, no diaphoresis. DIFFERENTIAL DIAGNOSIS: Infection, dehydration, metabolic abnormality, hypo/hyperglycemia, electrolyte disturbance, anemia, hypoxia, debilitation, stroke, TIA, as well as other pathologies. EMERGENCY DEPARTMENT COURSE/PROCEDURES: ECG: Indication was weakness. The ECG shows a normal sinus rhythm with a right bundle branch block. The rate is 67. There is no ST elevation, no PVCs. The QTc is 450. A potential old lateral infarct was noted. Compared to an ECG from 03 May 2021, I see no significant change. Continuous Cardiac Monitoring: An order was placed for continuous cardiac monitoring. The monitor shows a rate of 73 with normal sinus rhythm. MEDICAL DECISION MAKING: There is no leukocytosis or concerning anemia. There is a normal platelet count. No renal failure. Her blood sugar was low in the upper 30s to 40s. No worrisome liver enzyme elevation. The patient appeared to be in a euthyroid state. ECG shows a normal sinus rhythm, no obvious acute ischemia. Cardiac enzyme testing x1 is not consistent with acute cardiac injury. Urinalysis does not show infection. Covid testing returned negative. Chest x-ray shows some potential pulmonary congestion or changes secondary to her body habitus. Her left pleural effusion was again seen and seems stable. There was no pneumonia. The patient has had a difficult time controlling her blood sugar all day. She was low again here when she presented to the ED. She was given a sandwich. She was placed on a D5 half normal saline drip. The patient's blood sugar is now adequate. She is doing well with the IV dextrose. The patient is debilitated, weak, hypoglycemic. She is in no condition for discharge home. She cannot care for herself in her current state. The patient will likely require placement for either rehab or fpc care. I did speak with case management about this need. I spoke with the patient about her findings, case management has been involved. The on-call hospitalist was consulted. Past Med/Surg History Medical History Afib Anemia Asthma-COPD overlap syndrome GERD (gastroesophageal reflux disease) Kidney calculi Obesity Respiratory distress Sleep apnea SOB (shortness of breath) Type 2 diabetes mellitus Venous stasis Surgical History History of left knee surgery History of tubal ligation Family History Other Diabetes Dyslipidemia Denies family history of Coronary heart disease Cancer Stroke Social History Smoking Status: Heavy tobacco smoker Tobacco Type: Cigarettes Cigarettes Per Day: 1 pack daily; Second Hand Exposure: No; Hx Alcohol Use: No Hx Substance Use: No Preferred Language: Amharic Communication Ability: Effective Visual Impairment: Limited Evaporator Operator Required: No Beliefs That Will Affect Care: None marital status: Single Current Living Situation: Family current occupational status: disabled Feels Safe at Home: Yes caffeine: Yes Dental Care, Regularly: No Physical Activity Frequency: Daily Physical Activity Frequency Comment: streches Seatbelt Use: never Sunscreen Use: No Assistive Devices: Oxygen - Continuous Allergies Allergies Allergy/AdvReac Type Severity Reaction Status Date / Time bee venom protein (honey bee) Allergy Mild Unknown Verified 05/03/21 22:58 rosiglitazone [From Avandia] Allergy Unknown Unknown Verified 05/03/21 22:58 hydrocodone AdvReac Intermediate itching Verified 05/03/21 22:58 Home Meds Home Medications Medication Instructions Recorded Confirmed docusate sodium 100 mg capsule 100 mg PO TID PRN 04/02/21 05/22/21 insulin glargine 100 unit/mL (3 60 unit SQ DAILY 04/02/21 05/22/21 mL) subcutaneous pen (Lantus Solostar U-100 Insulin) liraglutide 0.6 mg/0.1 mL (18 mg/3 18 mg SUBCUT DAILY 04/02/21 05/22/21 mL) subcutaneous pen injector (Victoza 2-Venkatesh) mometasone 0.1 % topical cream 1 applic TOPICAL UD 04/02/21 05/22/21 naloxone 4 mg/actuation nasal 1 spray INTRANASAL UD 04/02/21 05/22/21 spray (Narcan) polyethylene glycol 3350 17 17 g PO DAILY PRN 04/02/21 05/22/21 gram/dose oral powder tiotropium bromide 2.5 2 puff INHALATION BID 04/02/21 05/22/21 mcg/actuation mist for inhalation (Spiriva Respimat) Previous Rx's Medication Instructions Recorded Oxygen Home #1 ea 09/07/19 albuterol sulfate 2.5 mg INH Q4H PRN #180 ml 09/08/19 Oxygen Home #1 ea 11/25/19 sit to stand lift #1 ea 11/25/19 blood-glucose meter (OneTouch #1 ea 11/26/19 Ultra2 Meter) lancets 30 gauge (OneTouch Delica #100 ea 12/01/19 Plus Lancet) ropinirole 1 mg tablet See Rx Instructions .ROUTE 04/14/20 .COMPLEX #120 tab sennosides 8.6 mg-docusate sodium 1 tab-cap PO TID #90 tab 05/24/20 50 mg tablet (Senna Plus) atorvastatin 10 mg tablet 10 mg PO DAILY #30 tab 07/26/20 quetiapine 300 mg tablet 300 mg PO BID #60 tab 08/08/20 epinephrine 0.3 mg/0.3 mL See Rx Instructions .ROUTE 09/13/20 injection, auto-injector .COMPLEX #2 unspecified oxygen #1 ea 12/27/20 tolterodine 2 mg capsule,extended 2 mg PO DAILY #30 cap 12/27/20 release 24 hr (Detrol LA) blood sugar diagnostic #100 ea 01/06/21 gabapentin 400 mg capsule See Rx Instructions .ROUTE 01/06/21 .COMPLEX #120 capsule cholecalciferol (vitamin D3) 125 125 mcg PO DAILY #30 cap 01/23/21 mcg (5,000 unit) capsule insulin glulisine U-100 100 See Rx Instructions .ROUTE 02/17/21 unit/mL subcutaneous pen (Apidra .COMPLEX #15 milliliter SoloStar U-100 Insulin) CPAP Supplies #1 ea 03/02/21 pen needle, diabetic 31 gauge x #100 ea 03/10/2109/11" (BD Ultra-Fine Short Pen Needle) omeprazole 20 mg capsule,delayed 20 mg PO BID #60 cap 04/11/21 release furosemide 40 mg tablet (Lasix) 60 mg PO DAILY #135 tab 04/13/21 metoprolol tartrate 50 mg tablet 50 mg PO BID #180 tab 04/13/21 nystatin 100,000 unit/gram topical 1 applic TOPICAL BID PRN #30 g 04/13/21 cream amitriptyline 25 mg tablet 25 mg PO HS #30 tab 05/17/21 ferrous sulfate 325 mg (65 mg 325 mg PO DAILY #0 tab 05/17/21 iron) tablet,delayed release potassium chloride 20 mEq 20 meq PO DAILY #30 tab 05/18/21 tablet,extended release(part/cryst) miscellaneous medical supply #1 ea 05/22/21 overhead trapeze #1 ea 05/22/21 oxycodone-acetaminophen 5 mg-325 1 tab PO QID PRN #120 tab 05/22/21 mg tablet Results & Data (ED) Vital Signs Vital Signs - 24 hr 05/22/21 18:50 05/22/21 20:34 Temperature 36.5 C Temperature Source Oral Pulse Rate 73 Respiratory Rate 22 Blood Pressure 134/60 Blood Pressure Mean 84 Pulse Oximetry 95 96 Oxygen Delivery Method Nasal Cannula Nasal Cannula Oxygen Flow Rate 6 6 Sepsis Recent Fever Within 48 Hours No Sepsis New/Unexplained Change in Mental Status No Sepsis Action Taken by Nursing No Action Required Home Medications Current Medication List: was personally reviewed by me Laboratory Data Attestation: I reviewed the patient's lab results. Result diagrams: 05/22/21 18:52 05/22/21 18:52 Lab Results 05/22/21 05/22/21 05/22/21 Range/Units 18:46 18:52 18:52 WBC 5.36 (4.8-10.8) K/uL RBC 4.40 (4.2-5.4) M/uL Hgb 11.6 L (12.0-16.0) g/dL Hct 38.8 (37-47) % MCV 88.2 (80-100) fL MCH 26.4 (25-34) pg MCHC 29.9 L (32-36) g/dL RDW Std Deviation 78.1 H (36.4-46.3) fL RDW Coeff of Curt 24.1 H (11.5-14.5) % Plt Count 196 (130-400) K/uL MPV 9.1 (7.4-10.4) fL Immature Gran % (Auto) 0.0 % Neut % (Auto) 59.1 % Lymph % (Auto) 30.2 % Kimball % (Auto) 7.3 % Eos % (Auto) 3.2 % Baso % (Auto) 0.2 % Neut # (Auto) 3.17 (1.4-6.5) K/uL Lymph # (Auto) 1.62 (1.2-3.4) K/uL Kimball # (Auto) 0.39 (0.11-0.59) K/uL Eos # (Auto) 0.17 (0-0.5) K/uL Baso # (Auto) 0.01 (0-0.2) K/uL Immature Gran # (Auto) 0.00 (0.00-0.02) K/uL Anisocytosis Present Sodium 142 (136-145) mmol/L Potassium 3.5 (3.5-5.1) mmol/L Chloride 98 (98-107) mmol/L Carbon Dioxide 36 H (21-32) mmol/L Anion Gap 8 (3-11) BUN 13 (6-23) mg/dl Creatinine 0.68 (0.6-1.2) mg/dl Est Cr Clr Drug Dosing 167.3 ml/min Est GFR ( Amer) 115.7 ml/min Est GFR (Non-Af Amer) 99.9 ml/min BUN/Creatinine Ratio 19.1 (10-20) Glucose 39 L* (70-99(Fasting)) mg/dl POC Glucose 43 L* (70-99) mg/dl Calcium 9.3 (8.5-10.1) mg/dl Magnesium 2.0 (1.7-2.4) mg/dl Total Bilirubin 0.6 (0.2-1.0) mg/dl AST 14 (13-39) U/L ALT 8 (7-52) U/L Alkaline Phosphatase 64 (34-104) U/L Troponin I < 0.03 (0-0.04) ng/ml Total Protein 7.3 (6.0-8.3) gm/dl Albumin 3.5 (3.4-5.0) gm/dl Globulin 3.8 (2.5-4.0) gm/dl Albumin/Globulin Ratio 0.9 (0.9-2) TSH (0.300-4.500) uIu/ml Random Cortisol mcg/dl Urine Color Urine Appearance (Clear) Urine pH (4.5-7.5) Ur Specific [place] (1.000-1.030) Urine Protein (Negative) Urine Glucose (UA) (Negative) Urine Ketones (Negative) Urine Blood (Negative) Urine Nitrite (Negative) Urine Bilirubin (Negative) Urine Urobilinogen (Negative) Ur Leukocyte Esterase (Negative) Urine WBC (Auto) (0-5) /hpf Urine RBC (Auto) (0-4) /hpf U Hyaline Cast (Auto) (0-5) /lpf U Epithel Cells (Auto) (0-5) /lpf Urine Bacteria (Auto) (Negative) SARS-CoV-2, RNA, NAAT (NEGATIVE) 05/22/21 05/22/21 05/22/21 Range/Units 18:52 18:52 19:42 WBC (4.8-10.8) K/uL RBC (4.2-5.4) M/uL Hgb (12.0-16.0) g/dL Hct (37-47) % MCV (80-100) fL MCH (25-34) pg MCHC (32-36) g/dL RDW Std Deviation (36.4-46.3) fL RDW Coeff of Curt (11.5-14.5) % Plt Count (130-400) K/uL MPV (7.4-10.4) fL Immature Gran % (Auto) % Neut % (Auto) % Lymph % (Auto) % Kimball % (Auto) % Eos % (Auto) % Baso % (Auto) % Neut # (Auto) (1.4-6.5) K/uL Lymph # (Auto) (1.2-3.4) K/uL Kimball # (Auto) (0.11-0.59) K/uL Eos # (Auto) (0-0.5) K/uL Baso # (Auto) (0-0.2) K/uL Immature Gran # (Auto) (0.00-0.02) K/uL Anisocytosis Sodium (136-145) mmol/L Potassium (3.5-5.1) mmol/L Chloride (98-107) mmol/L Carbon Dioxide (21-32) mmol/L Anion Gap (3-11) BUN (6-23) mg/dl Creatinine (0.6-1.2) mg/dl Est Cr Clr Drug Dosing ml/min Est GFR ( Amer) ml/min Est GFR (Non-Af Amer) ml/min BUN/Creatinine Ratio (10-20) Glucose (70-99(Fasting)) mg/dl POC Glucose 72 (70-99) mg/dl Calcium (8.5-10.1) mg/dl Magnesium (1.7-2.4) mg/dl Total Bilirubin (0.2-1.0) mg/dl AST (13-39) U/L ALT (7-52) U/L Alkaline Phosphatase (34-104) U/L Troponin I (0-0.04) ng/ml Total Protein (6.0-8.3) gm/dl Albumin (3.4-5.0) gm/dl Globulin (2.5-4.0) gm/dl Albumin/Globulin Ratio (0.9-2) TSH 2.156 (0.300-4.500) uIu/ml Random Cortisol 10.56 mcg/dl Urine Color Urine Appearance (Clear) Urine pH (4.5-7.5) Ur Specific [place] (1.000-1.030) Urine Protein (Negative) Urine Glucose (UA) (Negative) Urine Ketones (Negative) Urine Blood (Negative) Urine Nitrite (Negative) Urine Bilirubin (Negative) Urine Urobilinogen (Negative) Ur Leukocyte Esterase (Negative) Urine WBC (Auto) (0-5) /hpf Urine RBC (Auto) (0-4) /hpf U Hyaline Cast (Auto) (0-5) /lpf U Epithel Cells (Auto) (0-5) /lpf Urine Bacteria (Auto) (Negative) SARS-CoV-2, RNA, NAAT (NEGATIVE) 05/22/21 05/22/21 05/22/21 Range/Units 20:03 20:30 20:44 WBC (4.8-10.8) K/uL RBC (4.2-5.4) M/uL Hgb (12.0-16.0) g/dL Hct (37-47) % MCV (80-100) fL MCH (25-34) pg MCHC (32-36) g/dL RDW Std Deviation (36.4-46.3) fL RDW Coeff of Curt (11.5-14.5) % Plt Count (130-400) K/uL MPV (7.4-10.4) fL Immature Gran % (Auto) % Neut % (Auto) % Lymph % (Auto) % Kimball % (Auto) % Eos % (Auto) % Baso % (Auto) % Neut # (Auto) (1.4-6.5) K/uL Lymph # (Auto) (1.2-3.4) K/uL Kimball # (Auto) (0.11-0.59) K/uL Eos # (Auto) (0-0.5) K/uL Baso # (Auto) (0-0.2) K/uL Immature Gran # (Auto) (0.00-0.02) K/uL Anisocytosis Sodium (136-145) mmol/L Potassium (3.5-5.1) mmol/L Chloride (98-107) mmol/L Carbon Dioxide (21-32) mmol/L Anion Gap (3-11) BUN (6-23) mg/dl Creatinine (0.6-1.2) mg/dl Est Cr Clr Drug Dosing ml/min Est GFR ( Amer) ml/min Est GFR (Non-Af Amer) ml/min BUN/Creatinine Ratio (10-20) Glucose (70-99(Fasting)) mg/dl POC Glucose 81 (70-99) mg/dl Calcium (8.5-10.1) mg/dl Magnesium (1.7-2.4) mg/dl Total Bilirubin (0.2-1.0) mg/dl AST (13-39) U/L ALT (7-52) U/L Alkaline Phosphatase (34-104) U/L Troponin I (0-0.04) ng/ml Total Protein (6.0-8.3) gm/dl Albumin (3.4-5.0) gm/dl Globulin (2.5-4.0) gm/dl Albumin/Globulin Ratio (0.9-2) TSH (0.300-4.500) uIu/ml Random Cortisol mcg/dl Urine Color Yellow Urine Appearance Clear (Clear) Urine pH 7.0 (4.5-7.5) Ur Specific [place] 1.012 (1.000-1.030) Urine Protein Negative (Negative) Urine Glucose (UA) Negative (Negative) Urine Ketones Negative (Negative) Urine Blood 1+ H (Negative) Urine Nitrite Negative (Negative) Urine Bilirubin Negative (Negative) Urine Urobilinogen Positive H (Negative) Ur Leukocyte Esterase Negative (Negative) Urine WBC (Auto) 1-5 (0-5) /hpf Urine RBC (Auto) 10-30 H (0-4) /hpf U Hyaline Cast (Auto) 1-5 (0-5) /lpf U Epithel Cells (Auto) 0-5 (0-5) /lpf Urine Bacteria (Auto) Negative (Negative) SARS-CoV-2, RNA, NAAT NEGATIVE (NEGATIVE) 05/22/21 Range/Units 21:52 WBC (4.8-10.8) K/uL RBC (4.2-5.4) M/uL Hgb (12.0-16.0) g/dL Hct (37-47) % MCV (80-100) fL MCH (25-34) pg MCHC (32-36) g/dL RDW Std Deviation (36.4-46.3) fL RDW Coeff of Curt (11.5-14.5) % Plt Count (130-400) K/uL MPV (7.4-10.4) fL Immature Gran % (Auto) % Neut % (Auto) % Lymph % (Auto) % Kimball % (Auto) % Eos % (Auto) % Baso % (Auto) % Neut # (Auto) (1.4-6.5) K/uL Lymph # (Auto) (1.2-3.4) K/uL Kimball # (Auto) (0.11-0.59) K/uL Eos # (Auto) (0-0.5) K/uL Baso # (Auto) (0-0.2) K/uL Immature Gran # (Auto) (0.00-0.02) K/uL Anisocytosis Sodium (136-145) mmol/L Potassium (3.5-5.1) mmol/L Chloride (98-107) mmol/L Carbon Dioxide (21-32) mmol/L Anion Gap (3-11) BUN (6-23) mg/dl Creatinine (0.6-1.2) mg/dl Est Cr Clr Drug Dosing ml/min Est GFR ( Amer) ml/min Est GFR (Non-Af Amer) ml/min BUN/Creatinine Ratio (10-20) Glucose (70-99(Fasting)) mg/dl POC Glucose 109 H (70-99) mg/dl Calcium (8.5-10.1) mg/dl Magnesium (1.7-2.4) mg/dl Total Bilirubin (0.2-1.0) mg/dl AST (13-39) U/L ALT (7-52) U/L Alkaline Phosphatase (34-104) U/L Troponin I (0-0.04) ng/ml Total Protein (6.0-8.3) gm/dl Albumin (3.4-5.0) gm/dl Globulin (2.5-4.0) gm/dl Albumin/Globulin Ratio (0.9-2) TSH (0.300-4.500) uIu/ml Random Cortisol mcg/dl Urine Color Urine Appearance (Clear) Urine pH (4.5-7.5) Ur Specific [place] (1.000-1.030) Urine Protein (Negative) Urine Glucose (UA) (Negative) Urine Ketones (Negative) Urine Blood (Negative) Urine Nitrite (Negative) Urine Bilirubin (Negative) Urine Urobilinogen (Negative) Ur Leukocyte Esterase (Negative) Urine WBC (Auto) (0-5) /hpf Urine RBC (Auto) (0-4) /hpf U Hyaline Cast (Auto) (0-5) /lpf U Epithel Cells (Auto) (0-5) /lpf Urine Bacteria (Auto) (Negative) SARS-CoV-2, RNA, NAAT (NEGATIVE) Administered Medications Dextrose/Sodium Chloride (D5w And 1/2nss) 1,000 mls @ 125 mls/hr IV .Q8H STA Stop: 05/23/21 03:45 Last Admin: 05/22/21 20:33 Dose: 125 mls/hr Documented by: [id number] Imaging Data Radiologist's Impression: Chest X-Ray 05/22/21 19:47 XR chest 1V portable CLINICAL HISTORY: weakness TECHNIQUE: Single frontal radiograph of the chest was obtained. Comparison: Comparison is made to chest one view 05/06/2021 FINDINGS: Right PICC is stable. Cardiomegaly is noted. There is prominence and cephalization of the vasculature with Deandre B lines seen. There is a left pleural effusion which is unchanged in size from prior exam. IMPRESSION: Stable cardiomegaly and moderate pulmonary edema. Left pleural effusion is unchanged. ACT 112: Negative or not required by law. Electronically signed by: Christiano Wright M.D. 05/22/2021 8:33 PM Discharge Plan Visit Data Chief Complaint: Hypoglycemia ED Provider: Silviano Dominguez Discharge Problem: Hypoglycemia, Debilitated, Weakness, Lung infection Patient Disposition: Admitted As Inpatient Condition: Fair Forms Stand Alone Forms: [facility] Prescriptions Prescriptions: No Action (DME) Oxygen Home Liters Per Minute See Dose Instructions .ROUTE .MEDSUPPLY Qty: 1 RF: 0 albuterol sulfate 2.5 mg /3 mL (0.083 %) solution for nebulization 2.5 mg INH Q4H PRN (Reason: shortness of breath or wheezing) Qty: 180 RF: 5 (DME) blood-glucose meter [Sing Ting Deliciousuch Ultra2 Meter] Kit See Rx Instructions .ROUTE .MEDSUPPLY Qty: 1 RF: 0 (DME) lancets [OneTouch Delica Plus Lancet] 30 gauge misc See Rx Instructions .ROUTE .MEDSUPPLY Qty: 100 RF: 5 ropinirole 1 mg tablet See Rx Instructions .ROUTE .COMPLEX Qty: 120 RF: 11 sennosides-docusate sodium [Senna Plus] 8.6-50 mg tablet 1 tab-cap PO TID Qty: 90 RF: 5 atorvastatin 10 mg tablet 10 mg PO DAILY Qty: 30 RF: 11 quetiapine 300 mg tablet 300 mg PO BID Qty: 60 RF: 11 epinephrine 0.3 mg/0.3 mL auto-injector See Rx Instructions .ROUTE .COMPLEX Qty: 2 RF: 1 (DME) blood sugar diagnostic Strip See Rx Instructions .ROUTE .MEDSUPPLY Qty: 100 RF: 5 gabapentin 400 mg capsule See Rx Instructions .ROUTE .COMPLEX Qty: 120 RF: 5 cholecalciferol (vitamin D3) 125 mcg (5,000 unit) capsule 125 mcg PO DAILY Qty: 30 RF: 11 Apidra SoloStar U-100 Insulin 100 unit/mL insulin pen See Rx Instructions .ROUTE .COMPLEX Qty: 15 RF: 11 (DME) CPAP Supplies Misc See Rx Instructions .Route Qty: 1 RF: 0 (DME) pen needle, diabetic [BD Ultra-Fine Short Pen Needle] 31 gauge x 5/16" needle See Rx Instructions .Route Qty: 100 RF: 11 furosemide [Lasix] 40 mg tablet 60 mg PO DAILY Qty: 135 RF: 3 metoprolol tartrate 50 mg tablet 50 mg PO BID Qty: 180 RF: 3 nystatin 100,000 unit/gram cream 1 applic topical BID PRN (Reason: rash) Qty: 30 RF: 2 potassium chloride 20 mEq tablet,ER particles/crystals 20 meq PO DAILY Qty: 30 RF: 11 (DME) miscellaneous medical supply Misc See Rx Instructions .Route Qty: 1 RF: 0 (DME) sit to stand lift Qty: 1 RF: 0 (DME) Oxygen Home Liters Per Minute See Rx Instructions .ROUTE .MEDSUPPLY Qty: 1 RF: 0 tolterodine [Detrol LA] 2 mg capsule,extended release 24hr 2 mg PO DAILY Qty: 30 RF: 6 (DME) oxygen See Rx Instructions .Route .MEDSUPPLY Qty: 1 RF: 0 omeprazole 20 mg capsule,delayed release(DR/EC) 20 mg PO BID Qty: 60 RF: 11 oxycodone-acetaminophen 5-325 mg tablet 1 tab PO QID PRN (Reason: pain) Qty: 120 RF: 0 (DME) overhead trapeze See Rx Instructions .Route .MEDSUPPLY Qty: 1 RF: 0 ferrous sulfate 325 mg (65 mg iron) Tablet,Delayed Release (Dr/Ec) 325 mg PO DAILY Qty: 0 RF: 0 amitriptyline 25 mg tablet 25 mg PO HS Qty: 30 RF: 11 docusate sodium 100 mg Capsule 100 mg PO TID PRN (Reason: Constipation) RF: 0 naloxone [Narcan] 4 mg/actuation spray,non-aerosol 1 spray INTRANASAL UD RF: 0 polyethylene glycol 3350 17 gram/dose powder 17 g PO DAILY PRN (Reason: Constipation) RF: 0 mometasone 0.1 % cream 1 applic topical UD RF: 0 Lantus Solostar U-100 Insulin 100 unit/mL (3 mL) insulin pen 60 unit SQ DAILY RF: 0 Victoza 2-Venkatesh 0.6 mg/0.1 mL (18 mg/3 mL) pen injector 18 mg subcut DAILY RF: 0 Spiriva Respimat 2.5 mcg/actuation mist 2 puff inhalation BID RF: 0 Referrals Referrals: Nuha Welch CRNP [Primary Care Provider] -
[2021-05-22 20:03] LABS: Basophils # (auto) 0.01 K/uL (0-0.2); Basophils % (auto) 0.2 %; Eosinophils # (auto) 0.17 K/uL (0-0.5); Eosinophils % (auto) 3.2 %; Hematocrit (blood only) 38.8 % (37-47); Hemoglobin 11.6 g/dL (12.0-16.0); Lymphocytes # (auto) 1.62 K/uL (1.2-3.4); Lymphocytes % (auto) 30.2 %; Mean Corpuscular Hemoglobin 26.4 pg (25-34); Mean Corpuscular Hgb Conc 29.9 g/dL (32-36); Mean Corpuscular Volume 88.2 fL (80-100); Mean Platelet Volume 9.1 fL (7.4-10.4); Monocytes # (auto) 0.39 K/uL (0.11-0.59); Monocytes % (auto) 7.3 %; Neutrophils # (auto) 3.17 K/uL (1.4-6.5); Neutrophils % (auto) 59.1 %; Platelet Count 196 K/uL (130-400); RDW Coefficient of Variation 24.1 % (11.5-14.5); RDW Standard Deviation 78.1 fL (36.4-46.3); White Blood Count 5.36 K/uL (4.8-10.8)
[2021-05-22 20:15] LABS: Troponin I < 0.03 ng/ml (0-0.04)
[2021-05-22 20:23] LABS: Alanine Aminotransferase 8 U/L (7-52); Albumin Globulin Ratio 0.9 (0.9-2); Albumin Level 3.5 gm/dl (3.4-5.0); Alkaline Phosphatase 64 U/L (34-104); Anion Gap 8 (3-11); Anisocytosis Present; Aspartate Aminotransferase 14 U/L (13-39); BUN Creatinine Ratio 19.1 (10-20); Bilirubin,Total 0.6 mg/dl (0.2-1.0); Blood Urea Nitrogen 13 mg/dl (6-23); Calcium 9.3 mg/dl (8.5-10.1); Carbon Dioxide 36 mmol/L (21-32); Chloride 98 mmol/L (98-107); Creatinine Clr Calc Pharmacy 167.3 ml/min; Est GFR (African American) 115.7 ml/min; Est GFR (Non-African American) 99.9 ml/min; Globulin 3.8 gm/dl (2.5-4.0); Glucose 39 mg/dl (70-99(Fasting)); Potassium 3.5 mmol/L (3.5-5.1); Sodium 142 mmol/L (136-145); Total Protein 7.3 gm/dl (6.0-8.3)
--- NOTE | 2021-05-22 20:35 | XRay Report ---
XR chest 1V portable CLINICAL HISTORY: weakness TECHNIQUE: Single frontal radiograph of the chest was obtained. Comparison: Comparison is made to chest one view 05/06/2021 FINDINGS: Right PICC is stable. Cardiomegaly is noted. There is prominence and cephalization of the vasculature with Deandre B lines seen. There is a left pleural effusion which is unchanged in size from prior exa m. IMPRESSION: Stable cardiomegaly and moderate pulmonary edema. Left pleural effusion is unchanged. ACT 112: Negative or not required by law. Electronically signed by: Christiano Wright M.D. 05/22/2021 8:33 PM
[2021-05-22 21:21] LABS: Appearance Urine Clear (Clear); Bacteria Urine Automated Negative (Negative); Bilirubin Urine Negative (Negative); Blood Urine 1+ (Negative); Color Urine Yellow; Epithelial Cell Urine Auto 0-5 /lpf (0-5); Glucose Urine UA Negative (Negative); Ketones Urine Negative (Negative); Leukocyte Esterase Urine Negative (Negative); Nitrite Urine Negative (Negative); Protein Urine Negative (Negative); Specific Gravity Urine 1.012 (1.000-1.030); Urobilinogen Urine Positive (Negative)
--- NOTE | 2021-05-22 21:34 | History & Physical Report ---
Date of Service May 22, 2021 Assessment & Plan (1) Hypoglycemia: Plan: Hypoglycemia- likely iatrogenic in the setting of continued insulin with decrease oral intake. -Presenting BG 39; patient received 24 oz orange juice, a turkey sandwich, and was started on a D5 drip. Repeat POC glucose after 90 minutes was 81. Repeat BGM at 2130 was 109. - TSH ordered, within normal limits. Random cortisol was ordered, within normal limits at 10.9. AM cortisol levels ordered. - During last hospitalization, patient was diagnosed with a presumed hepatic encephalopathy as she became difficult to arouse and her ammonia was 48.5, but responding favorably to lactulose. Patient does not carry a formal diagnosis of liver disease, however a liver ultrasound revealed hepatomegaly. Patient was recommended to follow-up with GI as an outpatient, however has not been able to do so yet. May consider a GI consult and/or CT of the abdomen during this hospitalization to correlate findings with the liver ultrasound. -Check BSG Q4H until sugar reaches 200, at which point D5 drip rate can be reduced in half. Currently is at 125 cc/hr. D5 drip may be d/c'd when pt's sugar reaches 250 at which point short acting insulin can be initiated. -If pt's hypoglycemia continues despite po intake and d5 drip over night, can increase d5 drip to d10 and reduce rate by 75%. If hypoglycemia continues to persist, initiate one time dose of hydrocortisone 150mg. (2) Type 2 diabetes mellitus: Plan: -Check BSG Q4H until BSG reaches 200, at which point D5 drip rate can be reduced in half. Currently is at 125 cc/hr. D5 drop maybe d/c'd when pt's sugar reaches 250. -Short acting insulin may be initiated when pt glucose reaches 250. -Hold Victoza during hospitalization. (3) Empyema: Plan: -Continue Unasyn abx via PICC line. - Due to stop on Jun 05 (4) Anemia: Plan: -Hgb 11.6, stable and even increased from 05/17 when it was 9.8. -Continue PO iron supplementation. (5) Afib: Plan: -Continue metoprolol. -Continue to hold Eliquis due to recent anemia requiring blood transfusion during last hospitalization. (6) Chronic respiratory failure: Plan: -Patient is on 6L NC chronically with bipap at night. (7) Hypertension: Plan: -Continue metoprolol and lasix. (8) AMANDA (obstructive sleep apnea): Plan: -Patient will be placed on BiPap at night. (9) Debility: Plan: -During last hospitalization, it was recommended that she go to skilled facility for rehab but she refused. Upon discussion tonight, patient would like to be placed in a skilled facility upon discharge. -Case management started in the ED. (10) Hyperlipidemia: Plan: -Continue atorvastatin. (11) Major depression, recurrent: Plan: Continue Seroquel, Elavil. - Follow for hypersomnia - present on last admission - discontinued her baclofen (12) Peripheral neuropathy: Plan: Continue gabapentin. (13) GERD (gastroesophageal reflux disease): Plan: -Continue PPI. (14) Chronic low back pain: Plan: Continue oxycodone-acetaminophen 5-325 mg QID PRN - Continue Gabapentin - Continue to hold her baclofen (15) DVT prophylaxis: Plan: -SCDs ad Lovenox ordered History of Present Illness Chief Complaint: hypoglycemia x 2 days Primary Care Provider: DANIELLE Hauser Patient is a chronically ill 55 y/o female with PMH of DM2, afibb, anemia, HTN, HLD, AMANDA, and morbid obesity with several recent hospitalizations who presents from home via EMS due to low blood sugars over the two past days. Patient states her sugars have been dropping to the 40-50s. She has continued to take her home medication regimen despite her low sugars. She was able to bring them up to the 90s on her own yesterday by eating things like peanut butter crackers, cake icing, and bagels, however today they would only sustain in the 90s for 15 minutes before dropping again. She admits to a decreased appetite over the past several days, but reports no fever/chills, nausea, vomiting, diarrhea, abdominal pain, or change in energy levels. Previously she had been self administering her medications, however her daughter has been helping her lately with managing them. Patient's sugar in ED was 39. She was started on a D5 drip and given 24 oz. of orange juice and a turkey sandwich, POC glucose was taken an hour and a half later and was 81. TSH within normal limits, random cortisol pending, AM cortisol ordered for tomorrow AM. Of note, patient was discharged from [facility] on 05/02/21 with a PICC line for Unasyn abx after being treated for a LLL empyema. She was admitted to [facility] on 05/04/21 and discharged on 05/18/21 in which she was treated for anemia with a presenting Hgb of 7.6 and required a total of 3 units packed cells. She was d/c'd on PO iron supplementation and recommended to hold her Eliquis for 2 weeks with the decision to resume it pending a stable H/H on follow up labs. Patient's Hgb today was 11. During last hospitalization, patient was diagnosed with a presumed hepatic encephalopathy as she became difficult to arouse and her ammonia was 48.5, but responding favorably to lactulose. Patient does not carry a formal diagnosis of liver disease, however a liver ultrasound revealed hepatomegaly. Patient was recommended to follow-up with GI as an outpatient, however has not been able to do so yet ? fatty liver disease. Allergies Allergy/AdvReac Type Severity Reaction Status Date / Time bee venom protein (honey bee) Allergy Mild Unknown Verified 05/03/21 22:58 rosiglitazone [From Avandia] Allergy Unknown Unknown Verified 05/03/21 22:58 hydrocodone AdvReac Intermediate itching Verified 05/03/21 22:58 Home Medications Medication Instructions Recorded Confirmed Type Oxygen Home #1 ea 09/07/19 03/27/21 Rx albuterol sulfate 2.5 mg INH Q4H PRN #180 ml 09/08/19 05/22/21 Rx Oxygen Home #1 ea 11/25/19 03/27/21 Rx sit to stand lift #1 ea 11/25/19 03/27/21 Rx blood-glucose meter (OneTouch #1 ea 11/26/19 03/27/21 Rx Ultra2 Meter) lancets 30 gauge (OneTouch Delica #100 ea 12/01/19 03/27/21 Rx Plus Lancet) ropinirole 1 mg tablet See Rx Instructions .ROUTE 04/14/20 05/22/21 Rx .COMPLEX #120 tab sennosides 8.6 mg-docusate sodium 1 tab-cap PO TID #90 tab 05/24/20 05/22/21 Rx 50 mg tablet (Senna Plus) atorvastatin 10 mg tablet 10 mg PO DAILY #30 tab 07/26/20 05/22/21 Rx quetiapine 300 mg tablet 300 mg PO BID #60 tab 08/08/20 05/22/21 Rx epinephrine 0.3 mg/0.3 mL See Rx Instructions .ROUTE 09/13/20 05/22/21 Rx injection, auto-injector .COMPLEX #2 unspecified oxygen #1 ea 12/27/20 03/27/21 Rx tolterodine 2 mg capsule,extended 2 mg PO DAILY #30 cap 12/27/20 05/22/21 Rx release 24 hr (Detrol [place]) blood sugar diagnostic #100 ea 01/06/21 03/27/21 Rx gabapentin 400 mg capsule See Rx Instructions .ROUTE 01/06/21 05/22/21 Rx .COMPLEX #120 capsule cholecalciferol (vitamin D3) 125 125 mcg PO DAILY #30 cap 01/23/21 05/22/21 Rx mcg (5,000 unit) capsule insulin glulisine U-100 100 See Rx Instructions .ROUTE 02/17/21 05/22/21 Rx unit/mL subcutaneous pen (Apidra .COMPLEX #15 milliliter SoloStar U-100 Insulin) CPAP Supplies #1 ea 03/02/21 03/27/21 Rx pen needle, diabetic 31 gauge x #100 ea 03/10/21 03/27/21 Rx 5/16" (BD Ultra-Fine Short Pen Needle) docusate sodium 100 mg capsule 100 mg PO TID PRN 04/02/21 05/22/21 History insulin glargine 100 unit/mL (3 60 unit SQ DAILY 04/02/21 05/22/21 History mL) subcutaneous pen (Lantus Solostar U-100 Insulin) liraglutide 0.6 mg/0.1 mL (18 mg/3 18 mg SUBCUT DAILY 04/02/21 05/22/21 History mL) subcutaneous pen injector ([employer] 2-Venkatesh) mometasone 0.1 % topical cream 1 applic TOPICAL UD 04/02/21 05/22/21 History naloxone 4 mg/actuation nasal 1 spray INTRANASAL UD 04/02/21 05/22/21 History spray (Narcan) polyethylene glycol 3350 17 17 g PO DAILY PRN 04/02/21 05/22/21 History gram/dose oral powder tiotropium bromide 2.5 2 puff INHALATION BID 04/02/21 05/22/21 History mcg/actuation mist for inhalation (Spiriva Respimat) omeprazole 20 mg capsule,delayed 20 mg PO BID #60 cap 04/11/21 05/22/21 Rx release furosemide 40 mg tablet (Lasix) 60 mg PO DAILY #135 tab 04/13/21 05/22/21 Rx metoprolol tartrate 50 mg tablet 50 mg PO BID #180 tab 04/13/21 05/22/21 Rx nystatin 100,000 unit/gram topical 1 applic TOPICAL BID PRN #30 g 04/13/21 05/22/21 Rx cream amitriptyline 25 mg tablet 25 mg PO HS #30 tab 05/17/21 05/22/21 Rx ferrous sulfate 325 mg (65 mg 325 mg PO DAILY #0 tab 05/17/21 05/22/21 Rx iron) tablet,delayed release potassium chloride 20 mEq 20 meq PO DAILY #30 tab 05/18/21 05/22/21 Rx tablet,extended release(part/cryst) miscellaneous medical supply #1 ea 05/22/21 Rx overhead trapeze #1 ea 05/22/21 05/22/21 Rx oxycodone-acetaminophen 5 mg-325 1 tab PO QID PRN #120 tab 05/22/21 05/22/21 Rx mg tablet Past Med/Surg History Medical History Afib Anemia Asthma-COPD overlap syndrome GERD (gastroesophageal reflux disease) Kidney calculi Obesity Respiratory distress Sleep apnea SOB (shortness of breath) Type 2 diabetes mellitus Venous stasis Surgical History History of left knee surgery History of tubal ligation Family History Other Diabetes Dyslipidemia Denies family history of Coronary heart disease Cancer Stroke Social History Smoking Status: Current every day smoker Tobacco Type: Cigarettes Cigarettes Per Day: 1 pack daily; Second Hand Exposure: No; Hx Alcohol Use: No Hx Substance Use: No Preferred Language: Yi Communication Ability: Effective Visual Impairment: Limited Fundraiser Required: No Beliefs That Will Affect Care: None marital status: Single Current Living Situation: Family Current Living Situation Comment: lives with her daughter and her boyfriend current occupational status: disabled How many Children do You have: 1 Feels Safe at Home: Yes Safety Concerns: Feels Safe At This Time caffeine: Yes Dental Care, Regularly: No Physical Activity Frequency: Daily Physical Activity Frequency Comment: streches Seatbelt Use: never Sunscreen Use: No Assistive Devices: CPAP, Oxygen - Continuous and Wheelchair Review of Systems Review of Systems: Constitutional: Reports decreased appetite. No fever, sweats or chills Eyes: No diplopia, no worsening or blurred vision ENT: normal hearing, no trouble swallowing Respiratory: No cough, sputum, dyspnea at rest or on exertion Cardiovascular: No chest pain, tightness or palpitations Abdomen: No pain, nausea, vomiting, diarrhea or constipation Musculoskeletal: No joint pain, calf pain, swelling Neurologic: No weakness, numbness/tingling, or balance problems Psychiatric: No anxiety or depression Skin: No rash or itch Physical Exam Physical Exam: General: awake, alert, no apparent distress Head: Normocephalic, atraumatic ENT: PERRL, EOMI, no pharyngeal exudate, mucous membranes moist Chest: Clear to auscultation, on room air, no adventitious breath sounds Cardiac: Regular rate and rhythm, no murmur, no JVD, normal peripheral pulses, good capillary refill Abdominal: NABS x 4 quadrants, soft, nontender to palpation, no rebound, guarding or tenderness Extremities: Normal inspection, no peripheral edema or erythema, calfs nontender to palpation Psych: Normal mood and affect Neuro: AAO x 3, strength intact bilaterally and rated 5/5, no motor deficits, speech is clear, no peripheral sensory deficits Skin: no rash or erythema Results & Data Results & Data ([facility]) Vital Signs (Past 12 Hours) Vital Signs Temp Pulse Resp BP Pulse Ox 05/22/21 20:34 96 05/22/21 18:50 36.5 C 73 22 134/60 95 Laboratory Results Abnormal lab results 05/22/21 05/22/21 05/22/21 Range/Units 18:46 18:52 18:52 Hgb 11.6 L (12.0-16.0) g/dL MCHC 29.9 L (32-36) g/dL RDW Std Deviation 78.1 H (36.4-46.3) fL RDW Coeff of Curt 24.1 H (11.5-14.5) % Carbon Dioxide 36 H (21-32) mmol/L Glucose 39 L* (70-99(Fasting)) mg/dl POC Glucose 43 L* (70-99) mg/dl Diagnostic Findings Chest X-Ray 05/22/21 19:47 XR chest 1V portable CLINICAL HISTORY: weakness TECHNIQUE: Single frontal radiograph of the chest was obtained. Comparison: Comparison is made to chest one view 05/06/2021 FINDINGS: Right PICC is stable. Cardiomegaly is noted. There is prominence and cephalization of the vasculature with Deandre B lines seen. There is a left pleural effusion which is unchanged in size from prior exam. IMPRESSION: Stable cardiomegaly and moderate pulmonary edema. Left pleural effusion is unchanged. Medications Administered Home Medications Medication Instructions Recorded Confirmed Type docusate sodium 100 mg capsule 100 mg PO TID PRN 04/02/21 05/22/21 History insulin glargine 100 unit/mL (3 60 unit SQ DAILY 04/02/21 05/22/21 History mL) subcutaneous pen (Lantus Solostar U-100 Insulin) liraglutide 0.6 mg/0.1 mL (18 mg/3 18 mg SUBCUT DAILY 04/02/21 05/22/21 History mL) subcutaneous pen injector (Victoza 2-Venkatesh) mometasone 0.1 % topical cream 1 applic TOPICAL UD 04/02/21 05/22/21 History naloxone 4 mg/actuation nasal 1 spray INTRANASAL UD 04/02/21 05/22/21 History spray (Narcan) polyethylene glycol 3350 17 17 g PO DAILY PRN 04/02/21 05/22/21 History gram/dose oral powder tiotropium bromide 2.5 2 puff INHALATION BID 04/02/21 05/22/21 History mcg/actuation mist for inhalation (Spiriva Respimat) Dextrose/Sodium Chloride (D5w And 1/2nss) 1,000 mls @ 125 mls/hr IV .Q8H STA Stop: 05/23/21 03:45 Last Admin: 05/22/21 20:33 Dose: 125 mls/hr Documented by: [id number] ECG Additional Comments: Normal sinus rhythm Right bundle branch block Septal infarct , age undetermined Lateral infarct (cited on or before 03-MAY-2014) Cannot rule out Inferior infarct (cited on or before 21-APR-2021)-no dynamic changes appreciated Code Status & VTE Plan Code Status Full Code VTE Prophylaxis Plan VTE Prophylaxis will be ordered: Yes Supervising Physician Co-Signing Physician Notes During face to face encounter with patient at bedside, I performed a history and physical examination. Discussed plan of care with patient and APC Valle. Reviewed above note and agree with it. Patient will be admitted with hypoglycemia and will start D5 drip. Patient will likely need a skilled faciltiy at discharge. PG Care Time/CCT Total # of Minutes Spent Total Time Spent with Patient: Total time spent is greater than 50% in coordination of care (as documented) at patient's floor/unit and/or counseling patient: Coding Level of Care Code 36735 Initial Inpt Care Lvl 3 Diagnoses Hypoglycemia E16.2 AMANDA (obstructive sleep apnea) G47.33 Debility R53.81 Type 2 diabetes mellitus E11.59; Z79.4 Diabetes mellitus complication detail: with other circulatory complications Diabetes mellitus complication status: with circulatory complication Diabetes mellitus custodial insulin use: with custodial use Anemia D64.9 Anemia type: unspecified type Afib I48.91 Hypertension I10 Hyperlipidemia E78.5 Major depression, recurrent F33.9 Peripheral neuropathy G62.9 GERD (gastroesophageal reflux disease) K21.9 DVT prophylaxis Z29.9 Empyema J86.9 Chronic respiratory failure J96.10 Chronic low back pain M54.5; G89.29 (1) Type 2 diabetes mellitus Diabetes mellitus complication detail: with other circulatory complications Diabetes mellitus complication status: with circulatory complication Diabetes mellitus longwall headgate operator insulin use: with longwall headgate operator use Qualified Code(s): E11.59 - Type 2 diabetes mellitus with other circulatory complications; Z79.4 - solar installation helper (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
[2021-05-23] MEDS ORDERED: ALBUTEROL 0.083% NEBU SOLN 3 ML VIAL INH PRN (01:22)
[2021-05-23] MEDS ORDERED: ONDANSETRON INJ 2 MG/ML 2 ML VIAL IV PRN (01:22)
[2021-05-23] MEDS ORDERED: ACETAMINOPHEN 325 MG TAB PO PRN (01:22)
[2021-05-23] MEDS ORDERED: FLUARIX QUADRIVALENT 0.5 ML SYR IM ONE (02:57)
[2021-05-23] MEDS ORDERED: NALOXONE HCL 0.4 MG/1 ML VIAL/CARP IV PRN (04:09)
[2021-05-23] MEDS: LACTULOSE SYRUP 20 GM/30 ML UDC PO SCH ×3 (04:42→21:16)
[2021-05-23] MEDS: METOPROLOL TARTRATE 50 MG TAB PO SCH ×3 (04:42→21:18)
[2021-05-23] MEDS: GABAPENTIN 400 MG CAP PO SCH ×4 (04:42→21:17)
[2021-05-23] MEDS: UMECLIDINIUM BROMIDE 62.5MCG/BLISTER 7 PUFFS/INHALER INH SCH ×2 (04:43→08:46)
[2021-05-23] MEDS: QUEtiapine FUMARATE 300 MG TABLET PO SCH ×3 (04:43→21:16)
[2021-05-23] MEDS: PANTOprazole 40 MG TAB PO SCH ×3 (04:43→21:16)
--- NOTE | 2021-05-23 05:05 | Communication Note ---
Date of Service: May 23, 2021 Messaged by nursing about Unasyn IV. Ordered Unasyn 3g q6h IV for empyema noted at previous admission. Per previous d/c summary 05/18/21, ID had recommended Unasyn until 06/05/21. Patient was sent home w/ IV abx and PICC line from that admission.
[2021-05-23] MEDS: AMITRIPTYLINE HCL 25 MG TAB PO SCH ×2 (05:19→21:17)
[2021-05-23] MEDS: AMPICILLIN/SULBACTAM SOD 3,000 MG in 0.9 % SODIUM CHLORIDE 100 ML IV SCH ×4 (05:30→23:21)
[2021-05-23] MEDS: ENOXAPARIN INJ 40 MG/0.4 ML SYR SQ SCH ×2 (05:31→17:05)
--- NOTE | 2021-05-23 07:21 | XRay Report ---
XR chest 1V portable CLINICAL HISTORY: check picc line placement COMPARISON STUDY: Chest CT May 04, 2021. Chest radiograph May 22, 2021. FINDINGS: The tip of the right PICC is not well visualized on this exam but is at least within the SV C. There is no pneumothorax. Small left pleural effusion is noted. There is persistent left basilar o pacity. Additional airspace opacities and interstitial thickening within the lungs are noted. Cardiom egaly is unchanged. IMPRESSION: 1. Tip of right PICC not well visualized on this exam but at least within the SVC. 2. Persistent left basilar opacity with s small left pleural effusion. Slight increase in interstitia l thickening and additional airspace opacities within the lungs. 3. Cardiomegaly. ACT 112: Negative or not required by law. Electronically signed by: Edin Cuevas M.D. 05/23/2021 7:20 AM
[2021-05-23] MEDS: FERROUS SULFATE 325 MG TAB PO SCH (08:42)
[2021-05-23] MEDS: rOPINIRole HCL 1 MG TABLET PO SCH ×3 (08:42→17:06)
[2021-05-23] MEDS: FUROSEMIDE 20 MG TAB PO SCH (08:42)
[2021-05-23] MEDS: ATORVASTATIN 10 MG TAB PO SCH (08:43)
[2021-05-23] MEDS: POTASSIUM CHLORIDE CRTAB 20 MEQ TABCR PO SCH ×2 (08:43→08:52)
[2021-05-23] MEDS: TOLTERODINE TARTRATE LA 2 MG CAPCR PO SCH (08:44)
[2021-05-23] MEDS ORDERED: NALOXONE NASAL SPRAY 4 MG ER HOMEPACK SCH (09:00)
--- NOTE | 2021-05-23 12:14 | Electrocardiogram Report ---
Test Reason : Blood Pressure : / mmHG Vent. Rate : 067 BPM Atrial Rate : 067 BPM P-R Int : 184 ms QRS Dur : 146 ms QT Int : 426 ms P-R-T Axes : 040 105 017 degrees QTc Int : 450 ms Normal sinus rhythm Right bundle branch block Lateral infarct (cited on or before 03-MAY-2014) Abnormal ECG Confirmed by Stanton Laws ([id number] on 05/23/2021 12:14:19 PM Referred By: REFERRED SELF Confirmed By:Jose Martin Laws
[2021-05-23] MEDS ORDERED: DEXTROSE 50% 50 ML SYRINGE IV PRN (13:15)
[2021-05-23] MEDS ORDERED: GLUCOSE 40% GEL 15 GM TUBE PO PRN (13:15)
[2021-05-23] MEDS ORDERED: CARBOHYDRATES FOR HYPOGLYCEMIA PO PRN (13:15)
[2021-05-23] MEDS ORDERED: GLUCOSE 10 TABS/TUBE PO PRN (13:15)
[2021-05-23] MEDS ORDERED: GLUCAGON FOR INJ 1 MG VIAL IM PRN (13:15)
[2021-05-23] MEDS: oxyCODONE/ACETAMINOPHEN 5mg/325mg TAB PO PRN (13:42)
[2021-05-23] MEDS: INSULIN GLARGINE SOLOSTAR 100 UNITS/ML 3 ML PEN SC SCH ×2 (13:58→21:18)
--- NOTE | 2021-05-23 14:49 | Hospitalist Progress Note ---
Date of Service May 23, 2021 Assessment & Plan (1) Hypoglycemia: Plan: Hypoglycemia has now resolved, it was most likely iatrogenic Last blood glucose in the 260s (2) Type 2 diabetes mellitus: Plan: Home Victoza currently on hold Continue insulin and insulin sliding scale (3) Empyema: Plan: -Recently diagnosed with empyema at a neighboring hospital. -Continue Unasyn abx via PICC line. - Due to stop on Jun 05 (4) Anemia: Plan: -Hgb 11.6, stable and even increased from 05/17 when it was 9.8. -Continue PO iron supplementation. (5) Afib: Plan: -Continue metoprolol. -Continue to hold Eliquis due to recent anemia requiring blood transfusion during last hospitalization. (6) Chronic respiratory failure: Plan: -Patient is on 6L NC chronically with bipap at night. (7) Hypertension: Plan: -Continue metoprolol and lasix. (8) AMANDA (obstructive sleep apnea): Plan: -Patient will be placed on BiPap at night. (9) Debility: Plan: Patient is essentially bedbound -During last hospitalization, it was recommended that she go to skilled facility for rehab but she refused. Upon discussion tonight, patient would like to be p laced in a skilled facility upon discharge. -Case management started in the ED. (10) Hyperlipidemia: Plan: -Continue atorvastatin. (11) Major depression, recurrent: Plan: Continue Seroquel, Elavil. - Follow for hypersomnia - present on last admission - discontinued her baclofen (12) Chronic low back pain: Plan: Continue oxycodone-acetaminophen 5-325 mg QID PRN - Continue Gabapentin - Continue to hold her baclofen (13) DVT prophylaxis: Plan: -SCDs ad Lovenox ordered Admission and Anticipated Discharge Date Admission Date: May 22, 2021 Subjective Patient seen and examined today, denies chest pain or shortness of breath Review of Systems Review of Systems: All systems reviewed are negative, apart from the ones contained in the history. Physical Exam Physical Exam: The patient is awake, alert and oriented 3, well developed and well nourished, normocephalic and atraumatic, lying in bed and in no acute distress. HEENT--PERRL, EOMI, mucous membranes and oropharynx mildly dry Neck--supple. No JVD. No bruits. Thyroid normal, trachea midline, no adenopathy. Heart--normal S1 and S2. No murmurs, rubs or gallops. Lungs--clear bilaterally, no respiratory distress, no accessory muscle use. Abdomen--normal bowel sounds and soft. Mild epigastric and left sided abdominal pain Extremities--no cyanosis or clubbing. No edema. Dermatologic--normal skin turgor, normal color, no abnormal lymph nodes, no rash . Neurologic--cranial nerves II through XII grossly intact. Rheumatologic--normal range of motion. Psychiatric--normal affect. Results & Data Results & Data ([facility]) Vital Signs (Past 12 Hours) Vital Signs Temp Pulse Pulse Resp BP Pulse Ox 05/23/21 12:14 98.2 F 76 20 119/69 99 05/23/21 08:18 98.2 F 74 18 104/69 100 05/23/21 07:00 90 PG Care Time/CCT Total # of Minutes Spent Total Time Spent with Patient: Total time spent is greater than 50% in coordination of care (as documented) at patient's floor/unit and/or counseling patient: Coding Level of Care Code 27300 Subseq Hosp Care Lvl 2 Diagnoses Hypoglycemia E16.2 Type 2 diabetes mellitus E11.59; Z79.4 Diabetes mellitus complication detail: with other circulatory complications Diabetes mellitus complication status: with circulatory complication Diabetes mellitus fci insulin use: with fci use Empyema J86.9 Anemia D64.9 Anemia type: unspecified type Afib I48.91 Chronic respiratory failure J96.10 Hypertension I10 AMANDA (obstructive sleep apnea) G47.33 Debility R53.81 Hyperlipidemia E78.5 Major depression, recurrent F33.9 Chronic low back pain M54.5; G89.29 DVT prophylaxis Z29.9 Time Spent (min) 35 (1) Type 2 diabetes mellitus Diabetes mellitus complication detail: with other circulatory complications Diabetes mellitus complication status: with circulatory complication Diabetes mellitus roasterman insulin use: with roasterman use Qualified Code(s): E11.59 - Type 2 diabetes mellitus with other circulatory complications; Z79.4 - termite treater (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
[2021-05-23] MEDS ORDERED: PHARMACY GLYCEMIC MGMT CONSULT PRN (23:01)
--- NOTE | 2021-05-23 23:02 | Communication Note ---
Date of Service: May 23, 2021 Changing from q4 marcial BSG checks to ACHS. Pharmacy glycemic consult placed.
[2021-05-24] MEDS: GABAPENTIN 400 MG CAP PO SCH ×4 (01:57→21:13)
[2021-05-24] MEDS: ENOXAPARIN INJ 40 MG/0.4 ML SYR SQ SCH ×2 (04:53→17:16)
[2021-05-24] MEDS: AMPICILLIN/SULBACTAM SOD 3,000 MG in 0.9 % SODIUM CHLORIDE 100 ML IV SCH ×3 (05:41→17:13)
[2021-05-24 07:05] LABS: Estimated Average Glucose 134 mg/dl; Hemoglobin A1C 6.3 % (4.5-5.6)
[2021-05-24] MEDS: FUROSEMIDE 20 MG TAB PO SCH (08:28)
[2021-05-24] MEDS: PANTOprazole 40 MG TAB PO SCH ×2 (08:28→21:13)
[2021-05-24] MEDS: TOLTERODINE TARTRATE LA 2 MG CAPCR PO SCH (08:28)
[2021-05-24] MEDS: rOPINIRole HCL 1 MG TABLET PO SCH ×3 (08:28→17:17)
[2021-05-24] MEDS: QUEtiapine FUMARATE 300 MG TABLET PO SCH ×2 (08:28→21:13)
[2021-05-24] MEDS: FERROUS SULFATE 325 MG TAB PO SCH (08:29)
[2021-05-24] MEDS: METOPROLOL TARTRATE 50 MG TAB PO SCH ×2 (08:30→21:13)
[2021-05-24] MEDS: ATORVASTATIN 10 MG TAB PO SCH (08:30)
[2021-05-24] MEDS: INSULIN GLARGINE SOLOSTAR 100 UNITS/ML 3 ML PEN SC SCH ×2 (08:31→21:05)
[2021-05-24] MEDS: UMECLIDINIUM BROMIDE 62.5MCG/BLISTER 7 PUFFS/INHALER INH SCH (08:31)
[2021-05-24] MEDS: LACTULOSE SYRUP 20 GM/30 ML UDC PO SCH ×2 (08:31→21:14)
[2021-05-24] MEDS: INSULIN ASPART PER UNIT SC SCH ×4 (08:38→21:05)
[2021-05-24] MEDS: POTASSIUM CHLORIDE CRTAB 20 MEQ TABCR PO SCH (08:39)
[2021-05-24 08:43] LABS: Hematocrit (blood only) 37.8 % (37-47); Mean Corpuscular Hgb Conc 29.1 g/dL (32-36); Mean Corpuscular Volume 89.4 fL (80-100); Platelet Count 166 K/uL (130-400); RDW Coefficient of Variation 24.4 % (11.5-14.5); RDW Standard Deviation 80.5 fL (36.4-46.3); Red Blood Count 4.23 M/uL (4.2-5.4); White Blood Count 4.57 K/uL (4.8-10.8)
[2021-05-24 09:57] LABS: BUN Creatinine Ratio 12.5 (10-20); Calcium 8.9 mg/dl (8.5-10.1); Creatinine Clr Calc Pharmacy 126.3 ml/min; Est GFR (African American) 86.9 ml/min; Potassium 3.9 mmol/L (3.5-5.1)
[2021-05-24] MEDS: oxyCODONE/ACETAMINOPHEN 5mg/325mg TAB PO PRN ×2 (12:53→21:36)
--- NOTE | 2021-05-24 13:26 | Hospitalist Progress Note ---
Date of Service May 24, 2021 Assessment & Plan (1) Hypoglycemia: Plan: Now resolved Blood glucose has been under fair control (2) Type 2 diabetes mellitus: Plan: -Poorly controlled type 2 DM Hold home Victoza Continue insulin and insulin sliding scale HbA1c was 10 Will need to follow up with Endocrinology as outpatient upon discharge (3) Empyema: Plan: -Continue Unasyn abx via PICC line. - Due to stop on Jun 05 (4) Anemia: Plan: -stable hb -Continue PO iron supplementation. (5) Afib: Plan: -Continue metoprolol. -Continue to hold Eliquis due to recent anemia requiring blood transfusion during last hospitalization. (6) Chronic respiratory failure: Plan: -Patient is on 4L NC chronically with bipap at night. (7) Hypertension: Plan: -Continue metoprolol and lasix. (8) AMANDA (obstructive sleep apnea): Plan: -Patient will be placed on BiPap at night. (9) Debility: Plan: -During last hospitalization, it was recommended that she go to skilled facility for rehab but she refused. Upon discussion tonight, patient would like to be placed in a skilled facility upon discharge. -Case management started in the ED. (10) Hyperlipidemia: Plan: -Continue atorvastatin. (11) Major depression, recurrent: Plan: Continue Seroquel, Elavil. - Follow for hypersomnia - present on last admission - discontinued her baclofen (12) Peripheral neuropathy: Plan: Continue gabapentin. (13) GERD (gastroesophageal reflux disease): Plan: -Continue PPI. (14) Chronic low back pain: Plan: Continue oxycodone-acetaminophen 5-325 mg QID PRN - Continue Gabapentin - Continue to hold her baclofen (15) DVT prophylaxis: Plan: -SCDs ad Lovenox ordered Admission and Anticipated Discharge Date Admission Date: May 22, 2021 Subjective Patient seen and examined today, denies chest pain or shortness of breath Review of Systems Review of Systems: All systems reviewed are negative, apart from the ones contained in the history. Physical Exam Physical Exam: The patient is awake, alert and oriented 3, well developed and well nourished, normocephalic and atraumatic, lying in bed and in no acute distress. HEENT--PERRL, EOMI, mucous membranes and oropharynx mildly dry Neck--supple. No JVD. No bruits. Thyroid normal, trachea midline, no adenopathy. Heart--normal S1 and S2. No murmurs, rubs or gallops. Lungs--clear bilaterally, no respiratory distress, no accessory muscle use. Abdomen--normal bowel sounds and soft. Mild epigastric and left sided abdominal pain Extremities--no cyanosis or clubbing. No edema. Dermatologic--normal skin turgor, normal color, no abnormal lymph nodes, no rash. Neurologic--cranial nerves II through XII grossly intact. Rheumatologic--normal range of motion. Psychiatric--normal affect. Results & Data Results & Data ([facility]) Vital Signs (Past 12 Hours) Vital Signs Temp Pulse Pulse Resp BP Pulse Ox 05/24/21 12:00 98.4 F 78 20 114/75 94 05/24/21 07:55 98.2 F 70 18 131/63 95 05/24/21 07:00 64 05/24/21 04:21 97.7 F 68 18 117/69 94 PG Care Time/CCT Total # of Minutes Spent Total Time Spent with Patient: Total time spent is greater than 50% in coordination of care (as documented) at patient's floor/unit and/or counseling patient: Coding Level of Care Code 75199 Subseq Hosp Care Lvl 2 Diagnoses Hypoglycemia E16.2 Type 2 diabetes mellitus E11.59; Z79.4 Diabetes mellitus complication detail: with other circulatory complications Diabetes mellitus complication status: with circulatory complication Diabetes mellitus filler leaf cutter long insulin use: with skilled nursing use Empyema J86.9 Anemia D64.9 Anemia type: unspecified type Afib I48.91 Chronic respiratory failure J96.10 Hypertension I10 AMANDA (obstructive sleep apnea) G47.33 Debility R53.81 Hyperlipidemia E78.5 Major depression, recurrent F33.9 Peripheral neuropathy G62.9 GERD (gastroesophageal reflux disease) K21.9 Chronic low back pain M54.5; G89.29 DVT prophylaxis Z29.9 Time Spent (min) 35 (1) Type 2 diabetes mellitus Diabetes mellitus complication detail: with other circulatory complications Diabetes mellitus complication status: with circulatory complication Diabetes mellitus skilled nursing insulin use: with filler leaf cutter long use Qualified Code(s): E11.59 - Type 2 diabetes mellitus with other circulatory complications; Z79.4 - [facility] (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
--- NOTE | 2021-05-24 15:43 | Pharmacy Report ---
Pharmacy Glycemic Short Note 2 - Date of Service May 24, 2021 - Glycemic Short BSG Results (Last 24 hours): 05/23/21 05/23/21 05/24/21 16:33 20:33 05:04 Glucose POC Glucose 164 H 165 H 209 H 05/24/21 05/24/21 05/24/21 07:35 08:17 11:22 Glucose 166 H POC Glucose 161 H 201 H OUTPATIENT ANTIDIABETIC REGIMEN: * A1c = 6.3% (05/23/21) * Lantus 60 units daily * Apidra 50 units ACHS * Liraglutide 1.8 mg sq daily ASSESSMENT: * Patient admitted with hypoglycemia- likely iatrogenic in the setting of continued insulin with decrease oral intake. Insulin was held and patient was started on dextrose infusion. BSG recovered shortly after and then began trending upward. * Patient was started on Lantus 20 units BID yesterday. Fasting BSG of 161 mg/dL today. Although BSG remains above goal, I suspect this basal dose will become too much overtime. During recent admission, patient required only 30-40 units of Lantus per day while on high dose IV steroids. * Will tighten novolog coverage PLAN FOR INPATIENT GLYCEMIC CONTROL: * Hold outpatient oral diabetes medications * Basal insulin * Lantus 20 units SQ this morning, then start 10-20 units SQ BID: * 10 units for BSG < 140 * 15 units for BSG 140 - 200 * 20 units for BSG > 200 * Bolus insulin * NovoLog per scale ACHS or Q6hrs while NPO * Goal Range: Low 110 mg/dL - High 140 mg/dL * Correction Factor: 15 mg/dL/unit * Nutritional / Prandial insulin per carb ratio of 1 unit per 5 grams CHO consumed PLAN FOR DISCHARGE: * tbd
[2021-05-24] MEDS: AMITRIPTYLINE HCL 25 MG TAB PO SCH (21:13)
[2021-05-25] MEDS: AMPICILLIN/SULBACTAM SOD 3,000 MG in 0.9 % SODIUM CHLORIDE 100 ML IV SCH ×4 (00:20→17:49)
[2021-05-25] MEDS: ENOXAPARIN INJ 40 MG/0.4 ML SYR SQ SCH ×2 (05:46→17:00)
[2021-05-25 07:46] LABS: Creatinine Clr Calc Pharmacy 121.4 ml/min; Est GFR (African American) 81.3 ml/min; Est GFR (Non-African American) 70.2 ml/min
[2021-05-25] MEDS: INSULIN ASPART PER UNIT SC SCH ×4 (07:58→21:11)
[2021-05-25] MEDS: METOPROLOL TARTRATE 50 MG TAB PO SCH ×2 (07:59→20:57)
[2021-05-25] MEDS: rOPINIRole HCL 1 MG TABLET PO SCH ×3 (07:59→17:00)
[2021-05-25] MEDS: LACTULOSE SYRUP 20 GM/30 ML UDC PO SCH ×2 (08:00→20:59)
[2021-05-25] MEDS: PANTOprazole 40 MG TAB PO SCH ×2 (08:01→20:58)
[2021-05-25] MEDS: QUEtiapine FUMARATE 300 MG TABLET PO SCH ×2 (08:01→20:58)
[2021-05-25] MEDS: FERROUS SULFATE 325 MG TAB PO SCH (08:01)
[2021-05-25] MEDS: FUROSEMIDE 20 MG TAB PO SCH (08:02)
[2021-05-25] MEDS: ATORVASTATIN 10 MG TAB PO SCH (08:02)
[2021-05-25] MEDS: TOLTERODINE TARTRATE LA 2 MG CAPCR PO SCH (08:02)
[2021-05-25] MEDS: GABAPENTIN 400 MG CAP PO SCH ×3 (08:02→20:57)
[2021-05-25] MEDS: INSULIN GLARGINE SOLOSTAR 100 UNITS/ML 3 ML PEN SC SCH ×3 (08:05→16:54)
[2021-05-25] MEDS: UMECLIDINIUM BROMIDE 62.5MCG/BLISTER 7 PUFFS/INHALER INH SCH (08:07)
[2021-05-25] MEDS: oxyCODONE/ACETAMINOPHEN 5mg/325mg TAB PO PRN ×2 (08:18→18:20)
[2021-05-25] MEDS: POTASSIUM CHLORIDE CRTAB 20 MEQ TABCR PO SCH (08:19)
--- NOTE | 2021-05-25 11:56 | Hospitalist Progress Note ---
Date of Service May 25, 2021 Assessment & Plan (1) Hypoglycemia: Plan: Now resolved Blood glucose has been under fair control (2) Type 2 diabetes mellitus: Plan: -Poorly controlled type 2 DM Hold home Victoza Continue insulin and insulin sliding scale HbA1c was 10 Will need to follow up with Endocrinology as outpatient upon discharge (3) Empyema: Plan: -Diagnosed in an outside facility Treatment started there -Continue Unasyn abx via PICC line. - Due to stop on Jun 05 (4) Anemia: Plan: -stable hb -Continue PO iron supplementation. (5) Afib: Plan: -Continue metoprolol. -Continue to hold Eliquis due to recent anemia requiring blood transfusion during last hospitalization. (6) Chronic respiratory failure: Plan: -Patient is on 4L NC chronically with bipap at night. (7) Hypertension: Plan: -Continue metoprolol and lasix. (8) AMANDA (obstructive sleep apnea): Plan: -Patient will be placed on BiPap at night. (9) Debility: Plan: -patient is essentially bedbound -During last hospitalization, it was recommended that she go to skilled facility for rehab but she refused. Upon discussion tonight, patient would like to be placed in a skilled facility upon discharge. -Case management started in the ED. (10) Hyperlipidemia: Plan: -Continue atorvastatin. (11) Major depression, recurrent: Plan: Continue Seroquel, Elavil. - Follow for hypersomnia - present on last admission - discontinued her baclofen (12) Peripheral neuropathy: Plan: Continue gabapentin. (13) GERD (gastroesophageal reflux disease): Plan: -Continue PPI. (14) Chronic low back pain: Plan: Continue oxycodone-acetaminophen 5-325 mg QID PRN - Continue Gabapentin - Continue to hold her baclofen (15) DVT prophylaxis: Plan: -SCDs ad Lovenox ordered Admission and Anticipated Discharge Date Admission Date: May 22, 2021 Subjective Patient seen and examined today, denies chest pain or shortness of breath Review of Systems Review of Systems: All systems reviewed are negative, apart from the ones contained in the history. Physical Exam Physical Exam: The patient is awake, alert and oriented 3, well developed and well nourished, normocephalic and atraumatic, lying in bed and in no acute distress. HEENT--PERRL, EOMI, mucous membranes and oropharynx mildly dry Neck--supple. No JVD. No bruits. Thyroid normal, trachea midline, no adenopathy. Heart--normal S1 and S2. No murmurs, rubs or gallops. Lungs--clear bilaterally, no respiratory distress, no accessory muscle use. Abdomen--normal bowel sounds and soft. Mild epigastric and left sided abdominal pain Extremities--no cyanosis or clubbing. No edema. Dermatologic--normal skin turgor, normal color, no abnormal lymph nodes, no rash. Neurologic--cranial nerves II through XII grossly intact. Rheumatologic--normal range of motion. Psychiatric--normal affect. Results & Data Results & Data ([facility]) Vital Signs (Past 12 Hours) Vital Signs Temp Pulse Pulse Resp BP Pulse Ox 05/25/21 11:19 97.9 F 61 22 144/89 H 96 05/25/21 08:00 58 L 05/25/21 07:23 97.5 F L 59 L 21 114/66 97 05/25/21 04:42 77 15 96 05/25/21 03:09 97.9 F 73 18 163/71 H 95 PG Care Time/CCT Total # of Minutes Spent Total Time Spent with Patient: Total time spent is greater than 50% in coordination of care (as documented) at patient's floor/unit and/or counseling patient: Coding Level of Care Code 79479 Subseq Hosp Care Lvl 2 Diagnoses Hypoglycemia E16.2 Type 2 diabetes mellitus E11.59; Z79.4 Diabetes mellitus complication detail: with other circulatory complications Diabetes mellitus complication status: with circulatory complication Diabetes mellitus medical terminologist insulin use: with penitentiary use Empyema J86.9 Anemia D64.9 Anemia type: unspecified type Afib I48.91 Chronic respiratory failure J96.10 Hypertension I10 AMANDA (obstructive sleep apnea) G47.33 Debility R53.81 Hyperlipidemia E78.5 Major depression, recurrent F33.9 Peripheral neuropathy G62.9 GERD (gastroesophageal reflux disease) K21.9 Chronic low back pain M54.5; G89.29 DVT prophylaxis Z29.9 Time Spent (min) 35 (1) Type 2 diabetes mellitus Diabetes mellitus complication detail: with other circulatory complications Diabetes mellitus complication status: with circulatory complication Diabetes mellitus penitentiary insulin use: with medical terminologist use Qualified Code(s): E11.59 - Type 2 diabetes mellitus with other circulatory complications; Z79.4 - medical terminologist (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
[2021-05-25] MEDS: AMITRIPTYLINE HCL 25 MG TAB PO SCH (20:57)
[2021-05-26] MEDS: AMPICILLIN/SULBACTAM SOD 3,000 MG in 0.9 % SODIUM CHLORIDE 100 ML IV SCH ×4 (00:02→17:14)
[2021-05-26] MEDS: ENOXAPARIN INJ 40 MG/0.4 ML SYR SQ SCH ×2 (05:24→17:08)
[2021-05-26] MEDS: UMECLIDINIUM BROMIDE 62.5MCG/BLISTER 7 PUFFS/INHALER INH SCH (08:38)
[2021-05-26] MEDS: GABAPENTIN 400 MG CAP PO SCH ×3 (08:38→22:06)
[2021-05-26] MEDS: ATORVASTATIN 10 MG TAB PO SCH (08:39)
[2021-05-26] MEDS: rOPINIRole HCL 1 MG TABLET PO SCH ×3 (08:39→17:09)
[2021-05-26] MEDS: PANTOprazole 40 MG TAB PO SCH ×2 (08:39→22:04)
[2021-05-26] MEDS: FERROUS SULFATE 325 MG TAB PO SCH (08:39)
[2021-05-26] MEDS: FUROSEMIDE 20 MG TAB PO SCH (08:39)
[2021-05-26] MEDS: QUEtiapine FUMARATE 300 MG TABLET PO SCH ×2 (08:40→22:04)
[2021-05-26] MEDS: LACTULOSE SYRUP 20 GM/30 ML UDC PO SCH ×2 (08:40→22:06)
[2021-05-26] MEDS: TOLTERODINE TARTRATE LA 2 MG CAPCR PO SCH (08:40)
[2021-05-26] MEDS: METOPROLOL TARTRATE 50 MG TAB PO SCH ×2 (08:40→22:05)
[2021-05-26] MEDS: INSULIN ASPART PER UNIT SC SCH ×4 (08:42→22:08)
[2021-05-26] MEDS: POTASSIUM CHLORIDE CRTAB 20 MEQ TABCR PO SCH (08:53)
[2021-05-26] MEDS ORDERED: INSULIN GLARGINE SOLOSTAR 100 UNITS/ML 3 ML PEN SC SCH ×2 (09:00)
--- NOTE | 2021-05-26 13:21 | Pharmacy Report ---
Pharmacy Glycemic Short Note 2 - Date of Service May 26, 2021 - Glycemic Short BSG Results (Last 24 hours): 05/25/21 05/25/21 05/26/21 16:21 20:36 07:28 POC Glucose 178 H 178 H 184 H 05/26/21 11:29 POC Glucose 207 H OUTPATIENT ANTIDIABETIC REGIMEN: * A1c = 6.3% (05/23/21) * Lantus 60 units daily * Apidra 50 units ACHS * Liraglutide 1.8 mg sq daily ASSESSMENT: 05/26/21 * Patient's BSGs yesterday were [phone] and fasting today was 184 mg/dL. Transition to once daily insulin completed today. * Fasting trending upwards so increase to TDD of 35 units. * Continue Novolog as BSGs relatively stable yesterday. Baseline * Patient admitted with hypoglycemia- likely iatrogenic in the setting of continued insulin with decrease oral intake. Insulin was held and patient was started on dextrose infusion. BSG recovered shortly after and then began trending upward. * Patient was started on Lantus 20 units BID yesterday. Fasting BSG of 161 mg/dL today. Although BSG remains above goal, I suspect this basal dose will become too much overtime. During recent admission, patient required only 30-40 units of Lantus per day while on high dose IV steroids. * Will tighten novolog coverage PLAN FOR INPATIENT GLYCEMIC CONTROL: * Hold outpatient oral diabetes medications * Basal insulin * Lantus 35 units SQ daily * Bolus insulin * NovoLog per scale ACHS or Q6hrs while NPO * Goal Range: Low 110 mg/dL - High 140 mg/dL * Correction Factor: 15 mg/dL/unit * Nutritional / Prandial insulin per carb ratio of 1 unit per 5 grams CHO consumed PLAN FOR DISCHARGE: * Patient reports severe hypoglycemia at home. * Recommend reducing insulin doses in order to prevent future hospitalizations. * Reasonable to trial the following: * Lantus 35 units daily * Apidra 15 units with meals (hold if do not eat meal) * Victoza 1.8 mg SQ daily * If doses are adjusted, recommend following up closely with outpatient provider to check BSGs closely and adjust insulin appropriate. This will help prevent hyperglycemia.
[2021-05-26] MEDS: oxyCODONE/ACETAMINOPHEN 5mg/325mg TAB PO PRN (17:15)
--- NOTE | 2021-05-26 17:44 | Hospitalist Progress Note ---
Date of Service May 26, 2021 Assessment & Plan (1) Hypoglycemia: Plan: Now resolved Blood glucose has been under fair control (2) Type 2 diabetes mellitus: Plan: -Poorly controlled type 2 DM Hold home Victoza Continue insulin and insulin sliding scale HbA1c was 10 Will need to follow up with Endocrinology as outpatient upon discharge (3) Empyema: Plan: -Diagnosed in an outside facility Treatment started there -Continue Unasyn abx via PICC line. - Due to stop on Jun 05 (4) Anemia: Plan: -stable hb -Continue PO iron supplementation. (5) Afib: Plan: -Continue metoprolol. -Continue to hold Eliquis due to recent anemia requiring blood transfusion during last hospitalization. (6) Chronic respiratory failure: Plan: -Patient is on 4L NC chronically with bipap at night. (7) Hypertension: Plan: -Continue metoprolol and lasix. (8) AMANDA (obstructive sleep apnea): Plan: -Patient will be placed on BiPap at night. (9) Debility: Plan: -patient is essentially bedbound, functional parapelegic from morbid obesity -During last hospitalization, it was recommended that she go to skilled facility for rehab but she refused. Upon discussion tonight, patient would like to be placed in a skilled facility upon discharge. -Case management started in the ED, considering [facility] and [facility]. (10) Hyperlipidemia: Plan: -Continue atorvastatin. (11) Major depression, recurrent: Plan: Continue Seroquel, Elavil. - Follow for hypersomnia - present on last admission - discontinued her baclofen (12) Peripheral neuropathy: Plan: Continue gabapentin. (13) GERD (gastroesophageal reflux disease): Plan: -Continue PPI. (14) Chronic low back pain: Plan: Continue oxycodone-acetaminophen 5-325 mg QID PRN - Continue Gabapentin - Continue to hold her baclofen (15) DVT prophylaxis: Plan: -SCDs ad Lovenox ordered Admission and Anticipated Discharge Date Admission Date: May 22, 2021 Subjective pt was seen and is comfortable no new complains some productive cough Review of Systems Review of Systems: Mild distress and fatigue no headache, no visual changes no speech or swallowing issues no chest pain, pressure or palpitations no shortness of breath, mild productive cough no wheezes no abdominal pain, nausea or vomiting, diarrhea or constipation no dysuria, hematuria or frequency no focal joint pain or swelling no back pain, CVA tenderness or radicular pain no bruising, bleeding or rashes no focal signs of weakness or numbness or altered sensation no complaints of anxiety or depression.. Physical Exam Physical Exam: The patient appeared well nourished and normally developed. Vital signs as documented. Head exam is normocephalic atraumatic Neck is without JVD, thyromegaly, or carotid bruits. Lungs are diminished throughout no focal loss of breath sounds Cardiac exam, Rhythm is regular.. No murmurs, rubs or gallops. Abdominal exam reveals normal bowel sounds, soft non tender, no masses Extremities are chronically edematous and both pedal pulses are present Neurologic exam is alert and oriented, no focal loss of strength or sensation Skin is with chronic venous stasis changes Psychologically is without concerns for anxiety or depression.. Results & Data Results & Data ([facility]) Vital Signs (Past 12 Hours) Vital Signs Temp Pulse Pulse Resp BP Pulse Ox 05/26/21 17:00 98.6 F 74 18 160/87 H 96 05/26/21 16:27 72 05/26/21 12:20 97.9 F 57 L 18 116/64 91 05/26/21 08:00 98.1 F 84 18 174/63 H 96 PG Care Time/CCT Total # of Minutes Spent Total Time Spent with Patient: Total time spent is greater than 50% in coordination of care (as documented) at patient's floor/unit and/or counseling patient: Coding Level of Care Code 87095 Subseq Hosp Care Lvl 2 Diagnoses Hypoglycemia E16.2 Type 2 diabetes mellitus E11.59; Z79.4 Diabetes mellitus complication detail: with other circulatory complications Diabetes mellitus complication status: with circulatory complication Diabetes mellitus termite control service representative insulin use: with care home use Empyema J86.9 Anemia D64.9 Anemia type: unspecified type Afib I48.91 Chronic respiratory failure J96.10 Hypertension I10 AMANDA (obstructive sleep apnea) G47.33 Debility R53.81 Hyperlipidemia E78.5 Major depression, recurrent F33.9 Peripheral neuropathy G62.9 GERD (gastroesophageal reflux disease) K21.9 Chronic low back pain M54.5; G89.29 DVT prophylaxis Z29.9 (1) Type 2 diabetes mellitus Diabetes mellitus complication detail: with other circulatory complications Diabetes mellitus complication status: with circulatory complication Diabetes mellitus care home insulin use: with care home use Qualified Code(s): E11.59 - Type 2 diabetes mellitus with other circulatory complications; Z79.4 - correction (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
[2021-05-26] MEDS: AMITRIPTYLINE HCL 25 MG TAB PO SCH (22:07)
[2021-05-27] MEDS: AMPICILLIN/SULBACTAM SOD 3,000 MG in 0.9 % SODIUM CHLORIDE 100 ML IV SCH ×5 (00:19→23:29)
[2021-05-27] MEDS: oxyCODONE/ACETAMINOPHEN 5mg/325mg TAB PO PRN ×3 (00:58→21:08)
[2021-05-27] MEDS: ENOXAPARIN INJ 40 MG/0.4 ML SYR SQ SCH ×2 (05:38→16:40)
[2021-05-27 06:30] LABS: Hemoglobin 10.6 g/dL (12.0-16.0); Mean Corpuscular Hemoglobin 26.1 pg (25-34); Mean Corpuscular Hgb Conc 29.4 g/dL (32-36); Mean Corpuscular Volume 88.7 fL (80-100); Mean Platelet Volume 9.5 fL (7.4-10.4); Platelet Count 150 K/uL (130-400); RDW Coefficient of Variation 23.5 % (11.5-14.5); RDW Standard Deviation 76.8 fL (36.4-46.3); Red Blood Count 4.06 M/uL (4.2-5.4); White Blood Count 3.75 K/uL (4.8-10.8)
[2021-05-27 06:46] LABS: BUN Creatinine Ratio 17.6 (10-20); Calcium 8.9 mg/dl (8.5-10.1); Creatinine Clr Calc Pharmacy 132.9 ml/min; Est GFR (African American) 90.7 ml/min; Est GFR (Non-African American) 78.2 ml/min
[2021-05-27] MEDS: LACTULOSE SYRUP 20 GM/30 ML UDC PO SCH ×2 (08:14→20:13)
[2021-05-27] MEDS: GABAPENTIN 400 MG CAP PO SCH ×3 (08:14→20:13)
[2021-05-27] MEDS: METOPROLOL TARTRATE 50 MG TAB PO SCH ×2 (08:15→20:14)
[2021-05-27] MEDS: ATORVASTATIN 10 MG TAB PO SCH (08:16)
[2021-05-27] MEDS: rOPINIRole HCL 1 MG TABLET PO SCH ×3 (08:16→16:40)
[2021-05-27] MEDS: FERROUS SULFATE 325 MG TAB PO SCH (08:16)
[2021-05-27] MEDS: FUROSEMIDE 20 MG TAB PO SCH (08:17)
[2021-05-27] MEDS: TOLTERODINE TARTRATE LA 2 MG CAPCR PO SCH (08:18)
[2021-05-27] MEDS: QUEtiapine FUMARATE 300 MG TABLET PO SCH ×2 (08:18→20:14)
[2021-05-27] MEDS: PANTOprazole 40 MG TAB PO SCH ×2 (08:19→20:14)
[2021-05-27] MEDS: UMECLIDINIUM BROMIDE 62.5MCG/BLISTER 7 PUFFS/INHALER INH SCH (08:20)
[2021-05-27] MEDS: POTASSIUM CHLORIDE CRTAB 20 MEQ TABCR PO SCH (08:25)
[2021-05-27] MEDS: INSULIN ASPART PER UNIT SC SCH ×4 (08:59→21:08)
[2021-05-27] MEDS ORDERED: INSULIN GLARGINE SOLOSTAR 100 UNITS/ML 3 ML PEN SC SCH (09:00)
[2021-05-27] MEDS: INSULIN GLARGINE SOLOSTAR 100 UNITS/ML 3 ML PEN SC SCH (09:00)
--- NOTE | 2021-05-27 17:54 | Hospitalist Progress Note ---
Date of Service May 27, 2021 Assessment & Plan (1) Hypoglycemia: Plan: No recurrent episodes, see type 2 diabetes management as below (2) Type 2 diabetes mellitus: Plan: -Poorly controlled type 2 DM Hold Victoza Morning hyperglycemia, glargine increased to 45 units Continue SSI Continue glucose checks AC/at bedtime Pharmacy glycemic consult on board Will need to follow up with Endocrinology as outpatient upon discharge (3) Empyema: Plan: -Diagnosed in an outside facility Treatment started there -Continue Unasyn abx via PICC line. - Due to stop on Jun 05 (4) Anemia: Plan: -stable hb -Continue PO iron supplementation. (5) Afib: Plan: -Continue metoprolol. -Continue to hold Eliquis due to recent anemia requiring blood transfusion during last hospitalization. (6) Chronic respiratory failure: Plan: -Patient is on 4L NC chronically with bipap at night. (7) Hypertension: Plan: -Continue metoprolol and lasix. (8) AMANDA (obstructive sleep apnea): Plan: -Patient will be placed on BiPap at night. (9) Debility: Plan: -patient is essentially bedbound, functional parapelegic from morbid obesity -During last hospitalization, it was recommended that she go to skilled facility for rehab but she refused. Upon discussion tonight, patient would like to be placed in a skilled facility upon discharge. -Case management started in the ED, considering [facility] care and [facility]. Pending placement at this time. (10) Hyperlipidemia: Plan: -Continue atorvastatin. (11) Major depression, recurrent: Plan: Continue Seroquel, Elavil. - Follow for hypersomnia - present on last admission - discontinued her baclofen (12) Peripheral neuropathy: Plan: Continue gabapentin. (13) GERD (gastroesophageal reflux disease): Plan: -Continue PPI. (14) Chronic low back pain: Plan: Continue oxycodone-acetaminophen 5-325 mg QID PRN - Continue Gabapentin - Continue to hold her baclofen (15) DVT prophylaxis: Plan: -SCDs ad Lovenox ordered Admission and Anticipated Discharge Date Admission Date: May 22, 2021 Subjective Stable, no acute complaints today. No lightheadedness/dizziness/nausea/vomiting. No chest pain, chest pressure. Awaiting placement. Review of Systems Review of Systems: All systems reviewed & are unremarkable except as noted in Subjective Physical Exam Physical Exam: General: A&Ox3. NAD. Cooperative. Obese. HEENT: Atraumatic, normocephalic. Pulm: Diminished, grossly clear. Symmetrical chest rise. No increase in work of breathing. No respiratory distress. Cardiac: RRR, -mrg. Radial pulses intact and symmetrical. Abdominal: Nontender, nondistended, soft. BS present. Results & Data Results & Data ([facility]) Vital Signs (Past 12 Hours) Vital Signs Temp Pulse Pulse Resp BP Pulse Ox 05/27/21 15:27 36.8 C 71 20 110/65 93 05/27/21 08:12 62 122/74 05/27/21 07:29 36.6 C 62 20 115/69 95 PG Care Time/CCT Total # of Minutes Spent Total Time Spent with Patient: Total time spent is greater than 50% in coordination of care (as documented) at patient's floor/unit and/or counseling patient: Coding Level of Care Code 71560 Subseq Hosp Care Lvl 1 Diagnoses Hypoglycemia E16.2 Type 2 diabetes mellitus E11.59; Z79.4 Diabetes mellitus complication detail: with other circulatory complications Diabetes mellitus complication status: with circulatory complication Diabetes mellitus intermediate designer insulin use: with intermediate designer use Empyema J86.9 Anemia D64.9 Anemia type: unspecified type Afib I48.91 Chronic respiratory failure J96.10 Hypertension I10 AMANDA (obstructive sleep apnea) G47.33 Debility R53.81 Hyperlipidemia E78.5 Major depression, recurrent F33.9 Peripheral neuropathy G62.9 GERD (gastroesophageal reflux disease) K21.9 Chronic low back pain M54.5; G89.29 DVT prophylaxis Z29.9 (1) Type 2 diabetes mellitus Diabetes mellitus complication detail: with other circulatory complications Diabetes mellitus complication status: with circulatory complication Diabetes mellitus intermediate designer insulin use: with intermediate designer use Qualified Code(s): E11.59 - Type 2 diabetes mellitus with other circulatory complications; Z79.4 - shelter (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
[2021-05-27] MEDS: AMITRIPTYLINE HCL 25 MG TAB PO SCH (20:12)
[2021-05-28] MEDS: AMPICILLIN/SULBACTAM SOD 3,000 MG in 0.9 % SODIUM CHLORIDE 100 ML IV SCH ×4 (05:07→23:43)
[2021-05-28] MEDS: ENOXAPARIN INJ 40 MG/0.4 ML SYR SQ SCH ×2 (05:08→16:33)
[2021-05-28] MEDS: GABAPENTIN 400 MG CAP PO SCH ×3 (08:11→21:00)
[2021-05-28] MEDS: rOPINIRole HCL 1 MG TABLET PO SCH ×3 (08:11→16:32)
[2021-05-28] MEDS: FUROSEMIDE 20 MG TAB PO SCH (08:11)
[2021-05-28] MEDS: FERROUS SULFATE 325 MG TAB PO SCH (08:12)
[2021-05-28] MEDS: PANTOprazole 40 MG TAB PO SCH ×2 (08:12→21:02)
[2021-05-28] MEDS: QUEtiapine FUMARATE 300 MG TABLET PO SCH ×2 (08:12→21:02)
[2021-05-28] MEDS: ATORVASTATIN 10 MG TAB PO SCH (08:12)
[2021-05-28] MEDS: TOLTERODINE TARTRATE LA 2 MG CAPCR PO SCH (08:12)
[2021-05-28] MEDS: LACTULOSE SYRUP 20 GM/30 ML UDC PO SCH ×2 (08:13→21:03)
[2021-05-28] MEDS: METOPROLOL TARTRATE 50 MG TAB PO SCH ×2 (08:13→21:06)
[2021-05-28] MEDS: UMECLIDINIUM BROMIDE 62.5MCG/BLISTER 7 PUFFS/INHALER INH SCH (08:14)
[2021-05-28] MEDS: POTASSIUM CHLORIDE CRTAB 20 MEQ TABCR PO SCH (08:15)
[2021-05-28] MEDS: INSULIN GLARGINE SOLOSTAR 100 UNITS/ML 3 ML PEN SC SCH (08:24)
[2021-05-28] MEDS: INSULIN ASPART PER UNIT SC SCH ×4 (08:27→21:10)
[2021-05-28] MEDS: oxyCODONE/ACETAMINOPHEN 5mg/325mg TAB PO PRN ×2 (12:11→21:09)
[2021-05-28] MEDS ORDERED: INSULIN GLARGINE SOLOSTAR 100 UNITS/ML 3 ML PEN SC ONE (12:30)
--- NOTE | 2021-05-28 17:37 | Hospitalist Progress Note ---
Date of Service May 28, 2021 Assessment & Plan (1) Hypoglycemia: Plan: No recurrent episodes, see type 2 diabetes management as below (2) Type 2 diabetes mellitus: Plan: -Poorly controlled type 2 DM Hold Victoza Morning hyperglycemia, sliding scale glargine added to 45 units daily Continue SSI Continue glucose checks AC/at bedtime Pharmacy glycemic consult on board, appreciate recommendations and adjustments Will need to follow up with Endocrinology as outpatient upon discharge If UTI present may have increased labile blood sugars, being evaluated as below (3) Empyema: Plan: -Diagnosed in an outside facility Treatment started there -Continue Unasyn abx via PICC line. - Due to stop on Jun 05 (4) Anemia: Plan: -stable hb -Continue PO iron supplementation. (5) Afib: Plan: -Continue metoprolol. -Continue to hold Eliquis due to recent anemia requiring blood transfusion during last hospitalization. (6) Chronic respiratory failure: Plan: -Patient is on 4L NC chronically with bipap at night. (7) Hypertension: Plan: -Continue metoprolol and lasix. (8) AMANDA (obstructive sleep apnea): Plan: -Patient will be placed on BiPap at night. (9) Debility: Plan: -patient is essentially bedbound, functional parapelegic from morbid obesity -During last hospitalization, it was recommended that she go to skilled facility for rehab but she refused. Upon discussion tonight, patient would like to be placed in a skilled facility upon discharge. -Case management started in the ED, [facility]. Pending placement at this time. (10) Hyperlipidemia: Plan: -Continue atorvastatin. (11) Major depression, recurrent: Plan: Continue Seroquel, Elavil. - Follow for hypersomnia - present on last admission - discontinued her baclofen (12) Peripheral neuropathy: Plan: Continue gabapentin. (13) GERD (gastroesophageal reflux disease): Plan: -Continue PPI. (14) Chronic low back pain: Plan: Continue oxycodone-acetaminophen 5-325 mg QID PRN - Continue Gabapentin - Continue to hold her baclofen (15) DVT prophylaxis: Plan: -SCDs ad Lovenox ordered (16) Dysuria: Plan: Patient endorses some burning at her Peacock in with draining urine which she has had with UTIs in the past Denies having a Peacock prior to this admission, is able to void but is functionally bedbound Peacock to be removed, urine cath sample to be sent for UA. Patient is on Unasyn as above. Follow for UA/UC Use anna quarles at this time Admission and Anticipated Discharge Date Admission Date: May 22, 2021 Subjective Patient seen the bedside this morning. No respiratory symptoms or change in respiratory status. No chest pain, chest pressure, nausea, vomiting, diarrhea, constipation. She does feel like she is getting a UTI which she has had before, endorses burning with urination while Peacock in place, although notes she is not able to tell exactly when she is voiding. Reports she has had a Peacock at home before, was not with a Peacock prior to this admission per patient. Denies fever chills sweats and back pain Review of Systems Review of Systems: All systems reviewed & are unremarkable except as noted in Subjective Physical Exam Physical Exam: General: A&Ox3. NAD. Cooperative. Obese. HEENT: Atraumatic, normocephalic. Pulm: Diminished, grossly clear. Symmetrical chest rise. No increase in work of breathing. No respiratory distress. Cardiac: RRR, -mrg. Radial pulses intact and symmetrical. Abdominal: Nontender, nondistended, soft. BS present. : Peacock in place with dark yellow urine Results & Data Results & Data ([facility]) Vital Signs (Past 12 Hours) Vital Signs Temp Pulse Resp BP BP Pulse Ox 05/28/21 15:47 36.7 C 66 18 119/54 L 92 05/28/21 08:00 36.6 C 70 18 129/73 94 PG Care Time/CCT Total # of Minutes Spent Total Time Spent with Patient: Total time spent is greater than 50% in coordination of care (as documented) at patient's floor/unit and/or counseling patient: Coding Level of Care Code 51342 Subseq Hosp Care Lvl 2 Diagnoses Hypoglycemia E16.2 Type 2 diabetes mellitus E11.59; Z79.4 Diabetes mellitus complication detail: with other circulatory complications Diabetes mellitus complication status: with circulatory complication Diabetes mellitus roasterman insulin use: with roasterman use Empyema J86.9 Anemia D64.9 Anemia type: unspecified type Afib I48.91 Chronic respiratory failure J96.10 Hypertension I10 AMANDA (obstructive sleep apnea) G47.33 Debility R53.81 Hyperlipidemia E78.5 Major depression, recurrent F33.9 Peripheral neuropathy G62.9 GERD (gastroesophageal reflux disease) K21.9 Chronic low back pain M54.5; G89.29 DVT prophylaxis Z29.9 Dysuria R30.0 (1) Type 2 diabetes mellitus Diabetes mellitus complication detail: with other circulatory complications Diabetes mellitus complication status: with circulatory complication Diabetes mellitus [facility] insulin use: with roasterman use Qualified Code(s): E11.59 - Type 2 diabetes mellitus with other circulatory complications; Z79.4 - exterminator (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
[2021-05-28] MEDS ORDERED: INSULIN GLARGINE SOLOSTAR 100 UNITS/ML 3 ML PEN SC SCH (21:00)
[2021-05-28] MEDS: AMITRIPTYLINE HCL 25 MG TAB PO SCH (21:00)
[2021-05-29] MEDS ORDERED: INSULIN ASPART PER UNIT SC SCH
[2021-05-29 00:09] LABS: Appearance Urine Clear (Clear); Bacteria Urine Automated Negative (Negative); Bilirubin Urine Negative (Negative); Blood Urine 2+ (Negative); Color Urine Yellow; Glucose Urine UA Negative (Negative); Ketones Urine Negative (Negative); Leukocyte Esterase Urine Trace (Negative); Nitrite Urine Negative (Negative); Protein Urine Trace (Negative); Specific Gravity Urine 1.017 (1.000-1.030); Urobilinogen Urine Negative (Negative); pH Urine 5.5 (4.5-7.5)
[2021-05-29] MEDS ORDERED: LORazepam 0.5 MG TAB PO STA (00:40)
[2021-05-29] MEDS: ENOXAPARIN INJ 40 MG/0.4 ML SYR SQ SCH ×2 (05:32→17:52)
[2021-05-29] MEDS: AMPICILLIN/SULBACTAM SOD 3,000 MG in 0.9 % SODIUM CHLORIDE 100 ML IV SCH ×4 (05:32→23:43)
[2021-05-29] MEDS: oxyCODONE/ACETAMINOPHEN 5mg/325mg TAB PO PRN ×2 (05:33→20:44)
[2021-05-29 06:34] LABS: Hematocrit (blood only) 37.5 % (37-47); Mean Corpuscular Hemoglobin 26.2 pg (25-34); Mean Corpuscular Hgb Conc 29.3 g/dL (32-36); Mean Corpuscular Volume 89.3 fL (80-100); Mean Platelet Volume 9.8 fL (7.4-10.4); Platelet Count 188 K/uL (130-400); RDW Coefficient of Variation 23.2 % (11.5-14.5); RDW Standard Deviation 75.9 fL (36.4-46.3); White Blood Count 4.74 K/uL (4.8-10.8)
[2021-05-29 07:07] LABS: BUN Creatinine Ratio 16.9 (10-20); Calcium 9.4 mg/dl (8.5-10.1); Creatinine Clr Calc Pharmacy 126.9 ml/min; Est GFR (African American) 85.8 ml/min; Potassium 3.9 mmol/L (3.5-5.1)
[2021-05-29] MEDS: METOPROLOL TARTRATE 50 MG TAB PO SCH ×2 (08:18→20:47)
[2021-05-29] MEDS: PANTOprazole 40 MG TAB PO SCH ×2 (08:18→20:46)
[2021-05-29] MEDS: GABAPENTIN 400 MG CAP PO SCH ×3 (08:19→20:45)
[2021-05-29] MEDS: ATORVASTATIN 10 MG TAB PO SCH (08:19)
[2021-05-29] MEDS: rOPINIRole HCL 1 MG TABLET PO SCH ×3 (08:19→17:52)
[2021-05-29] MEDS: TOLTERODINE TARTRATE LA 2 MG CAPCR PO SCH (08:19)
[2021-05-29] MEDS: QUEtiapine FUMARATE 300 MG TABLET PO SCH ×2 (08:19→20:43)
[2021-05-29] MEDS: FUROSEMIDE 20 MG TAB PO SCH (08:19)
[2021-05-29] MEDS: UMECLIDINIUM BROMIDE 62.5MCG/BLISTER 7 PUFFS/INHALER INH SCH (08:20)
[2021-05-29] MEDS: FERROUS SULFATE 325 MG TAB PO SCH (08:20)
[2021-05-29] MEDS: LACTULOSE SYRUP 20 GM/30 ML UDC PO SCH ×2 (08:20→20:43)
[2021-05-29] MEDS: POTASSIUM CHLORIDE CRTAB 20 MEQ TABCR PO SCH (08:22)
[2021-05-29] MEDS ORDERED: INSULIN GLARGINE SOLOSTAR 100 UNITS/ML 3 ML PEN SC SCH ×2 (09:00)
[2021-05-29] MEDS: INSULIN ASPART PER UNIT SC SCH ×4 (09:26→20:54)
--- NOTE | 2021-05-29 12:38 | Pharmacy Report ---
Pharmacy Glycemic Short Note 2 - Date of Service May 29, 2021 - Glycemic Short BSG Results (Last 24 hours): 05/28/21 05/28/21 05/28/21 17:03 20:32 23:46 Glucose POC Glucose 224 H 167 H 198 H 05/29/21 05/29/21 05/29/21 05:46 07:53 12:16 Glucose 183 H POC Glucose 196 H 222 H OUTPATIENT ANTIDIABETIC REGIMEN: * A1c = 6.3% (05/23/21) * Lantus 60 units daily * Apidra 50 units ACHS * Liraglutide 1.8 mg sq daily ASSESSMENT: 05/29/21 * Patient's BSGs yesterday were [phone] mg/dL. Fasting today is 196 mg/dL. * Patient received 139 units of insulin yesterday (45 units of basal and 94 units of bolus). * Fasting trending downwards to continue Lantus 45 units daily. Still slightly above goal range. * Continue tightened Novolog. 05/26/21 * Patient's BSGs yesterday were [phone] and fasting today was 184 mg/dL. Transition to once daily insulin completed today. * Fasting trending upwards so increase to TDD of 35 units. * Continue Novolog as BSGs relatively stable yesterday. Baseline * Patient admitted with hypoglycemia- likely iatrogenic in the setting of continued insulin with decrease oral intake. Insulin was held and patient was started on dextrose infusion. BSG recovered shortly after and then began trending upward. * Patient was started on Lantus 20 units BID yesterday. Fasting BSG of 161 mg/dL today. Although BSG remains above goal, I suspect this basal dose will become too much overtime. During recent admission, patient required only 30-40 units of Lantus per day while on high dose IV steroids. * Will tighten novolog coverage PLAN FOR INPATIENT GLYCEMIC CONTROL: * Hold outpatient oral diabetes medications * Basal insulin * Lantus 45 units SQ daily * Bolus insulin * NovoLog per scale ACHS or Q6hrs while NPO * Goal Range: Low 110 mg/dL - High 140 mg/dL * Correction Factor: 8 mg/dL/unit * Nutritional / Prandial insulin per carb ratio of 1 unit per 3 grams CHO consumed PLAN FOR DISCHARGE: * Patient reports severe hypoglycemia at home. * Recommend reducing insulin doses in order to prevent future hospitalizations. * Reasonable to trial the following: * Lantus 35 units daily * Apidra 15 units with meals (hold if do not eat meal) * Victoza 1.8 mg SQ daily * If doses are adjusted, recommend following up closely with outpatient provider to check BSGs closely and adjust insulin appropriate. This will help prevent hyperglycemia.
--- NOTE | 2021-05-29 17:17 | Hospitalist Progress Note ---
Date of Service May 29, 2021 Assessment & Plan (1) Hypoglycemia: Plan: No recurrent episodes, see type 2 diabetes management as below (2) Type 2 diabetes mellitus: Plan: -Poorly controlled type 2 DM Hold Victoza Glucose control improved this morning Continue glargine 45 units daily with additional sliding scale glargine Continue SSI Continue glucose checks AC/at bedtime Pharmacy glycemic consult on board, appreciate recommendations and adjustments - Will need to follow up with Endocrinology as outpatient upon discharge (3) Empyema: Plan: -Diagnosed in an outside facility Treatment started there -Continue Unasyn abx via PICC line. - Due to stop on Jun 05 (4) Anemia: Plan: -stable hb -Continue PO iron supplementation. (5) Afib: Plan: -Continue metoprolol. -Continue to hold Eliquis due to recent anemia requiring blood transfusion during last hospitalization. (6) Chronic respiratory failure: Plan: -Patient is on 4L NC chronically with bipap at night. (7) Hypertension: Plan: -Continue metoprolol and lasix. (8) AMANDA (obstructive sleep apnea): Plan: -BiPaP qHS (9) Debility: Plan: -patient is essentially bedbound, functional parapelegic from morbid obesity -During last hospitalization, it was recommended that she go to skilled facility for rehab but she refused. Upon discussion this admit pt agreeable to placement - Pending placement, additional referalls to [facility] [place] [place] [place] 05/29 (10) Hyperlipidemia: Plan: -Continue atorvastatin. (11) Major depression, recurrent: Plan: Continue Seroquel, Elavil. - Follow for hypersomnia - present on last admission - discontinued her baclofen (12) Peripheral neuropathy: Plan: Continue gabapentin. (13) GERD (gastroesophageal reflux disease): Plan: -Continue PPI. (14) Chronic low back pain: Plan: Continue oxycodone-acetaminophen 5-325 mg QID PRN - Continue Gabapentin - Continue to hold her baclofen (15) DVT prophylaxis: Plan: -SCDs ad Lovenox ordered (16) Dysuria: Plan: - Resolved Admission and Anticipated Discharge Date Admission Date: May 22, 2021 Subjective Seen at bedside. No dysuria/urinary pain today. She feels that her normal baseline, denies fever, chills, sweats, difficulty breathing, shortness of breath, chest pain, chest pressure. Resting comfortably in bed listening to music. Glycemic control improved this morning. Per [facility] they are not able to accept patient due to Medicaid. Patient is aware that referrals out to [facility] but no beds are available at this time. Discussed between patient and case management, [facility] [place] [place] pEnding placement, no acute clinical change at this time Review of Systems Review of Systems: All systems reviewed & are unremarkable except as noted in Subjective Physical Exam Physical Exam: General: A&Ox3. NAD. Cooperative. Obese. HEENT: Atraumatic, normocephalic. Pulm: Diminished, grossly clear. Symmetrical chest rise. No increase in work of breathing. No respiratory distress. Cardiac: RRR, -mrg. Radial pulses intact and symmetrical. Abdominal: Nontender, nondistended, soft. BS present. Results & Data Results & Data ([facility]) Vital Signs (Past 12 Hours) Vital Signs Temp Pulse Resp BP Pulse Ox 05/29/21 15:53 37.2 C 72 16 145/77 H 92 05/29/21 07:12 36.9 C 67 16 141/58 H 91 PG Care Time/CCT Total # of Minutes Spent Total Time Spent with Patient: Total time spent is greater than 50% in coordination of care (as documented) at patient's floor/unit and/or counseling patient: Coding Level of Care Code 87933 Subseq Hosp Care Lvl 2 Diagnoses Hypoglycemia E16.2 Type 2 diabetes mellitus E11.59; Z79.4 Diabetes mellitus complication detail: with other circulatory complications Diabetes mellitus complication status: with circulatory complication Diabetes mellitus longterm insulin use: with cover maker use Empyema J86.9 Anemia D64.9 Anemia type: unspecified type Afib I48.91 Chronic respiratory failure J96.10 Hypertension I10 AMANDA (obstructive sleep apnea) G47.33 Debility R53.81 Hyperlipidemia E78.5 Major depression, recurrent F33.9 Peripheral neuropathy G62.9 GERD (gastroesophageal reflux disease) K21.9 Chronic low back pain M54.5; G89.29 DVT prophylaxis Z29.9 Dysuria R30.0 (1) Type 2 diabetes mellitus Diabetes mellitus complication detail: with other circulatory complications Diabetes mellitus complication status: with circulatory complication Diabetes mellitus longterm insulin use: with longterm use Qualified Code(s): E11.59 - Type 2 diabetes mellitus with other circulatory complications; Z79.4 - MCFP (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
[2021-05-29] MEDS: AMITRIPTYLINE HCL 25 MG TAB PO SCH (20:45)
[2021-05-30] MEDS: AMPICILLIN/SULBACTAM SOD 3,000 MG in 0.9 % SODIUM CHLORIDE 100 ML IV SCH ×4 (05:27→23:17)
[2021-05-30] MEDS: ENOXAPARIN INJ 40 MG/0.4 ML SYR SQ SCH ×2 (05:27→17:25)
[2021-05-30] MEDS: UMECLIDINIUM BROMIDE 62.5MCG/BLISTER 7 PUFFS/INHALER INH SCH (07:41)
[2021-05-30] MEDS: oxyCODONE/ACETAMINOPHEN 5mg/325mg TAB PO PRN ×3 (07:41→21:16)
[2021-05-30] MEDS: FERROUS SULFATE 325 MG TAB PO SCH (07:41)
[2021-05-30] MEDS: TOLTERODINE TARTRATE LA 2 MG CAPCR PO SCH (07:41)
[2021-05-30] MEDS: QUEtiapine FUMARATE 300 MG TABLET PO SCH ×2 (07:41→21:17)
[2021-05-30] MEDS: LACTULOSE SYRUP 20 GM/30 ML UDC PO SCH ×2 (07:41→21:18)
[2021-05-30] MEDS: GABAPENTIN 400 MG CAP PO SCH ×3 (07:42→21:17)
[2021-05-30] MEDS: rOPINIRole HCL 1 MG TABLET PO SCH ×3 (07:42→17:25)
[2021-05-30] MEDS: METOPROLOL TARTRATE 50 MG TAB PO SCH ×2 (07:42→21:19)
[2021-05-30] MEDS: ATORVASTATIN 10 MG TAB PO SCH (07:42)
[2021-05-30] MEDS: FUROSEMIDE 20 MG TAB PO SCH (07:42)
[2021-05-30] MEDS: PANTOprazole 40 MG TAB PO SCH ×2 (07:43→21:18)
[2021-05-30] MEDS: POTASSIUM CHLORIDE CRTAB 20 MEQ TABCR PO SCH (07:47)
[2021-05-30] MEDS: INSULIN ASPART PER UNIT SC SCH ×4 (08:55→21:18)
--- NOTE | 2021-05-30 08:59 | Pharmacy Report ---
Pharmacy Glycemic Short Note 2 - Date of Service May 30, 2021 - Glycemic Short BSG Results (Last 24 hours): 05/29/21 05/29/21 05/29/21 12:16 17:35 20:27 POC Glucose 222 H 184 H 211 H 05/30/21 08:00 POC Glucose 236 H OUTPATIENT ANTIDIABETIC REGIMEN: * A1c = 6.3% (05/23/21) * Lantus 60 units daily * Apidra 50 units ACHS * Liraglutide 1.8 mg sq daily ASSESSMENT: 05/30/21 * Patient's BSGs yesterday were [phone] mg/dL. * Fasting today was 236 mg/dL. * Fastings are trending upwards so increase Lantus by 10%. * BSGs stable throughout the day so continue Novolog 05/29/21 * Patient's BSGs yesterday were [phone] mg/dL. Fasting today is 196 mg/dL. * Patient received 139 units of insulin yesterday (45 units of basal and 94 units of bolus). * Fasting trending downwards to continue Lantus 45 units daily. Still slightly above goal range. * Continue tightened Novolog. 05/26/21 * Patient's BSGs yesterday were [phone] and fasting today was 184 mg/dL. Transition to once daily insulin completed today. * Fasting trending upwards so increase to TDD of 35 units. * Continue Novolog as BSGs relatively stable yesterday. Baseline * Patient admitted with hypoglycemia- likely iatrogenic in the setting of continued insulin with decrease oral intake. Insulin was held and patient was started on dextrose infusion. BSG recovered shortly after and then began trending upward. * Patient was started on Lantus 20 units BID yesterday. Fasting BSG of 161 mg/dL today. Although BSG remains above goal, I suspect this basal dose will become too much overtime. During recent admission, patient required only 30-40 units of Lantus per day while on high dose IV steroids. * Will tighten novolog coverage PLAN FOR INPATIENT GLYCEMIC CONTROL: * Hold outpatient oral diabetes medications * Basal insulin - increase * Lantus 50 units SQ daily * Bolus insulin * NovoLog per scale ACHS or Q6hrs while NPO * Goal Range: Low 110 mg/dL - High 140 mg/dL * Correction Factor: 8 mg/dL/unit * Nutritional / Prandial insulin per carb ratio of 1 unit per 3 grams CHO consumed PLAN FOR DISCHARGE: * Patient reports severe hypoglycemia at home. * Recommend reducing insulin doses in order to prevent future hospitalizations. * Reasonable to trial the following: * Lantus 45 units daily * Apidra 20 units with meals (hold if do not eat meal) * Victoza 1.8 mg SQ daily * If doses are adjusted, recommend following up closely with outpatient provider to check BSGs closely and adjust insulin appropriate. This will help prevent hyperglycemia.
[2021-05-30] MEDS ORDERED: INSULIN GLARGINE SOLOSTAR 100 UNITS/ML 3 ML PEN SC SCH (09:00)
--- NOTE | 2021-05-30 17:14 | Hospitalist Progress Note ---
Date of Service May 30, 2021 Assessment & Plan (1) Hypoglycemia: Plan: No recurrent episodes, see type 2 diabetes management as below (2) Type 2 diabetes mellitus: Plan: -Poorly controlled type 2 DM Hold Victoza Glucose control improved this morning Continue glargine 45 units daily increased to 50 with additional sliding scale glargine Continue SSI Continue glucose checks AC/at bedtime Patient with some dietary indiscretion/variance contributing to blood sugar swings, will report snacking to nurses to adequately cover Pharmacy glycemic consult on board, appreciate recommendations and adjustments - Will need to follow up with Endocrinology as outpatient upon discharge (3) Empyema: Plan: -Diagnosed in an outside facility Treatment started there -Continue Unasyn abx via PICC line. - Due to stop on Jun 05 (4) Anemia: Plan: -stable hb -Continue PO iron supplementation. (5) Afib: Plan: -Continue metoprolol. -Continue to hold Eliquis due to recent anemia requiring blood transfusion during last hospitalization. (6) Chronic respiratory failure: Plan: -Patient is on 4L NC chronically with bipap at night. (7) Hypertension: Plan: -Continue metoprolol and lasix. (8) AMANDA (obstructive sleep apnea): Plan: -BiPaP qHS (9) Debility: Plan: -patient is essentially bedbound, functional parapelegic from morbid obesity -During last hospitalization, it was recommended that she go to skilled facility for rehab but she refused. Upon discussion this admit pt agreeable to placement - Pending placement, additional referalls to [facility] [place] [place] [facility] 05/29 (10) Hyperlipidemia: Plan: -Continue atorvastatin. (11) Major depression, recurrent: Plan: Continue Seroquel, Elavil. - Follow for hypersomnia - present on last admission - discontinued her baclofen (12) Peripheral neuropathy: Plan: Continue gabapentin. (13) GERD (gastroesophageal reflux disease): Plan: -Continue PPI. (14) Chronic low back pain: Plan: Continue oxycodone-acetaminophen 5-325 mg QID PRN - Continue Gabapentin - Continue to hold her baclofen (15) DVT prophylaxis: Plan: -SCDs ad Lovenox ordered (16) Dysuria: Plan: - Resolved Admission and Anticipated Discharge Date Admission Date: May 22, 2021 Subjective Seen at bedside, patient remained stable. No fevers, chills, sweats, chest p ain, chest pressure shortness shortness of breath, difficulty breathing. Listening to music and watching iPad at time of assessment. Alert and oriented and nontoxic. Remains awaiting placement, with no acute concerns, no pain with urination/abdominal pain. Review of Systems Review of Systems: All systems reviewed & are unremarkable except as noted in Subjective Physical Exam Physical Exam: General: A&Ox3. NAD. Cooperative. Obese. HEENT: Atraumatic, normocephalic. Visual acuity and hearing grossly intact. Pulm: Diminished, grossly clear. Symmetrical chest rise. No increase in work of breathing. No respiratory distress. Cardiac: RRR, -mrg. Radial pulses intact and symmetrical. Abdominal: Nontender, nondistended, soft. BS present. Results & Data Results & Data ([facility]) Vital Signs (Past 12 Hours) Vital Signs Temp Pulse Resp BP Pulse Ox 05/30/21 14:32 36.6 C 75 16 116/55 L 90 05/30/21 07:25 36.8 C 66 16 133/63 94 PG Care Time/CCT Total # of Minutes Spent Total Time Spent with Patient: Total time spent is greater than 50% in coordination of care (as documented) at patient's floor/unit and/or counseling patient: Coding Level of Care Code 26693 Subseq Hosp Care Lvl 1 Diagnoses Hypoglycemia E16.2 Type 2 diabetes mellitus E11.59; Z79.4 Diabetes mellitus complication detail: with other circulatory complications Diabetes mellitus complication status: with circulatory complication Diabetes mellitus care home insulin use: with ore mixer use Empyema J86.9 Anemia D64.9 Anemia type: unspecified type Afib I48.91 Chronic respiratory failure J96.10 Hypertension I10 AMANDA (obstructive sleep apnea) G47.33 Debility R53.81 Hyperlipidemia E78.5 Major depression, recurrent F33.9 Peripheral neuropathy G62.9 GERD (gastroesophageal reflux disease) K21.9 Chronic low back pain M54.5; G89.29 DVT prophylaxis Z29.9 Dysuria R30.0 (1) Type 2 diabetes mellitus Diabetes mellitus complication detail: with other circulatory complications Diabetes mellitus complication status: with circulatory complication Diabetes mellitus ore mixer insulin use: with care home use Qualified Code(s): E11.59 - Type 2 diabetes mellitus with other circulatory complications; Z79.4 - alf (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
[2021-05-30] MEDS ORDERED: LORazepam 0.5 MG TAB PO STA (20:08)
[2021-05-30] MEDS: AMITRIPTYLINE HCL 25 MG TAB PO SCH (21:17)
[2021-05-31] MEDS: AMPICILLIN/SULBACTAM SOD 3,000 MG in 0.9 % SODIUM CHLORIDE 100 ML IV SCH ×4 (05:42→23:37)
[2021-05-31] MEDS: ENOXAPARIN INJ 40 MG/0.4 ML SYR SQ SCH ×2 (05:42→18:10)
[2021-05-31 06:12] LABS: Hematocrit (blood only) 37.6 % (37-47); Hemoglobin 11.2 g/dL (12.0-16.0); Mean Corpuscular Hemoglobin 26.5 pg (25-34); Mean Corpuscular Hgb Conc 29.8 g/dL (32-36); Mean Corpuscular Volume 88.9 fL (80-100); Mean Platelet Volume 9.6 fL (7.4-10.4); Platelet Count 179 K/uL (130-400); RDW Coefficient of Variation 22.8 % (11.5-14.5); RDW Standard Deviation 73.6 fL (36.4-46.3); Red Blood Count 4.23 M/uL (4.2-5.4); White Blood Count 4.62 K/uL (4.8-10.8)
[2021-05-31 06:36] LABS: BUN Creatinine Ratio 15.4 (10-20); Calcium 9.5 mg/dl (8.5-10.1); Creatinine Clr Calc Pharmacy 124.1 ml/min; Est GFR (African American) 83.5 ml/min; Potassium 3.7 mmol/L (3.5-5.1)
[2021-05-31] MEDS: oxyCODONE/ACETAMINOPHEN 5mg/325mg TAB PO PRN ×3 (08:19→18:31)
[2021-05-31] MEDS: QUEtiapine FUMARATE 300 MG TABLET PO SCH ×2 (08:20→21:51)
[2021-05-31] MEDS: LACTULOSE SYRUP 20 GM/30 ML UDC PO SCH ×2 (08:20→21:50)
[2021-05-31] MEDS: GABAPENTIN 400 MG CAP PO SCH ×3 (08:20→21:50)
[2021-05-31] MEDS: rOPINIRole HCL 1 MG TABLET PO SCH ×3 (08:21→18:11)
[2021-05-31] MEDS: TOLTERODINE TARTRATE LA 2 MG CAPCR PO SCH (08:21)
[2021-05-31] MEDS: FUROSEMIDE 20 MG TAB PO SCH (08:22)
[2021-05-31] MEDS: METOPROLOL TARTRATE 50 MG TAB PO SCH ×2 (08:22→21:51)
[2021-05-31] MEDS: ATORVASTATIN 10 MG TAB PO SCH (08:23)
[2021-05-31] MEDS: PANTOprazole 40 MG TAB PO SCH ×2 (08:23→21:51)
[2021-05-31] MEDS: UMECLIDINIUM BROMIDE 62.5MCG/BLISTER 7 PUFFS/INHALER INH SCH (08:23)
[2021-05-31] MEDS: FERROUS SULFATE 325 MG TAB PO SCH (08:24)
[2021-05-31] MEDS: POTASSIUM CHLORIDE CRTAB 20 MEQ TABCR PO SCH (08:25)
--- NOTE | 2021-05-31 08:39 | Pharmacy Report ---
Pharmacy Glycemic Short Note 2 - Date of Service May 31, 2021 - Glycemic Short BSG Results (Last 24 hours): 05/30/21 05/30/21 05/30/21 12:04 17:10 20:44 Glucose POC Glucose 228 H 157 H 144 H 05/31/21 05/31/21 05:39 08:13 Glucose 228 H POC Glucose 227 H OUTPATIENT ANTIDIABETIC REGIMEN: * A1c = 6.3% (05/23/21) * Lantus 60 units daily * Apidra 50 units ACHS * Liraglutide 1.8 mg sq daily ASSESSMENT: 05/31/21 * BSGs yesterday, 236, 228, 157, and 144 mg/dL * Received 131 units of insulin (50 units of Lantus and 81 units of prandial/correctional Novolog) * Fasting BSG again elevated this morning at 227 mg/dL * Will increase basal again today ~10% * Continues on Unasyn for empyema (stop date 06/05) * Given high again at lunchtime, will tighten Novolog carb coverage tomorrow morning 05/30/21 * Patient's BSGs yesterday were [phone] mg/dL. * Fasting today was 236 mg/dL. * Fastings are trending upwards so increase Lantus by 10%. * BSGs stable throughout the day so continue Novolog Baseline * Patient admitted with hypoglycemia- likely iatrogenic in the setting of continued insulin with decrease oral intake. Insulin was held and patient was started on dextrose infusion. BSG recovered shortly after and then began trending upward. * Patient was started on Lantus 20 units BID yesterday. Fasting BSG of 161 mg/dL today. Although BSG remains above goal, I suspect this basal dose will become too much overtime. During recent admission, patient required only 30-40 units of Lantus per day while on high dose IV steroids. * Will tighten novolog coverage PLAN FOR INPATIENT GLYCEMIC CONTROL: * Hold outpatient oral diabetes medications * Basal insulin - increase * Lantus 55 units SQ daily * Bolus insulin * NovoLog per scale ACHS or Q6hrs while NPO * Goal Range: Low 110 mg/dL - High 140 mg/dL * Correction Factor: 8 mg/dL/unit * Nutritional / Prandial insulin per carb ratio of 1 unit per 3 grams CHO consumed PLAN FOR DISCHARGE: * Patient reports severe hypoglycemia at home. * Recommend reducing insulin doses in order to prevent future hospitalizations. * Reasonable to trial the following: * Lantus 45 units daily * Apidra 20 units with meals (hold if do not eat meal) * Victoza 1.8 mg SQ daily * If doses are adjusted, recommend following up closely with outpatient provider to check BSGs closely and adjust insulin appropriate. This will help prevent hyperglycemia.
[2021-05-31] MEDS ORDERED: INSULIN GLARGINE SOLOSTAR 100 UNITS/ML 3 ML PEN SC SCH ×2 (09:00)
[2021-05-31] MEDS: INSULIN ASPART PER UNIT SC SCH ×4 (09:20→21:56)
[2021-05-31] MEDS: INSULIN GLARGINE SOLOSTAR 100 UNITS/ML 3 ML PEN SC SCH (09:37)
--- NOTE | 2021-05-31 17:31 | Hospitalist Progress Note ---
Date of Service May 31, 2021 Assessment & Plan (1) Debility: Plan: -patient is essentially bedbound, functional parapelegic from morbid obesity -During last hospitalization, it was recommended that she go to skilled facility for rehab but she refused. Upon discussion this admit pt agreeable to placement - Pending placement, additional referalls to [facility], Darrin [facility] [place], [place] placed 05/29 05/31: Calls out to [facility]. Possible bed available at [place], will continue to follow with CM. Labs remained stable, creatinine normal, sodium/potassium normal. (2) Hypoglycemia: Plan: No recurrent episodes, see type 2 diabetes management as below (3) Type 2 diabetes mellitus: Plan: -Poorly controlled type 2 DM Hold Victoza Glucose control improved this morning Glargine currently at 55 units daily Continue SSI Continue glucose checks AC/at bedtime Pharmacy glycemic consult on board, appreciate recommendations and adjustments - Will need to follow up with Endocrinology as outpatient upon discharge (4) Empyema: Plan: -Diagnosed in an outside facility Treatment started there -Continue Unasyn abx via PICC line. - Due to stop on Jun 05 (5) Anemia: Plan: -stable hb -Continue PO iron supplementation. (6) Afib: Plan: -Continue metoprolol. -Continue to hold Eliquis due to recent anemia requiring blood transfusion during last hospitalization. (7) Chronic respiratory failure: Plan: -Patient is on 4L NC chronically with bipap at night. (8) Hypertension: Plan: -Continue metoprolol and lasix. (9) AMANDA (obstructive sleep apnea): Plan: -BiPaP qHS (10) Hyperlipidemia: Plan: -Continue atorvastatin. (11) Major depression, recurrent: Plan: Continue Seroquel, Elavil. - Follow for hypersomnia - present on last admission - discontinued her baclofen (12) Peripheral neuropathy: Plan: Continue gabapentin. (13) GERD (gastroesophageal reflux disease): Plan: -Continue PPI. (14) Chronic low back pain: Plan: Continue oxycodone-acetaminophen 5-325 mg QID PRN - Continue Gabapentin - Continue to hold her baclofen (15) DVT prophylaxis: Plan: -SCDs ad Lovenox ordered (16) Dysuria: Plan: - Resolved Admission and Anticipated Discharge Date Admission Date: May 22, 2021 Subjective Seen at bedside, no acute changes/complaints. Still pending placement. Calls to [facility] today, new referral sent to [facility] by CM. Continuing to await placement. Patient thinks bed may be available at [place], will continue to pursue. Review of Systems Review of Systems: All systems reviewed & are unremarkable except as noted in Subjective Physical Exam Physical Exam: General: A&Ox3. NAD. Cooperative. Obese. HEENT: Atraumatic, normocephalic. Visual acuity and hearing grossly intact. Pulm: Symmetrical chest rise. No increase in work of breathing. No respiratory distress. Abdominal: Nontender, nondistended, soft. BS present. Results & Data Results & Data ([facility]) Vital Signs (Past 12 Hours) Vital Signs Temp Pulse Resp BP Pulse Ox 05/31/21 14:14 37.0 C 71 16 110/67 96 05/31/21 07:25 36.6 C 65 16 117/59 L 95 PG Care Time/CCT Total # of Minutes Spent Total Time Spent with Patient: Total time spent is greater than 50% in coordination of care (as documented) at patient's floor/unit and/or counseling patient: Coding Level of Care Code 35256 Subseq Hosp Care Lvl 1 Diagnoses Hypoglycemia E16.2 Type 2 diabetes mellitus E11.59; Z79.4 Diabetes mellitus complication detail: with other circulatory complications Diabetes mellitus complication status: with circulatory complication Diabetes mellitus 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 operator intermodal 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 insulin use: with group home use Empyema J86.9 Anemia D64.9 Anemia type: unspecified type Afib I48.91 Chronic respiratory failure J96.10 Hypertension I10 AMANDA (obstructive sleep apnea) G47.33 Debility R53.81 Hyperlipidemia E78.5 Major depression, recurrent F33.9 Peripheral neuropathy G62.9 GERD (gastroesophageal reflux disease) K21.9 Chronic low back pain M54.5; G89.29 DVT prophylaxis Z29.9 Dysuria R30.0 (1) Type 2 diabetes mellitus Diabetes mellitus complication detail: with other circulatory complications Diabetes mellitus complication status: with circulatory complication Diabetes mellitus group home insulin use: with equipment operator intermodal yard use Qualified Code(s): E11.59 - Type 2 diabetes mellitus with other circulatory complications; Z79.4 - skilled nursing (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
[2021-05-31] MEDS ORDERED: LORazepam 0.5 MG TAB PO STA ×2 (19:04→22:03)
[2021-05-31] MEDS: AMITRIPTYLINE HCL 25 MG TAB PO SCH (21:51)
[2021-06-01] MEDS: AMPICILLIN/SULBACTAM SOD 3,000 MG in 0.9 % SODIUM CHLORIDE 100 ML IV SCH ×3 (05:32→17:33)
[2021-06-01] MEDS: ENOXAPARIN INJ 40 MG/0.4 ML SYR SQ SCH ×2 (05:32→17:29)
[2021-06-01] MEDS: rOPINIRole HCL 1 MG TABLET PO SCH ×3 (09:57→17:29)
[2021-06-01] MEDS: ATORVASTATIN 10 MG TAB PO SCH (09:57)
[2021-06-01] MEDS: FERROUS SULFATE 325 MG TAB PO SCH (09:58)
[2021-06-01] MEDS: QUEtiapine FUMARATE 300 MG TABLET PO SCH ×2 (09:58→20:58)
[2021-06-01] MEDS: UMECLIDINIUM BROMIDE 62.5MCG/BLISTER 7 PUFFS/INHALER INH SCH (09:58)
[2021-06-01] MEDS: METOPROLOL TARTRATE 50 MG TAB PO SCH ×2 (09:58→20:58)
[2021-06-01] MEDS: TOLTERODINE TARTRATE LA 2 MG CAPCR PO SCH (09:58)
[2021-06-01] MEDS: LACTULOSE SYRUP 20 GM/30 ML UDC PO SCH ×2 (09:58→20:57)
[2021-06-01] MEDS: GABAPENTIN 400 MG CAP PO SCH ×3 (09:58→20:59)
[2021-06-01] MEDS: FUROSEMIDE 20 MG TAB PO SCH (09:58)
[2021-06-01] MEDS: PANTOprazole 40 MG TAB PO SCH ×2 (09:58→20:59)
[2021-06-01] MEDS: POTASSIUM CHLORIDE CRTAB 20 MEQ TABCR PO SCH (09:59)
[2021-06-01] MEDS: INSULIN ASPART PER UNIT SC SCH ×4 (10:06→21:06)
[2021-06-01] MEDS: INSULIN GLARGINE SOLOSTAR 100 UNITS/ML 3 ML PEN SC SCH (10:07)
--- NOTE | 2021-06-01 10:45 | Pharmacy Report ---
Pharmacy Glycemic Short Note 2 - Date of Service June 01, 2021 - Glycemic Short BSG Results (Last 24 hours): 05/31/21 05/31/21 05/31/21 11:40 17:07 20:48 POC Glucose 262 H 204 H 199 H 06/01/21 07:57 POC Glucose 188 H OUTPATIENT ANTIDIABETIC REGIMEN: * A1c = 6.3% (05/23/21) * Lantus 60 units daily * Apidra 50 units ACHS * Liraglutide 1.8 mg sq daily ASSESSMENT: 06/01/21 * Patient received total of 146 units of insulin yesterday, of which 55 units were basal insulin * Fasting BSG trending down, improving now at 188 mg/dL - day 2 of higher dosing of basal * Continue same CF/CR for now 05/31/21 * BSGs yesterday, 236, 228, 157, and 144 mg/dL * Received 131 units of insulin (50 units of Lantus and 81 units of prandial/correctional Novolog) * Fasting BSG again elevated this morning at 227 mg/dL * Will increase basal again today ~10% * Continues on Unasyn for empyema (stop date 06/05) * Given high again at lunchtime, will tighten Novolog carb coverage tomorrow morning 05/30/21 * Patient's BSGs yesterday were [phone] mg/dL. * Fasting today was 236 mg/dL. * Fastings are trending upwards so increase Lantus by 10%. * BSGs stable throughout the day so continue Novolog Baseline * Patient admitted with hypoglycemia- likely iatrogenic in the setting of continued insulin with decrease oral intake. Insulin was held and patient was started on dextrose infusion. BSG recovered shortly after and then began trending upward. * Patient was started on Lantus 20 units BID yesterday. Fasting BSG of 161 mg/dL today. Although BSG remains above goal, I suspect this basal dose will become too much overtime. During recent admission, patient required only 30-40 units of Lantus per day while on high dose IV steroids. * Will tighten novolog coverage PLAN FOR INPATIENT GLYCEMIC CONTROL: * Hold outpatient oral diabetes medications * Basal insulin - increase * Lantus 55 units SQ daily * Bolus insulin * NovoLog per scale ACHS or Q6hrs while NPO * Goal Range: Low 110 mg/dL - High 140 mg/dL * Correction Factor: 8 mg/dL/unit * Nutritional / Prandial insulin per carb ratio of 1 unit per 3 grams CHO consumed PLAN FOR DISCHARGE: * Patient reports severe hypoglycemia at home. Per DM notes, patient reports BSGs low prior to admission due to decrease PO intake. * Recommend reducing insulin doses in order to prevent future hospitalizations. * Reasonable to trial the following: * Lantus 60 units daily (reasonable to resume home basal as long as PO intake stable) * Apidra 25 units with meals (hold if do not eat meal) - this is a 50% reduction in home dose * Victoza 1.8 mg SQ daily * If doses are adjusted, recommend following up closely with outpatient provider to check BSGs closely and adjust insulin as needed. Per DM notes, patient reports drinking sweet tea at home. Would reinforce healthy eating habits/lifestyle * Would encourage patient tor reach out to her provider in the future for insulin adjustments when sick/poor PO intake to hopefully avoid future hypoglycemia
[2021-06-01] MEDS: oxyCODONE/ACETAMINOPHEN 5mg/325mg TAB PO PRN ×2 (11:39→21:07)
--- NOTE | 2021-06-01 13:33 | Hospitalist Progress Note ---
Date of Service June 01, 2021 Assessment & Plan (1) Debility: Plan: -patient is essentially bedbound, functional parapelegic from morbid obesity -During last hospitalization, it was recommended that she go to skilled facility for rehab but she refused. Upon discussion this admit pt agreeable to placement - Pending placement, additional referalls to [facility], Darrin [facility] [place], [place] placed 05/29 06/01: reportedly received a call from a facility that had beds available, carmen did review her phone to try to find a callback number and were unable to locate this. Multiple calls made to facilities in the [place] area, no bed available yet. We'll continue to pursue placement. (2) Hypoglycemia: Plan: No recurrent episodes, see type 2 diabetes management as below (3) Type 2 diabetes mellitus: Plan: -Poorly controlled type 2 DM Hold Victoza Glucose control improved this morning Glargine currently at 55 units daily Continue SSI Continue glucose checks AC/at bedtime Pharmacy glycemic consult on board, appreciate recommendations and adjustments - Will need to follow up with Endocrinology as outpatient upon discharge (4) Empyema: Plan: -Diagnosed in an outside facility Treatment started there -Continue Unasyn abx via PICC line. - Due to stop on Jun 05 (5) Anemia: Plan: -stable hb -Continue PO iron supplementation. (6) Afib: Plan: -Continue metoprolol. -Continue to hold Eliquis due to recent anemia requiring blood transfusion during last hospitalization. (7) Chronic respiratory failure: Plan: -Patient is on 4L NC chronically with bipap at night. (8) Hypertension: Plan: -Continue metoprolol and lasix. (9) AMANDA (obstructive sleep apnea): Plan: -BiPaP qHS (10) Hyperlipidemia: Plan: -Continue atorvastatin. (11) Major depression, recurrent: Plan: Continue Seroquel, Elavil. - Follow for hypersomnia - present on last admission - discontinued her baclofen (12) Peripheral neuropathy: Plan: Continue gabapentin. (13) GERD (gastroesophageal reflux disease): Plan: -Continue PPI. (14) Chronic low back pain: Plan: Continue oxycodone-acetaminophen 5-325 mg QID PRN - Continue Gabapentin - Continue to hold her baclofen (15) DVT prophylaxis: Plan: -SCDs ad Lovenox ordered (16) Dysuria: Plan: - Resolved Admission and Anticipated Discharge Date Admission Date: May 22, 2021 Subjective No change since yesterday. No fevers, chills, sweats, chest pain, shortness of breath, urinary burning. Patient attempting to figure out which placement facility had called her, was discussed with case management who has reached out and making calls to try to figure out who might have called with the bed availability. So far no agencies with available placement bed. Did review when patient's phone for call back number, was not able to locate this. We'll continue bed search, discussed with patient at bedside. No other questions or concerns Review of Systems Review of Systems: All systems reviewed & are unremarkable except as noted in Subjective Physical Exam Physical Exam: General: A&Ox3. NAD. Cooperative. Obese. HEENT: Atraumatic, normocephalic. Visual acuity and hearing grossly intact. Pulm: Symmetrical chest rise. No increase in work of breathing. No respiratory distress. Abdominal: Nontender, nondistended, soft. BS present. Results & Data Results & Data ([facility]) Vital Signs (Past 12 Hours) Vital Signs Temp Pulse Pulse Resp BP Pulse Ox 06/01/21 06:30 36.8 C 65 18 119/71 93 06/01/21 03:14 84 22 96 PG Care Time/CCT Total # of Minutes Spent Total Time Spent with Patient: Total time spent is greater than 50% in coordination of care (as documented) at patient's floor/unit and/or counseling patient: Coding Level of Care Code 51973 Subseq Hosp Care Lvl 1 Diagnoses Debility R53.81 Hypoglycemia E16.2 Type 2 diabetes mellitus E11.59; Z79.4 Diabetes mellitus complication detail: with other circulatory complications Diabetes mellitus complication status: with circulatory complication Diabetes mellitus infection control specialist insulin use: with longterm use Empyema J86.9 Anemia D64.9 Anemia type: unspecified type Afib I48.91 Chronic respiratory failure J96.10 Hypertension I10 AMANDA (obstructive sleep apnea) G47.33 Hyperlipidemia E78.5 Major depression, recurrent F33.9 Peripheral neuropathy G62.9 GERD (gastroesophageal reflux disease) K21.9 Chronic low back pain M54.5; G89.29 DVT prophylaxis Z29.9 Dysuria R30.0 (1) Type 2 diabetes mellitus Diabetes mellitus complication detail: with other circulatory complications Diabetes mellitus complication status: with circulatory complication Diabetes mellitus longterm insulin use: with infection control specialist use Qualified Code(s): E11.59 - Type 2 diabetes mellitus with other circulatory complications; Z79.4 - head irrigator (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
[2021-06-01] MEDS: AMITRIPTYLINE HCL 25 MG TAB PO SCH (20:59)
[2021-06-02] MEDS: AMPICILLIN/SULBACTAM SOD 3,000 MG in 0.9 % SODIUM CHLORIDE 100 ML IV SCH ×4 (00:23→17:51)
[2021-06-02] MEDS: ENOXAPARIN INJ 40 MG/0.4 ML SYR SQ SCH ×2 (04:48→16:27)
[2021-06-02] MEDS: FERROUS SULFATE 325 MG TAB PO SCH (08:19)
[2021-06-02] MEDS: PANTOprazole 40 MG TAB PO SCH ×2 (08:20→20:13)
[2021-06-02] MEDS: rOPINIRole HCL 1 MG TABLET PO SCH ×3 (08:20→16:26)
[2021-06-02] MEDS: FUROSEMIDE 20 MG TAB PO SCH (08:20)
[2021-06-02] MEDS: METOPROLOL TARTRATE 50 MG TAB PO SCH ×2 (08:20→20:14)
[2021-06-02] MEDS: GABAPENTIN 400 MG CAP PO SCH ×3 (08:20→20:13)
[2021-06-02] MEDS: QUEtiapine FUMARATE 300 MG TABLET PO SCH ×2 (08:20→20:14)
[2021-06-02] MEDS: TOLTERODINE TARTRATE LA 2 MG CAPCR PO SCH (08:20)
[2021-06-02] MEDS: LACTULOSE SYRUP 20 GM/30 ML UDC PO SCH ×2 (08:21→20:15)
[2021-06-02] MEDS: POTASSIUM CHLORIDE CRTAB 20 MEQ TABCR PO SCH (08:22)
[2021-06-02] MEDS: UMECLIDINIUM BROMIDE 62.5MCG/BLISTER 7 PUFFS/INHALER INH SCH (08:26)
[2021-06-02] MEDS: oxyCODONE/ACETAMINOPHEN 5mg/325mg TAB PO PRN ×2 (08:30→20:20)
[2021-06-02] MEDS: ATORVASTATIN 10 MG TAB PO SCH (08:53)
[2021-06-02] MEDS: INSULIN ASPART PER UNIT SC SCH ×4 (08:56→20:30)
[2021-06-02] MEDS ORDERED: INSULIN GLARGINE SOLOSTAR 100 UNITS/ML 3 ML PEN SC SCH (09:00)
[2021-06-02] MEDS ORDERED: diphenhydrAMINE Capsule 25 MG CAP PO ONE (10:34)
--- NOTE | 2021-06-02 19:25 | Hospitalist Progress Note ---
Date of Service June 02, 2021 Assessment & Plan (1) Debility: Plan: -patient is essentially bedbound, functional parapelegic from morbid obesity -During last hospitalization, it was recommended that she go to skilled facility for rehab but she refused. Upon discussion this admit pt agreeable to placement - Pending placement, additional referalls to [facility], Darrin Tapia, Tejinder [facility] placed 05/29 06/01: reportedly received a call from a facility that had beds available, criri did review her phone to try to find a callback number and were unable to locate this. Multiple calls made to facilities in the [place] area, no bed available yet. We'll continue to pursue placement. 06/02: Pending placement, discussed with case management, no availability remains placement. Labs deferred (2) Hypoglycemia: Plan: No recurrent episodes, see type 2 diabetes management as below (3) Type 2 diabetes mellitus: Plan: -Poorly controlled type 2 DM Hold Victoza Glucose control improved this morning Glargine currently at 55 units daily Continue SSI Continue glucose checks AC/at bedtime Pharmacy glycemic consult on board, appreciate recommendations and adjustments - Will need to follow up with Endocrinology as outpatient upon discharge (4) Empyema: Plan: -Diagnosed in an outside facility Treatment started there -Continue Unasyn abx via PICC line. - Due to stop on Jun 05 (5) Anemia: Plan: -stable hb -Continue PO iron supplementation. (6) Afib: Plan: -Continue metoprolol. -Continue to hold Eliquis due to recent anemia requiring blood transfusion during last hospitalization. (7) Chronic respiratory failure: Plan: -Patient is on 4L NC chronically with bipap at night. (8) Hypertension: Plan: -Continue metoprolol and lasix. (9) AMANDA (obstructive sleep apnea): Plan: -BiPaP qHS (10) Hyperlipidemia: Plan: -Continue atorvastatin. (11) Major depression, recurrent: Plan: Continue Seroquel, Elavil. - Follow for hypersomnia - present on last admission - discontinued her baclofen (12) Peripheral neuropathy: Plan: Continue gabapentin. (13) GERD (gastroesophageal reflux disease): Plan: -Continue PPI. (14) Chronic low back pain: Plan: Continue oxycodone-acetaminophen 5-325 mg QID PRN - Continue Gabapentin - Continue to hold her baclofen (15) DVT prophylaxis: Plan: -SCDs ad Lovenox ordered (16) Dysuria: Plan: - Resolved Admission and Anticipated Discharge Date Admission Date: May 22, 2021 Subjective Seen at bedside this morning. Has some itching on her right flank, no skin changes. Gets somewhat anxious at night before sleep she feels that discussion of her CPAP and sleeps itself anxiety. Feels well at time of morning assessment. No clinical change, no chest pain, chest pressure, lightheadedness, fever, chills. Remains awaiting placement has not heard from any facilities and was not able to find callback from facility she thought she heard about earlier. Review of Systems Review of Systems: All systems reviewed & are unremarkable except as noted in Subjective Physical Exam Physical Exam: General: A&Ox3. NAD. Cooperative. Obese. HEENT: Atraumatic, normocephalic. Visual acuity and hearing grossly intact. Pulm: Symmetrical chest rise. No increase in work of breathing. No respiratory distress. Abdominal: Nontender, nondistended, soft. BS present. Skin: Right abdomen, pannus, hip examined. No ulcer, erythema, skin breakdown, or rash appreciated. Results & Data Results & Data ([facility]) Vital Signs (Past 12 Hours) Vital Signs Temp Pulse Resp BP Pulse Ox 06/02/21 15:14 36.6 C 61 16 125/69 96 PG Care Time/CCT Total # of Minutes Spent Total Time Spent with Patient: Total time spent is greater than 50% in coordination of care (as documented) at patient's floor/unit and/or counseling patient: Coding Level of Care Code 11209 Subseq Hosp Care Lvl 1 Diagnoses Debility R53.81 Hypoglycemia E16.2 Type 2 diabetes mellitus E11.59; Z79.4 Diabetes mellitus complication detail: with other circulatory complications Diabetes mellitus complication status: with circulatory complication Diabetes mellitus adjunct faculty for medical terminology insulin use: with mcc use Empyema J86.9 Anemia D64.9 Anemia type: unspecified type Afib I48.91 Chronic respiratory failure J96.10 Hypertension I10 AMANDA (obstructive sleep apnea) G47.33 Hyperlipidemia E78.5 Major depression, recurrent F33.9 Peripheral neuropathy G62.9 GERD (gastroesophageal reflux disease) K21.9 Chronic low back pain M54.5; G89.29 DVT prophylaxis Z29.9 Dysuria R30.0 (1) Type 2 diabetes mellitus Diabetes mellitus complication detail: with other circulatory complications Diabetes mellitus complication status: with circulatory complication Diabetes mellitus mcc insulin use: with adjunct faculty for medical terminology use Qualified Code(s): E11.59 - Type 2 diabetes mellitus with other circulatory complications; Z79.4 - ad terminal makeup operator (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
[2021-06-02] MEDS: AMITRIPTYLINE HCL 25 MG TAB PO SCH (20:13)
[2021-06-02] MEDS ORDERED: hydrOXYzine HCl 10 MG TAB PO ONE (21:00)
[2021-06-03] MEDS: AMPICILLIN/SULBACTAM SOD 3,000 MG in 0.9 % SODIUM CHLORIDE 100 ML IV SCH ×4 (00:14→18:28)
[2021-06-03] MEDS: ENOXAPARIN INJ 40 MG/0.4 ML SYR SQ SCH ×2 (06:28→18:28)
[2021-06-03] MEDS: INSULIN ASPART PER UNIT SC SCH ×6 (09:04→20:55)
[2021-06-03] MEDS: INSULIN GLARGINE SOLOSTAR 100 UNITS/ML 3 ML PEN SC SCH (09:04)
[2021-06-03] MEDS: GABAPENTIN 400 MG CAP PO SCH ×3 (09:05→20:06)
[2021-06-03] MEDS: METOPROLOL TARTRATE 50 MG TAB PO SCH ×2 (09:06→20:09)
[2021-06-03] MEDS: FUROSEMIDE 20 MG TAB PO SCH (09:06)
[2021-06-03] MEDS: PANTOprazole 40 MG TAB PO SCH ×2 (09:06→20:06)
[2021-06-03] MEDS: QUEtiapine FUMARATE 300 MG TABLET PO SCH ×2 (09:07→20:06)
[2021-06-03] MEDS: FERROUS SULFATE 325 MG TAB PO SCH (09:07)
[2021-06-03] MEDS: ATORVASTATIN 10 MG TAB PO SCH (09:07)
[2021-06-03] MEDS: TOLTERODINE TARTRATE LA 2 MG CAPCR PO SCH (09:07)
[2021-06-03] MEDS: LACTULOSE SYRUP 20 GM/30 ML UDC PO SCH ×2 (09:09→20:56)
[2021-06-03] MEDS: rOPINIRole HCL 1 MG TABLET PO SCH ×3 (09:09→18:27)
[2021-06-03] MEDS: UMECLIDINIUM BROMIDE 62.5MCG/BLISTER 7 PUFFS/INHALER INH SCH (09:10)
[2021-06-03] MEDS: oxyCODONE/ACETAMINOPHEN 5mg/325mg TAB PO PRN (09:24)
[2021-06-03] MEDS: POTASSIUM CHLORIDE CRTAB 20 MEQ TABCR PO SCH (09:24)
--- NOTE | 2021-06-03 10:00 | Pharmacy Report ---
Pharmacy Glycemic Short Note 2 - Date of Service June 03, 2021 - Glycemic Short BSG Results (Last 24 hours): 06/02/21 06/02/21 06/02/21 12:20 17:07 20:26 POC Glucose 218 H 153 H 169 H 06/03/21 08:18 POC Glucose 210 H OUTPATIENT ANTIDIABETIC REGIMEN: * A1c = 6.3% (05/23/21) * Lantus 60 units daily * Apidra 50 units ACHS * Liraglutide 1.8 mg sq daily ASSESSMENT: 06/03/21 * BSGs elevated yesterday, 204, 218, 153, and 169 mg/dL * Received 143 units of insulin (60 units of Lantus, 83 units of prandial/correctional bolus) * Fasting BSG of 210 mg/dL this morning * Will increase basal insulin today * Tighten AM parameters in light of high at lunchtime yesterday * No change to stressors 06/01/21 * Patient received total of 146 units of insulin yesterday, of which 55 units were basal insulin * Fasting BSG trending down, improving now at 188 mg/dL - day 2 of higher dosing of basal * Continue same CF/CR for now 05/31/21 * BSGs yesterday, 236, 228, 157, and 144 mg/dL * Received 131 units of insulin (50 units of Lantus and 81 units of prandial/correctional Novolog) * Fasting BSG again elevated this morning at 227 mg/dL * Will increase basal again today ~10% * Continues on Unasyn for empyema (stop date 06/05) * Given high again at lunchtime, will tighten Novolog carb coverage tomorrow morning 05/30/21 * Patient's BSGs yesterday were [phone] mg/dL. * Fasting today was 236 mg/dL. * Fastings are trending upwards so increase Lantus by 10%. * BSGs stable throughout the day so continue Novolog Baseline * Patient admitted with hypoglycemia- likely iatrogenic in the setting of continued insulin with decrease oral intake. Insulin was held and patient was started on dextrose infusion. BSG recovered shortly after and then began trending upward. * Patient was started on Lantus 20 units BID yesterday. Fasting BSG of 161 mg/dL today. Although BSG remains above goal, I suspect this basal dose will become too much overtime. During recent admission, patient required only 30-40 units of Lantus per day while on high dose IV steroids. * Will tighten novolog coverage PLAN FOR INPATIENT GLYCEMIC CONTROL: * Hold outpatient oral diabetes medications * Basal insulin - increase * Lantus 65 units SQ daily * Bolus insulin * NovoLog per scale ACHS or Q6hrs while NPO * Goal Range: Low 110 mg/dL - High 140 mg/dL * Correction Factor: 5 mg/dL/unit with breakfast, 10 mg/dL/unit with lunch, dinner, HS * Nutritional / Prandial insulin per carb ratio of 1 unit per 2 grams CHO consumed with breakfast, 1 unit per 3 grams CHO with lunch, dinner, HS PLAN FOR DISCHARGE: * Patient reports severe hypoglycemia at home. Per DM notes, patient reports BSGs low prior to admission due to decrease PO intake. * Recommend reducing insulin doses in order to prevent future hospitalizations. * Reasonable to trial the following: * Lantus 60 units daily (reasonable to resume home basal as long as PO intake stable) * Apidra 25 units with meals (hold if do not eat meal) - this is a 50% reduction in home dose * Victoza 1.8 mg SQ daily * If doses are adjusted, recommend following up closely with outpatient provider to check BSGs closely and adjust insulin as needed. Per DM notes, patient reports drinking sweet tea at home. Would reinforce healthy eating habits/lifestyle * Would encourage patient tor reach out to her provider in the future for insulin adjustments when sick/poor PO intake to hopefully avoid future hypoglycemia
--- NOTE | 2021-06-03 18:08 | Hospitalist Progress Note ---
Date of Service June 03, 2021 Assessment & Plan (1) Debility: Plan: -patient is essentially bedbound, functional parapelegic from morbid obesity -During last hospitalization, it was recommended that she go to skilled facility for rehab but she refused. Upon discussion this admit pt agreeable to placement - Pending placement, additional referalls to MAUREEN, Darrin Tapia, Tejinder Chisholm placed 05/29 06/01: reportedly received a call from a facility that had beds available, criri did review her phone to try to find a callback number and were unable to locate this. Multiple calls made to facilities in the [place] area, no bed available yet. We'll continue to pursue placement. 06/02: Pending placement, discussed with case management, no availability remains placement. (2) Hypoglycemia: Plan: No recurrent episodes, see type 2 diabetes management as below (3) Type 2 diabetes mellitus: Plan: -Poorly controlled type 2 DM Hold Victoza Glucose control improved this morning Glargine currently at 55 units daily Continue SSI Continue glucose checks AC/at bedtime Pharmacy glycemic consult on board, appreciate recommendations and adjustments - Will need to follow up with Endocrinology as outpatient upon discharge (4) Empyema: Plan: -Diagnosed in an outside facility Treatment started there -Continue Unasyn abx via PICC line. - Due to stop on Jun 05 (5) Anemia: Plan: -stable hb -Continue PO iron supplementation. (6) Afib: Plan: -Continue metoprolol. -Continue to hold Eliquis due to recent anemia requiring blood transfusion during last hospitalization. (7) Chronic respiratory failure: Plan: -Patient is on 4L NC chronically with bipap at night. (8) Hypertension: Plan: -Continue metoprolol and lasix. (9) AMANDA (obstructive sleep apnea): Plan: -BiPaP qHS (10) Hyperlipidemia: Plan: -Continue atorvastatin. (11) Major depression, recurrent: Plan: Continue Seroquel, Elavil. - Follow for hypersomnia - present on last admission - discontinued her baclofen (12) Peripheral neuropathy: Plan: Continue gabapentin. (13) GERD (gastroesophageal reflux disease): Plan: -Continue PPI. (14) Chronic low back pain: Plan: Continue oxycodone-acetaminophen 5-325 mg QID PRN - Continue Gabapentin - Continue to hold her baclofen (15) DVT prophylaxis: Plan: -SCDs ad Lovenox ordered (16) Dysuria: Plan: - Resolved Admission and Anticipated Discharge Date Admission Date: May 22, 2021 Subjective pt has no complaints except for not sleeping well she is already on low dose of amitryptyline Review of Systems Review of Systems: Mild distress and fatigue no headache, no visual changes no speech or swallowing issues no chest pain, pressure or palpitations no shortness of breath, cough or wheezes no abdominal pain, nausea or vomiting, diarrhea or constipation no dysuria, hematuria or frequency Sniffing and discoloration of lower legs with swelling and chronic venous stasis changes no back pain, CVA tenderness or radicular pain pt with lower extremity skin changes no focal signs of weakness or numbness or altered sensation no complaints of anxiety or depression.. Physical Exam Physical Exam: Mild distress and fatigue no headache, no visual changes no speech or swallowing issues no chest pain, pressure or palpitations no shortness of breath, cough or wheezes no abdominal pain, nausea or vomiting, diarrhea or constipation no dysuria, hematuria or frequency no focal joint pain. has purple discoloration of legs no back pain, CVA tenderness or radicular pain chronic venous stasis changes to legs no focal signs of weakness or numbness or altered sensation no complaints of anxiety or depression.. Results & Data Results & Data ([facility]) Vital Signs (Past 12 Hours) Vital Signs Temp Pulse Resp BP Pulse Ox 06/03/21 15:10 97.7 F 60 16 130/59 L 95 06/03/21 07:22 98.1 F 67 16 136/74 96 PG Care Time/CCT Total # of Minutes Spent Total Time Spent with Patient: Total time spent is greater than 50% in coordination of care (as documented) at patient's floor/unit and/or counseling patient: Coding Level of Care Code 18987 Subseq Hosp Care Lvl 1 Diagnoses Debility R53.81 Hypoglycemia E16.2 Type 2 diabetes mellitus E11.59; Z79.4 Diabetes mellitus complication detail: with other circulatory complications Diabetes mellitus complication status: with circulatory complication Diabetes mellitus terminal operator insulin use: with usp use Empyema J86.9 Anemia D64.9 Anemia type: unspecified type Afib I48.91 Chronic respiratory failure J96.10 Hypertension I10 AMANDA (obstructive sleep apnea) G47.33 Hyperlipidemia E78.5 Major depression, recurrent F33.9 Peripheral neuropathy G62.9 GERD (gastroesophageal reflux disease) K21.9 Chronic low back pain M54.5; G89.29 DVT prophylaxis Z29.9 Dysuria R30.0 (1) Type 2 diabetes mellitus Diabetes mellitus complication detail: with other circulatory complications Diabetes mellitus complication status: with circulatory complication Diabetes mellitus usp insulin use: with terminal operator use Qualified Code(s): E11.59 - Type 2 diabetes mellitus with other circulatory complications; Z79.4 - moth exterminator (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
[2021-06-03] MEDS ORDERED: clonazePAM 0.5 MG TAB PO ONE (19:00)
[2021-06-03] MEDS: AMITRIPTYLINE HCL 25 MG TAB PO SCH (20:06)
[2021-06-04] MEDS: AMPICILLIN/SULBACTAM SOD 3,000 MG in 0.9 % SODIUM CHLORIDE 100 ML IV SCH ×4 (00:36→18:00)
[2021-06-04] MEDS: ENOXAPARIN INJ 40 MG/0.4 ML SYR SQ SCH ×2 (05:34→17:15)
[2021-06-04] MEDS: QUEtiapine FUMARATE 300 MG TABLET PO SCH ×2 (08:15→21:06)
[2021-06-04] MEDS: PANTOprazole 40 MG TAB PO SCH ×2 (08:15→21:05)
[2021-06-04] MEDS: rOPINIRole HCL 1 MG TABLET PO SCH ×3 (08:15→17:15)
[2021-06-04] MEDS: TOLTERODINE TARTRATE LA 2 MG CAPCR PO SCH (08:16)
[2021-06-04] MEDS: FERROUS SULFATE 325 MG TAB PO SCH (08:16)
[2021-06-04] MEDS: FUROSEMIDE 20 MG TAB PO SCH (08:16)
[2021-06-04] MEDS: ATORVASTATIN 10 MG TAB PO SCH (08:16)
[2021-06-04] MEDS: GABAPENTIN 400 MG CAP PO SCH ×3 (08:16→21:05)
[2021-06-04] MEDS: LACTULOSE SYRUP 20 GM/30 ML UDC PO SCH ×2 (08:17→21:05)
[2021-06-04] MEDS: INSULIN GLARGINE SOLOSTAR 100 UNITS/ML 3 ML PEN SC SCH (08:22)
[2021-06-04] MEDS: UMECLIDINIUM BROMIDE 62.5MCG/BLISTER 7 PUFFS/INHALER INH SCH (08:28)
[2021-06-04] MEDS: INSULIN ASPART PER UNIT SC SCH ×4 (08:28→21:03)
[2021-06-04] MEDS: POTASSIUM CHLORIDE CRTAB 20 MEQ TABCR PO SCH (09:05)
[2021-06-04] MEDS: METOPROLOL TARTRATE 50 MG TAB PO SCH ×2 (09:05→21:06)
[2021-06-04] MEDS: oxyCODONE/ACETAMINOPHEN 5mg/325mg TAB PO PRN ×3 (09:07→21:04)
[2021-06-04] MEDS ORDERED: PHENAZOPYRIDINE HCL 200 MG TAB PO PRN (15:29)
[2021-06-04] MEDS ORDERED: clonazePAM 0.5 MG TAB PO ONE (21:00)
[2021-06-04] MEDS: AMITRIPTYLINE HCL 25 MG TAB PO SCH (21:05)
[2021-06-05] MEDS: AMPICILLIN/SULBACTAM SOD 3,000 MG in 0.9 % SODIUM CHLORIDE 100 ML IV SCH (00:45)
[2021-06-05] MEDS: ENOXAPARIN INJ 40 MG/0.4 ML SYR SQ SCH ×2 (05:17→17:41)
[2021-06-05] MEDS: oxyCODONE/ACETAMINOPHEN 5mg/325mg TAB PO PRN (05:17)
[2021-06-05] MEDS: QUEtiapine FUMARATE 300 MG TABLET PO SCH ×2 (07:30→19:59)
[2021-06-05] MEDS: METOPROLOL TARTRATE 50 MG TAB PO SCH ×2 (07:30→19:59)
[2021-06-05] MEDS: TOLTERODINE TARTRATE LA 2 MG CAPCR PO SCH (07:30)
[2021-06-05] MEDS: GABAPENTIN 400 MG CAP PO SCH ×3 (07:31→19:58)
[2021-06-05] MEDS: FUROSEMIDE 20 MG TAB PO SCH (07:31)
[2021-06-05] MEDS: PANTOprazole 40 MG TAB PO SCH ×2 (07:31→19:59)
[2021-06-05] MEDS: FERROUS SULFATE 325 MG TAB PO SCH (07:31)
[2021-06-05] MEDS: ATORVASTATIN 10 MG TAB PO SCH (07:31)
[2021-06-05] MEDS: UMECLIDINIUM BROMIDE 62.5MCG/BLISTER 7 PUFFS/INHALER INH SCH (07:32)
[2021-06-05] MEDS: LACTULOSE SYRUP 20 GM/30 ML UDC PO SCH ×2 (07:32→19:59)
[2021-06-05] MEDS: POTASSIUM CHLORIDE CRTAB 20 MEQ TABCR PO SCH (07:33)
[2021-06-05] MEDS: rOPINIRole HCL 1 MG TABLET PO SCH ×3 (07:33→17:41)
[2021-06-05] MEDS: INSULIN GLARGINE SOLOSTAR 100 UNITS/ML 3 ML PEN SC SCH (08:44)
[2021-06-05] MEDS: INSULIN ASPART PER UNIT SC SCH ×4 (08:46→20:43)
--- NOTE | 2021-06-05 13:02 | Hospitalist Progress Note ---
Date of Service June 05, 2021 Assessment & Plan (1) Debility: Plan: -patient is essentially bedbound, functional parapelegic from morbid obesity -During last hospitalization, it was recommended that she go to skilled facility for rehab but she refused. Upon discussion this admit pt agreeable to placement - Pending placement, discussed with case management, no availability remains placement. (2) Hypoglycemia: Plan: No recurrent episodes, see type 2 diabetes management as below (3) Type 2 diabetes mellitus: Plan: -Poorly controlled type 2 DM Hold Victoza Glucose control improved this morning Glargine currently at 55 units daily Continue SSI Continue glucose checks AC/at bedtime Pharmacy glycemic consult on board, appreciate recommendations and adjustments - Will need to follow up with Endocrinology as outpatient upon discharge (4) Empyema: Plan: -Diagnosed in an outside facility Treatment started there -Continue Unasyn abx via PICC line. - Due to stop on Jun 05 (5) Anemia: Plan: -stable hb -Continue PO iron supplementation. (6) Afib: Plan: -Continue metoprolol. -Continue to hold Eliquis due to recent anemia requiring blood transfusion during last hospitalization. (7) Chronic respiratory failure: Plan: -Patient is on 4L NC chronically with bipap at night. (8) Hypertension: Plan: -Continue metoprolol and lasix. (9) AMANDA (obstructive sleep apnea): Plan: -BiPaP qHS (10) Hyperlipidemia: Plan: -Continue atorvastatin. (11) Major depression, recurrent: Plan: Continue Seroquel, Elavil. - Follow for hypersomnia - present on last admission - discontinued her baclofen (12) Peripheral neuropathy: Plan: Continue gabapentin. (13) GERD (gastroesophageal reflux disease): Plan: -Continue PPI. (14) Chronic low back pain: Plan: Continue oxycodone-acetaminophen 5-325 mg QID PRN - Continue Gabapentin - Continue to hold her baclofen (15) DVT prophylaxis: Plan: -SCDs ad Lovenox ordered (16) Dysuria: Plan: - Resolved Admission and Anticipated Discharge Date Admission Date: May 22, 2021 Subjective pt has no complaints feels that the clonazepam has helped her sleeping. She is agreeable to stop her low dose of amitriptyline. Biggest issues disposition. Her functional ability to straight concerns about safety at home and she cannot even stand to bear weight she is morbidly obese with a BMI of 51.9. Review of Systems Review of Systems: Mild distress and fatigue no headache, no visual changes no speech or swallowing issues no chest pain, pressure or palpitations no shortness of breath, cough or wheezes no abdominal pain, nausea or vomiting, diarrhea or constipation no dysuria, hematuria or frequency Swellling and discoloration of lower legs with swelling and chronic venous stasis changes no back pain, CVA tenderness or radicular pain pt with lower extremity skin changes no focal signs of weakness or numbness or altered sensation no complaints of anxiety or depression. Physical Exam Physical Exam: Mild distress and fatigue no headache, no visual changes no speech or swallowing issues no chest pain, pressure or palpitations no shortness of breath, cough or wheezes no abdominal pain, nausea or vomiting, diarrhea or constipation no dysuria, hematuria or frequency no focal joint pain. has purple discoloration of legs no back pain, CVA tenderness or radicular pain chronic venous stasis changes to legs no focal signs of weakness or numbness or altered sensation no complaints of anxiety or depression.. Results & Data Results & Data ([facility]) Vital Signs (Past 12 Hours) Vital Signs Temp Pulse Pulse Resp BP Pulse Ox 06/05/21 07:44 97.7 F 70 20 154/80 H 97 06/05/21 03:05 66 17 95 PG Care Time/CCT Total # of Minutes Spent Total Time Spent with Patient: Total time spent is greater than 50% in coordination of care (as documented) at patient's floor/unit and/or counseling patient: Coding Level of Care Code 39922 Subseq Hosp Care Lvl 1 Diagnoses Debility R53.81 Hypoglycemia E16.2 Type 2 diabetes mellitus E11.59; Z79.4 Diabetes mellitus complication detail: with other circulatory complications Diabetes mellitus complication status: with circulatory complication Diabetes mellitus halfway insulin use: with halfway use Empyema J86.9 Anemia D64.9 Anemia type: unspecified type Afib I48.91 Chronic respiratory failure J96.10 Hypertension I10 AMANDA (obstructive sleep apnea) G47.33 Hyperlipidemia E78.5 Major depression, recurrent F33.9 Peripheral neuropathy G62.9 GERD (gastroesophageal reflux disease) K21.9 Chronic low back pain M54.5; G89.29 DVT prophylaxis Z29.9 Dysuria R30.0 (1) Type 2 diabetes mellitus Diabetes mellitus complication detail: with other circulatory complications Diabetes mellitus complication status: with circulatory complication Diabetes mellitus halfway insulin use: with halfway use Qualified Code(s): E11.59 - Type 2 diabetes mellitus with other circulatory complications; Z79.4 - penitentiary (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
[2021-06-06] MEDS: ENOXAPARIN INJ 40 MG/0.4 ML SYR SQ SCH ×2 (05:43→16:43)
[2021-06-06] MEDS: METOPROLOL TARTRATE 50 MG TAB PO SCH ×2 (08:56→21:15)
[2021-06-06] MEDS: LACTULOSE SYRUP 20 GM/30 ML UDC PO SCH ×2 (08:56→21:15)
[2021-06-06] MEDS: FUROSEMIDE 20 MG TAB PO SCH (08:56)
[2021-06-06] MEDS: PANTOprazole 40 MG TAB PO SCH ×2 (08:56→21:15)
[2021-06-06] MEDS: TOLTERODINE TARTRATE LA 2 MG CAPCR PO SCH (08:56)
[2021-06-06] MEDS: FERROUS SULFATE 325 MG TAB PO SCH (08:56)
[2021-06-06] MEDS: POTASSIUM CHLORIDE CRTAB 20 MEQ TABCR PO SCH (08:56)
[2021-06-06] MEDS: ATORVASTATIN 10 MG TAB PO SCH (08:56)
[2021-06-06] MEDS: QUEtiapine FUMARATE 300 MG TABLET PO SCH ×2 (08:56→21:15)
[2021-06-06] MEDS: rOPINIRole HCL 1 MG TABLET PO SCH ×3 (08:56→16:43)
[2021-06-06] MEDS: DOCUSATE SODIUM 100 MG CAP PO PRN (08:56)
[2021-06-06] MEDS: GABAPENTIN 400 MG CAP PO SCH ×3 (08:56→21:15)
[2021-06-06] MEDS: POLYETHYLENE (MIRALAX) 17 GM PACK PO PRN (09:01)
[2021-06-06] MEDS: UMECLIDINIUM BROMIDE 62.5MCG/BLISTER 7 PUFFS/INHALER INH SCH (09:01)
[2021-06-06] MEDS: INSULIN ASPART PER UNIT SC SCH ×5 (09:12→21:01)
[2021-06-06] MEDS: INSULIN GLARGINE SOLOSTAR 100 UNITS/ML 3 ML PEN SC SCH (09:13)
--- NOTE | 2021-06-06 13:56 | Hospitalist Progress Note ---
Date of Service June 06, 2021 Assessment & Plan (1) Debility: Plan: -patient is essentially bedbound, functional parapelegic from morbid obesity -During last hospitalization, it was recommended that she go to skilled facility for rehab but she refused. Upon discussion this admit pt agreeable to placement but given her lack of even ability to stand and her morbid obesity this excludes her from eligiblility from many facilties - I personally discussed various options with case managemet, will need to re connect with PT/OT to devise some way to screen if she can be home with export sales assistant devices (2) Hypoglycemia: Plan: No recurrent episodes, see type 2 diabetes management as below (3) Type 2 diabetes mellitus: Plan: -Poorly controlled type 2 DM Hold Victoza Glucose control improved this morning Glargine currently at 70 units daily Continue SSI Continue glucose checks AC/at bedtime Pharmacy glycemic consult on board, appreciate recommendations and adjustments - Will need to follow up with Endocrinology as outpatient upon discharge (4) Empyema: Plan: -Diagnosed in an outside facility Treatment started there -completed unasyn 06/05/21 (5) Anemia: Plan: -stable hb -Continue PO iron supplementation. (6) Afib: Plan: -Continue metoprolol. -Continue to hold Eliquis due to recent anemia requiring blood transfusion during last hospitalization. (7) Chronic respiratory failure: Plan: -Patient is on 4L NC chronically with bipap at night. (8) Hypertension: Plan: -Continue metoprolol and lasix. (9) AMANDA (obstructive sleep apnea): Plan: -BiPaP qHS (10) Hyperlipidemia: Plan: -Continue atorvastatin. (11) Major depression, recurrent: Plan: Continue Seroquel, Elavil. - Follow for hypersomnia - present on last admission - discontinued her baclofen (12) Peripheral neuropathy: Plan: Continue gabapentin. (13) GERD (gastroesophageal reflux disease): Plan: -Continue PPI. (14) Chronic low back pain: Plan: Continue oxycodone-acetaminophen 5-325 mg QID PRN - Continue Gabapentin - Continue to hold her baclofen (15) DVT prophylaxis: Plan: -SCDs ad Lovenox ordered (16) Dysuria: Plan: - Resolved Admission and Anticipated Discharge Date Admission Date: May 22, 2021 Subjective pt has no complaints feels that the clonazepam has helped her sleeping. She is agreeable to stop her low dose of amitriptyline. she had asked me for the covid vaccine and also the flu shot, Biggest issues disposition. Her functional ability to not be able to stand, raises concerns about safety at home and she cannot even stand to bear weight she is morbidly obese with a BMI of 51.9. Review of Systems Review of Systems: Mild distress and fatigue no headache, no visual changes no speech or swallowing issues no chest pain, pressure or palpitations no shortness of breath, cough or wheezes no abdominal pain, nausea or vomiting, diarrhea or constipation no dysuria, hematuria or frequency Swellling and discoloration of lower legs with swelling and chronic venous stasis changes no back pain, CVA tenderness or radicular pain pt with lower extremity skin changes no focal signs of weakness or numbness or altered sensation no complaints of anxiety or depression. Physical Exam Physical Exam: Mild distress and fatigue no headache, no visual changes no speech or swallowing issues no chest pain, pressure or palpitations no shortness of breath, cough or wheezes no abdominal pain, nausea or vomiting, diarrhea or constipation no dysuria, hematuria or frequency no focal joint pain. has purple discoloration of legs no back pain, CVA tenderness or radicular pain chronic venous stasis changes to legs no focal signs of weakness or numbness or altered sensation no complaints of anxiety or depression.. Results & Data Results & Data ([facility]) Vital Signs (Past 12 Hours) Vital Signs Temp Pulse Resp BP Pulse Ox 06/06/21 07:00 98.2 F 63 16 133/66 93 PG Care Time/CCT Total # of Minutes Spent Total Time Spent with Patient: Total time spent is greater than 50% in coordination of care (as documented) at patient's floor/unit and/or counseling patient: Coding Level of Care Code 71233 Subseq Hosp Care Lvl 2 Diagnoses Debility R53.81 Hypoglycemia E16.2 Type 2 diabetes mellitus E11.59; Z79.4 Diabetes mellitus complication detail: with other circulatory complications Diabetes mellitus complication status: with circulatory complication Diabetes mellitus terminal operator insulin use: with custodial use Empyema J86.9 Anemia D64.9 Anemia type: unspecified type Afib I48.91 Chronic respiratory failure J96.10 Hypertension I10 AMANDA (obstructive sleep apnea) G47.33 Hyperlipidemia E78.5 Major depression, recurrent F33.9 Peripheral neuropathy G62.9 GERD (gastroesophageal reflux disease) K21.9 Chronic low back pain M54.5; G89.29 DVT prophylaxis Z29.9 Dysuria R30.0 (1) Type 2 diabetes mellitus Diabetes mellitus complication detail: with other circulatory complications Diabetes mellitus complication status: with circulatory complication Diabetes mellitus terminal operator insulin use: with terminal operator use Qualified Code(s): E11.59 - Type 2 diabetes mellitus with other circulatory complications; Z79.4 - roasterman (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
[2021-06-06] MEDS: oxyCODONE/ACETAMINOPHEN 5mg/325mg TAB PO PRN ×2 (14:21→21:23)
[2021-06-06] MEDS ORDERED: COVID-19 VAC,AD26(JANSSEN)/PF 0.5 ML SYR IM ONE (16:00)
[2021-06-06] MEDS: clonazePAM 0.25 MG TAB PO SCH (21:21)
[2021-06-06] MEDS: EUCERIN CR 120 GM JAR EXT SCH (21:22)
[2021-06-07] MEDS: ENOXAPARIN INJ 40 MG/0.4 ML SYR SQ SCH (05:40)
[2021-06-07] MEDS: oxyCODONE/ACETAMINOPHEN 5mg/325mg TAB PO PRN ×3 (06:02→21:36)
[2021-06-07] MEDS: UMECLIDINIUM BROMIDE 62.5MCG/BLISTER 7 PUFFS/INHALER INH SCH (08:26)
[2021-06-07] MEDS: METOPROLOL TARTRATE 50 MG TAB PO SCH ×2 (08:26→21:37)
[2021-06-07] MEDS: TOLTERODINE TARTRATE LA 2 MG CAPCR PO SCH (08:27)
[2021-06-07] MEDS: FERROUS SULFATE 325 MG TAB PO SCH (08:27)
[2021-06-07] MEDS: FUROSEMIDE 20 MG TAB PO SCH (08:27)
[2021-06-07] MEDS: PANTOprazole 40 MG TAB PO SCH ×2 (08:28→21:37)
[2021-06-07] MEDS: LACTULOSE SYRUP 20 GM/30 ML UDC PO SCH ×2 (08:28→21:36)
[2021-06-07] MEDS: QUEtiapine FUMARATE 300 MG TABLET PO SCH ×2 (08:28→21:38)
[2021-06-07] MEDS: POTASSIUM CHLORIDE CRTAB 20 MEQ TABCR PO SCH (08:28)
[2021-06-07] MEDS: EUCERIN CR 120 GM JAR EXT SCH ×2 (08:28→21:41)
[2021-06-07] MEDS: GABAPENTIN 400 MG CAP PO SCH ×3 (08:28→21:37)
[2021-06-07] MEDS: ATORVASTATIN 10 MG TAB PO SCH (08:28)
[2021-06-07] MEDS: DOCUSATE SODIUM 100 MG CAP PO PRN ×2 (08:29→21:35)
[2021-06-07] MEDS: rOPINIRole HCL 1 MG TABLET PO SCH ×3 (08:29→16:50)
[2021-06-07] MEDS: POLYETHYLENE (MIRALAX) 17 GM PACK PO PRN (08:29)
[2021-06-07] MEDS: INSULIN ASPART PER UNIT SC SCH ×4 (09:05→21:42)
[2021-06-07] MEDS: INSULIN GLARGINE SOLOSTAR 100 UNITS/ML 3 ML PEN SC SCH (09:06)
--- NOTE | 2021-06-07 13:08 | Pharmacy Report ---
Pharmacy Glycemic Short Note 2 - Date of Service June 07, 2021 - Glycemic Short BSG Results (Last 24 hours): 06/06/21 06/06/21 06/07/21 17:01 20:40 08:00 POC Glucose 156 H 228 H 184 H 06/07/21 12:00 POC Glucose 207 H OUTPATIENT ANTIDIABETIC REGIMEN: * A1c = 6.3% (05/23/21) * Lantus 60 units daily * Apidra 50 units ACHS * Liraglutide 1.8 mg sq daily ASSESSMENT: 06/07/21 * Lantus dose increased this morning, as fasting BSGs have been consistently above goal. * Novolog parameters tightened slightly as well, as pt has been intermittently hyperglycemic throughout the day. * Pt is requiring ~150+ units of insulin per day at this time. 06/03 * BSGs elevated yesterday, 204, 218, 153, and 169 mg/dL * Received 143 units of insulin (60 units of Lantus, 83 units of prandial/correctional bolus) * Fasting BSG of 210 mg/dL this morning * Will increase basal insulin today * Tighten AM parameters in light of high at lunchtime yesterday * No change to stressors Baseline * Patient admitted with hypoglycemia- likely iatrogenic in the setting of continued insulin with decrease oral intake. Insulin was held and patient was started on dextrose infusion. BSG recovered shortly after and then began t rending upward. * Patient was started on Lantus 20 units BID yesterday. Fasting BSG of 161 mg/dL today. Although BSG remains above goal, I suspect this basal dose will become too much overtime. During recent admission, patient required only 30-40 units of Lantus per day while on high dose IV steroids. * Will tighten novolog coverage PLAN FOR INPATIENT GLYCEMIC CONTROL: * Hold outpatient oral diabetes medications * Basal insulin - increase * Lantus 70 units SQ daily * Bolus insulin * NovoLog per scale ACHS or Q6hrs while NPO * Goal Range: Low 110 mg/dL - High 140 mg/dL * Correction Factor: 5 mg/dL/unit with breakfast, 8 mg/dL/unit with lunch, dinner, HS * Nutritional / Prandial insulin per carb ratio of 1 unit per 2 grams CHO consumed with breakfast, 1 unit per 2.5 grams CHO with lunch, dinner, HS PLAN FOR DISCHARGE: * A1c: 6.3% * Patient reports severe hypoglycemia at home. Per DM notes, patient reports BSGs low prior to admission due to decrease PO intake. * Recommend reducing insulin doses in order to prevent future hospitalizations. * Reasonable to trial the following: * Lantus 60 units daily (reasonable to resume home basal as long as PO intake stable) * Apidra 25 units with meals (hold if do not eat meal) - this is a 50% reduction in home dose * Victoza 1.8 mg SQ daily * If doses are adjusted, recommend following up closely with outpatient provider to check BSGs closely and adjust insulin as needed. Per DM notes, patient reports drinking sweet tea at home. Would reinforce healthy eating habits/lifestyle * Would encourage patient to reach out to her provider in the future for insulin adjustments when sick/poor PO intake to hopefully avoid future hypoglycemia.
--- NOTE | 2021-06-07 15:54 | Hospitalist Progress Note ---
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 She is morbidly obese with a BMI of 51.9. We will attempt to arrange home services for this patient to support her at home as she has many assistive devices and supportive environment. (2) Hypoglycemia: Plan: No recurrent episodes, see type 2 diabetes management as below (3) Type 2 diabetes mellitus: Plan: -Poorly controlled type 2 DM Hold Victoza Glucose control improved this morning Glargine currently at 70 units daily Continue SSI Continue glucose checks AC/at bedtime Pharmacy glycemic consult on board, appreciate recommendations and adjustments - Will need to follow up with Endocrinology as outpatient upon discharge (4) Empyema: Plan: -Diagnosed in an outside facility Treatment started there -completed unasyn 06/05/21 (5) Anemia: Plan: -stable hb -Continue PO iron supplementation. (6) Afib: Plan: -Continue metoprolol. -Resume Eliquis as she is a significant risk for VTE and also with her A. fib for embolic arterial stroke (7) Chronic respiratory failure: Plan: -Patient is on 4L NC chronically with bipap at night. (8) Hypertension: Plan: -Continue metoprolol and lasix. (9) AMANDA (obstructive sleep apnea): Plan: -BiPaP qHS (10) Hyperlipidemia: Plan: -Continue atorvastatin. (11) Major depression, recurrent: Plan: Continue Seroquel, Elavil. - Follow for hypersomnia - present on last admission - discontinued her baclofen (12) Peripheral neuropathy: Plan: Continue gabapentin. (13) GERD (gastroesophageal reflux disease): Plan: -Continue PPI. (14) Chronic low back pain: Plan: Continue oxycodone-acetaminophen 5-325 mg QID PRN - Continue Gabapentin - Continue to hold her baclofen (15) DVT prophylaxis: Plan: -SCDs ad Lovenox ordered (16) Dysuria: Plan: - Resolved Admission and Anticipated Discharge Date Admission Date: May 22, 2021 Subjective pt has no complaints feels that the clonazepam has helped her sleeping. She is agreeable to stop her low dose of amitriptyline. she had asked me for the covid vaccine and also the flu shot, Biggest issues disposition. Her functional ability to not be able to stand, creates her to be a functional paraplegic. I believe that a bariatric trapeze to help with body positioning and assistance will help her get in and out of bed to her electric wheelchair and toileting facilities. She is morbidly obese with a BMI of 51.9. Review of Systems Review of Systems: Mild distress and fatigue no headache, no visual changes no speech or swallowing issues no chest pain, pressure or palpitations no shortness of breath, cough or wheezes no abdominal pain, nausea or vomiting, diarrhea or constipation no dysuria, hematuria or frequency Swellling and discoloration of lower legs with swelling and chronic venous stasis changes no back pain, CVA tenderness or radicular pain pt with lower extremity skin changes no focal signs of weakness or numbness or altered sensation no complaints of anxiety or depression. Physical Exam Physical Exam: Mild distress and fatigue no headache, no visual changes no speech or swallowing issues no chest pain, pressure or palpitations no shortness of breath, cough or wheezes no abdominal pain, nausea or vomiting, diarrhea or constipation no dysuria, hematuria or frequency no focal joint pain. has purple discoloration of legs no back pain, CVA tenderness or radicular pain chronic venous stasis changes to legs no focal signs of weakness or numbness or altered sensation no complaints of anxiety or depression.. Results & Data Results & Data ([facility]) Vital Signs (Past 12 Hours) Vital Signs Temp Pulse Resp BP Pulse Ox 06/07/21 14:45 97.3 F L 67 16 134/62 93 06/07/21 07:03 97.5 F L 58 L 16 117/53 L 96 PG Care Time/CCT Total # of Minutes Spent Total Time Spent with Patient: Total time spent is greater than 50% in coordination of care (as documented) at patient's floor/unit and/or counseling patient: Coding Level of Care Code 21718 Subseq Hosp Care Lvl 2 Diagnoses Debility R53.81 Hypoglycemia E16.2 Type 2 diabetes mellitus E11.59; Z79.4 Diabetes mellitus complication detail: with other circulatory complications Diabetes mellitus complication status: with circulatory complication 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 mellitus 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 insulin use: with 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 use Empyema J86.9 Anemia D64.9 Anemia type: unspecified type Afib I48.91 Chronic respiratory failure J96.10 Hypertension I10 AMANDA (obstructive sleep apnea) G47.33 Hyperlipidemia E78.5 Major depression, recurrent F33.9 Peripheral neuropathy G62.9 GERD (gastroesophageal reflux disease) K21.9 Chronic low back pain M54.5; G89.29 DVT prophylaxis Z29.9 Dysuria R30.0 (1) Type 2 diabetes mellitus Diabetes mellitus complication detail: with other circulatory complications Diabetes mellitus complication status: with circulatory complication Diabetes mellitus longterm insulin use: with longterm use Qualified Code(s): E11.59 - Type 2 diabetes mellitus with other circulatory complications; Z79.4 - prison (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
[2021-06-07] MEDS: clonazePAM 0.25 MG TAB PO SCH (21:35)
[2021-06-07] MEDS: APIXABAN 5 MG TABLET PO SCH (21:35)
[2021-06-08] MEDS: APIXABAN 5 MG TABLET PO SCH (07:52)
[2021-06-08] MEDS: FUROSEMIDE 20 MG TAB PO SCH (07:53)
[2021-06-08] MEDS: ATORVASTATIN 10 MG TAB PO SCH (07:53)
[2021-06-08] MEDS: EUCERIN CR 120 GM JAR EXT SCH (07:53)
[2021-06-08] MEDS: FERROUS SULFATE 325 MG TAB PO SCH (07:53)
[2021-06-08] MEDS: LACTULOSE SYRUP 20 GM/30 ML UDC PO SCH (07:54)
[2021-06-08] MEDS: PANTOprazole 40 MG TAB PO SCH (07:54)
[2021-06-08] MEDS: GABAPENTIN 400 MG CAP PO SCH ×2 (07:54→12:55)
[2021-06-08] MEDS: METOPROLOL TARTRATE 50 MG TAB PO SCH (07:54)
[2021-06-08] MEDS: TOLTERODINE TARTRATE LA 2 MG CAPCR PO SCH (07:55)
[2021-06-08] MEDS: UMECLIDINIUM BROMIDE 62.5MCG/BLISTER 7 PUFFS/INHALER INH SCH (07:55)
[2021-06-08] MEDS: rOPINIRole HCL 1 MG TABLET PO SCH ×2 (07:55→12:55)
[2021-06-08] MEDS: QUEtiapine FUMARATE 300 MG TABLET PO SCH (07:55)
[2021-06-08] MEDS: DOCUSATE SODIUM 100 MG CAP PO PRN (07:56)
[2021-06-08] MEDS: POLYETHYLENE (MIRALAX) 17 GM PACK PO PRN (07:56)
[2021-06-08] MEDS: oxyCODONE/ACETAMINOPHEN 5mg/325mg TAB PO PRN ×2 (07:56→14:03)
[2021-06-08] MEDS: INSULIN ASPART PER UNIT SC SCH ×2 (08:41→12:52)
[2021-06-08] MEDS: INSULIN GLARGINE SOLOSTAR 100 UNITS/ML 3 ML PEN SC SCH (09:20)
[2021-06-08] MEDS: POTASSIUM CHLORIDE CRTAB 20 MEQ TABCR PO SCH (09:22)
--- NOTE | 2021-06-08 17:10 | Discharge Summary ---
Date of Service June 08, 2021 Admission HPI Per Admitting Provider Patient is a chronically ill 55 y/o female with PMH of DM2, afibb, anemia, HTN, HLD, AMANDA, and morbid obesity with several recent hospitalizations who presents from home via EMS due to low blood sugars over the two past days. Patient states her sugars have been dropping to the 40-50s. She has continued to take her home medication regimen despite her low sugars. She was able to bring them up to the 90s on her own yesterday by eating things like peanut butter crackers, cake icing, and bagels, however today they would only sustain in the 90s for 15 minutes before dropping again. She admits to a decreased appetite over the past several days, but reports no fever/chills, nausea, vomiting, diarrhea, abdominal pain, or change in energy levels. Previously she had been self administering her medications, however her daughter has been helping her lately with managing them. Patient's sugar in ED was 39. She was started on a D5 drip and given 24 oz. of orange juice and a turkey sandwich, POC glucose was taken an hour and a half later and was 81. TSH within normal limits, random cortisol pending, AM cortisol ordered for tomorrow AM. Of note, patient was discharged from [facility] on 05/02/21 with a PICC line for Unasyn abx after being treated for a LLL empyema. She was admitted to [facility] on 05/04/21 and discharged on 05/18/21 in which she was treated for anemia with a presenting Hgb of 7.6 and required a total of 3 units packed cells. She was d/c'd on PO iron supplementation and recommended to hold her Eliquis for 2 weeks with the decision to resume it pending a stable H/H on follow up labs. P atient's Hgb today was 11. During last hospitalization, patient was diagnosed with a presumed hepatic encephalopathy as she became difficult to arouse and her ammonia was 48.5, but responding favorably to lactulose. Patient does not carry a formal diagnosis of liver disease, however a liver ultrasound revealed hepatomegaly. Patient was recommended to follow-up with GI as an outpatient, however has not been able to do so yet ? fatty liver disease. Principal Diagnosis functional parapelegia from morbid obesity with bmi >51 empyema completing iv treatment hypoglycemia Discharge Exam The patient appeared well nourished and normally developed. Vital signs as documented. Head exam is normocephalic atraumatic Neck is without JVD, thyromegaly, or carotid bruits. Lungs are clear to auscultation, no focal loss of breath sounds Cardiac exam, Rhythm is regular.. No murmurs, rubs or gallops. Abdominal exam reveals normal bowel sounds, soft non tender, no masses Extremities are nonedematous and both pedal pulses are present Neurologic exam is alert and oriented, his leg weakness prevents her from standing effectively longstanding issue Skin is with intertrigo Psychologically is without concerns for anxiety or depression.. Discharge Data Allergies Allergy/AdvReac Type Severity Reaction Status Date / Time bee venom protein (honey bee) Allergy Mild Unknown Verified 05/03/21 22:58 rosiglitazone [From Avandia] Allergy Unknown Unknown Verified 05/03/21 22:58 hydrocodone AdvReac Intermediate itching Verified 05/03/21 22:58 Consultations 05/22/21 20:06 ED Decision to Admit Stat 05/23/21 10:04 Consult Endocrinology Routine Hospital Course (1) Debility: -patient is essentially bedbound, functional paraplegic from morbid obesity I believe that a bariatric trapeze to help with body positioning and assistance will help her get in and out of bed to her electric wheelchair and toileting facilities. She is morbidly obese with a BMI of 51.9. We will attempt to arrange home services for this patient to support her at home as she has many assistive devices and supportive environment. Home services were arranged patient transported home on 06/08/2021 (2) Hypoglycemia: No recurrent episodes, see type 2 diabetes management as below (3) Type 2 diabetes mellitus: -Poorly controlled type 2 DM Hold Victoza at the time of discharge we will continue basal bolus insulin at this time and following her glucose levels as she transitions to her home diet - Will need to follow up with Endocrinology as outpatient upon discharge (4) Empyema: -Diagnosed in an outside facility Treatment started there -completed unasyn 06/05/21, PICC line removed (5) Anemia: -stable hb -Continue PO iron supplementation. (6) Afib: -Continue metoprolol. -Resume Eliquis as she is a significant risk for VTE and also with her A. fib for embolic arterial stroke (7) Chronic respiratory failure: -Patient is on 4L NC chronically with bipap at night. (8) Hypertension: -Continue metoprolol and lasix. (9) AMANDA (obstructive sleep apnea): -BiPaP qHS (10) Hyperlipidemia: -Continue atorvastatin. (11) Major depression, recurrent: Continue Seroquel, Elavil. - Follow for hypersomnia - present on last admission - discontinued her baclofen (12) Peripheral neuropathy: Continue gabapentin. (13) GERD (gastroesophageal reflux disease): -Continue PPI. (14) Chronic low back pain: Continue oxycodone-acetaminophen 5-325 mg QID PRN - Continue Gabapentin - Continue to hold her baclofen Consider work-up with outpatient EMGs she has a known to have degenerative arthritis in her back but she has no radicular pain or focal deficits of sensation (15) DVT prophylaxis: Is for DVT prevention as she is significantly high risk with her immobility and BMI of 50 (16) Dysuria: - Resolved (17) Asthma-COPD overlap syndrome: Discharge Plan Discharge Items Patient Disposition: Home - Home Health Services Reason For Visit: HYPOGLYCEMIA Discharge Diagnosis: empyema hypoglycemia functional parapelegia possible covid exposure Condition on Discharge: Fair Activity: Per Instructions section Activity Comment: use home assistant analyst devices Non-emergency contact: Primary Care Provider Call non-emergency contact if: you have any medication questions and you have a fever Follow-up/Referrals: Nuha Welch CRNP [Primary Care Provider] - Ernie Patino MD [Physician] - (Please schedule outpatient appointment within one week for medication management & hypoglycemia.) Diet: Regular Addtl Attending Provider Instructions: please use assistant analyst devices at home you did have your covid vaccine booster while in the hospital Pending Studies at Discharge: No Stand-Alone Forms: My [employer], Smoking Cessation Medications and DC Order Prescriptions: New lactulose 20 gram/30 mL Solution 20 g PO BID Qty: 2880 RF: 0 Eliquis 5 mg Tablet 5 mg PO BID Qty: 60 RF: 0 (DME) Oxygen Home Liters Per Minute See Rx Instructions .ROUTE Qty: 4 RF: 0 Continued (DME) Oxygen Home Liters Per Minute See Dose Instructions .ROUTE .MEDSUPPLY Qty: 1 RF: 0 albuterol sulfate 2.5 mg /3 mL (0.083 %) solution for nebulization 2.5 mg INH Q4H PRN (Reason: shortness of breath or wheezing) Qty: 180 RF: 5 (DME) blood-glucose meter [OneTouch Ultra2 Meter] Kit See Rx Instructions .ROUTE .MEDSUPPLY Qty: 1 RF: 0 (DME) lancets [OneTouch Delica Plus Lancet] 30 gauge misc See Rx Instructions .ROUTE .MEDSUPPLY Qty: 100 RF: 5 ropinirole 1 mg tablet See Rx Instructions .ROUTE .COMPLEX Qty: 120 RF: 11 sennosides-docusate sodium [Senna Plus] 8.6-50 mg tablet 1 tab-cap PO TID Qty: 90 RF: 5 atorvastatin 10 mg tablet 10 mg PO DAILY Qty: 30 RF: 11 quetiapine 300 mg tablet 300 mg PO BID Qty: 60 RF: 11 epinephrine 0.3 mg/0.3 mL auto-injector See Rx Instructions .ROUTE .COMPLEX Qty: 2 RF: 1 (DME) blood sugar diagnostic Strip See Rx Instructions .ROUTE .MEDSUPPLY Qty: 100 RF: 5 gabapentin 400 mg capsule See Rx Instructions .ROUTE .COMPLEX Qty: 120 RF: 5 cholecalciferol (vitamin D3) 125 mcg (5,000 unit) capsule 125 mcg PO DAILY Qty: 30 RF: 11 Apidra SoloStar U-100 Insulin 100 unit/mL insulin pen See Rx Instructions .ROUTE .COMPLEX Qty: 15 RF: 11 (DME) CPAP Supplies Misc See Rx Instructions .Route Qty: 1 RF: 0 (DME) pen needle, diabetic [BD Ultra-Fine Short Pen Needle] 31 gauge x 5/16" needle See Rx Instructions .Route Qty: 100 RF: 11 furosemide [Lasix] 40 mg tablet 60 mg PO DAILY Qty: 135 RF: 3 metoprolol tartrate 50 mg tablet 50 mg PO BID Qty: 180 RF: 3 nystatin 100,000 unit/gram cream 1 applic topical BID PRN (Reason: rash) Qty: 30 RF: 2 potassium chloride 20 mEq tablet,ER particles/crystals 20 meq PO DAILY Qty: 30 RF: 11 (DME) miscellaneous medical supply Misc See Rx Instructions .Route Qty: 1 RF: 0 (DME) sit to stand lift Qty: 1 RF: 0 (DME) Oxygen Home Liters Per Minute See Rx Instructions .ROUTE .MEDSUPPLY Qty: 1 RF: 0 tolterodine [Detrol LA] 2 mg capsule,extended release 24hr 2 mg PO DAILY Qty: 30 RF: 6 (DME) oxygen See Rx Instructions .Route .MEDSUPPLY Qty: 1 RF: 0 omeprazole 20 mg capsule,delayed release(DR/EC) 20 mg PO BID Qty: 60 RF: 11 oxycodone-acetaminophen 5-325 mg tablet 1 tab PO QID PRN (Reason: pain) Qty: 120 RF: 0 (DME) overhead trapeze See Rx Instructions .Route .MEDSUPPLY Qty: 1 RF: 0 ferrous sulfate 325 mg (65 mg iron) Tablet,Delayed Release (Dr/Ec) 325 mg PO DAILY Qty: 0 RF: 0 docusate sodium 100 mg Capsule 100 mg PO TID PRN (Reason: Constipation) RF: 0 naloxone [Narcan] 4 mg/actuation spray,non-aerosol 1 spray INTRANASAL UD RF: 0 polyethylene glycol 3350 17 gram/dose powder 17 g PO DAILY PRN (Reason: Constipation) RF: 0 mometasone 0.1 % cream 1 applic topical UD RF: 0 Lantus Solostar U-100 Insulin 100 unit/mL (3 mL) insulin pen 60 unit SQ DAILY RF: 0 Spiriva Respimat 2.5 mcg/actuation mist 2 puff inhalation BID RF: 0 Discontinued amitriptyline 25 mg tablet 25 mg PO HS Qty: 30 RF: 11 Victoza 2-Venkatesh 0.6 mg/0.1 mL (18 mg/3 mL) pen injector 18 mg subcut DAILY RF: 0 Discharge Orders: Discharge Order (Routine); Ordered 06/08/21 Ordered By: Rhett Andre/Other Patient Handouts: Managing Type 2 Diabetes, Special Foot Care for Diabetes Admission Data Admit Date/Time: 05/22/21 20:26 Attending Provider: Rhett Prater Admit Provider: Juanjo Yeh Primary Care Provider: Nuha Welch Other Providers: [facility] ; [facility] ; [place] ; Juanjo Yeh ; Ernie Patino ; [facility], ; [facility] Other Interventions: Discharge Summary Assessment (RN) Last Done: 06/08/21 14:46 Coding Diagnoses Debility R53.81 Hypoglycemia E16.2 Type 2 diabetes mellitus E11.59; Z79.4 Diabetes mellitus complication detail: with other circulatory complicatio ns Diabetes mellitus complication status: with circulatory complication Diabetes mellitus longterm insulin use: 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
== END 2021-06-08 15:00 | disposition home health service (06) ==
LOC: ED 18:41 → INTOOBSV 20:26 → SUATTDRO 20:26 → EDINP 20:26 → 2S 05-23 01:20 → 3N 05-26 23:52

== ENCOUNTER 2022-03-23 15:53 | Inpatient (IN) ==
[2022-03-23] MEDS ORDERED: methylPREDNISolone 125 MG/2 ML VIAL IV STA (16:14)
[2022-03-23] MEDS ORDERED: ALBUT/IPRATROP 3MG/0.5MG NEB 3 ML VIAL INH STA (16:14)
--- NOTE | 2022-03-23 16:20 | Emergency Department Note ---
Impression & Plan Acute hypoxemic respiratory failure, Flu-like symptoms ED Provider Note INFORMANT: Patient ED PROVIDER(S): Claudy Drake MD CHIEF COMPLAINT: Shortness of breath PLAN: Disposition: Admitted Condition: Guarded Outpatient prescription management: none Referral: None MEDICAL DECISION MAKING: Patient presented because of respiratory issues. She was requiring BiPAP. This was titrated down to an FiO2 of 35% however she did need to increase this to 40% to maintain her O2 saturations in the low 90s. Without BiPAP she dropped into the 70s. The patient had some cold symptoms. A bio fire test was performed chest x-ray was unremarkable. She was given a DuoNeb and Solu-Medrol. On r eassessment she was feeling better. Work of breathing improved. Her chest x- ray did not reveal pneumonia or other acute pathology. Her bio fire testing was positive for rhinovirus. The patient has chronic hypercarbia on her CMP. Her CBC did not reveal any significant issues. Troponin and BNP were negative. ECG showed a sinus rhythm without evidence of acute ischemia. Patient will need further management in the hospital given her respiratory failure issues. Consultation was made with Dr. Rhett shipley of the [facility] service. Patient was evaluated in the ER for further management. Triage Nursing notes reviewed and agree them. Vital Signs: reviewed and remarkable for hypoxia Differential diagnosis: Reactive airway disease, pneumonia, pneumothorax, COPD, CHF, infections, cardiac ischemia, pulmonary embolism, musculoskeletal, gastrointestinal, as well as other pathologies. Diagnostics interpreted by me: ECG: Twelve-lead ECG reveals normal sinus rhythm at 76 bpm. Right bundle branch block. Lateral Q wave present. No ST elevation or depression. Cardiac Monitoring: Cardiac monitoring ordered by me: The patient was placed on continuous cardiac monitoring and observed. It revealed a normal sinus rhythm at 78 beats per minute without ectopy or evidence of dysrhythmia. Imaging studies: Chest x-ray. Findings: A chest x-ray was performed and revealed no pneumothorax, effusion, infiltrate, pulmonary edema, free air under the diaphragm, or wide mediastinum. Impression: No acute disease. HPI: The patient is a 56year old female who presents to the Emergency Room with complaints of shortness of breath and difficulty breathing. This started yesterday and is worsening today. Patient states that she uses CPAP at night and then transitions to 4 L nasal cannula oxygen. She was having trouble maintaining her O2 saturations and they were falling into the 70s. Patient does have a history of acute respiratory failure secondary to pneumonia. The patient also notes the following associated symptoms, flulike symptoms that started yesterday with feeling feverish, congestion and mild cough. The patient has found no relieving factors. Current pain is rated as 0/10. EMS was summoned. Patient was placed on CPAP and brought to the emergency department for further evaluation. Pt denies LOC, headache, diaphoresis, visual changes, neck pain, chest pain, nausea, vomiting, abdominal pain, back pain, melena, hematochezia, urinary symptoms, numbness, weakness, lymphadenopathy, rash, or other complaints. ROS: See above HPI for pertinent positives & negatives. A total of 10 systems reviewed and were otherwise negative. PAST MEDICAL HISTORY:See Below , UTI, diabetes, venous stasis PAST SURGICAL HISTORY:See Below, FAMILY HISTORY:See Below SOCIAL HISTORY:See Below, smoker HOME MEDICATIONS:See Below ALLERGIES:See Below VITALS:See Below PHYSICAL EXAMINATION: GENERAL: Awake, alert, dyspneic-appearing, in no distress HENT: Normocephalic, atraumatic. Oropharynx unremarkable. EYES: Normal conjunctiva. Sclera non-icteric. NECK: Inspection normal. Non-tender. Supple. No nuchal rigidity. FROM. No masses. RESPIRATORY: Clear to auscultation. No wheezes. No rales. Increased respiratory effort. CARDIAC: Normal rate. Normal rhythm. No murmurs. No rubs. Extremities warm and well perfused. Pulses equal. No JVD. GI: Soft, non-distended. Significant pannus present. No tenderness to palpation. No rebound or guarding. No masses. RECTAL: Deferred. MUSCULOSKELETAL: Atraumatic. Chest examination reveals no tenderness. The back is symmetrical on inspection without obvious abnormality. There is no CVA tenderness to palpation. No joint edema. LOWER EXTREMITIES: Calves are equal size bilaterally and non-tender. 1+ edema. Chronic venous discoloration. NEURO: Normal sensorium. No sensory or motor deficits noted. SKIN: Healing burn noted to the left upper chest. No rash or jaundice noted. CRITICAL CARE: I have personally spent greater than 35 minutes of critical care time in the direct management of this patient. This includes bedside care, interpretation of diagnostic studies, and testing, discussion with consultants, patient, and other required patient management activities. These minutes are in excess of all separately billable procedures. Claudy Drake MD Past Med/Surg History Medical History Afib Anemia Asthma-COPD overlap syndrome COVID-19 Empyema GERD (gastroesophageal reflux disease) Kidney calculi Obesity Respiratory distress Sleep apnea SOB (shortness of breath) Type 2 diabetes mellitus Venous stasis Surgical History History of left knee surgery History of tubal ligation Family History Other Diabetes Dyslipidemia Denies family history of Coronary heart disease Cancer Stroke Social History Smoking Status: Former smoker Tobacco Type: Cigarettes Cigarettes Per Day: 1 pack daily; Second Hand Exposure: No; Hx Alcohol Use: No Hx Substance Use: No Preferred Language: Syriac Communication Ability: Effective Visual Impairment: Limited 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 Insurance Required: No Beliefs That Will Affect Care: None marital status: Single Current Living Situation: Family Current Living Situation Comment: lives with her daughter and her boyfriend current occupational status: disabled How many Children do You have: 1 Feels Safe at Home: Yes caffeine: Yes Dental Care, Regularly: No Physical Activity Frequency: Daily Physical Activity Frequency Comment: streches Seatbelt Use: never Sunscreen Use: No Assistive Devices: Oxygen - Continuous Allergies Allergies Allergy/AdvReac Type Severity Reaction Status Date / Time bee venom protein (honey bee) Allergy Mild Unknown Verified 03/23/22 19:48 rosiglitazone [From Avandia] Allergy Unknown Unknown Verified 03/23/22 19:48 hydrocodone AdvReac Intermediate itching Verified 03/23/22 19:48 Home Meds Home Medications Medication Instructions Recorded Confirmed epinephrine 0.3 mg/0.3 mL 0.3 ml IM .PRN/UD PRN Allergic 03/23/22 03/23/22 injection, auto-injector Reaction gabapentin 400 mg capsule 400 mg PO .AM & AFTERNOON 03/23/22 03/23/22 gabapentin 400 mg capsule 800 mg PO HS 03/23/22 03/23/22 insulin glulisine U-100 100 50 unit subcut ACHS 03/23/22 03/23/22 unit/mL subcutaneous pen (Apidra SoloStar U-100 Insulin) oxycodone-acetaminophen 5 mg-325 1 tab PO QID PRN pain 03/23/22 03/23/22 mg tablet ropinirole 1 mg tablet 1 mg PO .AM/NOON/PM MEAL 03/23/22 03/23/22 Previous Rx's Medication Instructions Recorded sit to stand lift #1 ea 11/25/19 omeprazole 20 mg capsule,delayed 20 mg PO BID #60 caps 04/11/21 release furosemide 40 mg tablet (Lasix) 60 mg PO DAILY #135 tabs 04/13/21 miscellaneous medical supply #1 ea 05/22/21 overhead trapeze #1 ea 05/22/21 Oxygen Home #4 L 06/08/21 albuterol sulfate 2.5 mg/3 mL 2.5 mg (3 mL) inhalation Q4H PRN 07/06/21 (0.083 %) solution for nebulization shortness of breath or wheezing #180 mL apixaban 5 mg tablet (Eliquis) 5 mg PO BID #60 tabs 08/10/21 quetiapine 300 mg tablet 300 mg PO BID #60 tabs 08/10/21 atorvastatin 10 mg tablet 10 mg PO DAILY #30 tabs 08/30/21 lancets 30 gauge (Fear HuntersTouch Delica #100 ea 08/31/21 Plus Lancet) lancing device with lancets kit #1 ea 08/31/21 (Fear HuntersTouch Delica Plus Lancing Device kit) tolterodine 2 mg capsule,extended 2 mg PO DAILY #30 caps 11/13/21 release 24 hr (Detrol LA) pen needle, diabetic 31 gauge x #200 ea 12/29/21 5/16" (BD Ultra-Fine Short Pen Needle) insulin syringes (disposable) 1 mL #500 ea 01/08/22 insulin glargine 100 unit/mL (3 50 unit (0.5 mL) subcut BID #18 mL 01/22/22 mL) subcutaneous pen (Lantus Solostar U-100 Insulin) bupropion HCl 150 mg 24 hr tablet, 150 mg PO QAM #30 tabs 03/06/22 extended release lactulose 20 gram/30 mL oral 20 g (30 mL) PO BID #2,880 mL 03/06/22 solution naloxone 4 mg/actuation nasal 1 spray intranasal UD #2 ea 03/06/22 spray (Narcan) polyethylene glycol 3350 17 17 g PO DAILY PRN Constipation 03/06/22 gram/dose oral powder #119 grams bariatric walker #1 ea 03/15/22 Results & Data (ED) Vital Signs Vital Signs - 24 hr 03/23/22 16:11 03/23/22 16:11 03/23/22 16:14 Temperature 36.6 C Temperature Source Oral Pulse Rate 75 77 Pulse Rate from SpO2 Sensor Pulse Rhythm Regular Pulse Strength Normal Respiratory Rate 24 24 16 Respiratory Effort / Characteristics Non-Labored Spontaneous Non-Labored Spontaneous Spontaneous Accessory Muscle Use Respiratory Depth Normal Normal Respiratory Pattern Regular Regular Blood Pressure 171/69 H Blood Pressure Mean 103 Blood Pressure Position Sitting Pulse Oximetry 95 95 98 Oxygen Delivery Method BiPAP CPAP Oxygen Flow Rate Fraction of Inspired Oxygen 35 40 40 SaO2/FiO2 Ratio 245 Sepsis Recent Fever Within 48 Hours No Sepsis New/Unexplained Change in Mental Status No Sepsis Action Taken by Nursing No Action Required Fraction of Inspired Oxygen - Titration Pulse Oximetry Post Tiitration 03/23/22 16:14 03/23/22 16:14 03/23/22 16:14 Temperature Temperature Source Pulse Rate Pulse Rate from SpO2 Sensor Pulse Rhythm Pulse Strength Respiratory Rate Respiratory Effort / Characteristics Spontaneous Accessory Muscle Use Respiratory Depth Respiratory Pattern Blood Pressure Blood Pressure Mean Blood Pressure Position Pulse Oximetry 75 L Oxygen Delivery Method CPAP Room Air CPAP Oxygen Flow Rate 0 Fraction of Inspired Oxygen SaO2/FiO2 Ratio Sepsis Recent Fever Within 48 Hours Sepsis New/Unexplained Change in Mental Status Sepsis Action Taken by Nursing Fraction of Inspired Oxygen - Titration 40 Pulse Oximetry Post Tiitration 99 03/23/22 16:07 03/23/22 16:10 03/23/22 16:18 Temperature Temperature Source Pulse Rate 76 87 84 Pulse Rate from SpO2 Sensor 78 76 82 Pulse Rhythm Pulse Strength Respiratory Rate 21 21 19 Respiratory Effort / Characteristics Respiratory Depth Respiratory Pattern Blood Pressure Blood Pressure Mean Blood Pressure Position Pulse Oximetry 100 95 98 Oxygen Delivery Method Oxygen Flow Rate Fraction of Inspired Oxygen SaO2/FiO2 Ratio Sepsis Recent Fever Within 48 Hours Sepsis New/Unexplained Change in Mental Status Sepsis Action Taken by Nursing Fraction of Inspired Oxygen - Titration Pulse Oximetry Post Tiitration 03/23/22 16:18 03/23/22 16:20 03/23/22 16:30 Temperature Temperature Source Pulse Rate 77 Pulse Rate from SpO2 Sensor 77 Pulse Rhythm Pulse Strength Respiratory Rate 23 Respiratory Effort / Characteristics Respiratory Depth Respiratory Pattern Blood Pressure 171/69 H 179/81 H Blood Pressure Mean 103 113 Blood Pressure Position Pulse Oximetry 97 Oxygen Delivery Method Oxygen Flow Rate Fraction of Inspired Oxygen SaO2/FiO2 Ratio Sepsis Recent Fever Within 48 Hours Sepsis New/Unexplained Change in Mental Status Sepsis Action Taken by Nursing Fraction of Inspired Oxygen - Titration Pulse Oximetry Post Tiitration 03/23/22 16:30 03/23/22 16:40 03/23/22 16:50 Temperature Temperature Source Pulse Rate 83 77 72 Pulse Rate from SpO2 Sensor 75 77 73 Pulse Rhythm Pulse Strength Respiratory Rate 19 17 17 Respiratory Effort / Characteristics Respiratory Depth Respiratory Pattern Blood Pressure Blood Pressure Mean Blood Pressure Position Pulse Oximetry 97 94 97 Oxygen Delivery Method Oxygen Flow Rate Fraction of Inspired Oxygen SaO2/FiO2 Ratio Sepsis Recent Fever Within 48 Hours Sepsis New/Unexplained Change in Mental Status Sepsis Action Taken by Nursing Fraction of Inspired Oxygen - Titration Pulse Oximetry Post Tiitration 03/23/22 17:00 03/23/22 17:00 03/23/22 17:10 Temperature Temperature Source Pulse Rate 75 75 Pulse Rate from SpO2 Sensor 75 75 Pulse Rhythm Pulse Strength Respiratory Rate 16 19 Respiratory Effort / Characteristics Respiratory Depth Respiratory Pattern Blood Pressure 177/80 H Blood Pressure Mean 112 Blood Pressure Position Pulse Oximetry 97 95 Oxygen Delivery Method Oxygen Flow Rate Fraction of Inspired Oxygen SaO2/FiO2 Ratio Sepsis Recent Fever Within 48 Hours Sepsis New/Unexplained Change in Mental Status Sepsis Action Taken by Nursing Fraction of Inspired Oxygen - Titration Pulse Oximetry Post Tiitration 03/23/22 17:20 03/23/22 17:30 03/23/22 17:31 Temperature Temperature Source Pulse Rate 76 74 Pulse Rate from SpO2 Sensor 75 74 Pulse Rhythm Pulse Strength Respiratory Rate 18 16 Respiratory Effort / Characteristics Respiratory Depth Respiratory Pattern Blood Pressure 146/68 H Blood Pressure Mean 94 Blood Pressure Position Pulse Oximetry 97 95 Oxygen Delivery Method Oxygen Flow Rate Fraction of Inspired Oxygen SaO2/FiO2 Ratio Sepsis Recent Fever Within 48 Hours Sepsis New/Unexplained Change in Mental Status Sepsis Action Taken by Nursing Fraction of Inspired Oxygen - Titration Pulse Oximetry Post Tiitration 03/23/22 17:31 03/23/22 17:40 03/23/22 17:50 Temperature Temperature Source Pulse Rate 73 74 76 Pulse Rate from SpO2 Sensor 73 75 76 Pulse Rhythm Pulse Strength Respiratory Rate 16 17 18 Respiratory Effort / Characteristics Respiratory Depth Respiratory Pattern Blood Pressure Blood Pressure Mean Blood Pressure Position Pulse Oximetry 96 95 97 Oxygen Delivery Method Oxygen Flow Rate Fraction of Inspired Oxygen SaO2/FiO2 Ratio Sepsis Recent Fever Within 48 Hours Sepsis New/Unexplained Change in Mental Status Sepsis Action Taken by Nursing Fraction of Inspired Oxygen - Titration Pulse Oximetry Post Tiitration 03/23/22 18:00 03/23/22 18:00 03/23/22 18:10 Temperature Temperature Source Pulse Rate 75 75 Pulse Rate from SpO2 Sensor 75 75 Pulse Rhythm Pulse Strength Respiratory Rate 17 19 Respiratory Effort / Characteristics Respiratory Depth Respiratory Pattern Blood Pressure 164/77 H Blood Pressure Mean 106 Blood Pressure Position Pulse Oximetry 96 96 Oxygen Delivery Method Oxygen Flow Rate Fraction of Inspired Oxygen SaO2/FiO2 Ratio Sepsis Recent Fever Within 48 Hours Sepsis New/Unexplained Change in Mental Status Sepsis Action Taken by Nursing Fraction of Inspired Oxygen - Titration Pulse Oximetry Post Tiitration 03/23/22 18:20 03/23/22 18:30 03/23/22 18:30 Temperature Temperature Source Pulse Rate 74 75 Pulse Rate from SpO2 Sensor 75 75 Pulse Rhythm Pulse Strength Respiratory Rate 15 17 Respiratory Effort / Characteristics Respiratory Depth Respiratory Pattern Blood Pressure 173/83 H Blood Pressure Mean 113 Blood Pressure Position Pulse Oximetry 95 97 Oxygen Delivery Method Oxygen Flow Rate Fraction of Inspired Oxygen SaO2/FiO2 Ratio Sepsis Recent Fever Within 48 Hours Sepsis New/Unexplained Change in Mental Status Sepsis Action Taken by Nursing Fraction of Inspired Oxygen - Titration Pulse Oximetry Post Tiitration Laboratory Data Result diagrams: 03/23/22 16:20 03/23/22 16:20 Lab Results 03/23/22 03/23/22 03/23/22 Range/Units 16:20 16:20 16:20 WBC 4.91 (4.8-10.8) K/ul RBC 3.82 L (3.93-5.22) M/uL Hgb 10.4 L (12.0-16.0) g/dl Hct 35.9 (34.1-44.9) % MCV 94.0 (80.0-100.0) fL MCH 27.2 (25.0-34.0) pg MCHC 29.0 L (32.0-36.0) g/dL RDW Std Deviation 50.0 H (36.4-46.3) fL RDW Coeff of Curt 14.6 H (11.5-14.5) % Plt Count 198 (130-400) K/uL MPV 9.1 L (9.4-12.3) fL Immature Gran % (Auto) 0.6 % Neut % (Auto) 66.6 % Lymph % (Auto) 22.6 % Beauregard % (Auto) 6.7 % Eos % (Auto) 3.1 % Baso % (Auto) 0.4 % Neut # (Auto) 3.27 (1.4-6.5) K/uL Lymph # (Auto) 1.11 L (1.2-3.4) K/uL Beauregard # (Auto) 0.33 (0.24-0.82) K/uL Eos # (Auto) 0.15 (0-0.50) K/uL Baso # (Auto) 0.02 (0-0.2) K/uL Immature Gran # (Auto) 0.03 H (0.00-0.02) K/uL PT 10.9 (9.0-12.0) Seconds INR 1.0 (0.9-1.1) Sodium 138 (136-145) mmol/L Potassium 3.9 (3.5-5.1) mmol/L Chloride 92 L (98-107) mmol/L Carbon Dioxide 42 H* (21-32) mmol/L Anion Gap 4 (3-11) BUN 10 (6-23) mg/dl Creatinine 0.69 (0.6-1.2) mg/dl Est Cr Clr Drug Dosing 181.0 ml/min Est GFR ( Amer) 114.4 ml/min Est GFR (Non-Af Amer) 98.7 ml/min BUN/Creatinine Ratio 14.5 (10-20) Glucose 166 H (70-99(Fasting)) mg/dl Calcium 9.0 (8.5-10.1) mg/dl Magnesium 1.9 (1.7-2.4) mg/dl Total Bilirubin 0.4 (0.2-1.0) mg/dl AST 18 (13-39) U/L ALT 17 (7-52) U/L Alkaline Phosphatase 71 (34-104) U/L Troponin I High Sens 10.8 (0-14) pg/ml B-Natriuretic Peptide (0-100) pg/ml Total Protein 7.1 (6.0-8.3) gm/dl Albumin 3.8 (3.4-5.0) gm/dl Globulin 3.3 (2.5-4.0) gm/dl Albumin/Globulin Ratio 1.2 (0.9-2) Procalcitonin (0-0.5) ng/ml Adenovirus (PCR) (NotDetected) B. pertussis DNA (PCR) (NotDetected) B.parapertussis DNA PCR (NotDetected) C. pneumoniae DNA (PCR) (NotDetected) Coronavirus OC43 (PCR) (NotDetected) Coronavirus HKU1 (PCR) (NotDetected) Coronavirus 229E (PCR) (NotDetected) SARS-CoV-2 (PCR) (NotDetected) Coronavirus NL63 (PCR) (NotDetected) Human Metapneumovir PCR (NotDetected) Influenza Type A (PCR) (NotDetected) Influenza Type B (PCR) (NotDetected) M. pneumoniae (PCR) (NotDetected) Parainfluenza 1 (PCR) (NotDetected) Parainfluenza 2 (PCR) (NotDetected) Parainfluenza 3 (PCR) (NotDetected) Parainfluenza 4 (PCR) (NotDetected) RSV (PCR) (NotDetected) Entero/Rhino (PCR) (NotDetected) 03/23/22 03/23/22 03/23/22 Range/Units 16:20 16:23 16:36 WBC (4.8-10.8) K/ul RBC (3.93-5.22) M/uL Hgb (12.0-16.0) g/dl Hct (34.1-44.9) % MCV (80.0-100.0) fL MCH (25.0-34.0) pg MCHC (32.0-36.0) g/dL RDW Std Deviation (36.4-46.3) fL RDW Coeff of Curt (11.5-14.5) % Plt Count (130-400) K/uL MPV (9.4-12.3) fL Immature Gran % (Auto) % Neut % (Auto) % Lymph % (Auto) % Beauregard % (Auto) % Eos % (Auto) % Baso % (Auto) % Neut # (Auto) (1.4-6.5) K/uL Lymph # (Auto) (1.2-3.4) K/uL Beauregard # (Auto) (0.24-0.82) K/uL Eos # (Auto) (0-0.50) K/uL Baso # (Auto) (0-0.2) K/uL Immature Gran # (Auto) (0.00-0.02) K/uL PT (9.0-12.0) Seconds INR (0.9-1.1) Sodium (136-145) mmol/L Potassium (3.5-5.1) mmol/L Chloride (98-107) mmol/L Carbon Dioxide (21-32) mmol/L Anion Gap (3-11) BUN (6-23) mg/dl Creatinine (0.6-1.2) mg/dl Est Cr Clr Drug Dosing ml/min Est GFR ( Amer) ml/min Est GFR (Non-Af Amer) ml/min BUN/Creatinine Ratio (10-20) Glucose (70-99(Fasting)) mg/dl Calcium (8.5-10.1) mg/dl Magnesium (1.7-2.4) mg/dl Total Bilirubin (0.2-1.0) mg/dl AST (13-39) U/L ALT (7-52) U/L Alkaline Phosphatase (34-104) U/L Troponin I High Sens (0-14) pg/ml B-Natriuretic Peptide 58 (0-100) pg/ml Total Protein (6.0-8.3) gm/dl Albumin (3.4-5.0) gm/dl Globulin (2.5-4.0) gm/dl Albumin/Globulin Ratio (0.9-2) Procalcitonin < 0.05 (0-0.5) ng/ml Adenovirus (PCR) Not Detected (NotDetected) B. pertussis DNA (PCR) Not Detected (NotDetected) B.parapertussis DNA PCR Not Detected (NotDetected) C. pneumoniae DNA (PCR) Not Detected (NotDetected) Coronavirus OC43 (PCR) Not Detected (NotDetected) Coronavirus HKU1 (PCR) Not Detected (NotDetected) Coronavirus 229E (PCR) Not Detected (NotDetected) SARS-CoV-2 (PCR) Not Detected (NotDetected) Coronavirus NL63 (PCR) Not Detected (NotDetected) Human Metapneumovir PCR Not Detected (NotDetected) Influenza Type A (PCR) Not Detected (NotDetected) Influenza Type B (PCR) Not Detected (NotDetected) M. pneumoniae (PCR) Not Detected (NotDetected) Parainfluenza 1 (PCR) Not Detected (NotDetected) Parainfluenza 2 (PCR) Not Detected (NotDetected) Parainfluenza 3 (PCR) Not Detected (NotDetected) Parainfluenza 4 (PCR) Not Detected (NotDetected) RSV (PCR) Not Detected (NotDetected) Entero/Rhino (PCR) DETECTED A* (NotDetected) Administered Medications Albuterol (Albut/Ipratrop 3mg/0.5mg Neb 3 Ml Vial) 3 ml NEB Q4R JUDITH; Protocol Stop: 04/22/22 20:46 Last Admin: 03/23/22 21:10 Dose: Not Given Documented By: TARAH Discontinued Medications Albuterol (Albut/Ipratrop 3mg/0.5mg Neb 3 Ml Vial) 3 ml INH NOW STA Stop: 03/23/22 16:15 Last Admin: 03/23/22 16:19 Dose: 3 ml Documented By: HENRI Methylprednisolone (Methylprednisolone 125 Mg/2 Ml Vial) 125 mg IV NOW STA Stop: 03/23/22 16:15 Last Admin: 03/23/22 16:37 Dose: 125 mg Documented By: ML Imaging Data Radiologist's Impression: Chest X-Ray 03/23/22 16:14 XR chest 1V portable HISTORY: 56 years-old Female Dyspnea acute shortness of breath COMPARISON: Chest radiograph 05/23/2021 TECHNIQUE: AP view of the chest FINDINGS: Cardiac silhouette is enlarged. No pneumothorax, pleural effusion, airspace consolidation or overt pulmonary edema. The bones of the chest appear grossly intact. IMPRESSION: Cardiomegaly without acute process. ACT 112: Negative or not required by law. The above report was generated using voice recognition software. It may contain grammatical, syntax or spelling errors. Electronically signed by: Donato Almonte M.D. 03/23/2022 4:36 PM Discharge Plan Visit Data Chief Complaint: Shortness of Breath/Dyspnea Stated Complaint: resp distress ED Provider: Claudy Drake Discharge Problem: Acute hypoxemic respiratory failure, Flu-like symptoms Patient Disposition: Admitted As Inpatient Discharge Instructions Interventions: ED Discharge Assessment Last Done: 03/23/22 20:47
--- NOTE | 2022-03-23 16:39 | XRay Report ---
XR chest 1V portable HISTORY: 56 years-old Female Dyspnea acute shortness of breath COMPARISON: Chest radiograph 05/23/2021 TECHNIQUE: AP view of the chest FINDINGS: Cardiac silhouette is enlarged. No pneumothorax, pleural effusion, airspace consolidation or overt pu lmonary edema. The bones of the chest appear grossly intact. IMPRESSION: Cardiomegaly without acute process. ACT 112: Negative or not required by law. The above report was generated using voice recognition software. It may contain grammatical, syntax o r spelling errors. Electronically signed by: Donato Almonte M.D. 03/23/2022 4:36 PM
[2022-03-23 16:56] LABS: Basophils # (auto) 0.02 K/uL (0-0.2); Basophils % (auto) 0.4 %; Eosinophils # (auto) 0.15 K/uL (0-0.50); Eosinophils % (auto) 3.1 %; Hematocrit (blood only) 35.9 % (34.1-44.9); Hemoglobin 10.4 g/dl (12.0-16.0); Immature Granulocytes # (auto) 0.03 K/uL (0.00-0.02); Immature Granulocytes % (auto) 0.6 %; Lymphocytes # (auto) 1.11 K/uL (1.2-3.4); Lymphocytes % (auto) 22.6 %; Mean Corpuscular Hemoglobin 27.2 pg (25.0-34.0); Mean Platelet Volume 9.1 fL (9.4-12.3); Monocytes # (auto) 0.33 K/uL (0.24-0.82); Monocytes % (auto) 6.7 %; Neutrophils # (auto) 3.27 K/uL (1.4-6.5); Neutrophils % (auto) 66.6 %; Platelet Count 198 K/uL (130-400); RDW Coefficient of Variation 14.6 % (11.5-14.5); Red Blood Count 3.82 M/uL (3.93-5.22); White Blood Count 4.91 K/ul (4.8-10.8)
[2022-03-23 17:07] LABS: Prothrombin Time 10.9 Seconds (9.0-12.0)
[2022-03-23 17:23] LABS: Troponin I High Sensitivity 10.8 pg/ml (0-14)
[2022-03-23 17:30] LABS: Adenovirus PCR Not Detected (NotDetected); Bordetella parapertussis PCR Not Detected (NotDetected); Bordetella pertussis PCR Not Detected (NotDetected); Chlamydia pneumoniae PCR Not Detected (NotDetected); Coronavirus 229E PCR Not Detected (NotDetected); Coronavirus CoV-2 (COVID19)PCR Not Detected (NotDetected); Coronavirus HKU1 PCR Not Detected (NotDetected); Coronavirus NL63 PCR Not Detected (NotDetected); Coronavirus OC43PCR Not Detected (NotDetected); Human Metapneumovirus PCR Not Detected (NotDetected); Influenza A PCR Not Detected (NotDetected); Influenza B PCR Not Detected (NotDetected); Mycoplasma pneumoniae PCR Not Detected (NotDetected); Parainfluenza Virus 1 PCR Not Detected (NotDetected); Parainfluenza Virus 2 PCR Not Detected (NotDetected); Parainfluenza Virus 3 PCR Not Detected (NotDetected); Parainfluenza Virus 4 PCR Not Detected (NotDetected); Respiratory Syncytial VirusPCR Not Detected (NotDetected)
[2022-03-23 17:44] LABS: Rhinovirus/Enterovirus PCR DETECTED (NotDetected)
[2022-03-23 17:50] LABS: Albumin Globulin Ratio 1.2 (0.9-2); Albumin Level 3.8 gm/dl (3.4-5.0); BUN Creatinine Ratio 14.5 (10-20); Bilirubin,Total 0.4 mg/dl (0.2-1.0); Est GFR (African American) 114.4 ml/min; Est GFR (Non-African American) 98.7 ml/min; Globulin 3.3 gm/dl (2.5-4.0); Magnesium 1.9 mg/dl (1.7-2.4); Potassium 3.9 mmol/L (3.5-5.1); Total Protein 7.1 gm/dl (6.0-8.3)
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
[2022-03-23] MEDS ORDERED: GLUCOSE 10 TAB/TUBE PO PRN (20:47)
[2022-03-23] MEDS ORDERED: GLUCAGON FOR INJ 1 MG VIAL SQ PRN (20:47)
[2022-03-23] MEDS ORDERED: ONDANSETRON INJ 2 MG/ML 2 ML VIAL IV PRN (20:47)
[2022-03-23] MEDS ORDERED: GLUCOSE 40% GEL 15 GM TUBE PO PRN (20:47)
[2022-03-23] MEDS ORDERED: ACETAMINOPHEN 500 MG TAB PO PRN (20:47)
[2022-03-23] MEDS ORDERED: DEXTROSE 50% 50 ML SYRINGE IV PRN (20:47)
[2022-03-23] MEDS ORDERED: PHARMACY GLYCEMIC MGMT CONSULT PRN (20:47)
[2022-03-23] MEDS ORDERED: POLYETHYLENE (MIRALAX) 17 GM PACK PO PRN (20:47)
[2022-03-23] MEDS ORDERED: CARBOHYDRATES FOR HYPOGLYCEMIA PO PRN (20:47)
[2022-03-23] MEDS: ALBUT/IPRATROP 3MG/0.5MG NEB 3 ML VIAL NEB SCH ×2 (21:10→22:38)
[2022-03-23] MEDS: GABAPENTIN 400 MG CAP PO SCH (21:59)
[2022-03-23] MEDS: PANTOprazole 40 MG TAB PO SCH (22:00)
[2022-03-23] MEDS: guaiFENesin 600 MG TABCR PO SCH (22:00)
[2022-03-23] MEDS: QUEtiapine FUMARATE 300 MG TABLET PO SCH (22:00)
[2022-03-23] MEDS: APIXABAN 5 MG TABLET PO SCH (22:01)
[2022-03-23] MEDS: LACTULOSE SYRUP 20 GM/30 ML UDC PO SCH (22:01)
[2022-03-23] MEDS: methylPREDNISolone 40 MG in SYRINGE 0 ML IV SCH (22:02)
[2022-03-23] MEDS: LANTUS PER UNIT CHARGE SQ SCH (22:17)
[2022-03-23] MEDS: INSULIN ASPART PER UNIT SC SCH (22:17)
[2022-03-23 22:44] LABS: Appearance Urine Cloudy (Clear); Bacteria Urine Automated 4+ (Negative); Bilirubin Urine Negative (Negative); Blood Urine 3+ (Negative); Color Urine Dark Yellow; Epithelial Cell Urine Auto >30 /lpf (0-5); Glucose Urine UA Trace (Negative); Ketones Urine 2+ (Negative); Leukocyte Esterase Urine 2+ (Negative); Nitrite Urine Positive (Negative); Protein Urine 2+ (Negative); Specific Gravity Urine 1.021 (1.000-1.030); Urobilinogen Urine Positive (Negative); WBC Urine Automated >30 /hpf (0-5); pH Urine 6.5 (4.5-7.5)
[2022-03-23 22:55] LABS: Cast Urine Automated 0 /lpf (0-5)
[2022-03-23] MEDS: oxyCODONE HCL IR 5 MG TAB (IMMEDIATE RELEASE) PO PRN (23:38)
[2022-03-23] MEDS ORDERED: BACITRACIN OINT 15 GM TUBE EXT PRN (23:47)
[2022-03-24] MEDS: INSULIN ASPART PER UNIT SC SCH ×6 (01:07→21:28)
[2022-03-24] MEDS: ALBUT/IPRATROP 3MG/0.5MG NEB 3 ML VIAL NEB SCH ×6 (03:26→22:34)
[2022-03-24] MEDS: methylPREDNISolone 40 MG in SYRINGE 0 ML IV SCH ×3 (05:30→21:17)
[2022-03-24] MEDS: oxyCODONE HCL IR 5 MG TAB (IMMEDIATE RELEASE) PO PRN ×2 (06:37→21:31)
[2022-03-24 06:50] LABS: Hematocrit (blood only) 37.3 % (34.1-44.9); Hemoglobin 11.7 g/dl (12.0-16.0); Mean Corpuscular Hemoglobin 28.7 pg (25.0-34.0); Mean Corpuscular Hgb Conc 31.4 g/dL (32.0-36.0); Mean Corpuscular Volume 91.6 fL (80.0-100.0); Mean Platelet Volume 9.2 fL (9.4-12.3); Nucleated RBC # (auto) 0.02 K/uL (0-0); Nucleated RBC % (auto) 0.4 %; Platelet Count 203 K/uL (130-400); RDW Coefficient of Variation 14.4 % (11.5-14.5); RDW Standard Deviation 48.6 fL (36.4-46.3); Red Blood Count 4.07 M/uL (3.93-5.22); White Blood Count 5.04 K/ul (4.8-10.8)
[2022-03-24 07:10] LABS: BUN Creatinine Ratio 17.6 (10-20); Calcium 9.4 mg/dl (8.5-10.1); Creatinine Clr Calc Pharmacy 170.5 ml/min; Est GFR (African American) 106.5 ml/min; Est GFR (Non-African American) 91.8 ml/min
--- NOTE | 2022-03-24 07:19 | Electrocardiogram Report ---
Test Reason : Blood Pressure : / mmHG Vent. Rate : 076 BPM Atrial Rate : 076 BPM P-R Int : 170 ms QRS Dur : 148 ms QT Int : 436 ms P-R-T Axes : 074 064 038 degrees QTc Int : 490 ms Normal sinus rhythm Right bundle branch block Poor R wave progression, consider anterior NH vs. lead placement vs. LVH Abnormal ECG When compared with ECG of 22-MAY-2021 20:03, No significant change was found Confirmed by Stanton Laws ([id number]) on 03/24/2022 7:19:12 AM Referred By: REFERRED SELF Confirmed By:Jose Martin Laws
[2022-03-24 07:42] LABS: Estimated Average Glucose 212 mg/dl
[2022-03-24] MEDS: APIXABAN 5 MG TABLET PO SCH ×2 (09:01→21:18)
[2022-03-24] MEDS: PANTOprazole 40 MG TAB PO SCH ×2 (09:01→21:17)
[2022-03-24] MEDS: QUEtiapine FUMARATE 300 MG TABLET PO SCH ×2 (09:01→21:18)
[2022-03-24] MEDS: guaiFENesin 600 MG TABCR PO SCH ×2 (09:01→21:17)
[2022-03-24] MEDS: LACTULOSE SYRUP 20 GM/30 ML UDC PO SCH ×2 (09:01→21:18)
[2022-03-24] MEDS: ATORVASTATIN 10 MG TAB PO SCH (09:02)
[2022-03-24] MEDS: buPROPion XL 150 MG TABCR PO SCH (09:02)
[2022-03-24] MEDS: rOPINIRole HCL 1 MG TABLET PO SCH ×3 (09:02→17:09)
[2022-03-24] MEDS: FUROSEMIDE 20 MG TAB PO SCH (09:02)
[2022-03-24] MEDS: GABAPENTIN 400 MG CAP PO SCH ×3 (09:02→21:17)
[2022-03-24] MEDS: TOLTERODINE TARTRATE LA 2 MG CAPCR PO SCH (09:02)
[2022-03-24] MEDS: LANTUS PER UNIT CHARGE SQ SCH (09:03)
[2022-03-24] MEDS: ADVANCED PROBIOTIC 1250 MG CAPSULE PO SCH (10:02)
[2022-03-24] MEDS: cefTRIAXone SODIUM 2,000 MG in DEXTROSE 5% 50 ML IV SCH (10:02)
[2022-03-24] MEDS ORDERED: LANTUS PER UNIT CHARGE SQ ONE (12:00)
[2022-03-24] MEDS: COLLAGENASE OINT 30 GM TUBE EXT SCH (13:48)
[2022-03-24] MEDS: BACITRACIN OINT 15 GM TUBE EXT SCH (13:49)
--- NOTE | 2022-03-24 15:10 | Pharmacy Report ---
Pharmacy Glycemic Short Note 2 - Date of Service March 24, 2022 - Glycemic Short BSG Results (Last 24 hours): 03/23/22 03/23/22 03/24/22 16:20 21:04 00:49 Glucose 166 H POC Glucose 249 H 292 H 03/24/22 03/24/22 03/24/22 03:59 06:02 07:22 Glucose 208 H POC Glucose 254 H 197 H 03/24/22 03/24/22 11:46 11:46 Glucose POC Glucose 325 H* 317 H* OUTPATIENT ANTIDIABETIC REGIMEN: * lantus 50 units bid, apidra 50 units achs ASSESSMENT: * 56 year old female admitted with respiratory failure, started on IV steroids. Type 2 diabetic managed on ~300 units of insulin at home. Patient received home Lantus dose last evening. Fasting BSG 208 mg/dL - however was given correctional insulin overnight as BSGs elevated from steroid. * Previous admissions, patient requiring ~150 units of insulin per day. Will base insulin off of stress of 2/3 dosing of ~150 units for now. Previous admissions, patient requiring closer to 70 units of basal daily. (this was without steroids however) PLAN FOR INPATIENT GLYCEMIC CONTROL: * Hold outpatient oral diabetes medications * Basal insulin * Lantus 50-60 units bid * Bolus insulin * NovoLog per scale ACHS or Q6hrs while NPO * Goal Range: Low 110 mg/dL - High 140 mg/dL * Correction Factor: 6 mg/dL/unit * Nutritional / Prandial insulin per carb ratio of 1 unit per 2 grams CHO consumed
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
[2022-03-24] MEDS ORDERED: LANTUS PER UNIT CHARGE SQ SCH ×2 (21:00)
[2022-03-24] MEDS: METOPROLOL TARTRATE 25 MG TAB PO SCH (21:17)
[2022-03-25] MEDS: INSULIN ASPART PER UNIT SC SCH ×7 (00:17→20:56)
[2022-03-25] MEDS: ALBUT/IPRATROP 3MG/0.5MG NEB 3 ML VIAL NEB SCH ×6 (03:31→22:54)
[2022-03-25] MEDS: methylPREDNISolone 40 MG in SYRINGE 0 ML IV SCH ×2 (06:15→13:03)
[2022-03-25] MEDS: oxyCODONE HCL IR 5 MG TAB (IMMEDIATE RELEASE) PO PRN ×3 (06:18→20:53)
[2022-03-25 06:44] LABS: Hemoglobin 11.4 g/dl (12.0-16.0); Mean Corpuscular Hemoglobin 28.4 pg (25.0-34.0); Mean Corpuscular Hgb Conc 30.8 g/dL (32.0-36.0); Mean Corpuscular Volume 92.3 fL (80.0-100.0); Platelet Count 198 K/uL (130-400); RDW Coefficient of Variation 14.6 % (11.5-14.5); Red Blood Count 4.01 M/uL (3.93-5.22); White Blood Count 6.14 K/ul (4.8-10.8)
[2022-03-25 07:00] LABS: BUN Creatinine Ratio 24.1 (10-20); Calcium 9.2 mg/dl (8.5-10.1); Creatinine Clr Calc Pharmacy 159.6 ml/min; Est GFR (African American) 98.4 ml/min; Est GFR (Non-African American) 84.9 ml/min; Potassium 4.2 mmol/L (3.5-5.1)
[2022-03-25] MEDS: LANTUS PER UNIT CHARGE SQ SCH ×2 (08:51→20:55)
[2022-03-25] MEDS: PANTOprazole 40 MG TAB PO SCH ×2 (08:56→20:53)
[2022-03-25] MEDS: LACTULOSE SYRUP 20 GM/30 ML UDC PO SCH ×2 (08:56→20:54)
[2022-03-25] MEDS: ATORVASTATIN 10 MG TAB PO SCH (08:56)
[2022-03-25] MEDS: cefTRIAXone SODIUM 2,000 MG in DEXTROSE 5% 50 ML IV SCH (08:56)
[2022-03-25] MEDS: METOPROLOL TARTRATE 25 MG TAB PO SCH ×2 (08:57→20:55)
[2022-03-25] MEDS: GABAPENTIN 400 MG CAP PO SCH ×3 (08:57→20:52)
[2022-03-25] MEDS: TOLTERODINE TARTRATE LA 2 MG CAPCR PO SCH (08:57)
[2022-03-25] MEDS: rOPINIRole HCL 1 MG TABLET PO SCH ×3 (08:57→16:44)
[2022-03-25] MEDS: QUEtiapine FUMARATE 300 MG TABLET PO SCH ×2 (08:57→20:54)
[2022-03-25] MEDS: APIXABAN 5 MG TABLET PO SCH ×2 (08:57→20:53)
[2022-03-25] MEDS: FUROSEMIDE 20 MG TAB PO SCH (08:57)
[2022-03-25] MEDS: guaiFENesin 600 MG TABCR PO SCH ×2 (08:57→20:54)
[2022-03-25] MEDS: ADVANCED PROBIOTIC 1250 MG CAPSULE PO SCH (08:58)
[2022-03-25] MEDS: buPROPion XL 150 MG TABCR PO SCH (08:58)
[2022-03-25] MEDS: COLLAGENASE OINT 30 GM TUBE EXT SCH (08:58)
[2022-03-25] MEDS: BACITRACIN OINT 15 GM TUBE EXT SCH (08:58)
--- NOTE | 2022-03-25 13:50 | XRay Report ---
XR chest 1V portable, XR KUB/Abdomen 1 view HISTORY: 56 years-old Female b/l basilar rales; rhinovirus infection acute chest and abdominal pain COMPARISON: Chest radiograph 03/23/2022 TECHNIQUE: AP view the chest with KUB radiograph FINDINGS: CHEST: Cardiac silhouette is enlarged. No pneumothorax, pleural effusion, airspace consolidation or overt pu lmonary edema. Lateral right lung base is partially excluded from the [id number]. Bones of the ishaan st appear grossly intact. KUB: Limited exam secondary to patient body habitus. Moderate to extensive colonic fecal retention. There is gaseous distention of the stomach and large bowel. No definite small bowel obstruction. Possible left nephrolithiasis. Degenerative changes of the spine, pelvis and hips. IMPRESSION: 1. Cardiomegaly without acute processes of the chest. 2. Moderate to extensive colonic fecal retention. 3. Gaseous distention of the stomach and large bowel. 4. Limited study secondary to patient body habitus. ACT 112: Negative or not required by law. The above report was generated using voice recognition software. It may contain grammatical, syntax o r spelling errors. Electronically signed by: Donato Almonte M.D. 03/25/2022 1:48 PM
--- NOTE | 2022-03-25 14:54 | Pharmacy Report ---
Pharmacy Glycemic Short Note 2 - Date of Service March 25, 2022 - Glycemic Short BSG Results (Last 24 hours): 03/24/22 03/24/22 03/24/22 16:57 20:04 23:56 Glucose POC Glucose 177 H 239 H 256 H 03/25/22 03/25/22 03/25/22 04:00 06:27 07:35 Glucose 254 H POC Glucose 240 H 284 H 03/25/22 11:27 Glucose POC Glucose 192 H OUTPATIENT ANTIDIABETIC REGIMEN: * lantus 50 units bid, apidra 50 units achs ASSESSMENT: 03/25 * Patient received total of ~300 units of insulin yesterday, of which 120 units were basal insulin. * Fasting BSG 284 mg/dL - of note patient received about 30 units of novolog overnight, will add this onto daily basal and increase to 75 units bid (from 60 units bid) * Tightened CF/CR with breakfast, lunch BSG trending down - will loosen as concerned for stacking of large doses of insulin and close administration times. 03/24 * 56 year old female admitted with respiratory failure, started on IV steroids. Type 2 diabetic managed on ~300 units of insulin at home. Patient received home Lantus dose last evening. Fasting BSG 208 mg/dL - however was given correctional insulin overnight as BSGs elevated from steroid. * Previous admissions, patient requiring ~150 units of insulin per day. Will base insulin off of stress of 2/3 dosing of ~150 units for now. Previous admissions, patient requiring closer to 70 units of basal daily. (this was without steroids however) PLAN FOR INPATIENT GLYCEMIC CONTROL: * Hold outpatient oral diabetes medications * Basal insulin * Lantus 75 units bid * Bolus insulin * NovoLog per scale ACHS or Q6hrs while NPO * Goal Range: Low 110 mg/dL - High 140 mg/dL * Correction Factor: 6 mg/dL/unit * Nutritional / Prandial insulin per carb ratio of 1 unit per 3 grams CHO consumed
[2022-03-25] MEDS ORDERED: bisacodyL 5 MG TABEC PO ONE (15:55)
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
[2022-03-26] MEDS: INSULIN ASPART PER UNIT SC SCH ×5 (00:24→22:03)
[2022-03-26] MEDS: ALBUT/IPRATROP 3MG/0.5MG NEB 3 ML VIAL NEB SCH ×6 (02:53→22:33)
[2022-03-26 07:15] LABS: Hematocrit (blood only) 38.1 % (34.1-44.9); Hemoglobin 11.7 g/dl (12.0-16.0); Mean Corpuscular Hemoglobin 28.3 pg (25.0-34.0); Mean Corpuscular Hgb Conc 30.7 g/dL (32.0-36.0); Mean Corpuscular Volume 92.3 fL (80.0-100.0); Platelet Count 215 K/uL (130-400); RDW Coefficient of Variation 14.6 % (11.5-14.5); RDW Standard Deviation 49.3 fL (36.4-46.3); Red Blood Count 4.13 M/uL (3.93-5.22); White Blood Count 8.36 K/ul (4.8-10.8)
[2022-03-26 07:35] LABS: BUN Creatinine Ratio 26.8 (10-20); Calcium 9.8 mg/dl (8.5-10.1); Creatinine Clr Calc Pharmacy 121.4 ml/min; Est GFR (African American) 76.7 ml/min; Est GFR (Non-African American) 66.2 ml/min; Potassium 4.1 mmol/L (3.5-5.1)
[2022-03-26] MEDS: COLLAGENASE OINT 30 GM TUBE EXT SCH (08:36)
[2022-03-26] MEDS: GABAPENTIN 400 MG CAP PO SCH ×3 (08:36→21:51)
[2022-03-26] MEDS: LACTULOSE SYRUP 20 GM/30 ML UDC PO SCH ×2 (08:36→21:48)
[2022-03-26] MEDS: BACITRACIN OINT 15 GM TUBE EXT SCH (08:37)
[2022-03-26] MEDS: APIXABAN 5 MG TABLET PO SCH ×2 (08:37→21:51)
[2022-03-26] MEDS: rOPINIRole HCL 1 MG TABLET PO SCH ×3 (08:37→17:35)
[2022-03-26] MEDS: guaiFENesin 600 MG TABCR PO SCH ×2 (08:37→21:50)
[2022-03-26] MEDS: QUEtiapine FUMARATE 300 MG TABLET PO SCH ×2 (08:38→21:50)
[2022-03-26] MEDS: METOPROLOL TARTRATE 25 MG TAB PO SCH ×2 (08:38→21:49)
[2022-03-26] MEDS: PANTOprazole 40 MG TAB PO SCH ×2 (08:38→21:52)
[2022-03-26] MEDS: TOLTERODINE TARTRATE LA 2 MG CAPCR PO SCH (08:38)
[2022-03-26] MEDS: ADVANCED PROBIOTIC 1250 MG CAPSULE PO SCH (08:38)
[2022-03-26] MEDS: FUROSEMIDE 20 MG TAB PO SCH (08:38)
[2022-03-26] MEDS: buPROPion XL 150 MG TABCR PO SCH (08:38)
[2022-03-26] MEDS: ATORVASTATIN 10 MG TAB PO SCH (08:38)
[2022-03-26] MEDS: oxyCODONE HCL IR 5 MG TAB (IMMEDIATE RELEASE) PO PRN ×3 (08:49→22:02)
[2022-03-26] MEDS ORDERED: LANTUS PER UNIT CHARGE SQ SCH (09:00)
[2022-03-26] MEDS: CEFDINIR 300 MG CAP PO SCH ×2 (09:33→21:50)
[2022-03-26] MEDS: predniSONE 20 MG TAB PO SCH (09:33)
[2022-03-26] MEDS: SENNA 8.6 MG TAB PO SCH (09:33)
--- NOTE | 2022-03-26 14:58 | Pharmacy Report ---
Pharmacy Glycemic Short Note 2 - Date of Service March 26, 2022 - Glycemic Short BSG Results (Last 24 hours): 03/25/22 03/25/22 03/26/22 16:38 19:56 00:08 Glucose POC Glucose 153 H 221 H 233 H 03/26/22 03/26/22 03/26/22 07:02 08:16 12:18 Glucose 145 H POC Glucose 163 H 153 H OUTPATIENT ANTIDIABETIC REGIMEN: * lantus 50 units bid, apidra 50 units achs ASSESSMENT: 03/26 * Patient received total of 308 units of insulin yesterday, of which 150 units were basal insulin * Fasting BSG 145 mg/dL - however did receive 16 units of novolog overnight. Steroids now changing to prednisone 40 mg daily therefore anticipate insulin needs to decrease * Will scale basal back to home dosing of 50-60 units bid * Kept with tighter CR with breakfast, looser coverage rest of day since BSGs tend to trend downward 03/25 * Patient received total of ~300 units of insulin yesterday, of which 120 units were basal insulin. * Fasting BSG 284 mg/dL - of note patient received about 30 units of novolog overnight, will add this onto daily basal and increase to 75 units bid (from 60 units bid) * Tightened CF/CR with breakfast, lunch BSG trending down - will loosen as concerned for stacking of large doses of insulin and close administration times. 03/24 * 56 year old female admitted with respiratory failure, started on IV steroids. Type 2 diabetic managed on ~300 units of insulin at home. Patient received home Lantus dose last evening. Fasting BSG 208 mg/dL - however was given correctional insulin overnight as BSGs elevated from steroid. * Previous admissions, patient requiring ~150 units of insulin per day. Will base insulin off of stress of 2/3 dosing of ~150 units for now. Previous admissions, patient requiring closer to 70 units of basal daily. (this was without steroids however) PLAN FOR INPATIENT GLYCEMIC CONTROL: * Hold outpatient oral diabetes medications * Basal insulin * Lantus 50-60 units bid * Bolus insulin * NovoLog per scale ACHS or Q6hrs while NPO * Goal Range: Low 110 mg/dL - High 140 mg/dL * Correction Factor: 8 mg/dL/unit * Nutritional / Prandial insulin per carb ratio of 1 unit per 4 grams CHO consumed
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
[2022-03-26] MEDS: LANTUS PER UNIT CHARGE SQ SCH (22:03)
[2022-03-27] MEDS: INSULIN ASPART PER UNIT SC SCH ×2 (01:21→08:39)
[2022-03-27] MEDS: ALBUT/IPRATROP 3MG/0.5MG NEB 3 ML VIAL NEB SCH ×4 (02:43→14:26)
[2022-03-27] MEDS: APIXABAN 5 MG TABLET PO SCH (08:32)
[2022-03-27] MEDS: guaiFENesin 600 MG TABCR PO SCH (08:32)
[2022-03-27] MEDS: CEFDINIR 300 MG CAP PO SCH (08:32)
[2022-03-27] MEDS: QUEtiapine FUMARATE 300 MG TABLET PO SCH (08:32)
[2022-03-27] MEDS: PANTOprazole 40 MG TAB PO SCH (08:32)
[2022-03-27] MEDS: LACTULOSE SYRUP 20 GM/30 ML UDC PO SCH (08:32)
[2022-03-27] MEDS: METOPROLOL TARTRATE 25 MG TAB PO SCH (08:32)
[2022-03-27] MEDS: ADVANCED PROBIOTIC 1250 MG CAPSULE PO SCH (08:33)
[2022-03-27] MEDS: ATORVASTATIN 10 MG TAB PO SCH (08:33)
[2022-03-27] MEDS: rOPINIRole HCL 1 MG TABLET PO SCH ×2 (08:33→11:56)
[2022-03-27] MEDS: buPROPion XL 150 MG TABCR PO SCH (08:33)
[2022-03-27] MEDS: TOLTERODINE TARTRATE LA 2 MG CAPCR PO SCH (08:33)
[2022-03-27] MEDS: SENNA 8.6 MG TAB PO SCH (08:33)
[2022-03-27] MEDS: FUROSEMIDE 20 MG TAB PO SCH (08:33)
[2022-03-27] MEDS: BACITRACIN OINT 15 GM TUBE EXT SCH (08:34)
[2022-03-27] MEDS: COLLAGENASE OINT 30 GM TUBE EXT SCH (08:34)
[2022-03-27] MEDS: predniSONE 20 MG TAB PO SCH (08:35)
[2022-03-27] MEDS: GABAPENTIN 400 MG CAP PO SCH ×2 (08:35→13:25)
[2022-03-27] MEDS: LANTUS PER UNIT CHARGE SQ SCH (08:40)
[2022-03-27] MEDS: oxyCODONE HCL IR 5 MG TAB (IMMEDIATE RELEASE) PO PRN ×2 (08:44→14:21)
[2022-03-27] MEDS ORDERED: LANTUS PER UNIT CHARGE SQ SCH (09:00)
--- NOTE | 2022-03-27 09:50 | Pharmacy Report ---
Pharmacy Glycemic Short Note 2 - Date of Service March 27, 2022 - Glycemic Short BSG Results (Last 24 hours): 03/26/22 03/26/22 03/26/22 12:18 17:27 20:12 POC Glucose 153 H 189 H 201 H 03/27/22 03/27/22 01:12 08:25 POC Glucose 231 H 210 H OUTPATIENT ANTIDIABETIC REGIMEN: * lantus 50 units bid, apidra 50 units achs ASSESSMENT: 03/27: * BSGs elevated [id number]/dL the last 24h. Fasting elevated to 210mg/dL this AM. Patient received 193 units of insulin yesterday, 110 units of basal. * Tolerating a diet, continues on prednisone 40mg and cefdinir. * Insulin needs significantly decreased since steroids modified however given elevated fasting BSG, will increase basal by ~ 10%. Novolog parameters tightened to 6/2 at breakfast. 03/26 * Patient received total of 308 units of insulin yesterday, of which 150 units were basal insulin * Fasting BSG 145 mg/dL - however did receive 16 units of novolog overnight. Steroids now changing to prednisone 40 mg daily therefore anticipate insulin needs to decrease * Will scale basal back to home dosing of 50-60 units bid * Kept with tighter CR with breakfast, looser coverage rest of day since BSGs tend to trend downward 03/25 * Patient received total of ~300 units of insulin yesterday, of which 120 units were basal insulin. * Fasting BSG 284 mg/dL - of note patient received about 30 units of novolog overnight, will add this onto daily basal and increase to 75 units bid (from 60 units bid) * Tightened CF/CR with breakfast, lunch BSG trending down - will loosen as concerned for stacking of large doses of insulin and close administration times. 03/24 * 56 year old female admitted with respiratory failure, started on IV steroids. Type 2 diabetic managed on ~300 units of insulin at home. Patient received home Lantus dose last evening. Fasting BSG 208 mg/dL - however was given correctional insulin overnight as BSGs elevated from steroid. * Previous admissions, patient requiring ~150 units of insulin per day. Will base insulin off of stress of 2/3 dosing of ~150 units for now. Previous admissions, patient requiring closer to 70 units of basal daily. (this was without steroids however) PLAN FOR INPATIENT GLYCEMIC CONTROL: * Hold outpatient oral diabetes medications * Basal insulin * Lantus 60 units bid * Bolus insulin * NovoLog per scale ACHS or Q6hrs while NPO * Goal Range: Low 110 mg/dL - High 140 mg/dL * Correction Factor: 8 mg/dL/unit (6mg/dL/unit at breakfast) * Nutritional / Prandial insulin per carb ratio of 1 unit per 4 grams (2gm @ breakfast) CHO consumed
[2022-03-27] MEDS ORDERED: INSULIN ASPART PER UNIT SC SCH (11:30)
[2022-03-28] MEDS ORDERED: INSULIN ASPART PER UNIT SC SCH (07:30)
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
== END 2022-03-27 16:00 | disposition home health service (06) | DRG 202 ==
LOC: ED 15:53 → SUATTDRO 18:56 → 2S 18:56 → 3W 03-25 16:39